=== PATIENT | female | born 1945 | race Caucasian/White ===

== ENCOUNTER 2025-08-29 12:02 | Inpatient (IN) | payer MEDICARE, OTHER, SELFPAY ==
--- OUTSIDE RECORDS SUMMARY | 2025-08-14 20:00 | XMS_ITS | Clinical Summary ---
Author Organization Unknown Care Team Providers Care Physician Specialist Name Role Phone JANINE DAVIES, DENZEL Unavailable Unavaila ble FEEZOGerman OT, BALBIR Unavailable Unavailable TEENA PT, MAHENDRA Unavailable Unavailable JESSE RN, EDEL Unavailable Unavailable MILLER BUSINESS APPLICATIONS SPECIALIST, STUART Unavailable Unavailable LEONEL AHUMADAN, CORBIN Unavailable Unavailable Payers Payer Name Policy Type Policy Number Effective Date Expira tion Date MEDICARE[facility] [id number] Problems Condition Name Condition Details Condition Category Status Onset Date Resolution Date Last Treatment Date Treating Clinician Comments PRIMARY GENERALIZED (OSTEO)ARTHR ITIS Active 05-23 00:00: 00 OTHER CHRONIC PAIN Active 05-23 00:00: 00 RADICULOPATH Y, LUMBOSACRAL REGION Active 05-23 00:00: 00 FIBROMYALGIA Active 05-23 00:00: 00 TYPE 2 DIABETES MELLITUS WITH DIABETIC POLYNEUROPAT HY Active 05-23 00:00: 00 ATHSCL HEART DISEASE OF [place] CORONARY ARTERY W/O ANG PCTRS Active 05-23 00:00: 00 LOCALIZED EDEMA Active 05-23 00:00: 00 ESSENTIAL (PRIMARY) HYPERTENSION Active 05-23 00:00: 00 PURE HYPERCHOLEST EROLEMIA, UNSPECIFIED Active 05-23 00:00: 00 PAROXYSMAL ATRIAL FIBRILLATION Active 05-23 00:00: 00 SICK SINUS SYNDROME Active 1- 00:00: 00 HYPOTHYROIDI SM, UNSPECIFIED Active 05-23 00:00: 00 GASTRO-ESOPH AGEAL REFLUX DISEASE WITHOUT ESOPHAGITIS Active 05-23 00:00: 00 SLEEP APNEA, UNSPECIFIED Active 05-23 00:00: 00 GOUT, UNSPECIFIED Active 05-23 00:00: 00 PULMONARY HYPERTENSION , UNSPECIFIED Active 05-23 00:00: 00 PRESENCE OF CARDIAC PACEMAKER Active 11-07 00:00: 00 Allergies, Adverse Reactions, Alerts Allergy Name Allergy Type Status Severity Reaction(s) Onset Date Inactive Date Treating Clinician Comments NAPROXEN Propensity to adverse reactions Active 2025-05 13:25:4 8 Medications Ordered Medication Name Filled Medication Name Start Date Stop Date Current Medication? Ordering Clinician Indication Dosage Frequency Signature (SIG) Comments Components donepezil 10 mg tablet 04-13 00:00: 00 09-04 23:59 :00 No [id number] MOOD 1 tablet DAILY 1 tablet DAILY (route: oral) Med Classific ation: Cognitive Disorder Therapy allopurinol 100 mg tablet 04-08 00:00: 00 09-04 23:59 :00 No [id number] GOUT 1 tablet 2 TIMES DAILY 1 tablet 2 TIMES DAILY (route: oral) Med Classific ation: Gout and Hyperuric emia Therapy methocarbam ol 500 mg tablet 04-08 00:00: 00 09-04 23:59 :00 No [id number] PAIN 1 tablet 2 TIMES DAILY 1 tablet 2 TIMES DAILY (route: oral) Med Classific ation: Locomotor System levothyroxi ne 112 mcg tablet 03-29 00:00: 00 09-04 23:59 :00 No [id number] THYROID 1 tablet DAILY 1 tablet DAILY (route: oral) Med Classific ation: Endocrine aspirin 81 mg tablet,gonzalez yed release 04-19 00:00: 00 09-04 23:59 :00 No [id number] HEART HEALTH 1 tablet DAILY 1 tablet DAILY (route: oral) Med Classific ation: Hematolog ical Agents carvedilol 3.125 mg tablet 04-19 00:00: 00 09-04 23:59 :00 No [id number] HTN 1 tablet 2 TIMES DAILY 1 tablet 2 TIMES DAILY (route: oral) Med Classific ation: Cardiovas cular Therapy Agents famotidine 40 mg tablet 04-19 00:00: 00 09-04 23:59 :00 No [id number] GERD 1 tablet DAILY 1 tablet DAILY (route: oral) Med Classific ation: Gastroint estinal Therapy Agents rosuvastati n 5 mg tablet 04-19 00:00: 00 09-04 23:59 :00 No [id number] CHOLESTEROL 1 tablet DAILY 1 tablet DAILY (route: oral) Med Classific ation: Cardiovas cular Therapy Agents allopurinol 100 mg tablet 2023-11 00:00: 00 05-22 23:59 :00 No [id number] GOUT 1 tablet 2 TIMES DAILY 1 tablet 2 TIMES DAILY (route: oral) Med Classific ation: Gout and Hyperuric emia Therapy Aspirin Childrens 81 mg chewable tablet 2023-11 00:00: 00 05-22 23:59 :00 No [id number] HEART 1 tablet DAILY 1 tablet DAILY (route: oral) Med Classific ation: Hematolog ical Agents baclofen 20 mg tablet 2023-11 00:00: 00 05-22 23:59 :00 No [id number] MUSCLE SPASMS 1 tablet 2 TIMES DAILY 1 tablet 2 TIMES DAILY (route: oral) Med Classific ation: Locomotor System carvedilol 3.125 mg tablet 2023-11 00:00: 00 05-22 23:59 :00 No [id number] BLOOD PRESSURE 1 tablet 2 TIMES DAILY 1 tablet 2 TIMES DAILY (route: oral) Med Classific ation: Cardiovas cular Therapy Agents memantine 28 mg capsule sprinkle,ex tended release 24hr 2023-11 00:00: 00 05-22 23:59 :00 No [id number] CONFUSION 1 capsule DAILY 1 capsule DAILY (route: oral) Med Classific ation: Cognitive Disorder Therapy baclofen 20 mg tablet 04-23 00:00: 00 Yes [id number] MUSCLE RELAXANT 1 tablet 2 TIMES DAILY 1 tablet 2 TIMES DAILY (route: oral) Med Classific ation: Locomotor System acetaminoph en 500 mg tablet 11-07 00:00: 00 Yes [id number] PAIN 2 tablet EVERY 8 HOURS 2 tablet EVERY 8 HOURS (route: oral) Med Classific ation: Analgesic , Anti-infl ammatory or Antipyret ic Adult Low Dose Aspirin 81 mg tablet,gonzalez yed release 11-07 00:00: 00 Yes [id number] BLOOD THINNER 1 tablet DAILY 1 tablet DAILY (route: oral) Med Classific ation: Hematolog ical Agents calcium 600 mg (as carbonate)- vitamin D3 20 mcg (800 unit) tablet 11-07 00:00: 00 Yes [id number] SUPPLIMENT 1 tablet DAILY 1 tablet DAILY (route: oral) Med Classific ation: Electroly te Balance-N utritiona l Products carvedilol 3.125 mg tablet 11-07 00:00: 00 Yes [id number] HYPERTENTIO N 1 tablet 2 TIMES DAILY 1 tablet 2 TIMES DAILY (route: oral) Med Classific ation: Cardiovas cular Therapy Agents Centrum Silver Women 8 mg iron-400 mcg-50 mcg tablet 11-07 00:00: 00 Yes [id number] SUPPLIMENT 1 tablet DAILY 1 tablet DAILY (route: oral) Med Classific ation: Electroly te Balance-N utritiona l Products Hair,Skin and Nails (folic acid-biotin ) 133.3 mcg-1,666.7 mcg capsule 11-07 00:00: 00 Yes [id number] SUPPLIMENT 1 capsule DAILY 1 capsule DAILY (route: oral) Med Classific ation: Electroly te Balance-N utritiona l Products ibuprofen 200 mg capsule 11-07 00:00: 00 Yes [id number] PAIN 1 capsule 3 TIMES DAILY 1 capsule 3 TIMES DAILY (route: oral) Med Classific ation: Analgesic , Anti-infl ammatory or Antipyret ic Immune Essentials Daily 750 mcg-150 mg-31.25 mcg capsule 11-07 00:00: 00 Yes [id number] SUPPLIMENT 1 capsule 2 TIMES DAILY 1 capsule 2 TIMES DAILY (route: oral) Med Classific ation: Alternati ve Therapy loratadine 10 mg tablet 11-07 00:00: 00 Yes [id number] SEASONAL ALLERGIES 1 tablet DAILY 1 tablet DAILY (route: oral) Med Classific ation: Respirato ry Therapy Agents memantine 28 mg capsule sprinkle,ex tended release 24hr 11-07 00:00: 00 Yes [id number] DEMENTIA 1 capsule DAILY 1 capsule DAILY (route: oral) Med Classific ation: Cognitive Disorder Therapy psyllium husk 0.4 gram capsule 11-07 00:00: 00 Yes [id number] SUPPLIMENT 1 capsule DAILY 1 capsule DAILY (route: oral) Med Classific ation: Gastroint estinal Therapy Agents turmeric root extract 500 mg capsule 11-07 00:00: 00 Yes [id number] SUPPLEMENT 3 capsule 2 TIMES DAILY 3 capsule 2 TIMES DAILY (route: oral) Med Classific ation: Alternati ve Therapy Vitamin B-12 1,000 mcg tablet 11-07 00:00: 00 Yes [id number] SUPPLIMENT 1 tablet DAILY 1 tablet DAILY (route: oral) Med Classific ation: Electroly te Balance-N utritiona l Products Vital Signs Vital Name Observation Time Observation Value Commen ts Temperature 2025-08-15 14:01:00.000 97.5 [degF] Temperature 2025-07-25 15:58:00.000 97.6 [degF] Pulse 2025-08-15 14:01:00.000 70 /min Pulse 2025-07-25 15:58:00.000 69 /min O2 Saturation (%) 2025-08-15 14:01:00.000 92 % Respirations 2025-08-15 14:01:00.000 18 /min Respirations 2025-07-25 15:58:00.000 18 /min Systolic Blood Pressure 2025-08-15 14:01:00.000 128 mm [Hg] Systolic Blood Pressure 2025-07-25 15:58:00.000 131 mm [Hg] Diastolic Blood Pressure 2025-08-15 14:01:00.000 78 mm [Hg] Diastolic Blood Pressure 2025-07-25 15:58:00.000 69 mm [Hg] Plan of Treatment Planned Activity Planned Date Details Comments Future Scheduled Test AGENCY MAY PERFORM A RESUMPTION OF CARE VISIT FOLLOWING ANY HOSPITAL ADMISSION. PT TO EVALUATE, OBSERVE / ASSESS, AND MONITOR, BUSINESS APPLICATIONS SPECIALIST TO OBSERVE AND MONITOR, PROVIDE SKILLED THERAPEUTIC INTERVENTION, ACTIVITY, EDUCATION, AND TRAINING TO ADDRESS; [code = AGENCY MAY PERFORM A RESUMPTION OF CARE VISIT FOLLOWING ANY HOSPITAL ADMISSION. PT TO EVALUATE, OBSERVE / ASSESS, AND MONITOR, BUSINESS APPLICATIONS SPECIALIST TO OBSERVE AND MONITOR, PROVIDE SKILLED THERAPEUTIC INTERVENTION, ACTIVITY, EDUCATION, AND TRAINING TO ADDRESS;] Future Scheduled Test SIT TO/FRO M STAND TRANSFERS (PT/BUSINESS APPLICATIONS SPECIALIST) [code = SIT TO/FROM STAND TRANSFERS (PT/BUSINESS APPLICATIONS SPECIALIST)] Future Scheduled Test PT/BUSINESS APPLICATIONS SPECIALIST TO PROVIDE GAIT TRAINING FOR IMPROVED MOBILITY AND /OR TO NORMALIZE GAIT PATTERN [code = PT/BUSINESS APPLICATIONS SPECIALIST TO PROVIDE GAIT TRAINING FOR IMPROVED MOBILITY AND /OR TO NORMALIZE GAIT PATTERN] Future Scheduled Test THERAPEUTI C EXERCISES AND ESTABLISHING A HOME EXERCISE PROGRAM (PT/BUSINESS APPLICATIONS SPECIALIST) [code = THERAPEUTIC EXERCISES AND ESTABLISHING A HOME EXERCISE PROGRAM (PT/BUSINESS APPLICATIONS SPECIALIST)] Future Scheduled Test PT/BUSINESS APPLICATIONS SPECIALIST TO PROVIDE STAIR TRAINING [code = PT/BUSINESS APPLICATIONS SPECIALIST TO PROVIDE STAIR TRAINING] Goal 2025-07-19 Patient Goal - REDUCEDVPAIN Goal 2025-08-15 Patient Goal - REDUCED PAIN Goal Provider Goal - Goal Provider Goal - PT STG: PATIENT WILL DEMONSTRATE IMPROVED ABILITY TO PERFORM SIT TO/FROM STAND TRANSFERS TO REDUCE THE RISK OF SKIN BREAKDOWN AND REDUCE FALL RISK FROM SBA TO IND WITHIN 4 WEEKS Goal Provider Goal - PT LTG: PATIENT WILL DEMONSTRATE IMPROVED AMBULATION FROM SBA TO IND WITH APPROPRIATE AD WITHIN 8 WEEKS. Goal Provider Goal - PT LTG: PATIENT WILL DEMONSTRATE IMPROVED FUNCTIONAL STRENGTH EVIDENCED BY FIVE TIMES SIT TO STAND TEST (CUT SCORE >12 SECONDS INDICATES AN INCREASED FALL RISK) IMPROVING FROM 16 SECONDS TO LESS THAN OR EQUAL TO 12 SECONDS WITHIN 8 WEEKS IN ORDER TO DECREASE FALL RISK PT LTG: PATIENT WILL DEMONSTRATE INDEPENDENCE AND COMPLIANCE WITH HEP WITHIN 4 WEEKS Goal Provider Goal - PT LTG: PATIENT WILL DEMONSTRATE IMPROVED ABILITY TO SAFELY NEGOTIATE STAIRS FROM MIN TO SBA USING HANDRAIL IN ORDER TO IMPROVE SAFETY ENTERING AND EXITTING HOME WITHIN 8 WEEKS Reason for Visit INDEPENDENT WITH USE OF ASSISTIVE DEVICE Encounters Start Date/Time End Date/Time Encounter Type Admission Type Attending [facility] Care Facility Care Department Encounter ID Discharge Date Discharge Status Discharge Condition Discharge Reason Percent Goals Met 2025-07-23 00:00:00 2025-08-15 00:00:00 Outpatient NATHANAELRTJOSY MILLIGAN JESSEEDEL RODRIGUEZ [facility] [id number] 2025-08-15 00:00:00 DISCHARGE TO HOME OR SELF CARE INDEPENDEN T WITH USE OF ASSISTIVE DEVICE HH - NO LONGER REQUIRES SKILLED CARE 100.00
[2025-08-29] VITALS (12 sets, daily range): BP systolic 106–185; BP diastolic 47–91; PULSE 60–69; RESP 10–17; TEMP 36.4–36.6; O2SAT 91–99; BMI 35.4; BMI 35.1
--- NOTE | 2025-08-29 12:07 | [facility].EDGENADL ---
Discharge Plan Disposition Patient Disposition: Admitted Condition: Good Clinical Impressions Clinical Impression: Urinary tract infection, Dehydration, Hypokalemia, Hypomagnesemia Discharge ED Provider: Arnoldo Pacekr General Adult HPI <Akua Sebastián - Last Filed: 08/29/25 14:30> General Chief complaint: Weakness Stated complaint: Sent per [facility] for possible [facility]TI Time Seen by Provider: 08/29/25 12:11 History of Present Illness HPI narrative: 80-year-old female presents emergency department with multiple complaints. She was originally seen at urgent care with concerns for possible urinary tract infection however when they were unable to get a urine sample they sent her to the ER for evaluation. Patient complains of shortness of breath. Son reports that she has been confused recently with cough as well as urinary incontinence. They deny fevers or vomiting. Denies chest pain. Related Data Home Medications ?Medication ?Instructions ?Recorded ?Confirmed baclofen 20 mg tablet mg PO 08/29/25 08/29/25 carvedilol 3.125 mg tablet mg PO 08/29/25 08/29/25 memantine 28 mg capsule mg PO 08/29/25 08/29/25 sprinkle,extended release 24hr Allergies Allergy/AdvReac Type Severity Reaction Status Date / Time naphazoline (From Naphcon) Allergy Mild Rash Verified 08/29/25 11:22 [facility] <Akua Sebastián - Last Filed: 08/29/25 14:30> [facility] Disclaimer: The information contained in this section may have been updated after the patient was seen, as this information can be updated by other users. Social History (Updated 08/29/25 @ 11:23 by DONALD Sosa) Smoking Status: Never smoker alcohol intake: never current occupational status: retired Travel in the last 8 weeks?: None Have you lived/traveled outside [place] in past 30 days?: No Contact w/someone who lives/traveled outside US past 30 days?: No Exposure to someone with infectious disease in past 14 days?: No Do you have a fever (greater than 100.4 F or 38 C)?: No Have you tested positive for COVID-19?: No Exposed to someone with COVID-19 in past 14 days?: No Do you have a sore throat?: No Do you have a cough?: No Do you have any weakness?: No Do you have any diarrhea?: No Are you experiencing any unusual bleeding?: No Do you have any muscle aches/pain?: No Do you have any abdominal pain?: No Are you experiencing loss of taste or smell?: No <Akua Lowery - Last Filed: 08/29/25 14:30> ROS Obtained: Yes other Respiratory Respiratory: Reports shortness of breath and Reports cough Gastrointestinal Gastrointestingal: Reports diarrhea Genitourinary Female Genitourinary: Reports urinary incontinence Neurologic Neurologic: Reports confusion Physical Exam <Akua Lowery - Last Filed: 08/29/25 14:30> Narrative Physical exam: General: Awake, aware, in no acute distress HEENT: Normocephalic, no evidence of trauma. Patient is speaking in a whisper during the exam. When I asked her if she was speaking like that due to sore throat or shortness of breath she says no but she is unsure why she is speaking in a whisper. CV: RRR, no murmurs, rubs, or gallops Pulm: CTA bilaterally with no rhonchi, rales, wheezes ABD: Nontender, no swelling, guarding, or rebound tenderness Psych: Patient with flat affect but is cooperative with exam. Musculoskeletal: Sensations intact with 2+ pulses in all extremities. Patient moving all extremities without difficulty. Neuro: Patient oriented to person place and time however she is poor historian and unable to answer questions about her past medical history and is vague when trying to describe her symptoms that she is experiencing today. General General appearance: alert Respiratory Respiratory exam: Present normal lung sounds bilaterally Cardiovascular Cardiovascular exam: Present regular rate Neurological Exam Neurological exam: Present alert Medical Decision Making <Akua Lowery - Last Filed: 08/29/25 14:30> Medical Records Screening: Per USPSTF and CDC recommendations, given the prevalence of disease in our region, it is our hospital?s policy to screen for HIV and viral Hepatitis for all patients aged 18 and over and those with ongoing risk factors. Zach Inquiry Pt receiving controlled substance: No Vital Signs: 08/29/25 12:27 08/29/25 12:51 08/29/25 13:00 Temperature 97.8 F Temperature Source Oral Pulse Rate 64 65 Pulse Rate [Right Radial] 64 Respiratory Rate 17 12 11 L Blood Pressure 138/72 150/74 H Blood Pressure [Right Arm] 162/84 H Blood Pressure Mean [Right Arm] 110 Blood Pressure Source [Right Arm] Automatic Cuff Blood Pressure Position [Right Arm] Sitting 02 Sat by Pulse Oximetry 97 94 L 93 L Oxygen Delivery Method Room Air 08/29/25 13:37 08/29/25 14:01 Temperature Temperature Source Pulse Rate 66 61 Pulse Rate [Right Radial] Respiratory Rate 10 L Blood Pressure 109/52 L 106/47 L Blood Pressure [Right Arm] Blood Pressure Mean [Right Arm] Blood Pressure Source [Right Arm] Blood Pressure Position [Right Arm] 02 Sat by Pulse Oximetry 93 L 96 Oxygen Delivery Method Room Air Lab Data Lab Results 08/29/25 12:35: WBC 5.7, RBC 3.98 L, Hgb 12.7, Hct 37.6, MCV 94.5, MCH 31.9 H, MCHC 33.8, RDW 13.3, Plt Count 211, MPV 10.1, Neut % (Auto) 75.4, Lymph % (Auto) 12.3, Putnam % (Auto) 10.7 H, Eos % (Auto) 0.7, Baso % (Auto) 0.5, Neut # (Auto) 4.3, Lymph # (Auto) 0.7, Putnam # (Auto) 0.6, Eos # (Auto) 0.0, Baso # (Auto) 0.0, Sodium 133 L, Potassium 3.2 L, Chloride 92 L, Carbon Dioxide 26, Anion Gap 18.2 H, BUN 13, Creatinine 1.50 H, Estimated Creat Clear 35, Estimated GFR 33 L, Est GFR ( Amer) 40 L, Glucose 119 H, Lactate 5.4 H, Calcium 8.3 L, Magnesium 1.4 L, Total Bilirubin 0.8, AST 46 H, ALT 25, Alkaline Phosphatase 82, Troponin I < 0.01, NT-Pro-B Natriuret Pep 880 H, Total Protein 7.2, Albumin 3.8, Globulin 3.4 H, Albumin/Globulin Ratio 1.1, Lipase 94 08/29/25 12:50: Urine Color Yellow, Urine Appearance Cloudy, Urine pH 5.5, Ur Specific [place] 1.025, Urine Protein 2+ A, Urine Glucose (UA) Negative, Urine Ketones Trace, Urine Blood Negative, Urine Nitrate Negative, Urine Bilirubin 1+ A, Urine Urobilinogen 0.2, Ur Leukocyte Esterase 2+ A, Urine RBC Occasional, Urine WBC 20-50, Ur Squamous Epith Cells None, Urine Bacteria Trace 08/29/25 12:35 08/29/25 12:35 Orders (Tests/Meds): ED MEDICATIONS Generic Name Dose Route Start Last Admin Trade Name Freq PRN Reason Stop Dose Admin Acetaminophen 650 mg 08/29/25 14:25 Acetaminophen 325mg Tab PO 09/28/25 14:24 Q4HP PRN Fever or Mild Pain (1-3) Sodium Chloride 1,000 mls @ 50 mls/hr 08/29/25 14:30 Sod Chlor 0.9% 1000ml Bag IV 09/28/25 14:29 .Q20H FREDERICK Ondansetron HCl 4 mg 08/29/25 14:25 Ondansetron 4mg/2ml Vial IV 09/28/25 14:24 Q8HP PRN Nausea Sodium Chloride 10 ml 08/29/25 14:33 Sodium Chloride 0.9% 10ml Flush Syringe IV 09/28/25 14:32 NEEDED PRN Maintain IV Site Discontinued Medications Generic Name Dose Route Start Last Admin Trade Name Freq PRN Reason Stop Dose Admin Enoxaparin Sodium 40 mg 08/29/25 14:29 Enoxaparin 40mg/0.4ml Syringe SUBCUT 08/29/25 14:30 ONCE ONE Sodium Chloride 1,000 mls @ 999 mls/hr 08/29/25 13:00 08/29/25 13:23 Sod Chlor 0.9% 1000ml Bag IV 08/29/25 14:00 999 mls/hr .Q1H1M ONE Administration Ceftriaxone Sodium 1 gm/ 50 mls @ 100 mls/hr 08/29/25 14:11 08/29/25 14:24 Sodium Chloride IV 08/29/25 14:40 100 mls/hr ONCE ONE Administration Magnesium Oxide 400 mg 08/29/25 13:01 08/29/25 13:25 Magnesium Oxide 400mg Tablet PO 08/29/25 13:02 400 mg ONCE ONE Administration Potassium Chloride 40 meq 08/29/25 13:00 08/29/25 13:25 Potassium Chloride 20meq Tab PO 08/29/25 13:01 40 meq ONCE ONE Administration ORDERS Category Date Time Status CT head/brain wo con Stat Cat Scan 08/29/25 12:37 Completed XR chest portable Stat Exams 08/29/25 12:38 Completed BNP [NT Pro Brain Natriuretic Pep.] Stat Lab 08/29/25 12:35 Completed CBC w/Auto Diff [Complete Blood Count Auto Diff] Stat Lab 08/29/25 12:35 Completed CMP [Comprehensive Metabolic Panel] Stat Lab 08/29/25 12:35 Completed Complete Blood Count Auto Diff AMLAB Lab 08/30/25 06:00 Ordered Complete Blood Count Auto Diff AMLAB Lab 08/31/25 06:00 Ordered Complete Blood Count Auto Diff AMLAB Lab 09/01/25 06:00 Ordered Comprehensive Metabolic Panel AMLAB Lab 08/30/25 06:00 Ordered Comprehensive Metabolic Panel AMLAB Lab 08/31/25 06:00 Ordered Comprehensive Metabolic Panel AMLAB Lab 09/01/25 06:00 Ordered Full Resp Panel w/COVID ([facility]) Routine Lab 08/29/25 12:54 Received HIV Combo Stat Lab 08/29/25 12:35 Received Hemoglobin A1C Routine Lab 08/29/25 12:35 Received Hepatitis C Ab Qual. W/ RFX Stat Lab 08/29/25 12:35 Received Lactic Acid Stat Lab 08/29/25 12:35 Completed Lipase Stat Lab 08/29/25 12:35 Completed Lipid Panel AMLAB Lab 08/30/25 06:00 Ordered Magnesium AMLAB Lab 08/30/25 06:00 Ordered Magnesium AMLAB Lab 08/31/25 06:00 Ordered Magnesium AMLAB Lab 09/01/25 06:00 Ordered Magnesium Stat Lab 08/29/25 12:35 Completed TSH [Thyroid Stimulating Hormone] Routine Lab 08/29/25 12:35 Received Troponin I Q3H Lab 08/29/25 12:35 Completed Troponin I Q3H Lab 08/29/25 15:45 Ordered Urinalysis and Microscopic Stat Lab 08/29/25 12:50 Completed Blood Culture Stat Micro 08/29/25 13:37 Received Urine Culture Stat Micro 08/29/25 12:50 Received Medical Decision Narrative: Initial impression of presenting illness: 80-year-old female presents emergency department with her son. They state that they were seen at urgent care prior to coming to ER they were there to be evaluated for possible urinary tract infection. State when they were unable to get a urine sample at the urgent care they sent her to ER for evaluation. Patient denies any urinary symptoms however her son reports that she has had frequent episodes of urinary incontinence. He also states that she has had a cough and has been confused. Differential diagnosis includes but is not limited to: Urinary tract infection, pneumonia, viral illness, intracranial abnormality, dehydration, sepsis Patient arrives hemodynamically stable, afebrile, without respiratory distress with vital signs interpreted by myself. Initial physical exam grossly unremarkable. Patient does have flat affect but is alert and oriented to person place and time. She is a poor historian and is unable to answer questions about past medical history and gives vague responses when asked about her symptoms today. Patient is whispering throughout the exam. When I asked her as to why she stays she is unsure why she is whispering but denies it having anything to do with sore throat or shortness of breath. Abdomen soft nontender with normal active bowel sounds. Moving all extremities without difficulty. Patient with 2+ pulses and intact sensation. Initial diagnostic plan: Laboratory studies, chest x-ray, CT of head without contrast, respiratory panel Results from initial plan were reviewed and interpreted by myself, pertinent positives include: Magnesium 1.4, potassium 3.2, creatinine 1.5, GFR was 33, BNP 880, lactic acid 5.4. Urinalysis was positive for trace bacteria as well as 20-50 white blood cells per high-power field. Rest of laboratory studies were nonactionable. X-ray as well as CT of head without contrast were also unremarkable. Respiratory panel is pending at this time. Interventions in the ED: Patient was given oral magnesium and potassium for supplementation. She was also given normal saline bolus for hydration. We also started patient on Rocephin for treatment of her urinary tract infection. Patient was made aware of the results and the findings, upon reevaluation patient has remained stable throughout stay, symptoms remained stable. Upon reevaluation patient states she is feeling better. She is resting comfortably in her bed and playing on the phone when I went in to update her on her workup findings. Consultation/discussion with other physicians: Spoke with the hospitalist Lizbet NICHOLS regarding patient's presenting complaint and workup findings. She was agreeable to accept patient to this facility for further treatment of dehydration and urinary tract infection. Disposition: Updated patient on her workup findings and the need for admission and she is agreeable at this time. <Arnoldo Packer MD - Last Filed: 08/29/25 14:46> Vital Signs: 08/29/25 12:27 08/29/25 12:51 08/29/25 13:00 Temperature 97.8 F Temperature Source Oral Pulse Rate 64 65 Pulse Rate [Right Radial] 64 Respiratory Rate 17 12 11 L Blood Pressure 138/72 150/74 H Blood Pressure [Right Arm] 162/84 H Blood Pressure Mean [Right Arm] 110 Blood Pressure Source [Right Arm] Automatic Cuff Blood Pressure Position [Right Arm] Sitting 02 Sat by Pulse Oximetry 97 94 L 93 L Oxygen Delivery Method Room Air 08/29/25 13:37 08/29/25 14:01 Temperature Temperature Source Pulse Rate 66 61 Pulse Rate [Right Radial] Respiratory Rate 10 L Blood Pressure 109/52 L 106/47 L Blood Pressure [Right Arm] Blood Pressure Mean [Right Arm] Blood Pressure Source [Right Arm] Blood Pressure Position [Right Arm] 02 Sat by Pulse Oximetry 93 L 96 Oxygen Delivery Method Room Air Lab Data Lab Results 08/29/25 12:35: WBC 5.7, RBC 3.98 L, Hgb 12.7, Hct 37.6, MCV 94.5, MCH 31.9 H, MCHC 33.8, RDW 13.3, Plt Count 211, MPV 10.1, Neut % (Auto) 75.4, Lymph % (Auto) 12.3, [place] % (Auto) 10.7 H, Eos % (Auto) 0.7, Baso % (Auto) 0.5, Neut # (Auto) 4.3, Lymph # (Auto) 0.7, [place] # (Auto) 0.6, Eos # (Auto) 0.0, Baso # (Auto) 0.0, Sodium 133 L, Potassium 3.2 L, Chloride 92 L, Carbon Dioxide 26, Anion Gap 18.2 H, BUN 13, Creatinine 1.50 H, Estimated Creat Clear 35, Estimated GFR 33 L, Est GFR ( Amer) 40 L, Glucose 119 H, Lactate 5.4 H, Calcium 8.3 L, Magnesium 1.4 L, Total Bilirubin 0.8, AST 46 H, ALT 25, Alkaline Phosphatase 82, Troponin I < 0.01, NT-Pro-B Natriuret Pep 880 H, Total Protein 7.2, Albumin 3.8, Globulin 3.4 H, Albumin/Globulin Ratio 1.1, Lipase 94 08/29/25 12:50: Urine Color Yellow, Urine Appearance Cloudy, Urine pH 5.5, Ur Specific [place] 1.025, Urine Protein 2+ A, Urine Glucose (UA) Negative, Urine Ketones Trace, Urine Blood Negative, Urine Nitrate Negative, Urine Bilirubin 1+ A, Urine Urobilinogen 0.2, Ur Leukocyte Esterase 2+ A, Urine RBC Occasional, Urine WBC 20-50, Ur Squamous Epith Cells None, Urine Bacteria Trace Orders (Tests/Meds): ED MEDICATIONS Generic Name Dose Route Start Last Admin Trade Name Ag PRN Reason Stop Dose Admin Acetaminophen 650 mg 08/29/25 14:25 Acetaminophen 325mg Tab PO 09/28/25 14:24 Q4HP PRN Fever or Mild Pain (1-3) Sodium Chloride 1,000 mls @ 50 mls/hr 08/29/25 14:30 Sod Chlor 0.9% 1000ml Bag IV 09/28/25 14:29 .Q20H FREDERICK Ondansetron HCl 4 mg 08/29/25 14:25 Ondansetron 4mg/2ml Vial IV 09/28/25 14:24 Q8HP PRN Nausea Sodium Chloride 10 ml 08/29/25 14:33 Sodium Chloride 0.9% 10ml Flush Syringe IV 09/28/25 14:32 NEEDED PRN Maintain IV Site Discontinued Medications Generic Name Dose Route Start Last Admin Trade Name Ag PRN Reason Stop Dose Admin Enoxaparin Sodium 40 mg 08/29/25 14:29 Enoxaparin 40mg/0.4ml Syringe SUBCUT 08/29/25 14:30 ONCE ONE Sodium Chloride 1,000 mls @ 999 mls/hr 08/29/25 13:00 08/29/25 13:23 Sod Chlor 0.9% 1000ml Bag IV 08/29/25 14:00 999 mls/hr .Q1H1M ONE Administration Ceftriaxone Sodium 1 gm/ 50 mls @ 100 mls/hr 08/29/25 14:11 08/29/25 14:24 Sodium Chloride IV 08/29/25 14:40 100 mls/hr ONCE ONE Administration Magnesium Oxide 400 mg 08/29/25 13:01 08/29/25 13:25 Magnesium Oxide 400mg Tablet PO 08/29/25 13:02 400 mg ONCE ONE Administration Potassium Chloride 40 meq 08/29/25 13:00 08/29/25 13:25 Potassium Chloride 20meq Tab PO 08/29/25 13:01 40 meq ONCE ONE Administration ORDERS Category Date Time Status CT head/brain wo con Stat Cat Scan 08/29/25 12:37 Completed XR chest portable Stat Exams 08/29/25 12:38 Completed BNP [NT Pro Brain Natriuretic Pep.] Stat Lab 08/29/25 12:35 Completed CBC w/Auto Diff [Complete Blood Count Auto Diff] Stat Lab 08/29/25 12:35 Completed CMP [Comprehensive Metabolic Panel] Stat Lab 08/29/25 12:35 Completed Complete Blood Count Auto Diff AMLAB Lab 08/30/25 06:00 Ordered Complete Blood Count Auto Diff AMLAB Lab 08/31/25 06:00 Ordered Complete Blood Count Auto Diff AMLAB Lab 09/01/25 06:00 Ordered Comprehensive Metabolic Panel AMLAB Lab 08/30/25 06:00 Ordered Comprehensive Metabolic Panel AMLAB Lab 08/31/25 06:00 Ordered Comprehensive Metabolic Panel AMLAB Lab 09/01/25 06:00 Ordered Full Resp Panel w/COVID ([facility]) Routine Lab 08/29/25 12:54 Received HIV Combo Stat Lab 08/29/25 12:35 Received Hemoglobin A1C Routine Lab 08/29/25 12:35 Received Hepatitis C Ab Qual. W/ RFX Stat Lab 08/29/25 12:35 Received Lactic Acid Stat Lab 08/29/25 12:35 Completed Lipase Stat Lab 08/29/25 12:35 Completed Lipid Panel AMLAB Lab 08/30/25 06:00 Ordered Magnesium AMLAB Lab 08/30/25 06:00 Ordered Magnesium AMLAB Lab 08/31/25 06:00 Ordered Magnesium AMLAB Lab 09/01/25 06:00 Ordered Magnesium Stat Lab 08/29/25 12:35 Completed TSH [Thyroid Stimulating Hormone] Routine Lab 08/29/25 12:35 Received Troponin I Q3H Lab 08/29/25 12:35 Completed Troponin I Q3H Lab 08/29/25 15:45 Ordered Urinalysis and Microscopic Stat Lab 08/29/25 12:50 Completed Blood Culture Stat Micro 08/29/25 13:37 Received Urine Culture Stat Micro 08/29/25 12:50 Received ECG Data Tracing #1: I reviewed this ECG and interpreted as documented below: Atrial paced rhythm but no ST elevation or depression. No STEMI Medical Decision Narrative: Initial impression of presenting illness: 80-year-old female presents emergency department with her son. They state that they were seen at urgent care prior to coming to ER they were there to be evaluated for possible urinary tract infection. State when they were unable to get a urine sample at the urgent care they sent her to ER for evaluation. Patient denies any urinary symptoms however her son reports that she has had frequent episodes of urinary incontinence. He also states that she has had a cough and has been confused. Differential diagnosis includes but is not limited to: Urinary tract infection, pneumonia, viral illness, intracranial abnormality, dehydration, sepsis Patient arrives hemodynamically stable, afebrile, without respiratory distress with vital signs interpreted by myself. Initial physical exam grossly unremarkable. Patient does have flat affect but is alert and oriented to person place and time. She is a poor historian and is unable to answer questions about past medical history and gives vague responses when asked about her symptoms today. Patient is whispering throughout the exam. When I asked her as to why she stays she is unsure why she is whispering but denies it having anything to do with sore throat or shortness of breath. Abdomen soft nontender with normal active bowel sounds. Moving all extremities without difficulty. Patient with 2+ pulses and intact sensation. Initial diagnostic plan: Laboratory studies, chest x-ray, CT of head without contrast, respiratory panel Results from initial plan were reviewed and interpreted by myself, pertinent positives include: Magnesium 1.4, potassium 3.2, creatinine 1.5, GFR was 33, BNP 880, lactic acid 5.4. Urinalysis was positive for trace bacteria as well as 20-50 white blood cells per high-power field. Rest of laboratory studies were nonactionable. X-ray as well as CT of head without contrast were also unremarkable. Respiratory panel is pending at this time. Interventions in the ED: Patient was given oral magnesium and potassium for supplementation. She was also given normal saline bolus for hydration. We also started patient on Rocephin for treatment of her urinary tract infection. Patient was made aware of the results and the findings, upon reevaluation patient has remained stable throughout stay, symptoms remained stable. Upon reevaluation patient states she is feeling better. She is resting comfortably in her bed and playing on the phone when I went in to update her on her workup findings. Consultation/discussion with other physicians: Spoke with the hospitalist Lizbet NICHOLS regarding patient's presenting complaint and workup findings. She was agreeable to accept patient to this facility for further treatment of dehydration and urinary tract infection. Disposition: Updated patient on her workup findings and the need for admission and she is agreeable at this time. I was consulted by the BHANU, and we discussed the complexity of the problems being addressed. I approve the treatment and management plan for this patient's care in the emergency department, thus performing a substantive portion of the medical decision making. Arnoldo Packer MD Critical Care <Akua Lowery - Last Filed: 08/29/25 14:30> Critical Care Time Critical Care Time: No
--- NOTE | 2025-08-29 12:37 | CT_ITS ---
FINAL REPORT TECHNIQUE: Noncontrast exam This study was performed with techniques to keep radiation doses as low as reasonably achievable, (ALARA). Individualized dose reduction techniques using automated exposure control or adjustment of mA and/or kV according to the patient''s size were employed. CLINICAL HISTORY: Confusion FINDINGS: Mild age-appropriate atrophy and mild chronic ischemic white matter changes are noted. No cortical edema is present. There is no mass or hemorrhage. Ventricles are normal. Bone windows show no skull fracture or obvious obstructive lesion. IMPRESSION: 1. No acute intracranial abnormality or obvious mass. 2. Atrophy and chronic ischemic white matter changes as above. Reviewed, Interpreted and Dictated by Teodora Hector MD Transcribed by Rocio Shannon Authenticated and . [facility]
--- NOTE | 2025-08-29 12:38 | XR_ITS ---
FINAL REPORT CLINICAL HISTORY: cough/congestion FINDINGS: No acute pulmonary opacity is present. There is no evidence of effusion or pneumothorax. Mediastinum is unremarkable. Heart size is normal. IMPRESSION: No acute abnormality. Reviewed, Interpreted and Dictated by Teodora Hector MD Transcribed by Rocio Shannon Authenticated and . [facility]
[2025-08-29 12:45] LABS: Hematocrit 37.6 % (37.0-47.0); Hemoglobin 12.7 g/dL (12.2-16.2); Immature Granulocytes % 0.4 %; Mean Corpuscular HGB Conc 33.8 g/dL (31.8-35.4); Mean Corpuscular Hemoglobin 31.9 pg (27.0-31.2); Mean Corpuscular Volume 94.5 fl (81-99); Nucleated Red Blood Cells % 0 %; Platelet Count 211 K/mm3 (142-424); Red Blood Count 3.98 M/mm3 (4.20-5.40); Red Cell Distribution Width-SD 45.9 fL; White Blood Count 5.7 K/mm3 (4.8-10.8)
[2025-08-29 12:46] LABS: Albumin Level 3.8 g/dl (3.5-5.0); Chloride 92 mmol/L (98-107); Potassium 3.2 mmoL/L (3.5-5.1); Sodium 133 mmol/L (136-145)
[2025-08-29 12:49] LABS: Alanine Aminotransferase 25 U/L (12-78); Albumin/Globulin Ratio 1.1 (1.1-1.8); Alkaline Phosphatase 82 U/L (38-126); Anion Gap 18.2 mEq/L (5-15); Aspartate Amino Transferase 46 U/L (14-36); Bilirubin,Total 0.8 mg/dl (0.2-1.3); Blood Urea Nitrogen 13 mg/dl (7-17); Calcium 8.3 mg/dl (8.4-10.2); Carbon Dioxide 26 mmol/L (22.0-30.0); Creatinine Clearance Estimated 35 mL/min (50-200); Creatinine,Serum 1.50 mg/dl (0.52-1.04); Estimated Glomerular Filt Rate 33 ml/min (>60); GFR (African American) 40 ML/MIN (>60); Globulin 3.4 g/dL (1.3-3.2); Glucose 119 mg/dl (74-100); Lipase 94 U/L (23-300); Magnesium 1.4 mg/dl (1.6-2.3); Total Protein,Serum 7.2 g/dl (6.3-8.2)
[2025-08-29 12:54] LABS: Microscopic, Urine URINE MICROSCOPIC (MICROSCOPIC)
--- NOTE | 2025-08-29 12:56 | ECG_ITS ---
APPROVED REPORT Exam: Resting ECG HR:66 bpm ECG Measurements Heart Rate 66 AXES TX 215 P -48 QRSd 158 QRS 45 QT 476 T 43 QTc 490 Conclusion ELECTRONIC ATRIAL PACEMAKER INDETERMINATE AXIS INTRAVENTRICULAR CONDUCTION DELAY [130+ ms QRS DURATION] POSSIBLE INFERIOR MYOCARDIAL INFARCTION , PROBABLY OLD [30 ms Q WAVE IN II/aVF] ABNORMAL ECG UNCONFIRMED REPORT Electronically signed by : JANINE RAMON, 08/30/2025 02:04:14
[2025-08-29 12:58] LABS: Adenovirus,PCR Not Detected (NotDetected); Chlamydophila Pneumoniae, PCR Not Detected (NotDetected); Coronovirus HKU1,PCR Not Detected (NotDetected); Influenza A, PCR Not Detected (NotDetected); Influenza AH1, 2009 Not Detected (NotDetected); Influenza AH1, PCR Not Detected (NotDetected); Influenza AH3,PCR Not Detected (NotDetected); Influenza B, PCR Not Detected (NotDetected); Mycoplasma Pneumoniae, PCR Not Detected (NotDetected); Parainfluenza 1, PCR Not Detected (NotDetected); Parainfluenza 2, PCR Not Detected (NotDetected); Parainfluenza 3, PCR Not Detected (NotDetected); Parainfluenza 4, PCR Not Detected (NotDetected)
[2025-08-29 12:59] LABS: NT Pro Brain Natriuretic Pep. 880 pg/mL (0-450)
--- NOTE | 2025-08-29 13:10 | PC.NURSE ---
per the lab Lactic is 5.4 Provider notified
[2025-08-29 13:11] LABS: Troponin I < 0.01 ng/ml (0.00-0.034)
[2025-08-29] MEDS: 0.9 % SODIUM CHLORIDE 1000ML 1,000 ML 999 ML IV (13:23)
[2025-08-29] MEDS: MAGNESIUM OXIDE 400MG TABLET 400 MG PO (13:25)
[2025-08-29] MEDS: POTASSIUM CHLORIDE 20MEQ TAB 40 MEQ PO (13:25)
--- NOTE | 2025-08-29 13:33 | PC.NURSE ---
staff at bedside attempting to obtain blood cultures
[2025-08-29 13:58] LABS: Color,Urine YELLOW (Yellow); Glucose,Urine (UA) Negative (Negative); Ketones,Urine TRACE (Negative); Leukocyte Esterase,Urine 2+ (Negative); PH,Urine 5.5 (5.0-8.5); Protein,Urine 2+ (Negative); Specific Gravity, Urine 1.025 (1.005-1.030); Urobilinogen,Urine 0.2 EU/dl (0.2)
[2025-08-29 14:01] LABS: Bilirubin,Urine 1+ (Negative)
[2025-08-29 14:02] LABS: Bacteria,Urine Trace /lpf; RBC,Urine Occasional #/hpf (0-3); WBC,Urine 20-50 #/hpf (0-3)
--- OUTSIDE RECORDS SUMMARY | 2025-08-29 14:07 | XMS_ITS | Encounter Summary ---
Author Organization [employer] ([place], [place], [place], [place]) Address [address] [place] [address] Care Team Providers Care Hand Finisher Name Role Phone Lonny Pederson MD Primary Care Provider Romina Abreu MD Unavailable [phone] Florencia Wilcox MD Unavailable Aryan Penaloza PA-C Unavailable [phone] Vladimir Shook MD Unavailable Susan Rivers APRN Unavailable [phone] Aryan Good PA-C Unavailable [phone] Jimmy Baeza MD Unavailable Encounter Details Date Type Department Care Team (Late st Contact Info) Description 05/15/2019 Transcribed Document [facility] [place] [facility] [place] [address] ProviderEduardo MD [facility] [place] [address] Social History Tobacco Use Types Packs/Day Years Used Date Smoking Tobacco: Never Assessed Comments Unknown Sex and Gender Information Value Date Recorded Sex Assigned at Female 09/20/2022 2:57 PM RESIDENTIAL GLAZIER Legal Sex Female 1:35 PM CDT Gender Identity Female 09/20/2022 2:57 PM RESIDENTIAL GLAZIER Sexual Orientation Straight 09/20/2022 2: 57 PM RESIDENTIAL GLAZIER documented as of this encounter Miscellaneous Notes * Cerner Conversion Note - Historical Provider, - 05/15/2019 12:02 PM CDT DATE OF STUDY: 05/14/2019 LEXISCAN MYOVIEW STRESS TEST INDICATION: Shortness of breath, arrhythmia, history of AFib, and coronary artery disease. INTERPRETATION: After informed consent, patient had Lexiscan per protocol. Heart rate went from 60 to 90 beats per minute. Blood pressure went from 141/73 to 165/70. Baseline EKG shows atrial paced rhythm with a right bundle-branch block morphology. Peak infusion EKG showed no significant change. EKG suboptimal for ischemia due to baseline abnormality. Nuclear tomographic images showed normal perfusion of left ventricle with no stress-induced perfusion defects nor stress-induced LV cavity dilatation with a TID calculated at 1.01. Nuclear ventriculogram revealed normal perfusion LV wall motion with ejection fraction calculated at 78%. IMPRESSION: Low risk Lexiscan Myoview stress test for stress ischemia and preserved left ventricular systolic function. Romina Abreu M.D. Dict: 05/15/2019 12:02:36 Trans: 05/15/2019 12:42:59 CC1: Romina Abreu M.D. Electronically signed by Gin [facility] Conversion Workforce Consultant Cerner at 02/22/2023 5:16 PM CDT documented in this encounter Plan of Treatment Upcoming Encounters Date Type Department Care Team (Late st Contact Info) Description 09/06/2025 2:45 PM EDT Office Visit [facility] Urology - [address] [place] [address] Gerald Tamayo MD [address] [facility] [address] [place] [address] 10/17/2025 9:30 AM EST Office Visit [facility] Primary Care [address] [facility] [address] [place] [address] Lonny Pederson MD [address] [place] [address] 10/17/2025 10:45 AM EST Office Visit [facility] Cardiology - [address] [place] [id number] Romina Abreu MD [address] [place] [address] 10/17/2025 1:45 PM EST Office Visit [facility] Neurology - [facility] [address] [facility] [address] [place] [address] Susan Rivers APRN [address] [facility] [address] [place], [place] [id number] documented as of this encounter Visit Diagnoses Not on filedocumented in this encounter Care Teams Hand Finisher Relationship Specialty Start Date End Date Lonny Pederson MD [address] [place] [address] PCP - General Internal Medicine/Pediatrics 09/15/22 Romina Abreu MD [address] [place], [place] [id number] Employee Communications Manager Cardiology 09/22/22 Florencia Wilcox MD [address] [place] [address] Principle Industrial Hygienist Rheumatology 09/22/22 Aryan Penaloza PA-C [address] [place], [place] [id number] Orthopedist Orthopedic Surgery 09/22/22 Vladimir Shook MD [address] [place], [place] [id number] Sports Medicine 10/06/23 Susan Rivers, PARTS ANALYST [address] [facility] [address] [place], [place] [id number] Neurology 10/06/23 Aryan Good PA-C [address] [place] [address] Physician Fireman 12/09/23 Jimmy Baeza MD [address] [facility] [address] [place] [address] Employee Communications Manager Electrophysiology 03/06/24 documented as of this encounter
--- OUTSIDE RECORDS SUMMARY | 2025-08-29 14:07 | XMS_ITS | Encounter Summary ---
Author Organization [employer] ([place], [place], [place], [place]) Address [address] [place] [address] Care Team Providers Care Health Information Administrator Name Role Phone Lonny Pederson MD Primary Care Provider Romina Abreu MD Unavailable [phone] Florencia Wilcox MD Unavailable Aryan Penaloza PA-C Unavailable [phone] Vladimir Shook MD Unavailable Susan Rivers APRN Unavailable [phone] Aryan Good PA-C Unavailable [phone] Jimmy Baeza MD Unavailable Encounter Details Date Type Department Care Team (Late st Contact Info) Description 08/28/2020 Transcribed Document [facility] [place] [address] [place] [address] ProviderEduardo MD [address] [place] [address] Social History Tobacco Use Types Packs/Day Years Used Date Smoking Tobacco: Never Assessed Comments Unknown Sex and Gender Information Value Date Recorded Sex Assigned at Female 09/20/2022 2:57 PM REFERENCE TEST CLERK Legal Sex Female 1:35 PM CDT Gender Identity Female 09/20/2022 2:57 PM REFERENCE TEST CLERK Sexual Orientation Straight 09/20/2022 2: 57 PM REFERENCE TEST CLERK documented as of this encounter Miscellaneous Notes * Cerner Conversion Note - Historical Provider, - 08/28/2020 5:00 PM CDT Chart Check - Review Order Profile Entered On: 08/28/2020 17:52 EDT Performed On: 08/28/2020 17:00 EDT by Rani Esqueda Rn Chart Check Powerplans Initiated/Discontinued as Appropriate : Yes All Active Orders Reviewed : Yes Rani Esqueda Rn - 08/28/2020 17:52 EDT Electronically signed by Gin [facility] Conversion Beater Dumper Cerner at 02/22/2023 5:04 PM CDT documented in this encounter Plan of Treatment Upcoming Encounters Date Type Department Care Team (Late st Contact Info) Description 09/06/2025 2:45 PM EDT Office Visit [facility] Urology - [facility] [address] [facility] [address] [place] [address] [place] [address] [place] [address] [address] [place], [place] [id number] 10/17/2025 9:30 AM EST Office Visit [facility] Primary Care [address] [facility] [address] [place] [address] Lonny Pederson MD [address] [facility] [place] [address] 10/17/2025 10:45 AM EST Office Visit [facility] Cardiology - [facility] [address] [place] [address] Romina Abreu MD [address] [facility] [address] [place] [address] 10/17/2025 1:45 PM EST Office Visit [facility] Neurology - [place] [address] [address] [place] [address] Susan Rivers, SPECIAL COLLECTIONS LIBRARIAN [address] [facility] [address] [place] [address] documented as of this encounter Visit Diagnoses Not on filedocumented in this encounter Care Teams Health Information Administrator Relationship Specialty Start Date End Date Lonny Pederson MD [address] [place] [phone] PCP - General Internal Medicine/Pediatrics 09/15/22 Romina Abreu MD [address] [place] [address] Assistant Activities Director Cardiology 09/22/22 Florencia Wilcox MD [address] [place] [address] Manager Enterprise Rheumatology 09/22/22 Aryan Penaloza PA-C [address] [place] [address] Orthopedist Orthopedic Surgery 09/22/22 Vladimir Shook MD [address] [place] [address] Sports Medicine 10/06/23 Susan Rivers, SPECIAL COLLECTIONS LIBRARIAN [address] [facility] [address] [place] [address] Neurology 10/06/23 Aryan Good PA-C [address] [place] [address] Physician Kindergarten Aide 12/09/23 Jimmy Baeza MD [address] [facility] [address] [place] [address] Assistant Activities Director Electrophysiology 03/06/24 documented as of this encounter
--- OUTSIDE RECORDS SUMMARY | 2025-08-29 14:08 | XMS_ITS | Encounter Summary ---
Author Organization [employer] ([place], [place], [place], [place]) Address [address] [place] [address] Care Team Providers Care Ict Systems Test Engineer Name Role Phone Lonny Pederson MD Primary Care Provider Romina Abreu MD Unavailable [phone] Florencia Wilcox MD Unavailable Aryan Penaloza PA-C Unavailable [phone] Vladimir Shook MD Unavailable Susan Rivers APRN Unavailable [phone] Aryan Good PA-C Unavailable [phone] Jimmy Baeza MD Unavailable Encounter Details Date Type Department Care Team (Late st Contact Info) Description 08/28/2020 Transcribed Document [facility] [place] [address] [place] [address] ProviderEduardo MD [address] [place] [address] Social History Tobacco Use Types Packs/Day Years Used Date Smoking Tobacco: Never Assessed Comments Unknown Sex and Gender Information Value Date Recorded Sex Assigned at Female 09/20/2022 2:57 PM SPECIAL PROCEDURES TECHNOLOGIST Legal Sex Female 1:35 PM CDT Gender Identity Female 09/20/2022 2:57 PM SPECIAL PROCEDURES TECHNOLOGIST Sexual Orientation Straight 09/20/2022 2: 57 PM SPECIAL PROCEDURES TECHNOLOGIST documented as of this encounter Miscellaneous Notes * Cerner Conversion Note - Historical Provider, - 08/28/2020 1:22 PM CDT ED Assessment Entered On: 08/28/2020 14:27 EDT Performed On: 08/28/2020 14:25 EDT by Brielle Emerson RN ED Quick Look Assessment Level of Consciousness : Alert, Awake Affect/Behavior : Appropriate, Calm, Cooperative Orientation : Oriented x 4 Skin Temperature : Warm Skin Description : Dry, [place] Brielle Emerson RN - 08/28/2020 14:25 EDT ED General-Functional Assess Preferred Communication Mode : Verbal Communication Barrier : None Primary Language : Macedonian Any Spiritual/Cultural Needs or Requests : No Currently in Unsafe Situation : No Brielle Emerson RN - 08/28/2020 14:25 EDT Social Habits Smoking Status : Never (less than 100 in lifetime; none in last 30 days) Smokeless Tobacco Status : Never Desires Tobacco Cessation Calc : 0 Brielle Emerson RN - 08/28/2020 14:25 EDT Social History (As Of: 08/28/2020 14:27:50 EDT) Tobacco: Use in Last 12 Months: Cigarettes. Smoking Status Former smoker. Years of Use: 20. Packs/Tins Daily: 1. (Last Updated: 07/26/2013 07:26:45 EDT by BRIELLE WINSTON) Former smoker, quit more than 30 days ago Smoking Status. Never Smokeless Tobacco Status. Last Used: quit 1985. (Last Updated: 07/04/2018 11:28:56 EDT by Cardiad Gomez, RN) Alcohol: Comments: 07/26/2013 7:26 - BRIELLE WINSTON: none. (Last Updated: 07/26/2013 07:26:51 EDT by BRIELLE WINSTON) Substance Abuse: Drug Use Hx: No. Use in Last 12 Months: No. (Last Updated: 09/30/2014 10:58:52 EST by MARKO VALENCIA RN) Exercise: Exercise duration: 40. Exercise frequency: Daily. Exercise type: Walking. (Last Updated: 07/26/2013 15:20:09 EDT by ADRIANO SONG, RN) Home/Environment: Lives with Alone. Living situation: Home/Independent. (Last Updated: 07/26/2013 15:20:28 EDT by ADRIANO SONG RN) Employment/School: Retired, Work/School description: multiple jobs. Highest education level: High school. Operates hazardous equipment: No. (Last Updated: 07/26/2013 15:19:05 EDT by ADRIANO SONG RN) Gastrointestinal ED Gastrointestinal Assessment WDL : WDL with exceptions Gastrointestinal Symptoms : Melena, Vomiting Frequency of Vomiting : pt states to have thrown up bile 2 days in a row and is concerned Brielle Emerson RN - 08/28/2020 16:28 EDT Genitourinary Assessment, ED Genitourinary Assessment WDL : WDL Brielle Emerson RN - 08/28/2020 16:28 EDT Electronically signed by Gin [facility] Conversion Agricultural Commodities Inspector Cerner at 02/22/2023 5:09 PM CDT documented in this encounter Plan of Treatment Upcoming Encounters Date Type Department Care Team (Late st Contact Info) Description 09/06/2025 2:45 PM EDT Office Visit [facility] Urology - [address] [facility] [address] [place] [address] Gerald Tamayo MD [address] [place] [address] [address] [place], [place] [id number] 10/17/2025 9:30 AM EST Office Visit [facility] Primary Care [address] [facility] [address] [place] [address] Lonny Pederson MD [address] [place] [address] 10/17/2025 10:45 AM EST Office Visit [facility] Cardiology - [address] [place] [address] Romina Abreu MD [address] [place], [place] [address] 10/17/2025 1:45 PM EST Office Visit [facility] Neurology - [facility] [address] [facility] [address] [place] [phone] Susan Rivers, SCISSORS SHARPENER [address] [facility] [address] [place] [address] documented as of this encounter Visit Diagnoses Not on filedocumented in this encounter Care Teams Ict Systems Test Engineer Relationship Specialty Start Date End Date Lonny Pederson MD [address] [place] [phone] PCP - General Internal Medicine/Pediatrics 09/15/22 Romina Abreu MD [address] [place] [address] Sports Statistician Cardiology 09/22/22 Florencia Wilcox MD [address] [place] [phone] Teaching Manager Rheumatology 09/22/22 Aryan Penaloza PA-C [address] [place] [address] Orthopedist Orthopedic Surgery 09/22/22 Vladimir Shook MD [address] [place] [address] Sports Medicine 10/06/23 Susan Rivers, SCISSORS SHARPENER [address] [facility] [address] [place] [address] Neurology 10/06/23 Aryan Good PA-C [address] [place] [address] Physician Terrazzo Journeyman 12/09/23 Jimmy Baeza MD [address] [facility] [place] [address] Sports Statistician Electrophysiology 03/06/24 documented as of this encounter
--- OUTSIDE RECORDS SUMMARY | 2025-08-29 14:08 | XMS_ITS | Encounter Summary ---
Author Organization [email or web address] ([place], [place], [place], [place]) Address [address] [place] [address] Care Team Providers Care Electrical And Instrument Engineer Name Role Phone Lonny Pederson MD Primary Care Provider + [phone] Romina Abreu MD Unavailable [phone] Florencia Wilcox MD Unavailable Aryan Penaloza PA-C Unavailable [phone] Vladimir Shook MD Unavailable Susan Rivers APRN Unavailable [phone] Aryan Good PA-C Unavailable [phone] Jimmy Baeza MD Unavailable Encounter Details Date Type Department Care Team (Late st Contact Info) Description 08/28/2020 Transcribed Document [facility] Family Medicine [address] [place] [address] ProviderEduardo MD [address] [place] [address] Social History Tobacco Use Types Packs/Day Years Used Date Smoking Tobacco: Never Assessed Comments Unknown Sex and Gender Information Value Date Recorded Sex Assigned at Female 09/20/2022 2:57 PM CLINICAL LAB SCIENTIST Legal Sex Female 1:35 PM CDT Gender Identity Female 09/20/2022 2:57 PM CLINICAL LAB SCIENTIST Sexual Orientation Straight 09/20/2022 2: 57 PM CLINICAL LAB SCIENTIST documented as of this encounter Miscellaneous Notes * Cerner Conversion Note - Historical Provider, - 08/28/2020 4:23 PM CDT Evaluation, Physical Therapy Entered On: 08/29/2020 11:23 EDT Performed On: 08/29/2020 11:15 EDT by Leila Jimenes PHYSICAL THERAPIST General Information, PT Therapy Diagnosis, PT : Decreased gait pattern, endurance, and increased fear of falling Onset of Problem, PT : 08/29/2020 EDT Co-treated by, PT : Occupational Therapist Precautions in Place : Fall prevention measures, high risk General Information Comment, PT : Admission: Hematemesis with nausea Hx: pacemaker, HTN, Diastolic HF (2019), hypothyroid, Gout Leila Jimenes PHYSICAL THERAPIST - 08/29/2020 11:29 EDT Visit Type, PT : Initial evaluation Patient Orders : Order Date Order Ordering 08/28/2020 16:23 PT Evaluation and Treatment Ordered By: HOA PENALOZA APRN Active Diagnoses : 08/28/2020 12:00 Hematemesis 08/28/2020 12:00 Vomiting Admission Date : 08/28/2020 14:58 Personal Devices : Personal Devices No Devices Recorded Assistive Devices : Assistive Devices No Devices Recorded Leila Jimenes PHYSICAL THERAPIST - 08/29/2020 11:15 EDT General Status Patient Received Status : Supine in bed Treatment Start Time : 08/29/2020 10:47 EDT Patient Left Status : Up in chair, Chair alarm activated, Communication board completed, All needs met and within reach Treatment End Time : 08/29/2020 11:11 EDT Treatment Time : 24 Minute(s) Leila Jimenes PHYSICAL THERAPIST - 08/29/2020 11:15 EDT History and Environment Living Situation, Therapy : Home Patient Lives With : Alone Persons Assisting Patient at Home : Alone Professional Skilled Services : None Persons Providing Information : Patient Home Equipment Therapy, PT : Walker Walker Comment : Rollator Home Setup : One story Laundry Room Location : Main level Bedroom Location : Main level Bathroom #1 Location : Main level Stairs : Yes Stair Location(s) : Outside Outside Stairs, Number of Steps : 1 Railing Outside : Yes Outside Railing Position : Left, going up Leila Jimenes PHYSICAL THERAPIST - 08/29/2020 11:29 EDT Prior Level of Function PT GRID Prior LOF Ambulation, Household : Independent Prior LOF Ambulation, Community : Independent Prior LOF Bed Mobility : Independent Prior LOF Toileting : Independent Prior LOF Transfer : Independent Prior LOF Wheel Chair Mobility : Independent Leila Jimenes PHYSICAL THERAPIST - 08/29/2020 11:29 EDT Prior LOF Assist with ADL Comment : Pt uses the rollator for community distances and down the simpson in her home due to a fear of falling Leila Jimenes PHYSICAL THERAPIST - 08/29/2020 11:29 EDT Upper Extremity Upper Extremity Dominance : Right Right UE Active ROM : WFL Right UE Strength : WFL Left UE Active ROM : WFL Left UE Strength : WFL Upper Extremity Comment : See OT note for more info Leila Jimenes PHYSICAL THERAPIST - 08/29/2020 11:29 EDT Lower Extremity RLE Active ROM : WFL Right LE Strength : WFL LLE Active ROM : WFL Left LE Strength : WFL Lower Extremity Comment : Was unable to do formal assessment due to the pt needing to use the restroom but observational movement BLE is grossly 4/5 Leila Jimenes PHYSICAL THERAPIST - 08/29/2020 11:29 EDT Functional Mobility Mobility Grid Supine to Sit : Rehab Complete independence Sit to Stand : Rehab Modified independence Stand to Sit : Rehab Minimal assistance Leila Jimenes PHYSICAL THERAPIST - 08/29/2020 11:29 EDT Sit to Stand Device : Belt, gait, Walker, front wheel Stand to Sit Device : Belt, gait, Walker, front wheel Leila Jimenes PHYSICAL THERAPIST - 08/29/2020 11:29 EDT Gait Training/Assessment, PT Weight Bearing Status Maintained : Yes Weight Bearing Status : Full Gait Assistance Level : Supervision Walking Distance : 200 ft Ambulatory Devices : Gait belt, Walker, front wheel Gait Deviations : Yes Left Lower Gait Deviation : Chikis, decreased Right Lower Gait Deviation : Chikis, decreased Gait Training Comment : Terminated due to pt's R knee starting to bother her from a fall in the past (no date given even after prompted) Leila Jimenes PHYSICAL THERAPIST - 08/29/2020 11:29 EDT Cognition Assessment, PT Orientation : Oriented x 4 Leila Jimenes PHYSICAL THERAPIST - 08/29/2020 11:29 EDT Edu Topics Physical Therapy Education Grid Balance Training : Verbalizes understanding, Returns demonstration, Needs further teaching, Needs reinforcement Gait Training : Verbalizes understanding, Returns demonstration, Needs further teaching, Needs reinforcement Role of Physical Therapy : Verbalizes understanding, Returns demonstration, Needs further teaching, Needs reinforcement Transfer Training : Verbalizes understanding, Needs further teaching, Needs reinforcement Use of Assistive Device : Verbalizes understanding, Returns demonstration, Needs further teaching, Needs reinforcement Leila Jimenes PHYSICAL THERAPIST - 08/29/2020 11:29 EDT Indication Assesessment, PT Physical Therapy Indicated : Yes PT Problem List : Impaired, endurance tolerance, Impaired, gait, Impaired, transfers Potential Barriers To Therapy : None evident Rehabilitation Potential : Good Leila Jimenes PHYSICAL THERAPIST - 08/29/2020 11:29 EDT Plan of Care, PT PT Tx Plan/Goals Established w Patient : Yes PT Frequency Rehab : Other: 5-6 days per week PT Duration Rehab : Fourteen days PT Treatments Planned : Balance training, Gait training, Safety education, Therapeutic exercises, Transfer training Leila Jimenes PHYSICAL THERAPIST - 08/29/2020 11:29 EDT Sales Development Associate Goals Other PT LTG Grid Goal #1 Other : x10 reps of standing therex Date to Meet : 09/12/2020 EST Goal Status : Initial goal Leila Jimenes PHYSICAL THERAPIST - 08/29/2020 11:29 EDT Treatment Note Subjective Comment : Pt agreed to PT malick. RN ok'd PT. Additional Objective Information : Pt was able to complete bed mobility and sitting balance independently. Pt needed to use to rest room before going for a walk and was supervision for toileting and standing at sink washing hands (posture: fwd bent at hips, fwd head, slight trunk lean to the L). Pt normally uses a rollator for community distances and in the simpson at home due to a fear of falling. Pt completed 200 ft of ambulation with supervision and was terminated due to fatigue and R knee pain. Pt attempted to complete stand to sit by leaving RWX out to the side and walk to the chair. Pt needed cueing and education provided with demo of why keeping RWX in front and using correctly for transfers is important for safety. Assessment : Pt presents with decreased gait pattern, endurance, and increased fear of falling. This limits the pt from independently ambulating community distances. Pt would benefit from continued PT but pt being discharged before POC can be initiated. Plan for Treatment : Discharged from acute care setting. Leila Jimenes PHYSICAL THERAPIST - 08/29/2020 11:29 EDT Pain Assessment Pain Score Pre-Intervention : 0 Pain Score During-Intervention : 0 Pain Score Post-Intervention. : 0 Leila Jimenes PHYSICAL THERAPIST - 08/29/2020 11:29 EDT Image 1 - Images currently included in the form version of this document have not been included in the text rendition version of the form. Anticipated Discharge Needs, OT/PT Anticipated Discharge to : Home, independently Recommend Continued Therapy at Discharge : Yes Leila Jimenes PHYSICAL THERAPIST - 08/29/2020 11:29 EDT [place] [facility] PT Ther Activities Ea 15 Min : 1 PT Eval Low Complexity : 1 Leila Jimenes PHYSICAL THERAPIST - 08/29/2020 11:15 EDT documented in this encounter Plan of Treatment Upcoming Encounters Date Type Department Care Team (Late st Contact Info) Description 09/06/2025 2:45 PM EDT Office Visit [facility] Urology - [address] [facility] [address] [place] [address] [place] [address] [place] [address] [address] [place] [address] 10/17/2025 9:30 AM EST Office Visit [facility] Primary Care [address] [facility] [address] [place] [address] Lonny Pederson MD [address] [place] [address] 10/17/2025 10:45 AM EST Office Visit [facility] Cardiology - [facility] [address] [place] [address] Romina Abreu MD [address] [place], [place] [id number] 10/17/2025 1:45 PM EST Office Visit [facility] Neurology - [facility] [address] [place] [phone] Susan Rivers, MAREN [address] [facility] [address] [place] [address] documented as of this encounter Visit Diagnoses Not on filedocumented in this encounter Care Teams Electrical And Instrument Engineer Relationship Specialty Start Date End Date Lonny Pederson MD [address] [place] [phone] PCP - General Internal Medicine/Pediatrics 09/15/22 Romina Abreu MD [address] [place] [address] Accounts Payable Technician Cardiology 09/22/22 Florencia Wilcox MD [address] [place] [phone] Rn Case Management Rheumatology 09/22/22 Aryan Penaloza PA-C [address] [place] [address] Orthopedist Orthopedic Surgery 09/22/22 Vladimir Shook MD [address] [place] [address] Sports Medicine 10/06/23 Susan Rivers, MAREN [address] [facility] [address] [place] [address] Neurology 10/06/23 Aryan Good PA-C [address] [place] [address] Physician Senior Accountant Cpa 12/09/23 Jimmy Baeza MD [address] [facility] [place] [address] Accounts Payable Technician Electrophysiology 03/06/24 documented as of this encounter
--- OUTSIDE RECORDS SUMMARY | 2025-08-29 14:09 | XMS_ITS | Referral Summary ---
Author Organization [employer] ([place], [place], [place], [place]) Address [address] [place] [address] Care Team Providers Care Store Sales Manager Name Role Phone Lonny Pederson MD Primary Care Provider [phone] Romina Abreu MD Unavailable [phone] Florencia Wilcox MD Unavailable Aryan Penaloza PA-C Unavailable [phone] Vladimir Shook MD Unavailable Susan Rivers APRN Unavailable [phone] Aryan Good PA-C Unavailable [phone] Jimmy Baeza MD Unavailable Encounters Date Type Department Care Team Description 08/27/2025 Orders Only [facility] Primary Care [address] [place] [address] Lonny Pederson MD Stress incontinence of urine (Primary Dx) 06/15/2025 Refill [facility] Cardiology - [address] [place] [address] Romina Abreu MD Health care maintenance 06/10/2025 Abstract [facility] Primary Care [address] [place] [id number] Lonny Pederson MD from Last 3 Months Allergies Active Allergy Reactions Criticality Noted Date Comments Kcochbe-Uo-Lf-Acetaminophen -Gg 06/10/2022 Diphenhydramine Hcl Itching 08/24/2012 diphenhydramine hydrochloride Naproxen Itching 02/23/2012 Other reaction(s): C/O: itching, C/O: itching naproxen Medications aspirin 81 MG EC tabletIndication s:Health care maintenance aspirin 81 mg tablet Daily Active famotidine (PEPCID) 40 MG tablet Take 1 tablet (40 mg total) by mouth daily. Active mv,Ca,ir,Mn-FA-c dt-nco-dpb-PAB (Body, Hair, Skin and Nails) 3-133 mg-mcg capIndications:H ealth care maintenance Active loratadine (CLARITIN) 10 mg tablet Take 1 tablet (10 mg total) by mouth daily. Active calcium carbonate-vitami n D3 (calcium-vitamin D) 1,250 mg (500 mg) - 200 unit per tablet Take 1 tablet by mouth 2 (two) times daily. Active psyllium 0.52 gram capsule Take 1 capsule (0.52 g total) by mouth daily. Active baclofen (LIORESAL) 20 MG tablet Take 1 tablet (20 mg total) by mouth 2 (two) times daily. 180 tablet 3 5 05/01/20 26 Active memantine 28 mg CSpXIndications: Dementia without behavioral disturbance, psychotic disturbance, mood disturbance, or anxiety, unspecified dementia severity, unspecified dementia type (HCC) Take 1 capsule (28 mg total) by mouth daily. 90 capsule 3 5 05/01/20 26 Active carvediloL (COREG) 3.125 MG tabletIndication s:Health care maintenance Take 1 tablet (3.125 mg total) by mouth 2 (two) times daily with breakfast and dinner DAY WITH. 180 tablet 3 5 Active Active Problems Patient Care Coordination No te Formatting of this note migh t be different from the original. Payor suggested condition code for provider consideration: ICD 10 F0280 ICD Description Dementia, Mild or Unspecified DOS 02/22/2024 Provider [facility] ICD 10 N1831 ICD Description Chronic Kidney Disease, Moderate (Stage 3, Except 3B) DOS 10/11/2024 Provider LONNY PEDERSON Provider Actions- Review chart for above diagnosis If accurate diagnosis - Add condition to Problem List which adds it to the Visit Problem List, then rubina as reviewed to add to current Visit Diagnosis. If inaccurate diagnosis - No further action needed, will age off payor reports. Problem Noted Date Diagnosed Date Primary osteoarthritis involving multiple joints 05/22/2025 Chronic pain of both shoulders 05/22/2025 Encounter for adjustment or management of cardia c device 12/03/2024 Diabetic peripheral neuropathy 09/27/2024 Pulmonary hypertension 09/27/2024 Memory changes 10/06/2023 Sleep apnea 03/19/2023 Localized osteoarthritis of left knee 10/25/2022 Fibromyalgia syndrome 09/17/2022 Depression 09/17/2022 Disorder of connective tissue 09/28/2021 Chronic gout without tophus, unspecified cause, unspecified site 09/28/2021 Aortic valve regurgitation 09/14/2021 Coronary artery disease invo lving [place] coronary artery of [place] heart, unspecified whether angina present 09/14/2021 Overview (03/06/2024): CAD with CORE COMPOSER MACHINE TENDER of RCA with good collateral system. Diastolic dysfunction 09/14/2021 SSS (sick sinus syndrome) 09/14/2021 Overview (03/06/2024): Pacemaker in-situ S/P placement of cardiac pacemaker 02/26/2021 Gastroesophageal reflux disease 02/26/2021 Hyperthyroidism 06/27/2020 Neuropathy 04/22/2020 Inequality of length of lower extremity 10/25/20 19 assisted (current) use of anticoagulants 2018 Pseudophakia 07/07/2017 Paroxysmal atrial fibrillation 07/08/2016 Vitreous degeneration 07/07/2016 Type 2 diabetes mellitus without complication 02/22/2024 Overview (02/22/2024): From Automated Load;Provider: Roxann Kelly;Status: Active Scoliosis of lumbar spine 01/12/2016 Hyperlipidemia, unspecified hyperlipidemia type 09/16/2015 Primary hypertension 09/16/2015 Hypothyroidism 09/16/2015 Lumbosacral radiculopathy 09/12/2015 Lumbar spondylosis 09/12/2015 Atherosclerosis of arteries of extremities 08/25 Onychomycosis 08/25/2015 Low back pain 07/18/2015 Resolved Problems Problem Noted Date Diagnosed Date Resolved Date Traumatic arthritis of right knee 02/09/2024 03/06/2024 History of cardiac catheterization 03/19/2023 03/06/2024 Cataract 03/19/2023 03/06/2024 Overview (03/19/2023): 1bilateral Ankle swelling 09/17/2022 03/06/2024 Diarrhea 09/17/2022 03/06/2024 History of obstructive sleep apnea 09/17/2022 03/06/2024 Night sweats 09/17/2022 03/06/2024 Osteoarthritis of right knee , unspecified osteoarthritis type 09/02/2022 03/06/2024 Fibromyalgia 09/28/2021 03/06/[address] ug level monitoring 09/28/2021 03/06/2024 Osteoarthritis 09/28/2021 03/06/2024 Diabetes mellitus 09/14/2021 03/06/2024 Shortness of breath 09/14/2021 03/06/20 24 Encounter for general adult medical examination without abnormal findings 02/26/2021 Non-smoker 02/26/2021 03/06/2024 Erosive gastritis 02/02/2021 03/06/2024 History of gastroesophageal reflux (GERD) 02/02/2021 03/06/2024 Urinary tract infection 12/11/202002/07 Increased frequency of urination 12/04/2020 03/06/2024 Other specified counseling 12/01/2020 0 03/06/2024 Abnormal electrocardiography 09/11/2020 03/06/2024 Atrial paroxysmal tachycardia 09/11/2020 03/06/2024 Acute renal failure 07/06/2020 03/06/20 24 Dizziness and giddiness 06/27/2020 043 Feeling lonely 06/27/2020 03/06/2024 Back pain 06/27/2020 03/06/2024 Flank pain 06/27/2020 03/06/2024 Impaired exercise tolerance 2020 03/06/2024 Hypercholesterolemia 09/11/2019 024 Dyspnea on exertion 01/17/2018 03/06/20 24 Chest pain 01/17/2018 03/06/2024 High serum creatinine 05/25/20172023 Chronic diarrhea 04/27/2017 03/06/2024 Chronic pain 09/22/2016 03/06/2024 Pain of right lower extremity 05/09/2016 03/06/2024 Hammer toe 02/24/2016 03/06/2024 Gastroesophageal reflux dise ase without esophagitis 12/25/2015 03/06/2024 Degeneration of lumbosacral intervertebral disc 09/12/2015 03/06/2024 Greater trochanteric pain syndrome 09/12/2015 03/06/2024 Pain in left foot 08/25/2015 03/06/2024 Pain in right foot 08/25/2015 4 Immunizations Immunization Administration Dates Next Due INFLUENZA QIV ADJUVANTED PF IM ([id number]) 10/06/20 23,09/24/2022 INFLUENZA(FLUAD)_0.5 mL (65+)TRI([id number]) 024 Influenza Four-QIV PF 3+YR IM 06/30/2017 Influenza High Dose Preservative Free IM ([id number] ) 08/17/2018 Influenza, High Dose 08/17/2018 Influenza, Unspecified 07/28/2020 Pneumococcal Conjugate (Prevnar) 13-Valent 06/13 Pneumococcal Polysaccharide (Pneumovax) 05/24/20 12 Pneumococcal, Nos 07/28/2020 SHINGLES VARICELLA (ZOSTAVAX) ZOSTER 09/02/2016 Tdap 09/24/2022 Social History Tobacco Use Types Packs/Day Years Used Date Smoking Tobacco: Former Smokeless Tobacco: Never Alcohol Use Standard Drinks/Week Comments Never 0 (1 standard drink = 0.6 oz pur e alcohol) Overall Financial Resource Strain (CARDIA) Answe r Date Recorded How hard is it for you to pa y for the very basics like food, housing, medical care, and heating? Not very hard 04/05/2024 Hunger Vital Sign Answer Date Recorded Within the past 12 months, y ou worried that your food would run out before you got the money to buy more. Never true 04/05/20 24 Within the past 12 months, t he food you bought just didn't last and you didn't have money to get more. Never true 04/05/2024 PRAPARE - Transportation Answer Date Re corded In the past 12 months, has l ack of transportation kept you from medical appointments or from getting medications? No 03/09 In the past 12 months, has l ack of transportation kept you from meetings, work, or from getting things needed for daily living? No 04/05/2024 Transportation Needs Answer Date Record ed Transportation unreliable past 12 months Not on file 02/17/2024 Family and Community Support Answer Ankur e Recorded Help with Day to Day Activities Not on file 11/15/2023 Feeling Lonely or Isolated Not on file 11/15 Educational Attainment Answer Date Allan rded Speak language other than Bengali at home Not on file 11/15/2023 Want help with school or training Not on file 11/15/2023 Substance Use Answer Date Recorded Used prescription meds for non-medical reasons N ot on file 11/15/2023 Used illegal drugs past 12 months Not on file 11/15/2023 Comments No Sex and Gender Information Value Date Recorded Sex Assigned at Female 09/20/2022 2:57 PM PARK WORKER SUPERVISOR Legal Sex Female 1:35 PM CDT Gender Identity Female 09/20/2022 2:57 PM PARK WORKER SUPERVISOR Sexual Orientation Straight 09/20/2022 2: 57 PM PARK WORKER SUPERVISOR Last Filed Vital Signs Vital Sign Reading Time Taken Comments Blood Pressure 132/83 05/22/2025 10:27 AM EDT Pulse 59 05/22/2025 10:27 AM EDT Temperature 36.3 C (97.3 F) 10/11/2024 9:29 AM EST Respiratory Rate 20 02/22/2024 7:25 PM EDT Oxygen Saturation 95% 05/22/2025 10:27 AM EDT Inhaled Oxygen Concentration - - Weight 77.1 kg (170 lb) 05/22/2025 10:27 AM EDT Height 144.8 cm (4' 9 ) 05/22/2025 10:27 AM EDT Body Mass Index 36.79 05/22/2025 10:27 AM EDT Plan of Treatment Upcoming Encounters Date Type Department Care Team (Late st Contact Info) Description 09/06/2025 2:45 PM EDT Office Visit [facility] Urology - [address] [place] [address] Gerald Tamayo MD [address] [facility] [address] [place], [place] [id number] 10/17/2025 9:30 AM EST Office Visit [facility] Primary Care [address] [place] [address] Lonny Pederson MD [address] [place] [address] 10/17/2025 10:45 AM EST Office Visit [facility] Cardiology - [address] [place] [address] Romina Abreu MD [address] [place], [place] [id number] 10/17/2025 1:45 PM EST Office Visit [facility] Neurology - [facility] [address] [facility] [address] [place] [phone] Susan Rivers APRN [address] [facility] [address] [place], [place] [id number] Medical Devices Implanted Type Area Shake Cutter Device Identifier Shelf Expiration Date Model / Serial / Lot Pacemaker Assurity Mri Dbl [id number] - [id number] Implanted:Qt y: 1 on 02/22/2024 at [facility] PACEMAKER/ICD CHAMBER DEVICE Chest Wall [facility] MED:CARDIAC RHYM MGMT [id number] 07/07/2025 [id number] / [id number] / Pacemaker / Ha Implanted: (Quantity not on file) Pacemakers [employer] [address] ROJAS [id number] / [id number] / Procedures Procedure Name Priority Date/Time Associated Diagnosis Comments HEMOGLOBIN A1C Routine 09/24/2022 2:21 PM EST Healthcare maintenance from Last 3 Months or Most Recently Relevant to Health Maintenance Results * Hemoglobin A1c (09/24/2022 2:21 PM EST) Hemoglobin A1c 5.2 4.8 - 5.6 % [facility] Comment: Prediabetes: 5.7 - 6.4 Diabetes: >6.4 Glycemic control for adults with diabetes: <7.0 Blood 09/24/2022 2:21 PM EST 09/24/2022 Narrative [facility] - 09/25/2022 3:06 AM EST Performed at: - [facility] [id number] Semiautomatic Stitcher Operator: Kishor Chowdary PhD, Phone: [phone] us Lonny Pederson MD LAB BLOOD ORDERABLES Dana chantel Result [facility] from Last 3 Months or Most Recently Relevant to Health Maintenance Insurance [employer] MEDICARE PART A B Advance Directives For more information, please contact: [phone] * Full Code (Latest Code Status on File) Date Activated Date Inactivated Comments 02/22/2024 4:17 PM 02/23/2024 4:27 AM * Full Code Date Activated Date Inactivated Comments 02/21/2024 9:32 PM 02/22/2024 4:17 PM Care Teams Store Sales Manager Relationship Specialty Start Date End Date Lonny Pederson MD [address] [place] [address] PCP - General Internal Medicine/Pediatrics 09/15/22 Romina Abreu MD [address] [place], [place] [id number] Pulmonologist/Intensivist Cardiology 09/22/22 Florencia Wilcox MD [address] [place] [address] Drawing Kiln Supervisor Rheumatology 09/22/22 Aryan Penaloza PA-C [address] [place] [address] Orthopedist Orthopedic Surgery 09/22/22 Vladimir Shook MD [address] [place] [address] Sports Medicine 10/06/23 Susan Rivers, BUSINESS ACCOUNT LEADER [address] [facility] [address] [place], [place] [id number] Neurology 10/06/23 Aryan Good PA-C [address] [place] [address] Physician Microfiche Camera Operator 12/09/23 Jimmy Baeza MD [address] [facility] [address] [place] [address] Pulmonologist/Intensivist Electrophysiology 03/06/24
--- OUTSIDE RECORDS SUMMARY | 2025-08-29 14:09 | XMS_ITS | Encounter Summary ---
Author Organization [employer] ([place], [place], [place], [place]) Address [address] [place] [address] Care Team Providers Care Ceramics Test Engineer Name Role Phone Lonny Pederson MD Primary Care Provider Romina Abreu MD Unavailable [phone] Florencia Wilcox MD Unavailable Aryna Penaloza PA-C Unavailable [phone] Vladimir Shook MD Unavailable Susan Rivers APRN Unavailable [phone] Aryan Good PA-C Unavailable [phone] Jimmy Baeza MD Unavailable Reason for Referral * Consultation (Routine) - New Request Specialty Diagnoses / Procedures Referred By Contkartik t Referred To Contact Urology Diagnoses Stress incontinence of urine Lonny Pederson MD [address] [place] [address] Phone: tel: fax: Jerry Ann MD [address] [place] [address] Phone: tel: fax: Referral ID Status Reason Start Date Expiration Date Visits Requested Visits Authorized [id number] New Request Specialty Services Required 08/27/2026 1 1 Encounter Details Date Type Department Care Team (Late st Contact Info) Description 08/27/2025 Orders Only [facility] Primary Care [address] [place] [address] Lonny Pederson MD [address] [place] [address] Stress incontinence of urine (Primary Dx) Social History Tobacco Use Types Packs/Day Years [...] Date Allan rded Speak language other than Ukrainian at home Not on file 11/15/2023 Want help with school or training Not on file 11/15/2023 Substance Use Answer Date Recorded Used prescription meds for non-medical reasons N ot on file 11/15/2023 Used illegal drugs past 12 months Not on file 11/15/2023 Comments No Sex and Gender Information Value Date Recorded Sex Assigned at Female 09/20/2022 2:57 PM BALE OPENER Legal Sex Female 1:35 PM CDT Gender Identity Female 09/20/2022 2:57 PM BALE OPENER Sexual Orientation Straight 09/20/2022 2: 57 PM BALE OPENER documented as of this encounter Plan of Treatment Upcoming Encounters Date Type Department Care Team (Late st Contact Info) Description 09/06/2025 2:45 PM EDT Office Visit [facility] Urology - [facility] [address] [facility] [address] [place] [address] Gerald Tamayo MD [address] [facility] [address] [place], [place] [id number] 10/17/2025 9:30 AM EST Office Visit [facility] Primary Care [address] [facility] [address] [place] [address] Lonny Pederson MD [address] [facility] [place] [address] 10/17/2025 10:45 AM EST Office Visit [facility] Cardiology - [facility] [address] [place] [address] Romina Abreu MD [address] [facility] [address] [place], [place] [address] 10/17/2025 1:45 PM EST Office Visit [facility] Neurology - [facility] [address] [facility] [address] [place] [address] Susan Rivers APRN [address] [facility] [address] [place], [place] [id number] Scheduled Referrals Name Type Priority Associated Diagnoses Orde r Schedule Ambulatory referral to Urology Outpatient Referral Routine Stress incontinence of urine Expected: 08/27/2025, Expires: 11/25/2025 documented as of this encounter Visit Diagnoses Diagnosis Stress incontinence of urine- Primary documented in this encounter Care Teams Ceramics Test Engineer Relationship Specialty Start Date End Date Lonny Pederson MD [address] [place] [address] PCP - General Internal Medicine/Pediatrics 09/15/22 Romina Abreu MD [address] [facility] [address] [place] [address] Curing Room Worker Cardiology 09/22/22 Florencia Wilcox MD [address] [place] [address] Aws Software Development Engineer Rheumatology 09/22/22 Aryan Penaloza PA-C [address] [place] [address] Orthopedist Orthopedic Surgery 09/22/22 Vladimir Shook MD [address] [place] [address] Sports Medicine 10/06/23 Susan Rivers, CLEARING DISTRIBUTION CLERK [address] [facility] [address] [place] [address] Neurology 10/06/23 Aryan Good PA-C [address] [place] [address] Physician Science Intern 12/09/23 Jimmy Baeza MD [address] [facility] [address] [place] [address] Curing Room Worker Electrophysiology 03/06/24 documented as of this encounter
--- OUTSIDE RECORDS SUMMARY | 2025-08-29 14:09 | XMS_ITS | Clinical Summary ---
Author Organization [employer] ([place], [place], [place], [place]) Address [address] [place] [address] Care Team Providers Care Fruit Shipper Name Role Phone Lonny Pederson MD Primary Care Provider [phone] Romina Abreu MD Unavailable [phone] Florencia Wilcox MD Unavailable Aryan Penaloza PA-C Unavailable [phone] Vladimir Shook MD Unavailable Susan Rivers APRN Unavailable [phone] Aryan Good PA-C Unavailable [phone] Jimmy Baeza MD Unavailable Allergies Active Allergy Reactions Criticality Noted Date Comments Iudtccp-Pe-Il-Acetaminophen -Gg 06/10/2022 Diphenhydramine Hcl Itching 08/24/2012 diphenhydramine hydrochloride Naproxen Itching 02/23/2012 Other reaction(s): C/O: itching, C/O: itching naproxen Medications aspirin 81 MG EC tabletIndication s:Health care maintenance aspirin 81 mg tablet Daily Active famotidine (PEPCID) 40 MG tablet Take 1 tablet (40 mg total) by mouth daily. Active mv,Ca,ir,Mn-FA-c dv-naj-jve-PAB (Body, Hair, Skin and Nails) 3-133 mg-mcg [...] Dementia, Mild or Unspecified DOS 02/22/2024 Provider [facility] ICD 10 N1831 ICD Description Chronic Kidney [...] regurgitation 09/14/2021 Coronary artery disease invo lving [place] coronary artery of [place] heart, unspecified whether angina present 09/14/2021 Overview (03/06/2024): CAD with HOUSEKEEPING ROOM ATTENDANT of RCA with good collateral system. Diastolic dysfunction 09/14/2021 SSS (sick sinus syndrome) 09/14/2021 Overview (03/06/2024): Pacemaker in-situ S/P placement of cardiac pacemaker 02/26/2021 Gastroesophageal reflux disease 02/26/2021 Hyperthyroidism 06/27/2020 Neuropathy 04/22/2020 Inequality of length of lower extremity 10/25/20 19 terminal make up operator (current) use of anticoagulants 2018 Pseudophakia 07/07/2017 [...] failure 07/06/2020 03/06/20 24 Dizziness and giddiness 06/27/202002/07 Feeling lonely 06/27/2020 03/06/2024 Back pain 06/27/2020 [...] 03/06/2024 Pain in right foot 08/25/2015 4 Encounters Date Type Department Care Team Description 08/27/2025 Orders Only [facility] Primary Care [address] [place] [address] Lonny Pederson MD Stress incontinence of urine (Primary Dx) 06/15/2025 Refill [facility] Cardiology - [address] [place] [address] Romina Abreu MD Health care maintenance 06/10/2025 Abstract [facility] Primary Care [address] [facility] [address] [place] [address] Lonny Pederson MD from Last 3 Months Immunizations Immunization Administration Dates Next Due INFLUENZA QIV ADJUVANTED PF IM ([id number]) 10/06/20 23,09/24/2022 INFLUENZA(FLUAD)_0.5 mL (65+)TRI([id number]) 024 Influenza Four-QIV PF 3+YR IM 06/30/2017 Influenza High Dose Preservative Free IM ([id number] ) 08/17/2018 Influenza, High Dose 08/17/2018 Influenza, Unspecified 07/28/2020 Pneumococcal Conjugate (Prevnar) 13-Valent 06/13 Pneumococcal Polysaccharide (Pneumovax) 05/24/20 12 Pneumococcal, Nos 07/28/2020 SHINGLES VARICELLA (ZOSTAVAX) ZOSTER 09/02/2016 Tdap 09/24/2022 Family History Medical History Relation Name Comments Osteoporosis Mother Relation Name Status Comments Father estranged Mother Social History Tobacco Use Types Packs/Day Years [...] Date Allan rded Speak language other than Arabic at home Not on file 11/15/2023 Want help with school or training Not on file 11/15/2023 Substance Use Answer Date Recorded Used prescription meds for non-medical reasons N ot on file 11/15/2023 Used illegal drugs past 12 months Not on file 11/15/2023 Comments No Sex and Gender Information Value Date Recorded Sex Assigned at Female 09/20/2022 2:57 PM MEDICAL ASSISTING INSTRUCTOR Legal Sex Female 1:35 PM CDT Gender Identity Female 09/20/2022 2:57 PM MEDICAL ASSISTING INSTRUCTOR Sexual Orientation Straight 09/20/2022 2: 57 PM MEDICAL ASSISTING INSTRUCTOR Last Filed Vital Signs Vital Sign Reading [...] Description 09/06/2025 2:45 PM EDT Office Visit [facility] Urology - [address] [place] [address] Gerald Tamayo MD [address] [facility] [address] [place], [place] [address] 10/17/2025 9:30 AM EST Office Visit [facility] Primary Care [address] [place] [address] Lonny Pederson MD [address] [place] [address] 10/17/2025 10:45 AM EST Office Visit [facility] Cardiology - [address] [place] [address] Romina Abreu MD [address] [place], [place] [address] 10/17/2025 1:45 PM EST Office Visit [facility] Neurology - [facility] [address] [place] [address] Susan Rivers APRN [address] [facility] [address] [place], [place] [address] Health Maintenance Due Date Last Done Comments DXA SCAN 1945 Diabetic Kidney Health Evalu ation (KED) 1945 Shingles Vaccine (Zoster) (2 of 2) 10/28/20162015 Respiratory Syncytial Virus (RSV) Adult or (1 - 1-dose 75+ series) 2020 Diabetic Eye Exam 11/24/2021 11/24/2020, , 09/01/2018, Additional history exists Hemoglobin A1C 02/22/2024 09/24/2022 COVID-19 VACCINE (1 - 2023-2 5 season) 2025 Influenza Vaccine (#1) 2025 , 10/06/2023, 09/24/2022, Additional history exists Medicare Subsequent AWV (yea r 3+) [id number] 11/10/2025 10/11/2024, 10/06/2023 Tobacco Cessation Counseling and Screening (12+) 05/22/2026 05/22/2025 DTAP/TDAP/TD VACCINES (2 - T d or Tdap) 09/24/2032 09/24/2022 Pneumococcal 50+ years Completed 06/13/2015, 2011 Falls Risk Screening Completed 05/01/2025 Medical Devices Implanted Type Area Field Education Director Device Identifier Shelf Expiration Date Model / Serial / Lot Pacemaker Assurity Mri Dbl [id number] - [id number] Implanted:Qt y: 1 on 02/22/2024 at [facility] PACEMAKER/ICD CHAMBER DEVICE Chest Wall [facility] JACQUI MED:CARDIAC RHYM MGMT [id number] 07/07/2025 [id number] / [id number] / Pacemaker / Corey Implanted: (Quantity not on file) Pacemakers [employer] ACCENT DR ROJAS [id number] / [id number] / Procedures Procedure Name Priority Date/Time Associated Diagnosis Comments HEMOGLOBIN A1C Routine 09/24/2022 2:21 PM EST Healthcare maintenance from Last 3 Months or Most Recently Relevant to Health Maintenance Results * Hemoglobin A1c (09/24/2022 2:21 PM EST) Pathologist [facility] Hemoglobin A1c 5.2 4.8 - 5.6 % [facility] Comment: Prediabetes: 5.7 - 6.4 Diabetes: >6.4 Glycemic control for adults with diabetes: <7.0 Blood 09/24/2022 2:21 PM EST 09/24/2022 Narrative [facility] - 09/25/2022 3:06 AM EST Performed at: [facility] [address] [id number] Veneer Marker: Kishor Chowdary PhD, Phone: [phone] us Lonny Pederson MD LAB BLOOD ORDERABLES Dana golden Result [facility] from Last 3 Months or Most Recently Relevant to Health Maintenance Insurance [facility]i MEDICARE PART A B Advance Directives For more information, please contact: [phone] * Full Code (Latest Code Status on File) Date Activated Date Inactivated Comments 02/22/2024 4:17 PM 02/23/2024 4:27 AM * Full Code Date Activated Date Inactivated Comments 02/21/2024 9:32 PM 02/22/2024 4:17 PM Care Teams Fruit Shipper Relationship Specialty Start Date End Date Lonny Pederson MD [address] [facility] [facility] [address] [place] [address] PCP - General Internal Medicine/Pediatrics 09/15/22 Romina Abreu MD [address] [facility] [address] [place] [address] Senior Tech Manufacturing Engineering Cardiology 09/22/22 Florencia Wilcox MD [address] [place] [address] Medical Insurance Collector Rheumatology 09/22/22 Aryan Penaloza PA-C [address] [place] [address] Orthopedist Orthopedic Surgery 09/22/22 Vladimir Shook MD [address] [place], [place] [address] Sports Medicine 10/06/23 Susan Rivers, MAREN [address] [facility] [address] [place], [place] [address] Neurology 10/06/23 Aryan Good PA-C [address] [place] [address] Physician Rock Mason Apprentice 12/09/23 Jimmy Baeza MD [address] [facility] [address] [place], [place] [address] Senior Tech Manufacturing Engineering Electrophysiology 03/06/24
--- OUTSIDE RECORDS SUMMARY | 2025-08-29 14:09 | XMS_ITS | Encounter Summary ---
Author Organization [employer] ([place], [place], [place], [place]) Address [address] [place] [address] Care Team Providers Care Manager Library Name Role Phone Lonny Pederson MD Primary Care Provider Romina Abreu MD Unavailable [phone] Florencia Wilcox MD Unavailable Aryan Penaloza PA-C Unavailable Vladimir Shook MD Unavailable Susan Rivers APRN Unavailable [phone] Aryan Good PA-C Unavailable [phone] Jimmy Baeza MD Unavailable Encounter Details Date Type Department Care Team (Late st Contact Info) Description 11/09/2022 Outside Orders [facility] Breast Care [address] [place] [address] [address] [place] [address] Lonny Pederson MD [address] [facility] [address] [place] [address] Visit for screening mammogram (Primary Dx) Social History Tobacco Use Types Packs/Day Years Used Date Smoking Tobacco: Former Smokeless Tobacco: Never Alcohol Use Standard Drinks/Week Comments Never 0 (1 standard drink = 0.6 oz pur e alcohol) Comments Unknown Sex and Gender Information Value Date Recorded Sex Assigned at Female 09/20/2022 2:57 PM SAP PI ARCHITECT Legal Sex Female 1:35 PM CDT Gender Identity Female 09/20/2022 2:57 PM SAP PI ARCHITECT Sexual Orientation Straight 09/20/2022 2: 57 PM SAP PI ARCHITECT documented as of this encounter Plan of Treatment Upcoming Encounters Date Type Department Care Team (Late st Contact Info) Description 09/06/2025 2:45 PM EDT Office Visit [facility] Urology - [address] [place] [address] Gerald Tamayo MD [address] [place] [address] [address] [place] [address] 10/17/2025 9:30 AM EST Office Visit [facility] Primary Care [address] [place] [address] Lonny Pederson MD [address] [place] [address] 10/17/2025 10:45 AM EST Office Visit [facility] Cardiology - [address] [place] [address] Romina Abreu MD [address] [place] [address] 10/17/2025 1:45 PM EST Office Visit [facility] Neurology - [facility] [address] [facility] [address] [place] [address] Susan Rivers APRN [address] [facility] [address] [place], [place] [address] documented as of this encounter Visit Diagnoses Diagnosis Visit for screening mammogram- Primary documented in this encounter Care Teams Manager Library Relationship Specialty Start Date End Date Lonny Pederson MD [address] [place] [address] PCP - General Internal Medicine/Pediatrics 09/15/22 Romina Abreu MD [address] [place] [address] Boiler Fitter Cardiology 09/22/22 Florencia Wilcox MD [address] [place] [address] Zigzag Elastic Attacher Rheumatology 09/22/22 Aryan Penaloza PA-C [address] [place] [address] Orthopedist Orthopedic Surgery 09/22/22 Vladimir Shook MD [address] [place] [address] Sports Medicine 10/06/23 Susan Rivers, ENGINE PILOT [address] [facility] [address] [place] [address] Neurology 10/06/23 Aryan Good PA-C [address] [place] [address] Physician Vamp Liner 12/09/23 Jimmy Baeza MD [address] [facility] [address] [place] [address] Boiler Fitter Electrophysiology 03/06/24 documented as of this encounter
--- OUTSIDE RECORDS SUMMARY | 2025-08-29 14:09 | XMS_ITS | Encounter Summary ---
Author Organization [employer] ([place], [place], [place], [place]) Address [address] [place] [address] Care Team Providers Care Cardiopulmonary Technician Name Role Phone Lonny Pederson MD Primary Care Provider + [phone] Romina Abreu MD Unavailable [phone] Florencia Wilcox MD Unavailable Aryan Penaloza PA-C Unavailable Vladimir Shook MD Unavailable Susan Rivers APRN Unavailable [phone] Aryan Good PA-C Unavailable [phone] Jimmy Baeza MD Unavailable Encounter Details Date Type Department Care Team (Late st Contact Info) Description 08/28/2020 Transcribed Document [facility] Medicine [address] [place] [address] ProviderEduardo MD [address] [place] [address] Social History Tobacco Use Types Packs/Day Years Used Date Smoking Tobacco: Never Assessed Comments Unknown Sex and Gender Information Value Date Recorded Sex Assigned at Female 09/20/2022 2:57 PM AG EQUIPMENT FIELD SERVICE TECHNICIAN Legal Sex Female 1:35 PM CDT Gender Identity Female 09/20/2022 2:57 PM AG EQUIPMENT FIELD SERVICE TECHNICIAN Sexual Orientation Straight 09/20/2022 2: 57 PM AG EQUIPMENT FIELD SERVICE TECHNICIAN documented as of this encounter Miscellaneous Notes * Cerner Conversion Note - Eduardo Foster MD - 08/28/2020 1:22 PM CDT [place] Suicide Severity Rating Scale (C-SSRS) Entered On: 08/28/2020 13:25 EDT Performed On: 08/28/2020 13:24 EDT by Dayana Madrigal RN [place] Suicide Severity Rating Scale (C-SSRS) CSSRS Past Month Wish to be : No CSSRS Past Month Suicidal Thoughts : No CSSRS Lifetime Suicide Behavior : No Suicide Severity Rating Score : 0 Suicide Severity Rating : No Additional Care Required at this time Thoughts of Harming/Killing Others : No Dayana Madrigal RN - 08/28/2020 13:24 EDT Electronically signed by [facility] Conversion Multigraph Operator Cerner at 02/22/2023 5:07 PM CDT documented in this encounter Plan of Treatment Upcoming Encounters Date Type Department Care Team (Late st Contact Info) Description 09/06/2025 2:45 PM EDT Office Visit [facility] Urology - [address] [place] [address] Gerald Tamayo MD [address] [facility] [address] [place], [place] [address] 10/17/2025 9:30 AM EST Office Visit [facility] Primary Care [address] [place] [address] Lonny Pederson MD [address] [place] [address] 10/17/2025 10:45 AM EST Office Visit [facility] Cardiology - [address] [place] [address] Romina Abreu MD [address] [place], [place] [address] 10/17/2025 1:45 PM EST Office Visit [facility] Neurology - [facility] [address] [facility] [address] [place] [address] Susan Rivers, MAREN [address] [facility] [address] [place] [address] documented as of this encounter Visit Diagnoses Not on filedocumented in this encounter Care Teams Cardiopulmonary Technician Relationship Specialty Start Date End Date Lonny Pederson MD [address] [place] [address] PCP - General Internal Medicine/Pediatrics 09/15/22 Romina Abreu MD [address] [place] [address] Industrial Relations Director Cardiology 09/22/22 Florencia Wilcox MD [address] [place] [address] Campaign Developer Rheumatology 09/22/22 Aryan Penaloza PA-C [address] [place] [address] Orthopedist Orthopedic Surgery 09/22/22 Vladimir Shook MD [address] [place] [address] Sports Medicine 10/06/23 Susan Rivers, WORSHIP LEADER [address] [facility] [address] [place], [place] [address] Neurology 10/06/23 Aryan Good PA-C [address] [place] [address] Physician Assembler Trim 12/09/23 [place] [address] [place] [address] [address] [place] [address] Industrial Relations Director Electrophysiology 03/06/24 documented as of this encounter
--- OUTSIDE RECORDS SUMMARY | 2025-08-29 14:09 | XMS_ITS | Clinical Summary ---
Author Organization [facility] Address [address] [place] [address] Care Team Providers Care Vinyl Hanger Name Role Phone Lonny Pederson MD Primary Care Provider [phone] Cece Willett RESEARCH CENTER DIRECTOR Unavailable [phone] Allergies Active Allergy Reactions Criticality Noted Date Comments Diphenhydramine Itching Medium 08/24/2012 Naproxen Itching Medium 10/21/2008 Other reaction(s): C/O: itching, C/O: itching Medications aspirin 81 MG EC tablet aspirin 81 mg tablet Daily Active nitroglycerin (Nitrostat) 0.4 MG SL tablet Take by mouth. Active ezetimibe (Zetia) 10 MG tablet 02/08/2023 Active rosuvastatin (Crestor) 5 MG tablet 06/02/2023 Active carvedilol (Coreg) 3.125 MG tablet Take 1 tablet (3.125 mg) by mouth. 06/03/2023 Active amLODIPine (Norvasc) 5 MG tablet 01/22/2023 Active Diclofenac Sodium 1.5 % solution Apply topically. Active allopurinol (Zyloprim) 100 MG tablet 04/08/2023 Active methocarbamol (Robaxin) 500 MG tablet 06/02/2023 Active donepezil (Aricept) 10 MG tablet 04/13/2023 Active memantine (Namenda) 10 MG tablet Take 1 tablet (10 mg) by mouth twice a day. 60 tablet 11 06/01/2023 Active levothyroxine (Synthroid, Levoxyl) 112 MCG tablet 03/29/2023 Active Social History Tobacco Use Types Packs/Day Years Used Date Smoking Tobacco: Never Smokeless Tobacco: Never Alcohol Use Standard Drinks/Week Comments Never 0 (1 standard drink = 0.6 oz pur e alcohol) Comments Unknown Sex and Gender Information Value Date Recorded Sex Assigned at Not on file Legal Sex Female 7:33 PM EDT Gender Identity Not on file Sexual Orientation Not on file Last Filed Vital Signs Vital Sign Reading Time Taken Comments Blood Pressure 114/70 06/17/2023 9:05 AM EDT Pulse - - Temperature - - Respiratory Rate - - Oxygen Saturation - - Inhaled Oxygen Concentration - - Weight 67.4 kg (148 lb 9.6 oz) 06/17/2023 9:05 A M EDT Height 144.8 cm (4' 9 ) 06/17/2023 9:05 AM EDT Body Mass Index 32.16 06/17/2023 9:05 AM EDT Plan of Treatment Health Maintenance Due Date Last Done Comments [facility]-Bone Density Scan 1945 [facility]-Depression Screening 1945 [facility]-/Child/Adol SDOH Screenings 1945 [facility]- SDOH Screenings 1963 [facility]-Adult SDOH Screenings 1963 [facility]-Zoster Vaccines (2 of 3) 10/28/2016 09/02/2016 [facility]-RSV Vaccine: 60+ Years or (1 - 1-dose 75+ series) 2020 [id number] Vaccine (1 - season) 2025 [facility]-Influenza Vaccine (#1) 07/08/202509/24, 07/28/2020, 08/17/2018, Additional history exists [facility]-DTaP,Tdap,and Td Vaccines (2 - Td or Tdap) 09/24/2032 09/24/2022 [facility]-Pneumococcal Vaccine: 50+ Years Completed 07/28/2020, 06/13/2015, 05/24/2012 HPV Vaccines Aged Out No longer eligi ble based on patient's age to complete this topic [facility]-HIB Vaccines Aged Out No longer e ligible based on patient's age to complete this topic [facility]-Hepatitis A Vaccines Aged Out No longer eligible based on patient's age to complete this topic [facility]-IPV Vaccines Aged Out No longer e ligible based on patient's age to complete this topic [facility]-Rotavirus Vaccines Aged Out No lo nger eligible based on patient's age to complete this topic Insurance MEDICARE [facility] Care Teams Vinyl Hanger Relationship Specialty Start Date End Date Lonny Pederson MD [address] [place] [address] PCP - General Internal Medicine 06/17/23 Cece Willett, RESEARCH CENTER DIRECTOR [address] [place] [address] Nurse Practitioner Neurosurgery 06/17/23
--- OUTSIDE RECORDS SUMMARY | 2025-08-29 14:09 | XMS_ITS | Encounter Summary ---
Author Organization [employer] ([place], [place], [place], [place]) Address [address] [place] [address] Care Team Providers Care Community Engagement Coordinator Name Role Phone Lonny Pederson MD Primary Care Provider Romina Abreu MD Unavailable [phone] Florencia Wilcox MD Unavailable Aryan Penaloza PA-C Unavailable [phone] Vladimir Shook MD Unavailable Susan Rivers APRN Unavailable [phone] Aryan Good PA-C Unavailable [phone] Jimmy Baeza MD Unavailable Encounter Details Date Type Department Care Team (Late st Contact Info) Description 08/28/2020 Transcribed Document [facility] [place] [address] [place] [address] ProviderEduardo MD [address] [place] [address] Social History Tobacco Use Types Packs/Day Years Used Date Smoking Tobacco: Never Assessed Comments Unknown Sex and Gender Information Value Date Recorded Sex Assigned at Female 09/20/2022 2:57 PM ROLL ON WORKER Legal Sex Female 1:35 PM CDT Gender Identity Female 09/20/2022 2:57 PM ROLL ON WORKER Sexual Orientation Straight 09/20/2022 2: 57 PM ROLL ON WORKER documented as of this encounter Miscellaneous Notes * [employer]ner Conversion Note - Eduardo ProviderMD - 08/28/2020 4:22 PM CDT ED Event Note Entered On: 08/28/2020 16:27 EDT Performed On: 08/28/2020 16:22 EDT by Brielle Emerson RN ED Event Note ED Event Date/Time : 08/28/2020 16:23 EDT ED Description of Event : pt is being admitted for scope tomorrow states that she had vomited up bile and blood Brielle Emerson RN - 08/28/2020 16:22 EDT documented in this encounter Plan of Treatment Upcoming Encounters Date Type Department Care Team (Late st Contact Info) Description 09/06/2025 2:45 PM EDT Office Visit [facility] Urology - [facility] [address] [facility] [address] [place] [id number] Gerald Tamayo MD [address] [facility] [address] [place], [place] [id number] 10/17/2025 9:30 AM EST Office Visit [facility] Primary Care [address] [facility] [address] [place] [address] Lonny Pederson MD [address] [place] [address] 10/17/2025 10:45 AM EST Office Visit [facility] Cardiology - [facility] [address] [place] [address] Romina Abreu MD [address] [place], [place] [id number] 10/17/2025 1:45 PM EST Office Visit [facility] Neurology [address] [place] [id number] Susan Rivers, MAREN [address] [facility] [address] [place] [address] documented as of this encounter Visit Diagnoses Not on filedocumented in this encounter Care Teams Community Engagement Coordinator Relationship Specialty Start Date End Date Lonny Pederson MD [address] [place] [id number] PCP - General Internal Medicine/Pediatrics 09/15/22 Romina Abreu MD [address] [place], [place] [id number] Subcontracts Manager Cardiology 09/22/22 Florencia Wilcox MD [address] [place] [address] Scalp Treatment Specialist Rheumatology 09/22/22 Aryan Penaloza PA-C [address] [place] [address] Orthopedist Orthopedic Surgery 09/22/22 Vladimir Shook MD [address] [place] [address] Sports Medicine 10/06/23 Susan Rivers, MAREN [address] [facility] [address] [place] [address] Neurology 10/06/23 Aryan Good PA-C [address] [place] [address] Physician Certified Dietary Manager 12/09/23 Jimmy Baeza MD [address] [facility] [address] [place] [address] Subcontracts Manager Electrophysiology 03/06/24 documented as of this encounter
--- OUTSIDE RECORDS SUMMARY | 2025-08-29 14:11 | XMS_ITS | Encounter Summary ---
Author Organization [employer] ([place], [place], [place], [place]) Address [address] [place] [address] Care Team Providers Care Residential Caregiver Name Role Phone Lonny Pederson MD Primary Care Provider Romina Abreu MD Unavailable [phone] Florencia Wilcox MD Unavailable Aryan Penaloza PA-C Unavailable [phone] Vladimir Shook MD Unavailable Susan Rivers APRN Unavailable [phone] Aryan Good PA-C Unavailable [phone] Jimmy Baeza MD Unavailable Encounter Details Date Type Department Care Team (Late st Contact Info) Description 08/29/2020 Transcribed Document [facility] [place] Medicine [address] [place] [address] ProviderEduardo MD [address] [place] [address] Social History Tobacco Use Types Packs/Day Years Used Date Smoking Tobacco: Never Assessed Comments Unknown Sex and Gender Information Value Date Recorded Sex Assigned at Female 09/20/2022 2:57 PM TEAROOM HOST Legal Sex Female 1:35 PM CDT Gender Identity Female 09/20/2022 2:57 PM TEAROOM HOST Sexual Orientation Straight 09/20/2022 2: 57 PM TEAROOM HOST documented as of this encounter Miscellaneous Notes * [employer]ner Conversion Note - Historical Provider, - 08/29/2020 12:10 PM CDT Patient Education Materials Follows: Gastritis, Adult Gastritis is swelling (inflammation) of the stomach. Gastritis can develop quickly (acute). It can also develop slowly over time (chronic). It is important to get help for this condition. If you do not get help, your stomach can bleed, and you can get sores (ulcers) in your stomach. What are the causes? This condition may be caused by: ??? Germs that get to your stomach. ??? Drinking too much alcohol. ??? Medicines you are taking. ??? Too much acid in the stomach. ??? A disease of the intestines or stomach. ??? Stress. ??? An allergic reaction. ??? Crohn's disease. ??? Some cancer treatments (radiation). Sometimes the cause of this condition is not known. What are the signs or symptoms? Symptoms of this condition include: ??? Pain in your stomach. ??? A burning feeling in your stomach. ??? Feeling sick to your stomach (nauseous). ??? Throwing up (vomiting). ??? Feeling too full after you eat. ??? Weight loss. ??? Bad breath. ??? Throwing up blood. ??? Blood in your poop (stool). How is this diagnosed? This condition may be diagnosed with: ??? Your medical history and symptoms. ??? A physical exam. ??? Tests. These can include: ? Blood tests. ? Stool tests. ? A procedure to look inside your stomach (upper endoscopy). ? A test in which a sample of tissue is taken for testing (biopsy). How is this treated? Treatment for this condition depends on what caused it. You may be given: ??? Antibiotic medicine, if your condition was caused by germs. ??? H2 blockers and similar medicines, if your condition was caused by too much acid. Follow these instructions at home: Medicines ??? Take [id number] and prescription medicines only as told by your doctor. ??? If you were prescribed an antibiotic medicine, take it as told by your doctor. Do not stop taking it even if you start to feel better. Eating and drinking ??? Eat small meals often, instead of large meals. ??? Avoid foods and drinks that make your symptoms worse. ??? Drink enough fluid to keep your pee (urine) pale yellow. Alcohol use ??? Do not drink alcohol if: ? Your doctor tells you not to drink. ? You are , may be , or are planning to become . ??? If you drink alcohol: ? Limit your use to: ? 0?1 drink a day for women. ? 0?2 drinks a day for men. ? Be aware of how much alcohol is in your drink. In the [place] one drink equals one 12 oz bottle of beer (355 mL), one 5 oz glass of wine (148 mL), or one 1? oz glass of hard liquor (44 mL). General instructions ??? Talk with your doctor about ways to manage stress. You can exercise or do deep breathing, meditation, or yoga. ??? Do not smoke or use products that have nicotine or tobacco. If you need help quitting, ask your doctor. ??? Keep all follow-up visits as told by your doctor. This is important. Contact a doctor if: ??? Your symptoms get worse. ??? Your symptoms go away and then come back. Get help right away if: ??? You throw up blood or something that looks like coffee grounds. ??? You have black or dark red poop. ??? You throw up any time you try to drink fluids. ??? Your stomach pain gets worse. ??? You have a fever. ??? You do not feel better after one week. Summary ??? Gastritis is swelling (inflammation) of the stomach. ??? You must get help for this condition. If you do not get help, your stomach can bleed, and you can get sores (ulcers). ??? This condition is diagnosed with medical history, physical exam, or tests. ??? You can be treated with medicines for germs or medicines to block too much acid in your stomach. This information is not intended to replace advice given to you by your health care provider. Make sure you discuss any questions you have with your health care provider. Document Released: 04/11/2009 Document Revised: 03/13/2019 Document Reviewed: 03/13/2019 Elsevier Patient Education ? 2020 [employer] Electronically signed by Del Greenfield Conversion Dairy Machine Operator Farmworker Cerner at 02/22/2023 5:18 PM CDT documented in this encounter Plan of Treatment Upcoming Encounters Date Type Department Care Team (Late st Contact Info) Description 09/06/2025 2:45 PM EDT Office Visit [facility] Urology - [address] [facility] [address] [place] [address] Gerald Tamayo MD [address] [facility] [address] [place], [place] [id number] 10/17/2025 9:30 AM EST Office Visit [facility] Primary Care [address] [facility] [address] [place] [address] Lonny Pederson MD [address] [place] [address] 10/17/2025 10:45 AM EST Office Visit [facility] Cardiology - [facility] [address] [place] [address] Romina Abreu MD [address] [facility] [address] [place] [address] 10/17/2025 1:45 PM EST Office Visit [facility] Neurology - [facility] [address] [place] [address] Susan Rivers APRN [address] [facility] [address] [place], [place] [id number] documented as of this encounter Visit Diagnoses Not on filedocumented in this encounter Care Teams Residential Caregiver Relationship Specialty Start Date End Date Lonny Pederson MD [address] [place] [address] PCP - General Internal Medicine/Pediatrics 09/15/22 Romina Abreu MD [address] [place] [address] Sewer Maintenance Supervisor Cardiology 09/22/22 Florencia Wilcox MD [address] [place] [phone] Cartoon Animator Rheumatology 09/22/22 Aryan Penaloza PA-C [address] [place] [address] Orthopedist Orthopedic Surgery 09/22/22 Vladimir Shook MD [address] [place] [address] Sports Medicine 10/06/23 Susan Rivers, [employer]IS[employer] NETWORK ENGINEER [address] [facility] [address] [place] [address] Neurology 10/06/23 Aryan Good PA-C [address] [place] [address] Physician Thread Clipper 12/09/23 Jimmy Baeza MD [address] [facility] [address] [place] [address] Sewer Maintenance Supervisor Electrophysiology 03/06/24 documented as of this encounter
--- OUTSIDE RECORDS SUMMARY | 2025-08-29 14:11 | XMS_ITS | Encounter Summary ---
Author Organization [employer] ([place], [place], [place] Address [address] [place] [address] Care Team Providers Care Financial Operations Consultant Name Role Phone Lonny Pederson MD Primary Care Provider Romina Abreu MD Unavailable [phone] Florencia Wilcox MD Unavailable Aryan Penaloza PA-C Unavailable [phone] Vladimir Shook MD Unavailable Susan Rivers APRN Unavailable [phone] Aryan Good PA-C Unavailable [phone] Jimmy Baeza MD Unavailable Encounter Details Date Type Department Care Team (Late st Contact Info) Description 08/29/2020 Transcribed Document [facility] Family Medicine [address] [place] [address] ProviderEduardo MD [address] [place] [address] Social History Tobacco Use Types Packs/Day Years Used Date Smoking Tobacco: Never Assessed Comments Unknown Sex and Gender Information Value Date Recorded Sex Assigned at Female 09/20/2022 2:57 PM MACHINE STONECUTTER Legal Sex Female 1:35 PM CDT Gender Identity Female 09/20/2022 2:57 PM MACHINE STONECUTTER Sexual Orientation Straight 09/20/2022 2: 57 PM MACHINE STONECUTTER documented as of this encounter Miscellaneous Notes * Cerner Conversion Note - Historical ProviderMD - 08/29/2020 1:08 [place] [address] FLOWER LOUISE :1945 Visit Time:08/28/2020 Your Visit Summary Your Care Team Admitting Physician - VERNON PRIETO, DO Attending Physician - VERNON PRIETO, DO Primary Care Physician - PHUONG AGEE MD-FAM Referring Physician - ANGELIQUE, SELF REFERRED Your Diagnosis Hematemesis, Hematemesis, Hematemesis with nausea Vomiting These Are Your Goals to go home Discharge Vitals Temperature 36.7 ??C Heart Rate (Monitored) 62 Respiratory Rate 14 Blood Pressure 161/65 What to do next Instructions From Your Care Team .dc Discharge Follow Up Instructions: Follow up w/ Dr Martin next weekFollow up PCP in 3-5 days Activity: Discharge Activity: Activity as tolerated Diet: Discharge Diet: Resume usual diet as tolerated Follow-Up Appointments Follow Up with PHUOGN AGEE MD-FAM When Within 2 to 3 days Where: [address] [facility] [address] [place] [address]- x2 Follow Up with MICHELE MARTIN MD-GAE When Within 1 week Where: [address] [facility] [address] [place] [address]- Medications What How Much When Instructions Next Dose pantoprazole (Protonix 40 mg oral delayed release tablet) 1 Tablet(s) Oral Two Times A Day Duration: 30 Day(s) Refills: 3 15-30min prior to meals on empty stomach carvedilol (carvedilol 3.125 mg oral tablet) 1 Tablet(s) Oral Two Times A Day levothyroxine (levothyroxine 50 mcg (0.05 mg) oral tablet) 1 Tablet(s) Oral Every Day allopurinol (allopurinol 100 mg oral tablet) 1 Tablet(s) Oral Two Times A Day apixaban (Eliquis 5 mg oral tablet) 1 Tablet(s) Oral Two Times A Day colchicine (colchicine 0.6 mg oral capsule) 1 Capsule(s) Oral Every Day ezetimibe (Zetia 10 mg oral tablet) 1 Tablet(s) Oral Every Day Take your medications faithfully. Do NOT skip medication. Do NOT stop taking medications without the direction of a physician. Carry a list of your medications with you at all times, and take this medication list with you to your first follow up visit. Report any side effects. Avoid herbal remedies unless discussed with your physician. As part of your treatment plan, your physician may have prescribed a limited course of a controlled substance. This medication may be given to help people with moderate or severe pain or for other medical conditions, but there are risks involved with treatment. Common side effects may include nausea, constipation, drowsiness, sweating, itching, dry mouth, and rash. More serious side effects may include cognitive and motor impairment, like problems with thinking, concentrating, alertness, and movement (e.g. slowed reflexes), and driving and operating heavy machinery can be dangerous. It is important for you to talk to your physician if you have these side effects or questions. These controlled substances can produce physical dependence and be habit-forming if taken for an extended period of time, which means that the body has gotten used to them and may experience withdrawal symptoms if they are abruptly stopped. Withdrawal symptoms can include runny nose, sweating, goose bumps, diarrhea, abdominal cramping, rapid heartbeat, difficulty sleeping, and nervousness. Please dispose of unused and medications per your retail pharmacy guidance. Allergies naproxen (C/O: itching, C/O: itching) Immunizations This Visit No Immunizations Found Education Materials Gastritis, Adult Gastritis is swelling (inflammation) of [...] these instructions at home: Medicines ??? Take [id number] and prescription medicines only as told by [...] alcohol: ? Limit your use to: ? 0???1 drink a day for women. ? 0???2 drinks a day for men. ? Be aware of how much alcohol is in your drink. In the [place] one drink equals one 12 oz bottle of beer (355 mL), one 5 oz glass of wine (148 mL), or one 1?? oz glass of hard liquor (44 mL). [...] 04/11/2009 Document Revised: 03/13/2019 Document Reviewed: 03/13/2019 [employer] Patient Education ?? 2020 [employer]. Emergency Awareness and Preventative Care STROKE is an EMERGENCY Every Minute Counts Act FAST and Check for these signs: FACE Does the face look uneven? ARM Does one arm drift down? SPEECH Does their speech sound strange? TIME Call at any sign of stroke Stroke Risk Factors Atrial Fibrillation (irregular heartbeat) Diabetes Family history of stroke Heart Disease Heavy alcohol use High Blood Pressure High Cholesterol Physical inactivity and obesity Smoking Cigarette Smoking The facts are clear, cigarette smoking will shorten your life. Smoking can cause many illnesses along the way. As a healthcare provider, we recommend that you stop smoking. Assistance with quitting is available by contacting 4-562-XOFM-NOW. This is a free resource providing counseling, support, and referral. Or you may contact your personal physician. [place] Suicide Prevention Lifeline: The National Suicide Prevention Lifeline is a national network of local crisis centers that provides free and confidential emotional support to people in suicidal crisis or emotional distress 24 hours a day, 7 days a week. Don't Wait! Stop a Heart Attack Before it Starts What is a heart attack? A heart attack is damage or to a part of the heart from severely decreased or lack of blood flow to the heart. Over time, arteries can become narrow from the buildup of fat and cholesterol, which is called plaque. The plaque can rupture causing a blood clot to form. When the blood clot forms, the artery can become severely narrowed or completely blocked, causing a heart attack. Heart attack is the leading cause of in the [place]. 85% of muscle damage occurs within the first 2 hours. Delay in the recognition of heart attack symptoms increases the chances of . Know the early symptoms of a heart attack: Nausea Feeling of fullness in chest Jaw Pain Pain that travels down one or both arms Fatigue/being tired Anxiety Back Pain Chest pressure, squeezing, or discomfort Shortness of breath Sweating, or a cold sweat Feeling of impending doom There are unusual signs of a heart attack, too! Women, the elderly, and diabetics may present with atypical symptoms: Fainting/dizziness Weakness Confusion Risk Factors for a Heart Attack Some heart disease risk factors, such as age and family history, cannot be changed. Others, like smoking and lack of exercise, can be changed. Smoking High Cholesterol High Blood Pressure Family History Obesity Age Gender (Males are at higher risk) Lack of Exercise Diabetes Diet Stress Excessive Alcohol Intake If you or someone you know is experiencing the signs and symptoms of a heart attack, DON???T DELAY. Call immediately and seek help. If someone collapses, perform CPR! Do not attempt to drive if you are having symptoms of heart attack. Hands-Only CPR Why Hands-Only CPR? Hands-Only CPR has been shown to be as effective as conventional CPR for cardiac arrests that occur outside of a hospital. Survival depends on immediately receiving CPR from someone nearby. How do you perform Hands-Only CPR? There are two easy steps: Call if you see a teen or adult collapse Push hard and fast in the center of the chest at a beat of 100 beats per minute. Save a life! 4 WAYS TO GET AHEAD OF SEPSIS SEPSIS is a MEDICAL EMERGENCY. Time matters! Infections put you and your family at risk for a life-threatening condition called sepsis. Sepsis is the body's extreme response to an infection. It is life-threatening, and without timely treatment, sepsis can rapidly lead to tissue damage, organ failure, and . Sepsis happens when an infection you already have-in your skin, lungs, urinary tract or somewhere else-triggers a chain reaction throughout your body. 1 PREVENT INFECTIONS Take good care of chronic conditions. Talk to your doctor about getting the recommended vaccines. 2 PRACTICE GOOD HYGIENE Wash your hands frequently. Keep cuts or open sores clean and covered until they are healed. 3 KNOW THE SYMPTOMS Confusion or disorientation Shortness of breath High heart rate Fever, shivering, or feeling very cold Extreme pain or discomfort Clammy or sweaty skin 4 ACT FAST Get medical care IMMEDIATELY if you suspect sepsis or if you have an infection that is not getting better or is getting worse. To learn more about sepsis and how to prevent infections, visit www.cdc.gov/sepsis. Test Results Laboratory or Other Results This Visit (last charted value for your 08/28/2020 visit) Hematology 08/29/2020 3:49 AM WBC: 5.2 K/uL -- Normal range between ( 3.9 and 10.0 ) RBC: 3.85 Million/uL -- Normal range between ( 3.93 and 5.22 ) Hct: 38.1 % -- Normal range between ( 34.1 and 44.9 ) Hgb: 12.2 Gram/dL -- Normal range between ( 11.2 and 15.7 ) Platelet Count: 180 K/uL -- Normal range between ( 163 and 369 ) MCH: 31.7 pg -- Normal range between ( 25.6 and 32.2 ) MCHC: 32.0 Gram/dL -- Normal range between ( 32.3 and 36.5 ) MCV: 99.0 fL -- Normal range between ( 79.0 and 94.8 ) Slide Review: No Eos %: 7.7 % -- Normal range between ( 1.0 and 7.0 ) Potter #: 0.56 K/uL -- Normal range between ( 0.24 and 0.82 ) Eos #: 0.40 K/uL -- Normal range between ( 0.04 and 0.54 ) Potter %: 10.7 % -- Normal range between ( 4.7 and 12.5 ) Baso %: 1.7 % -- Normal range between ( 0.0 and 1.0 ) Baso #: 0.09 K/uL -- Normal range between ( 0.01 and 0.08 ) RDW: 13.2 % -- Normal range between ( 11.6 and 14.4 ) Neut %: 52.1 % -- Normal range between ( 34.0 and 71.0 ) Neut #: 2.72 K/uL -- Normal range between ( 1.56 and 6.13 ) Lymph %: 27.6 % -- Normal range between ( 19.3 and 53.0 ) Lymph #: 1.44 K/uL -- Normal range between ( 1.18 and 3.74 ) MPV: 9.8 fL -- Normal range between ( 9.4 and 12.4 ) IG#: 0 x10(3)/uL IG%: 0 % -- Normal range between ( 0 and 1 ) Urinalysis 08/28/2020 1:42 PM Ur RBC: 0-2 /HPF Urine Nitrite: Negative Urine Leukocyte Esterase: Trace Urine Appearance: Clear Urine Glucose Dipstick: Negative Urine Blood Dipstick: Negative Urine Type: U CleanCatch Urine Urobilinogen Dipstick: 1.0 EU/dL -- Normal range between ( 0.2 and 1.0 ) Urine Protein Dipstick: Negative Ur Bacteria: Trace Ur Squamous Epithelial Cells: 2-5 /HPF Urine Color: Yellow Ur WBC: 0-2 /HPF Urine Ketones Dipstick: Negative Urine pH Dipstick: 6.5 -- Normal range between ( 6.0 and 8.0 ) Urine Bilirubin Dipstick: Negative Urine Specific [place]: 1.012 -- Normal range between ( 1.005 and 1.030 ) Microbiology 08/28/2020 3:07 PM Novel Coronavirus 2019: Negative General Chemistry 08/29/2020 3:49 AM Creatinine Level: 0.94 mg/dL -- Normal range between ( 0.55 and 1.02 ) Sodium Level: 137 mmol/L -- Normal range between ( 136 and 146 ) Potassium Level: 4.3 mmol/L -- Normal range between ( 3.5 and 5.1 ) Chloride Level: 105 mmol/L -- Normal range between ( 102 and 112 ) Carbon Dioxide Level: 29 mmol/L -- Normal range between ( 21 and 32 ) Anion Gap: 7 -- Normal range between ( 9 and 20 ) Bilirubin Total: 0.5 mg/dL -- Normal range between ( 0.2 and 1.3 ) A/G Ratio: 1.0 -- Normal range between ( 1.1 and 2.5 ) ALT: 11 Units/Liter -- Normal range between ( 12 and 78 ) AST: 15 Units/Liter -- Normal range between ( 5 and 37 ) Globulin: 2.8 Gram/dL -- Normal range between ( 1.5 and 4.5 ) Alk Phos: 77 Units/Liter -- Normal range between ( 27 and 136 ) Bun/Creatinine: 6.4 -- Normal range between ( 8.0 and 20.0 ) Calcium Level: 8.6 mg/dL -- Normal range between ( 8.5 and 10.1 ) eGFR : >60 mL/min/1.73m2 eGFR NonAfrican: 58 mL/min/1.73m2 Glucose Level: 80 mg/dL -- Normal range between ( 74 and 106 ) Blood Urea Nitrogen: 6 mg/dL -- Normal range between ( 7 and 22 ) Protein Total: 5.5 Gram/dL -- Normal range between ( 6.4 and 8.2 ) Albumin Level: 2.7 Gram/dL -- Normal range between ( 3.4 and 5.0 ) 08/28/2020 2:12 PM CRP: 0.5 mg/dL -- Normal range between ( 0.0 and 0.9 ) Lipase Level: 86 Units/Liter -- Normal range between ( 73 and 393 ) Endocrinology 08/28/2020 2:12 PM TSH: 27.500 mcInt Units/mL -- Normal range between ( 0.358 and 3.740 ) FT4: 0.81 ng/dL -- Normal range between ( 0.76 and 1.46 ) Patient Name:FLOWER LOUISE I have received and understand this information and was given the opportunity to ask questions. Patient/Head Transfer Clerk Name: Patient/Head Transfer Clerk Signature: Relationship to Patient: Clinician/Hospital Head Transfer Clerk Signature: Date: documented in this encounter Plan of Treatment Upcoming Encounters Date Type Department Care Team (Late st Contact Info) Description 09/06/2025 2:45 PM EDT Office Visit [facility] Urology - [address] [place] [address] Gerald Tamayo MD [address] [place] [address] [address] [place] [id number] 10/17/2025 9:30 AM EST Office Visit [facility] Primary Care [address] [place] [address] Lonny Pederson MD [address] [place] [address] 10/17/2025 10:45 AM EST Office Visit [facility] Cardiology - [address] [place] [address] Romina Abreu MD [address] [place] [address] 10/17/2025 1:45 PM EST Office Visit [facility] Neurology - [facility] [address] [place] [id number] Susan Rivers APRN [address] [facility] [address] [place] [address] documented as of this encounter Visit Diagnoses Not on filedocumented in this encounter Care Teams Financial Operations Consultant Relationship Specialty Start Date End Date Lonny Pederson MD [address] [place] [id number] PCP - General Internal Medicine/Pediatrics 09/15/22 Romina Abreu MD [address] [place] [address] Washhouse Worker Cardiology 09/22/22 Florencia Wilcox MD [address] [place] [address] Shingles Roofer Rheumatology 09/22/22 Aryan Penaloza PA-C [address] [place] [address] Orthopedist Orthopedic Surgery 09/22/22 Vladimir Shook MD [address] [place] [address] Sports Medicine 10/06/23 Susan Rivers, MAREN [address] [facility] [address] [place] [address] Neurology 10/06/23 Aryan Good PA-C [address] [place] [address] Physician Liquified Natural [employer] Specialist 12/09/23 Jimmy Baeza MD [address] [place] [address] Washhouse Worker Electrophysiology 03/06/24 documented as of this encounter
--- OUTSIDE RECORDS SUMMARY | 2025-08-29 14:11 | XMS_ITS | Encounter Summary ---
Author Organization [employer] ([place], [place], [place], [place]) Address [address] [place] [address] Care Team Providers Care Wood Inspector Name Role Phone Lonny Pederson MD Primary Care Provider Romina Abreu MD Unavailable [phone] Florencia Wilcox MD Unavailable Aryan Penaloza PA-C Unavailable [phone] Vladimir Shook MD Unavailable Susan Rivers APRN Unavailable [phone] Aryan Good PA-C Unavailable [phone] Jimmy Baeza MD Unavailable Encounter Details Date Type Department Care Team (Late st Contact Info) Description 08/29/2020 Transcribed Document [facility] [place] [address] [place] [address] ProviderEduardo MD [address] [place] [address] Social History Tobacco Use Types Packs/Day Years Used Date Smoking Tobacco: Never Assessed Comments Unknown Sex and Gender Information Value Date Recorded Sex Assigned at Female 09/20/2022 2:57 PM PRICING CLERK Legal Sex Female 1:35 PM CDT Gender Identity Female 09/20/2022 2:57 PM PRICING CLERK Sexual Orientation Straight 09/20/2022 2: 57 PM PRICING CLERK documented as of this encounter Miscellaneous Notes * Cerner Conversion Note - Historical Provider, - 08/29/2020 8:53 AM CDT [facility] IntraOp Summary Primary Physician: MICHELE MARTIN MD-GAE Finalized Date/Time: 08/29/20 09:00:43 Pt. Name: FLOWER LOUISE /Sex: 1945 Female Med Rec #: [id number] Physician: VERNON PRIETO DO Financial #: [id number] Pt. Type: O Room/Bed: [facility] Admit/Disch: 08/28/20 14:58:00 - Institution: [facility] - Case Attendance Entry 1 Entry 2 Entry 3 Case Attendee MICHELE MARTIN MD-GAE MCDONALD, LEAH BETH, Cami Nixon Rn PETROLEUM REFINERY OPERATOR Role Performed Surgeon/Proceduralist, PETROLEUM REFINERY OPERATOR/Nurse Laborer Tin Can Patient Registration Clerk, First First Time In 08/29/20 08:43:00 08/29/20 08:43:00 08/29/20 08:43:00 Time Out 08/29/20 08:56:00 08/29/20 08:56:00 08/29/20 08:56:00 Procedure Gastric Biopsy Esophagogastroduodenosco Esophagogastroduodenosco py, Gastric Biopsy py, Gastric Biopsy Other Attendee Superficial Wound Closed By: Last Modified By: Cami Nixon Rn Conner, Elizabeth A, Rn Conner, Elizabeth A, Rn 08/29/20 08:59:19 08/29/20 08:59:19 08/29/20 08:59:19 Entry 4 Entry 5 Entry 6 Case Attendee KATHRYN Diaz RN FLEMING, SCOTT, DO-ANS Childers, Brian, Used Building Materials Yard Worker Role Performed Patient Registration Clerk, Second Anesthesiologist of Scrub, First Record Time In 08/29/20 08:43:00 08/29/20 08:43:00 08/29/20 08:43:00 Time Out 08/29/20 08:56:00 08/29/20 08:56:00 08/29/20 08:56:00 Procedure Esophagogastroduodenosco Esophagogastroduodenosco Esophagogastroduodenosco py, Gastric Biopsy py, Gastric Biopsy py, Gastric Biopsy Other Attendee Superficial Wound Closed By: Last Modified By: Cami Nixon Rn Conner, Elizabeth A, Rn Conner, Elizabeth A, Rn 08/29/20 08:59:19 08/29/20 08:59:19 08/29/20 08:59:19 [facility] - Case Attendance Audit 08/29/20 08:59:19 Trailer Assembler: [id number] Modifier: [id number] <+> 1 Time Out <+> 1 Procedure 2 <+> Time In 2 <+> Time Out 2 <*> Procedure Esophagogastroduodenoscopy 3 <+> Time In 3 <+> Time Out 3 <*> Procedure Esophagogastroduodenoscopy 4 <+> Time In 4 <+> Time Out 4 <*> Procedure Esophagogastroduodenoscopy 5 <+> Time In 5 <+> Time Out 5 <*> Procedure Esophagogastroduodenoscopy 6 <+> Time In 6 <+> Time Out 6 <*> Procedure Esophagogastroduodenoscopy [facility] - Case Times Entry 1 Patient In Room Time 08/29/20 08:43:00 Out Room Time 08/29/20 08:56:00 Anesthesia Start Time 08/29/20 08:43:00 Stop Time 08/29/20 08:56:00 Anesthesia Ready 08/29/20 08:43:00 Surgery / Procedure Times Start Time 08/29/20 08:53:00 Stop Time 08/29/20 08:54:00 Last Modified By: Cami Nixon Rn 08/29/20 08:58:04 [facility] - Case Times Audit 08/29/20 08:58:04 Trailer Assembler: [id number] Modifier: [id number] <+> 1 Out Room Time <+> 1 Start Time <+> 1 Stop Time <+> 1 Start Time <+> 1 Stop Time <+> 1 Anesthesia Ready [facility] - Cultures and Spec Summary Entry 1 Cultrures and Specimens Specimen Ordered: Yes Test(s) Routine/Path-Lab Requested/Final Disposition Last Modified By: Cami Nixon Rn 08/29/20 09:00:09 [facility] - Delays Entry 1 Delay Reason Other, No Delay Duration 0 Minute(s) Comment NO DELAY Last Modified By: Cami Nixon Rn 08/29/20 08:48:28 [facility] - Departure from OR Entry 1 Integumentary Assessment Integumentary WDL Assessment WDL Transfer/Handoff Transfer to PACU Phase I Handoff Method Bedside/Face to face Post-op Transport Stretcher/Gurney Via Patient Transport Cami Nixon, Accompanied by Rn, STEVENSON PARKS CRNA Last Modified By: Cami Nixon Rn 08/29/20 08:48:32 [facility] - Endoscopy Details Entry 1 Abdomen Procedure Soft, Non-Tender Assessment Procedure Abdomen 08/29/20 08:45:00 Assessment D/T Radio Frequency Ablation Abdominal Pressure Last Modified By: Cami Nixon Rn 08/29/20 08:50:58 [facility] - Fire Risk Assessment Entry 1 Fire Info Surgical Site or 1- Yes Incision Above the Xyphoid Open O2 Source 1- Yes (Mask or Cannula) Available Ignition 1- Yes (ESU, Laser, Light Source) Fire Risk 3 Assessment Score Fire Score Fire Risk Yes Assessment Complete Fire Risk Cami Nixon Rn Assessment Verified By Fire Risk 08/29/20 08:45:00 Assessment Verified Date/Time Fire Risk High Risk Protocol Yes Implemented Standard Fire Yes Safety Precautions Followed Last Modified By: Cami Nixon Rn 08/29/20 08:49:47 [facility] - General Case Redrawer 1 Case Information OR Endo 01 E Case Level 1 Room Verified Yes Wound Class II - Clean-Contaminated Specialty SN Gastroenterology Anesthesia Type MAC ASA Class 3 Diagnosis Preop Diagnosis hematamesis Postop Same As Preop No Postop Diagnosis gastritis, esophagitis Last Modified By: Cami Nixon Rn 08/29/20 09:00:04 [facility] - General Case Data Audit 08/29/20 09:00:04 Trailer Assembler: [id number] Modifier: [id number] <+> 1 Postop Diagnosis [facility] - Intraoperative Assessment Entry 1 Valid History / Yes Physical in Chart Preoperative Yes Checklist Reviewed/Evaluated Patient is Latex No Sensitive Level of WDL Consciousness (WDL = Alert, Oriented to Person, Place, and Time) Present Upon ECG monitored Arrival to OR Last Modified By: Cami Nixon Rn 08/29/20 08:51:06 [facility] - Intraoperative Equipment Entry 1 Equipment Intraop Monitoring Electrocardiogram Three lead placement (ECG) Electrode Placement Blood Pressure Arm, left upper Location Pulse Oximeter Hand, right Probe Site Antiembolic Devices Scopes Flexible Endoscopes Gastroscope Used Scope Serial [id number] Number/Identificatio n Number Photo/Video Documentation Photo Yes Video No Last Modified By: Cami Nixon Rn 08/29/20 08:51:44 [facility] - Patient Positioning Entry 1 Procedure Esophagogastroduodenosco py, Gastric Biopsy Body Position Lateral, right side up Left Arm Position Resting at side Right Arm Position Resting at side Left Leg Position Other Right Leg Position Other Position Comments Right leg over left leg uncrossed Feet Uncrossed Yes Pressure Points Yes Checked Positioned By Cami Nixon Rn, STEVENSON PARKS CRNA Position Verified Positioning Yes Verified by Anesthesia Positioning Yes Verified by Surgeon Last Modified By: Cami Nixon Rn 08/29/20 08:59:24 [facility] - Patient Positioning Audit 08/29/20 08:59:24 Trailer Assembler: [id number] Modifier: [id number] <*> Procedure Esophagogastroduodenoscopy [facility] - Sign In Entry 1 Patient, Site, Yes Procedure Identified Surgical Consent Yes Confirmed Relevant Surgical Yes Documents Available Surgical Site N/A Marked by person performing procedure Anesthesia Machine Yes Check Completed Medication Checks Yes Completed Allergies Yes Airway Blood Loss Risk No Blood Loss No Intervention Equipment Prepared and Ready Blood Identifiers Not applicable Verified Per Policy Hypothermia Risk No Warming Measures Yes Taken Last Modified By: Cami Nixon Rn 08/29/20 08:52:23 [facility] - Sign In Audit 08/29/20 08:52:23 Trailer Assembler: [id number] Modifier: [id number] <+> 1 Anesthesia Machine Check Completed <+> 1 Medication Checks Completed <+> 1 Allergies <+> 1 Blood Loss Risk <+> 1 Blood Loss Intervention Equipment Prepared and Ready <+> 1 Hypothermia Risk <+> 1 Warming Measures Taken <+> 1 Blood Identifiers Verified Per Policy [facility] - Sign Out Entry 1 RN Confirmation Surgical Yes Procedure(s) Identified Instrument, Sponge N/A and Sharps Counts Correct/Documented Equipment Problems N/A Documented Specimen Labeled Yes Correctly Urinary Catheter N/A Documented in IView Safety Checklist Yes Elements Complete? RN Sign Out Cami Nixon Rn Signature RN Sign Out 08/29/20 08:56:00 Signature Date/Time Plan of Care Outcome - Fire Risk OUTCOME STATEMENT: Goal met Patient is free from injury related to surgical fire Plan of Care Outcome - Pt Positioning OUTCOME STATEMENT: Goal met Absence of signs and symptoms of positioning injury. Plan of Care Outcome - Skin Prep OUTCOME STATEMENT: Goal met Intraoperative care is consistent with measures to prevent infection Plan of Care Outcome - Xray/Images OUTCOME STATEMENT: N/A Absence of observable signs or symptoms of radiation injury Plan of Care Outcome - Counts OUTCOME STATEMENT: N/A Absence of signs and symptoms of injury related to extraneous objects Last Modified By: Cami Nixon Rn 08/29/20 08:58:19 [facility] - Surgical Procedures Entry 1 Entry 2 Procedure Esophagogastroduodenosco Gastric Biopsy py Modifiers Additional Procedure Description Primary Procedure Yes No Primary Surgeon MICHELE MARTIN MD-GAE WOLFORD, TRACEY, MD-GAE Start 08/29/20 08:53:00 08/29/20 08:53:00 Stop 08/29/20 08:54:00 08/29/20 08:54:00 Physician States Cecum Reached Anesthesia Type MAC MAC Specialty SN Gastroenterology SN Gastroenterology Wound Class II - Clean-Contaminated II - Clean-Contaminated Last Modified By: Cami Nixon Rn Conner, Elizabeth A, Rn 08/29/20 08:59:01 08/29/20 08:59:01 [facility] - Time Out Entry 1 Procedure to be Esophagogastroduodenosco Performed py, Gastric Biopsy Time Out Time Out Pause Time 08/29/20 08:52:00 All activity Yes suspended (unless life threatening emergency) Team Verbally Correct patient Confirms Information identity, Consent form is present and accurate, Agreement on the procedure to be done, Correct patient position, Relevant images/results properly labeled/appropriately displayed, Reconcile problems if responses among team members differ Antibiotic N/A Prophylaxis Administered Or In Progress Within the Last 60 Minutes Beta Isis N/A Administered Venous N/A Thromboembolism Prophylaxis Required Anticipated Critical Events Surgeon None expected Anesthesia Provider None expected Last Modified By: Cami Nixon Rn 08/29/20 08:59:25 [facility] - Time Out Audit 08/29/20 08:59:25 Trailer Assembler: [id number] Modifier: [id number] <*> Procedure to be Performed Esophagogastroduodenoscopy Case Comments <None> Finalized By: Cami Nixon Rn Document Signatures Signed By: Cami Nixon Rn 08/29/20 09:00 documented in this encounter Plan of Treatment Upcoming Encounters Date Type Department Care Team (Late st Contact Info) Description 09/06/2025 2:45 PM EDT Office Visit [facility] Urology - [facility] [address] [facility] [address] [place] [address] Gerald Tamayo MD [address] [facility] [address] [place] [address] 10/17/2025 9:30 AM EST Office Visit [facility] Primary Care [address] [facility] [address] [place] [address] Lonny Pederson MD [address] [facility] [place] [address] 10/17/2025 10:45 AM EST Office Visit [facility] Cardiology - [facility] [address] [place] [address] Romina Abreu MD [address] [facility] [address] [place], [place] [address] 10/17/2025 1:45 PM EST Office Visit [facility] Neurology - [address] [place] [id number] Susan Rivers, AGRICULTURAL CHEMIST [address] [facility] [address] [place] [address] documented as of this encounter Visit Diagnoses Not on filedocumented in this encounter Care Teams Wood Inspector Relationship Specialty Start Date End Date Lonny Pederson MD [address] [place] [phone] PCP - General Internal Medicine/Pediatrics 09/15/22 Romina Abreu MD [address] [place] [address] Manager Talent Cardiology 09/22/22 Florencia Wilcox MD [address] [place] [phone] Aquatics Manager Rheumatology 09/22/22 Aryan Penaloza PA-C [address] [place] [address] Orthopedist Orthopedic Surgery 09/22/22 Vladimir Shook MD [address] [place] [address] Sports Medicine 10/06/23 Susan Rivers, MAREN [address] [facility] [address] [place] [address] Neurology 10/06/23 Aryan Good PA-C [address] [place] [address] Physician Straight Ruling Machine Operator 12/09/23 Jimmy Baeza MD [address] [facility] [address] [place] [address] Manager Talent Electrophysiology 03/06/24 documented as of this encounter
--- OUTSIDE RECORDS SUMMARY | 2025-08-29 14:11 | XMS_ITS | Encounter Summary ---
Author Organization [employer] ([place], [place], [place], [place]) Address [address] [place] [address] Care Team Providers Care Director Process Improvement Name Role Phone Lonny Pederson MD Primary Care Provider Romina Abreu MD Unavailable [phone] Florencia Wilcox MD Unavailable Aryan Penaloza PA-C Unavailable [phone] Vladimir Shook MD Unavailable Susan Rivers APRN Unavailable [phone] Aryan Good PA-C Unavailable [phone] Jimmy Baeza MD Unavailable Encounter Details Date Type Department Care Team (Late st Contact Info) Description 08/29/2020 Transcribed Document [facility] [place] [address] [place] [address] ProviderEduardo MD [address] [place] [address] Social History Tobacco Use Types Packs/Day Years Used Date Smoking Tobacco: Never Assessed Comments Unknown Sex and Gender Information Value Date Recorded Sex Assigned at Female 09/20/2022 2:57 PM HOME SCHOOL LIAISON OFFICER Legal Sex Female 1:35 PM CDT Gender Identity Female 09/20/2022 2:57 PM HOME SCHOOL LIAISON OFFICER Sexual Orientation Straight 09/20/2022 2: 57 PM HOME SCHOOL LIAISON OFFICER documented as of this encounter Miscellaneous Notes * Cerner Conversion Note - Historical Provider, - 08/29/2020 8:30 AM CDT [facility] PreOp Summary Primary Physician: MICHELE MARTIN MD-[facility] Finalized Date/Time: 08/29/20 08:17:38 Pt. Name: FLOWER LOUISE /Sex: 1945 Female Med Rec #: [id number] Physician: VERNON PRIETO DO Financial #: [id number] Pt. Type: O Room/Bed: [facility]/ Admit/Disch: 08/28/20 14:58:00 - Institution: [facility] PreOp Case Times Entry 1 In Preop 08/29/20 08:00:00 Ready for Holding n/a Room Patient Ready for 08/29/20 08:17:00 Surgery Patient Out of Preop 08/29/20 08:17:00 Patient Out of n/a Holding Room [facility] PreOp Case Times Audit 08/29/20 08:17:36 Dog License Officer Supervisor: [id number] Modifier: [id number] <+> 1 Patient Out of Preop <+> 1 Patient Ready for Surgery Finalized By: Leila Good, Rn Document Signatures Signed By: Leila Good Rn 08/29/20 08:17 Electronically signed by [facility] Conversion [place] Mill Operator Cerner at 02/22/2023 5:31 PM CDT documented in this encounter Plan of Treatment Upcoming Encounters Date Type Department Care Team (Late st Contact Info) Description 09/06/2025 2:45 PM EDT Office Visit [facility] Urology - [facility] [address] [facility] [address] [place] [address] Gerald Tamayo MD [facility] [facility] [address] [place] [address] 10/17/2025 9:30 AM EST Office Visit [facility] Primary Care [address] [place] [address] Lonny Pederson MD [address] [place] [address] 10/17/2025 10:45 AM EST Office Visit [facility] Cardiology - [facility] [address] [place] [address] Romina Abreu MD [address] [place], [place] [address] 10/17/2025 1:45 PM EST Office Visit [facility] Neurology - [facility] [address] [place] [address] [address] [place] [address] Susan Rivers APRN [address] [facility] [address] [place], [place] [id number] documented as of this encounter Visit Diagnoses Not on filedocumented in this encounter Care Teams Director Process Improvement Relationship Specialty Start Date End Date Lonny Pederson MD [address] [place] [address] PCP - General Internal Medicine/Pediatrics 09/15/22 Romina Abreu MD [address] [place], [place] [id number] Utilities And Maintenance Supervisor Cardiology 09/22/22 Florencia Wilcox MD [address] [place] [address] Metrologist Rheumatology 09/22/22 Aryan Penaloza PA-C [address] [place], [place] [address] Orthopedist Orthopedic Surgery 09/22/22 Vladimir Shook MD [address] [place], [place] [id number] Sports Medicine 10/06/23 Susan Rivers APRN [address] [facility] [address] [place] [address] Neurology 10/06/23 Aryan Good PA-C [address] [place] [address] Physician Sighter 12/09/23 Jimmy Baeza MD [address] [facility] [address] [place], [place] [address] Utilities And Maintenance Supervisor Electrophysiology 03/06/24 documented as of this encounter
--- OUTSIDE RECORDS SUMMARY | 2025-08-29 14:11 | XMS_ITS | Encounter Summary ---
Author Organization [employer] ([place], [place], [place], [place]) Address [address] [place] [address] Care Team Providers Care Control Engineer Name Role Phone Lonny Pederson MD Primary Care Provider Romina Abreu MD Unavailable [phone] Florencia Wilcox MD Unavailable Aryan Penaloza PA-C Unavailable [phone] Vladimir Shook MD Unavailable Susan Rivers APRN Unavailable [phone] Aryan Good PA-C Unavailable [phone] Jimmy Baeza MD Unavailable Encounter Details Date Type Department Care Team (Late st Contact Info) Description 08/29/2020 Transcribed Document [facility] [place] Family Medicine [address] [place] [address] ProviderEduardo MD [address] [place] [address] Social History Tobacco Use Types Packs/Day Years Used Date Smoking Tobacco: Never Assessed Comments Unknown Sex and Gender Information Value Date Recorded Sex Assigned at Female 09/20/2022 2:57 PM JAVA PROJECT MANAGER Legal Sex Female 1:35 PM CDT Gender Identity Female 09/20/2022 2:57 PM JAVA PROJECT MANAGER Sexual Orientation Straight 09/20/2022 2: 57 PM JAVA PROJECT MANAGER documented as of this encounter Miscellaneous Notes * Cerner Conversion Note - Historical ProviderMD - 08/29/2020 12:13 [place] [address] FLOWER LOUISE :1945 Visit Time:08/28/2020 Your Visit [...] as tolerated Follow-Up Appointments Follow Up with PHUONG AGEE MD-FAM When Within 2 to 3 days Where: [address] [facility] [address] [place] [address] x2 Follow Up with MICHELE MARTIN MD-GAE When Within 1 week Where: [address] [facility] [address] [place] [address]- Medications What How Much When Instructions Next [...] these instructions at home: Medicines ??? Take [id number] and prescription medicines only as told by [...] 04/11/2009 Document Revised: 03/13/2019 Document Reviewed: 03/13/2019 [employer] Patient Education ?? 2020 [employer]. Emergency Awareness and Preventative Care STROKE is [...] Assistance with quitting is available by contacting 9-335-KUVQ-NOW. This is a free resource providing counseling, support, and referral. Or you may contact your personal physician. [place] Suicide Prevention Lifeline: The National Suicide Prevention [...] range between ( 1.0 and 7.0 ) Wolfe #: 0.56 K/uL -- Normal range between ( 0.24 and 0.82 ) Eos #: 0.40 K/uL -- Normal range between ( 0.04 and 0.54 ) Wolfe %: 10.7 % -- Normal range between [...] ) Urine Bilirubin Dipstick: Negative Urine Specific [place]: 1.012 -- Normal range between ( 1.005 [...] was given the opportunity to ask questions. Patient/Core Maker Name: Patient/Core Maker Signature: Relationship to Patient: Clinician/Hospital Core Maker Signature: Date: Electronically signed by Del Greenfield Conversion Optical Lens Manufacturing Tech Cerner at 02/22/2023 5:19 PM CDT documented in this encounter Plan of Treatment Upcoming Encounters Date Type Department Care Team (Late st Contact Info) Description 09/06/2025 2:45 PM EDT Office Visit [facility] Urology - [address] [place] [address] Gerald Tamayo MD [address] [place] [address] [address] [place] [id number] 10/17/2025 9:30 AM EST Office Visit [facility] Primary Care [address] [place] [address] Lonny Pederson MD [address] [place] [address] 10/17/2025 10:45 AM EST Office Visit [facility] Cardiology - [address] [place] [address] Romina Abreu MD [address] [place] [address] 10/17/2025 1:45 PM EST Office Visit [facility] Neurology - [facility] [address] [place] [address] Susan Rivers APRN [address] [facility] [address] [place] [address] documented as of this encounter Visit Diagnoses Not on filedocumented in this encounter Care Teams Control Engineer Relationship Specialty Start Date End Date Lonny Pederson MD [address] [place] [address] PCP - General Internal Medicine/Pediatrics 09/15/22 Romina Abreu MD [address] [place] [address] Commercial Carpenter Cardiology 09/22/22 Florencia Wilcox MD [address] [place] [address] Approver Rheumatology 09/22/22 Aryan Penaloza PA-C [address] [place] [address] Orthopedist Orthopedic Surgery 09/22/22 Vladimir Shook MD [address] [place] [address] Sports Medicine 10/06/23 Susan Rivers, MAREN [address] [facility] [address] [place] [address] Neurology 10/06/23 Aryan Good PA-C [address] [place] [address] Physician Welding Robot Operator 12/09/23 Jimmy Baeza MD [address] [place] [address] Commercial Carpenter Electrophysiology 03/06/24 documented as of this encounter
--- OUTSIDE RECORDS SUMMARY | 2025-08-29 14:11 | XMS_ITS | Encounter Summary ---
Author Organization [id number] ([place], [place], [place], [place]) Address [address] [place] [address] Care Team Providers Care Supervisor Advice Name Role Phone Lonny Pederson MD Primary Care Provider + [phone] Romina Abreu MD Unavailable [phone] Florencia Wilcox MD Unavailable Aryan Penaloza PA-C Unavailable [phone] Vladimir Shook MD Unavailable Susan Rivers APRN Unavailable [phone] Aryan Good PA-C Unavailable [phone] Jimmy Baeza MD Unavailable Encounter Details Date Type Department Care Team (Late st Contact Info) Description 08/29/2020 Transcribed Document [facility] [place] [address] [place] [address] ProviderdEuardo MD [address] [place] [address] Social History Tobacco Use Types Packs/Day Years Used Date Smoking Tobacco: Never Assessed Comments Unknown Sex and Gender Information Value Date Recorded Sex Assigned at Female 09/20/2022 2:57 PM RESIN FILTERER Legal Sex Female 1:35 PM CDT Gender Identity Female 09/20/2022 2:57 PM RESIN FILTERER Sexual Orientation Straight 09/20/2022 2: 57 PM RESIN FILTERER documented as of this encounter Miscellaneous Notes * Cerner Conversion Note - Historical ProviderMD - 08/29/2020 1:10 [place] [address] FLOWER LOUISE :1945 Visit Time:08/28/2020 Your Visit [...] Within 2 to 3 days Where: [address] [facility] [address] [place] [address]- x2 Follow Up with MICHELE MARTIN MD-GAE When Within 1 week Where: [address] [facility] [address] [place] [address]- Medications What How Much When Instructions Next [...] these instructions at home: Medicines ??? Take rlmn-yld-hkveiyu and prescription medicines only as told by [...] 04/11/2009 Document Revised: 03/13/2019 Document Reviewed: 03/13/2019 [employer] Patient Education ?? 2020 [employer]. Emergency Awareness and Preventative Care STROKE is [...] Assistance with quitting is available by contacting 4-987-YAXG-NOW. This is a free resource providing counseling, support, and referral. Or you may contact your personal physician. [place] Suicide Prevention Lifeline: The National Suicide Prevention [...] range between ( 1.0 and 7.0 ) [place] #: 0.56 K/uL -- Normal range between ( 0.24 and 0.82 ) [place] #: 0.40 K/uL -- Normal range between ( 0.04 and 0.54 ) [place] %: 10.7 % -- Normal range between [...] ) Urine Bilirubin Dipstick: Negative Urine Specific Helper: 1.012 -- Normal range between ( 1.005 [...] was given the opportunity to ask questions. Patient/Java Groovy Developer Name: Patient/Java Groovy Developer Signature: Relationship to Patient: Clinician/Hospital Java Groovy Developer Signature: Date: documented in this encounter Plan of Treatment Upcoming Encounters Date Type Department Care Team (Late st Contact Info) Description 09/06/2025 2:45 PM EDT Office Visit [facility] Urology - [address] [place] [address] Gerald Tamayo MD [address] [place] [address] [address] [place] [id number] 10/17/2025 9:30 AM EST Office Visit [facility] Primary Care [address] [place] [address] Lonny Pederson MD [address] [place] [address] 10/17/2025 10:45 AM EST Office Visit [facility] Cardiology - [address] [place] [address] Romina Abreu MD [address] [place] [address] 10/17/2025 1:45 PM EST Office Visit [facility] Neurology - [facility] [address] [place] [phone] Susan Rivers APRN [address] [facility] [address] [place] [address] documented as of this encounter Visit Diagnoses Not on filedocumented in this encounter Care Teams Supervisor Advice Relationship Specialty Start Date End Date Lonny Pederson MD [address] [place] [id number] PCP - General Internal Medicine/Pediatrics 09/15/22 Romina Abreu MD [address] [place] [address] Cut And Print Machine Operator Cardiology 09/22/22 Florencia Wilcox MD [address] [place] [address] C Iron Worker Rheumatology 09/22/22 Aryan Penaloza PA-C [address] [place] [address] Orthopedist Orthopedic Surgery 09/22/22 Vladimir Shook MD [address] [place] [address] Sports Medicine 10/06/23 Susan Rivers, MAREN [address] [facility] [address] [place] [address] Neurology 10/06/23 Aryan Good PA-C [address] [place] [address] Physician Towel Hemmer 12/09/23 Jimmy Baeza MD [address] [place] [address] Cut And Print Machine Operator Electrophysiology 03/06/24 documented as of this encounter
--- OUTSIDE RECORDS SUMMARY | 2025-08-29 14:12 | XMS_ITS | Encounter Summary ---
Author Organization [employer] ([place], [place], [place], [place]) Address [address] [place] [address] Care Team Providers Care Tool Hardener Name Role Phone Lonny Pederson MD Primary Care Provider Romina Abreu MD Unavailable [phone] Florencia Wilcox MD Unavailable Aryan Penaloza PA-C Unavailable [phone] Vladimir Shook MD Unavailable Susan Rivers APRN Unavailable [phone] Aryan Good PA-C Unavailable [phone] Jimmy Baeza MD Unavailable Encounter Details Date Type Department Care Team (Late st Contact Info) Description 05/18/2021 Transcribed Document [facility] [place] [facility] [place] [address] ProviderEduardo MD [facility] [place] [address] Social History Tobacco Use Types Packs/Day Years Used Date Smoking Tobacco: Never Assessed Comments Unknown Sex and Gender Information Value Date Recorded Sex Assigned at Female 09/20/2022 2:57 PM SODA FOUNTAIN MANAGER Legal Sex Female 1:35 PM CDT Gender Identity Female 09/20/2022 2:57 PM SODA FOUNTAIN MANAGER Sexual Orientation Straight 09/20/2022 2: 57 PM SODA FOUNTAIN MANAGER documented as of this encounter Miscellaneous Notes * Cerner Conversion Note - Historical Provider, - 05/18/2021 10:14 AM CDT Patient Education Materials Follows: Upper Endoscopy, Adult, Care After This sheet gives you information about how to care for yourself after your procedure. Your health care provider may also give you more specific instructions. If you have problems or questions, contact your health care provider. What can I expect after the procedure? After the procedure, it is common to have: ??? A sore throat. ??? Mild stomach pain or discomfort. ??? Bloating. ??? Nausea. Follow these instructions at home: ??? Follow instructions from your health care provider about what to eat or drink after your procedure. ??? Return to your normal activities as told by your health care provider. Ask your health care provider what activities are safe for you. ??? Take flyc-yrd-idtpwuf and prescription medicines only as told by your health care provider. ??? Do not drive for 24 hours if you were given a sedative during your procedure. ??? Keep all follow-up visits as told by your health care provider. This is important. Contact a health care provider if you have: ??? A sore throat that lasts longer than one day. ??? Trouble swallowing. Get help right away if: ??? You vomit blood or your vomit looks like coffee grounds. ??? You have: ? A fever. ? Bloody, black, or tarry stools. ? A severe sore throat or you cannot swallow. ? Difficulty breathing. ? Severe pain in your chest or abdomen. Summary ??? After the procedure, it is common to have a sore throat, mild stomach discomfort, bloating, and nausea. ??? Do not drive for 24 hours if you were given a sedative during the procedure. ??? Follow instructions from your health care provider about what to eat or drink after your procedure. ??? Return to your normal activities as told by your health care provider. This information is not intended to replace advice given to you by your health care provider. Make sure you discuss any questions you have with your health care provider. Document Revised: 04/17/2019 Document Reviewed: 03/26/2019 [employer] Patient Education ? 2020 [employer]. Obstetrics and Gynecology Monitored Anesthesia Care, Care After These instructions provide you with information about caring for yourself after your procedure. Your health care provider may also give you more specific instructions. Your treatment has been planned according to current medical practices, but problems sometimes occur. Call your health care provider if you have any problems or questions after your procedure. What can I expect after the procedure? After your procedure, you may: ??? Feel sleepy for several hours. ??? Feel clumsy and have poor balance for several hours. ??? Feel forgetful about what happened after the procedure. ??? Have poor judgment for several hours. ??? Feel nauseous or vomit. ??? Have a sore throat if you had a breathing tube during the procedure. Follow these instructions at home: For at least 24 hours after the procedure: ??? Have a responsible adult stay with you. It is important to have someone help care for you until you are awake and alert. ??? Rest as needed. ??? Do not: ? Participate in activities in which you could fall or become injured. ? Drive. ? Use heavy machinery. ? Drink alcohol. ? Take sleeping pills or medicines that cause drowsiness. ? Make important decisions or sign legal documents. ? Take care of children on your own. Eating and drinking ??? Follow the diet that is recommended by your health care provider. ??? If you vomit, drink water, juice, or soup when you can drink without vomiting. ??? Make sure you have little or no nausea before eating solid foods. General instructions ??? Take dvsz-nck-extjntj and prescription medicines only as told by your health care provider. ??? If you have sleep apnea, surgery and certain medicines can increase your risk for breathing problems. Follow instructions from your health care provider about wearing your sleep device: ? Anytime you are sleeping, including during daytime naps. ? While taking prescription pain medicines, sleeping medicines, or medicines that make you drowsy. ??? If you smoke, do not smoke without supervision. ??? Keep all follow-up visits as told by your health care provider. This is important. Contact a health care provider if: ??? You keep feeling nauseous or you keep vomiting. ??? You feel light-headed. ??? You develop a rash. ??? You have a fever. Get help right away if: ??? You have trouble breathing. Summary ??? For several hours after your procedure, you may feel sleepy and have poor judgment. ??? Have a responsible adult stay with you for at least 24 hours or until you are awake and alert. This information is not intended to replace advice given to you by your health care provider. Make sure you discuss any questions you have with your health care provider. Document Revised: 01/22/2019 Document Reviewed: 02/13/2017 [employer] Patient Education ? 2019 [employer]. documented in this encounter Plan of Treatment Upcoming Encounters Date Type Department Care Team (Late st Contact Info) Description 09/06/2025 2:45 PM EDT Office Visit [facility] Urology - [facility] [address] [facility] [address] [place] [phone] Gerald Tamayo MD [address] [facility] [address] [place], [place] [id number] 10/17/2025 9:30 AM EST Office Visit [facility] Primary Care [address] [facility] [address] [place] [address] Lonny Pederson MD [address] [facility] [place] [address] 10/17/2025 10:45 AM EST Office Visit [facility] Cardiology - [facility] [address] [place] [address] Romina Abreu MD [address] [facility] [address] [place], [place] [id number] 10/17/2025 1:45 PM EST Office Visit [facility] Neurology - [address] [place] [id number] Susan Rivers, AMREN [address] [facility] [address] [place] [address] documented as of this encounter Visit Diagnoses Not on filedocumented in this encounter Care Teams Tool Hardener Relationship Specialty Start Date End Date Lonny Pederson MD [address] [place] [phone] PCP - General Internal Medicine/Pediatrics 09/15/22 Romina Abreu MD [address] [place] [address] Cellulose Insulation Helper Cardiology 09/22/22 Florencia Wilcox MD [address] [place] [phone] Wagon Driver Salesperson Rheumatology 09/22/22 Aryan Penaloza PA-C [address] [place] [address] Orthopedist Orthopedic Surgery 09/22/22 Vladimir Shook MD [address] [place] [address] Sports Medicine 10/06/23 Suasn Rivers, MAREN [address] [facility] [address] [place] [address] Neurology 10/06/23 Aryan Good PA-C [address] [place] [address] Physician Electronic Assembler Group Leader 12/09/23 Jimmy Baeza MD [address] [facility] [address] [place] [address] Cellulose Insulation Helper Electrophysiology 03/06/24 documented as of this encounter
--- OUTSIDE RECORDS SUMMARY | 2025-08-29 14:12 | XMS_ITS | Encounter Summary ---
Author Organization [employer] ([place], [place], [place], [place]) Address [address] [place] [address] Care Team Providers Care Adjunct Trainer Name Role Phone Lonny Pederson MD Primary Care Provider Romina Abreu MD Unavailable [phone] Florencia Wilcox MD Unavailable Aryan Penaloza PA-C Unavailable [phone] Vladimir Shook MD Unavailable Susan Rivers APRN Unavailable [phone] Aryan Good PA-C Unavailable [phone] Jimmy Baeza MD Unavailable Encounter Details Date Type Department Care Team (Late st Contact Info) Description 08/28/[address] [facility] [place] [address] [place] [address] ProviderEduardo MD [address] [place] [address] Social History Tobacco Use Types Packs/Day Years Used Date Smoking Tobacco: Never Assessed Comments Unknown Sex and Gender Information Value Date Recorded Sex Assigned at Female 09/20/2022 2:57 PM PHARMACIST IN CHARGE OWNER Legal Sex Female 1:35 PM CDT Gender Identity Female 09/20/2022 2:57 PM PHARMACIST IN CHARGE OWNER Sexual Orientation Straight 09/20/2022 2: 57 PM PHARMACIST IN CHARGE OWNER documented as of this encounter Miscellaneous Notes * Cerner Conversion Note - Historical Provider, - 08/28/2020 3:01 PM CDT Admission History, Adult Entered On: 08/28/2020 17:51 EDT Performed On: 08/28/2020 17:18 EDT by Rani Esqueda Rn Advance Directive Patient has Advance Directive *Q : Yes, Advance Directive on file Advance Directive Type : Living will Copy Advance Directive Verified/on Chart : No Rani Esqueda Rn - 08/28/2020 17:42 EDT Anesthesia/Transfusion History Family History of Anesthesia Reaction : No prior transfusion(s) Blood Transfusion Acceptable to Patient : Yes Transfusion History : Prior anesthesia without reaction Family History of Anesthesia Reaction : None Rani Esqueda Rn - 08/28/2020 17:42 EDT Anticipated Discharge Needs Discharge To, Anticipated : Home Anticipated Discharge Needs at This Time : None Rani Esqueda Rn - 08/28/2020 17:42 EDT Education Topics, Admission Orientation DCP GENERIC CODE Advance Directives : Verbalizes understanding Allergy Band Applied : Verbalizes understanding Assessment/Vital Signs : Verbalizes understanding Bed Control : Verbalizes understanding Call Light : Verbalizes understanding Confidentiality : Verbalizes understanding Diet/Room Service : Verbalizes understanding Fall Prevention : Verbalizes understanding Hand Hygiene : Verbalizes understanding Healthcare Provider Visit : Verbalizes understanding ID Band Applied : Verbalizes understanding Isolation Precautions : Verbalizes understanding Orientation to Room/Bathroom : Verbalizes understanding Patient Bill of Rights : Verbalizes understanding Patient Rights/Responsibilities : Verbalizes understanding Patient Safety : Verbalizes understanding Personal Privacy Code : Verbalizes understanding Rapid Response Initiated by Patient/Family : Verbalizes understanding Rounding : Verbalizes understanding Siderails use/risks : Verbalizes understanding Skin Precautions : Verbalizes understanding Smoking Policy : Verbalizes understanding Telemetry Monitoring : Verbalizes understanding Television/Phone : Verbalizes understanding Visiting Policy : Verbalizes understanding Rani Esqueda Rn - 08/28/2020 17:42 EDT Functional Assessment Living Situation : Home Patient Lives With : Alone Persons Assisting Patient at Home : Alone Current Daily Living Assistance : None Mobility Assistance Prior to Admission : Independent NINA Hx Falls Immediate/Within 3 Months : No Current Home Treatments : None Home Equipment : Walker Professional Skilled Services : None Special Services and Community Resources : None Rani Esqueda Rn - 08/28/2020 17:42 EDT General Info Arrived From : Other: ED Mode of Arrival on Unit : Wheelchair Patient Arrival Date/Time : 08/28/2020 17:18 EDT Legal Guardian : Unaccompanied Support Person/Patient Sales Representative Facility Services : Yes Support Person/Pt Rep Name : thais Bautista Support Person/Pt Rep Contact Information : [id number] Want Family/Rep/Phys Notified of Admit : No Emergency Contact #1 : Thais Bautista Emergency Contact #1 Phone Number : [phone] Emergency Contact #1 Relationship : daughter Emergency Contact #2 : . Emergency Contact #2 Phone Number : . Emergency Contact #2 Relationship : . Chief Complaint : Pt arrived via [facility] c/o nausea and vomiting. Pt states this morning she vomiting and noticed blood with it. Information Obtained From : Patient Primary Language : Swedish Preferred Communication Mode : Verbal Communication Barrier : None Maintenance Machine Repairer Needed : No Rani Esqueda Rn - 08/28/2020 17:42 EDT Fall Risk Scales ABCs Fall Injury Risk Identification : None NINA Hx Falls Immediate/Within 3 Months : No Nina Secondary Diagnosis : No NINA Use of Ambulatory Aid : Crutches/Cane/Walker NINA IV Therapy or IV Access : Yes Nina Gait/Transferring : Normal, bedrest, immobile Nina Mental Status : Oriented to own ability Nina Fall Risk Score : 35 NINA Fall Scale Risk Level : 25-45 Medium Risk [place]arat Fall Interventions : Adequate lighting, Assistive devices within reach, Bed in low position, Call device within reach, Fall prevention handout/education per facility policy, Frequent orientation to call device, Frequent orientation to surroundings, Hourly comfort/safety rounds, Non-slip footwear, Personal items within reach, Reinforced to call for assistance before getting out of bed, Room free of clutter/spills, Upper side-rails up, Wheels locked, Wires/Cords secured Rani Esqueda Rn - 08/28/2020 17:42 EDT Health Histories Smoking Status : Never (less than 100 in lifetime; none in last 30 days) Smokeless Tobacco Status : Never Rani Esqueda Rn - 08/28/2020 17:42 EDT Social History (As Of: 08/28/2020 17:51:48 EDT) Tobacco: Use in Last 12 Months: Cigarettes. Smoking Status Former smoker. Years of Use: 20. Packs/Tins Daily: 1. (Last Updated: 07/26/2013 07:26:45 EDT by ANGELA WINSTON) Former smoker, quit more than 30 days ago Smoking Status. Never Smokeless Tobacco Status. Last Used: quit 1985. (Last Updated: 07/04/2018 11:28:56 EDT by Caridad Gomez RN) Alcohol: Comments: 07/26/2013 7:26 - ANGELA WINSTON: none. (Last Updated: 07/26/2013 07:26:51 EDT by ANGELA WINSTON) Substance Abuse: Drug Use Hx: No. Use in Last 12 Months: No. (Last Updated: 09/30/2014 10:58:52 EST by MARKO VALENCIA RN) Exercise: Exercise duration: 40. Exercise frequency: Daily. Exercise type: Walking. (Last Updated: 07/26/2013 15:20:09 EDT by ADRIANO SONG RN) Home/Environment: Lives with Alone. Living situation: Home/Independent. (Last Updated: 07/26/2013 15:20:28 EDT by ADRIANO SONG RN) Employment/School: Retired, Work/School description: multiple jobs. Highest education level: High school. Operates hazardous equipment: No. (Last Updated: 07/26/2013 15:19:05 EDT by ADRIANO SONG RN) Height and Weight, Clinical Dosing Height Source : Stated Height Entry Format : Penrose Height, Feet : 5 ft(Converted to: 152 cm, 60 Inch) Height, Inches : 4 Inch(Converted to: 0 ft 4 Inch, 10.16 cm) Clinical Height : 162.56 cm Weight Source : Bed scale Weight Entry Format : Penrose Clinical Dosing Weight : 77.73 kg Weight, Pounds : 171 lb Body Surface Area (BSA) : 1.83 m2 Body Mass Index : 29.4 kg/m2 (HI) Sharon Body Weight : 54 kg Rani Esqueda Rn - 08/28/2020 17:42 EDT Infectious Disease History Has the patient ever been tested for COVID-19? : Yes, Patient stated results Negative Date of COVID-19 test known? : Yes Date of COVID-19 Test : 08/28/2020 EDT Does patient have symptoms of COVID-19? : No COVID19 Screening : No Experiencing Infectious Disease Symptoms : No symptoms Physical contact outside [place] in the last 30 days : No Infectious Disease History : Chicken pox/Shingles Tuberculosis Symptoms : None Rani Esqueda Rn - 08/28/2020 17:42 EDT Tetanus Immunization Status Previous Tetanus Immunizations : No qualifying data available. Tetanus Immunization : Less than 5 years Rani Esqueda Rn - 08/28/2020 17:42 EDT Influenza Vaccine Asmt, Adult Previous Vaccines from Immunization Schedule : No qualifying data available. Influenza Immunization, Current Season : Yes Rani Esqueda Rn - 08/28/2020 17:42 EDT Pneumococcal Vaccine Previous Vaccines from Immunization Schedule : No qualifying data available. Pneumonia Immunization Received : Yes Rani Esqueda Rn - 08/28/2020 17:42 EDT Order Details Transport Mode Order Detail : Wheelchair Isolation Precautions Order Detail : Standard Precautions Order Detail : N/A IV Order Detail : 1 Oxygen Order Detail : 0 Nurse Collect Order Detail : 0 Lift/Transfer : Independent Central Line Order Detail : No Room Service : Appropriate Arterial Line : No Rani Esqueda Rn - 08/28/2020 17:42 EDT Nutrition History Feeding Ability : Independent Adaptive Feeding Equipment : None Adaptive Feeding Equipment : Regular Oral Medication Administration : By mouth Eating Poorly Due to Decreased Appetite : No Unplanned Weight Loss in Past 3-6 Months : No Malnutrition Screening Tool Total(mal) : 0 Malnutrition Screening Tool Risk Level : Patient not at risk Rani Esqueda Rn - 08/28/2020 17:42 EDT Lester Suicide Severity Rating Scale (C-SSRS) CSSRS Past Month Wish to be : No CSSRS Past Month Suicidal Thoughts : No CSSRS Lifetime Suicide Behavior : No Suicide Severity Rating Score : 0 Suicide Severity Rating : No Additional Care Required at this time Rani Esqueda Rn - 08/28/2020 17:42 EDT Psychosocial History Chronic/Terminal Illness w/Freq Visits : No Do You Have a History of the Following? : Patient denies history Currently in Unsafe Situation : No Restraining Order Against Another Person : No Rani Esqueda Rn - 08/28/2020 17:42 EDT Sleep Apnea Risk Assmt Hx of Obstructive Sleep Apnea Diagnosis : No Snore Loudly : No Tired, Fatigued, or Sleepy During Day : No Observed Stopping Breathing During Sleep : No Have/Are Being Treated for Hypertension : No BMI Greater Than 35 kg/m2 : No Age over 50 Years Old : Yes Neck Circumference Greater Than 40 cm : No Gender Male : No STOP-BANG Sleep Apnea Risk Level Score : 1 Rani Esqueda Rn - 08/28/2020 17:42 EDT Spiritual/Cultural Needs Any Spiritual/Cultural Needs or Requests : No Rani Esqueda Rn - 08/28/2020 17:42 EDT Valuables and Belongings Valuables and Belongings : Jewelry Jewelry : Ring Jewelry Disposition : With patient, Other: pt has three rings; two rings located on her right hand and one ring located on her left hand. Rani Esqueda Rn - 08/28/2020 17:42 EDT Electronically signed by Gin [facility] Conversion Manager Of Training And Development Cerner at 02/22/2023 5:25 PM CDT documented in this encounter Plan of Treatment Upcoming Encounters Date Type Department Care Team (Late st Contact Info) Description 09/06/2025 2:45 PM EDT Office Visit [facility] Urology - [facility] [address] [facility] [address] [place] [address] Gerald Tamayo MD [address] [place] [address] [address] [place], [place] [id number] 10/17/2025 9:30 AM EST Office Visit [facility] Primary Care [address] [facility] [address] [place] [address] Lonny Pederson MD [address] [facility] [place] [address] 10/17/2025 10:45 AM EST Office Visit [facility] Cardiology - [facility] [address] [place] [address] Romina Abreu MD [address] [facility] [address] [place], [place] [id number] 10/17/2025 1:45 PM EST Office Visit [facility] Neurology - [facility] [address] [place] [phone] Susan Rivers, MAREN [address] [facility] [address] [place] [address] documented as of this encounter Visit Diagnoses Not on filedocumented in this encounter Care Teams Adjunct Trainer Relationship Specialty Start Date End Date Lonny Pederson MD [address] [place] [phone] PCP - General Internal Medicine/Pediatrics 09/15/22 Romina Abreu MD [address] [place] [address] Size Roller Operator Cardiology 09/22/22 Florencia Wilcox MD [address] [place] [phone] College Advisor Rheumatology 09/22/22 Aryan Penaloza PA-C [address] [place] [address] Orthopedist Orthopedic Surgery 09/22/22 Vladimir Shook MD [address] [place] [address] Sports Medicine 10/06/23 Susan Rivers, MAREN [address] [facility] [address] [place] [address] Neurology 10/06/23 Aryan Good PA-C [address] [place] [address] Physician Employee Wellness/Fitness Coordinator 12/09/23 Jimmy Baeza MD [address] [place] [address] Size Roller Operator Electrophysiology 03/06/24 documented as of this encounter
--- OUTSIDE RECORDS SUMMARY | 2025-08-29 14:12 | XMS_ITS | Encounter Summary ---
Author Organization [employer] ([place], [place], [place], [place]) Address [address] [place] [address] Care Team Providers Care Housekeeper Cleaning Cooking Name Role Phone Lonny Pederson MD Primary Care Provider Romina Abreu MD Unavailable [phone] Florencia Wilcox MD Unavailable Aryan Penaloza PA-C Unavailable [phone] Vladimir Shook MD Unavailable Susan Rivers APRN Unavailable [phone] Aryan Good PA-C Unavailable [phone] Jimmy Baeza MD Unavailable Encounter Details Date Type Department Care Team (Late st Contact Info) Description 08/28/2020 Transcribed Document [facility] [place] Family Medicine [address] [place] [address] ProviderEduardo MD [address] [place] [address] Social History Tobacco Use Types Packs/Day Years Used Date Smoking Tobacco: Never Assessed Comments Unknown Sex and Gender Information Value Date Recorded Sex Assigned at Female 09/20/2022 2:57 PM GIFT PACKER Legal Sex Female 1:35 PM CDT Gender Identity Female 09/20/2022 2:57 PM GIFT PACKER Sexual Orientation Straight 09/20/2022 2: 57 PM GIFT PACKER documented as of this encounter Miscellaneous Notes * Cerner Conversion Note - Historical Provider, - 08/28/2020 3:58 PM CDT Patient: FLOWER LOUISE Age: 75 Years Sex: Female : 1945 Chief Complaint Pt arrived via [facility] c/o nausea and vomiting. Pt states this morning she vomiting and noticed blood with it. History of Present Illness (Consult = descriptors) location, quality, severity, duration, timing, context, modifiers, associated signs/symptoms: ED asked us to evaluate patient for possible hematemesis. Past medical history includes CAD with pacemaker, depression, and arthritis. Presents to ER for nausea and vomiting. She has been nauseated x 2 months, but had vomiting over the last few days. She reported a palm sized amount of BRB en route to the hospital. She denies epigastric pain. This has never happened to her before. She has diarrhea which is caused by reported IBS. This is varying in amount and frequency. Coffee will exacerbate it. She denies black or red stools. She is on Omeprazole daily. She has been uses ASA BID for joint pain. Denies smoking or alcohol. She does use Eliquis, last dose 3 days ago. Review of Systems (Consult = //08/16 items) Constitutional: [No fevers, chills, sweats] Eye: [No recent visual problems, eye discharge, eye pain, redness] HEENT: [No ear pain, nasal congestion, sore throat, voice changes] Respiratory: [No shortness of breath, cough, pain on breathing, sputum production] Cardiovascular: [No Chest pain, palpitations, syncope, shortness of breath while laying flat] Gastrointestinal: [+ nausea, vomiting, +hematemesis, no diarrhea, constipation] Genitourinary: [No hematuria, dysuria, incontinence, lesions on genitalia] Germain/Lymph: [Negative for bruising tendency, swollen lymph glands, nosebleeds, history of anticoagulation] Endocrine: [Negative for excessive thirst, excessive hunger, excessive urination, heat or cold intolerance] Musculoskeletal: [No back pain, neck pain, joint pain, muscle pain, decreased range of motion] Integumentary: [No rash, pruritus, abrasions, lesions] Neurologic: [No weakness, numbness, frequent headaches, tremors, blackouts] Psychiatric: [No anxiety, depression, mood changes, hallucinations] Physical Exam (Consult = 11/12//9x2/9x2) Vitals & Measurements T: 37.2 ??C HR: 78(Peripheral) RR: 18 BP: 130/74 SpO2: 98% HT: 162.56 cm WT: 77.73 kg BMI: 29.4 General: [Alert and oriented, well nourished, no acute distress]. Neurologic: [Awake, alert, and oriented X3, CN II-XII intact]. Eye: [PERRL, EOMI, normal conjuctiva]. HENT: [Normocephalic, normal hearing, moist oral mucosa, no scleral icterus, no sinus tenderness]. Neck: [Supple, non-tender, no carotid bruits, no JVD, no lymphadenopathy]. Lungs: [Clear to auscultation and percussion, non-labored respiration]. Heart: [Normal rate, regular rhythm, no murmur, gallop or edema]. Abdomen: [Soft, non-tender, non-distended, normal bowel sounds, no masses]. Musculoskeletal: [Normal range of motion and strength, no tenderness or swelling]. Skin: [Skin is warm, dry and pink, no rashes or lesions]. Psychiatric: [Cooperative, appropriate mood and affect]. Assessment/Plan FOR DIAGNOSIS: (11/07/// points) N+W/U = 4; New = 3; Worsen = 2; Stable = 1; Improved = 1; Self-limited = 1 Possible hematemesis with nausea. Covid-19 ordered and NPO after midnight. Recommend IV PPI. Risks have been discussed with patient including bleeding, perforation, infection, sedation complications/reactions, missed lesion, and complications requiring additional surgery or procedures. Patient will have additional opportunity to discuss this with the ordering/performing physician prior to the procedure. Rylee Padilla APRN, scribed this note for Dr. Luly Adan. Luly Padlila MD personally interviewed the patient [id number]. I reviewed and discussed with the patient the medical records, medical history and diagnostic studies. I performed a complete physical exam and created the plan of care as documented above. The mid-level provider participated in the patients care by documenting the entire visit, ordering tests and prescribing medications as directed by myself, Dr. Luly Adan according to my evaluation. Hematemesis with nausea K92.0 Vomiting [id number] Orders: Coronavirus 2019 Novel NPO after Midnight Allergies naproxen (C/O: itching, C/O: itching) Medications Inpatient No active inpatient medications Home allopurinol 100 mg oral tablet, 100 mg= 1 Tab, Oral, BID aspirin, 81 mg, Oral, At Bedtime colchicine 0.6 mg oral capsule, 0.6 mg= 1 Cap, Oral, Daily Coreg 3.125 mg oral tablet, 3.125 mg= 1 Tab, Oral, BID Eliquis 5 mg oral tablet, 5 mg= 1 Tab, Oral, BID gabapentin 800 mg oral tablet, Oral, BID Lasix 20 mg oral tablet, 20 mg= 1 Tab, Oral, Daily levothyroxine, 88 mcg, Oral, Daily lisinopril 20 mg oral tablet, 20 mg= 1 Tab, Oral, Daily Lyrica 100 mg oral capsule, 100 mg= 1 Cap, Oral, TID omeprazole 20 mg oral delayed release capsule, 20 mg= 1 Cap, Oral, Daily PRAVAstatin, 80 mg, Oral, At Bedtime Zetia 10 mg oral tablet, 10 mg= 1 Tab, Oral, Daily Problem List/Past Medical History Ongoing Ankle swelling Arthritis CAD - Coronary artery disease Cardiac catheterization Cataract Depression Diarrhea Echocardiogram Electrocardiogram GERD - Gastro-esophageal reflux disease Gout History of obstructive sleep apnea Hyperlipidemia Hypertension Hypothyroidism Night sweats Pacemaker Shortness of breath Sinoatrial node Sleep apnea Historical No qualifying data Procedure/Surgical History RESECTION OF GALLBLADDER, PERCUTANEOUS ENDOSCOPIC APPROACH (07/04/2018), bilateral carpal tunnel surgery, bilateral cataract removal, right foot surgery, right knee sx- [facility], tubal. Social History Alcohol Employment/School Retired, Work/School description: multiple jobs. Highest education level: High school. Operates hazardous equipment: No. Exercise Exercise duration: 40. Exercise frequency: Daily. Exercise type: Walking. Home/Environment Lives with Alone. Living situation: Home/Independent. Substance Abuse Drug Use Hx: No. Use in Last 12 Months: No. Tobacco Former smoker, quit more than 30 days ago Smoking Status. Never Smokeless Tobacco Status. Last Used: quit 1985. Use in Last 12 Months: Cigarettes. Smoking Status Former smoker. Years of Use: 20. Packs/Tins Daily: 1. Family History Denies FH GI malignancy or disorder. Lab Results AUG 28 14:12 \ 14.4 / 6.4 241 / 43.8 \ Electronically signed by Gin, [facility] Conversion Live Ammunition Inspector Cerner at 02/22/2023 5:27 PM CDT documented in this encounter Plan of Treatment Upcoming Encounters Date Type Department Care Team (Late st Contact Info) Description 09/06/2025 2:45 PM EDT Office Visit [facility] Urology - [facility] [address] [facility] [address] [place] [address] Gerald Tamayo MD [address] [place] [address] [address] [place] [id number] 10/17/2025 9:30 AM EST Office Visit [facility] Primary Care [address] [facility] [address] [place] [address] Lonny Pederson MD [address] [facility] [place] [address] 10/17/2025 10:45 AM EST Office Visit [facility] Cardiology - [facility] [address] [place] [address] Romina Abreu MD [address] [facility] [address] [place], [place] [id number] 10/17/2025 1:45 PM EST Office Visit [facility] Neurology - [facility] [address] [facility] [address] [place] [phone] Susan Rivers APRN [address] [facility] [address] [place] [id number] documented as of this encounter Visit Diagnoses Not on filedocumented in this encounter Care Teams Housekeeper Cleaning Cooking Relationship Specialty Start Date End Date Lonny Pederson MD [address] [place] [phone] PCP - General Internal Medicine/Pediatrics 09/15/22 Romina Abreu MD [address] [place] [address] Laborer Dairy Farm Cardiology 09/22/22 Florencia Wilcox MD [address] [place] [phone] Counterintelligence Agent Rheumatology 09/22/22 Aryan Penaloza PA-C [address] [place] [address] Orthopedist Orthopedic Surgery 09/22/22 Vladimir Shook MD [address] [place] [address] Sports Medicine 10/06/23 Susan Rivers, MAREN [address] [facility] [address] [place] [address] Neurology 10/06/23 Aryan Good PA-C [address] [place] [address] Physician Candles Pourer 12/09/23 Jimmy Baeza MD [address] [facility] [address] [place] [address] Laborer [employer] Farm Electrophysiology 03/06/24 documented as of this encounter
--- OUTSIDE RECORDS SUMMARY | 2025-08-29 14:12 | XMS_ITS | Encounter Summary ---
Author Organization [employer] ([place], [place], [place], [place]) Address [address] [place] [address] Care Team Providers Care Bottom Crane Operator Name Role Phone Lonny Pederson MD Primary Care Provider Romina Abreu MD Unavailable [phone] Florencia Wilcox MD Unavailable Aryan Penaloza PA-C Unavailable [phone] Vladimir Shook MD Unavailable Susan Rivers APRN Unavailable [phone] Aryan Good PA-C Unavailable [phone] Jimmy Baeza MD Unavailable Encounter Details Date Type Department Care Team (Late st Contact Info) Description 05/18/2021 Transcribed Document [facility] [place] [facility] [place] [address] ProviderEduardo MD [facility] [place] [address] Social History Tobacco Use Types Packs/Day Years Used Date Smoking Tobacco: Never Assessed Comments Unknown Sex and Gender Information Value Date Recorded Sex Assigned at Female 09/20/2022 2:57 PM NEGATIVE RETOUCHER Legal Sex Female 1:35 PM CDT Gender Identity Female 09/20/2022 2:57 PM NEGATIVE RETOUCHER Sexual Orientation Straight 09/20/2022 2: 57 PM NEGATIVE RETOUCHER documented as of this encounter Miscellaneous Notes * Cerner Conversion Note - Historical Provider, MD - 05/18/2021 12:06 PM CDT [facility] IntraOp Summary Primary Physician: MICHELE MARTIN MD-GAE Finalized Date/Time: 05/18/21 15:48:36 Pt. Name: FLOWER LOUISE /Sex: 1945 Female Med Rec #: [id number] Physician: MICHELE MARTIN MD-GAE Financial #: [id number] Pt. Type: Room/Bed: [facility] Admit/Disch: 05/18/21 11:09:00 - Institution: [facility] [place] [facility] - Case Attendance Entry 1 Entry 2 Entry 3 Case Attendee MICHELE MARTIN MD-GAE House, Michelle, RONAN, JENIFFER, MD DEMAND PLANNER Role Performed Surgeon/Proceduralist, Scrub, First Anesthesiologist of First Record Time In 05/18/21 12:02:00 05/18/21 11:59:00 05/18/21 11:59:00 Time Out 05/18/21 12:09:00 05/18/21 12:09:00 05/18/21 12:09:00 Procedure Esophagogastroduodenosco Esophagogastroduodenosco Esophagogastroduodenosco py py py Other Attendee Superficial Wound Closed By: Last Modified By: TERA JORDAN RN RIDINGS, JAROLINE, RN RIDINGS, JAROLINE, RN 05/18/21 12:07:52 05/18/21 12:07:52 05/18/21 12:07:52 Entry 4 Entry 5 Case Attendee STEVENSON PARKS RIDINGS, JAROLINE, JORDYN LEG ASSEMBLER Role Performed LEG ASSEMBLER/Nurse International Manager Senior Net Software Developer, First Time In 05/18/21 11:59:00 05/18/21 11:59:00 Time Out 05/18/21 12:09:00 05/18/21 12:09:00 Procedure Esophagogastroduodenosco Esophagogastroduodenosco py py Other Attendee Superficial Wound Closed By: Last Modified By: TERA JORDAN RN RIDINGS, JAROLINE, RN 05/18/21 12:07:52 05/18/21 12:07:52 [facility] - Case Attendance Audit 05/18/21 15:48:15 Supervisor Acoustical Tile Carpenters: [id number] Modifier: [id number] <*> Role Performed Anesthesiologist 3 <*> Procedure Esophagogastroduodenoscopy 05/18/21 12:13:08 Supervisor Acoustical Tile Carpenters: [id number] Modifier: [id number] <+> 1 Procedure <+> 2 Procedure <+> 3 Procedure <+> 4 Procedure <+> 5 Procedure 05/18/21 12:07:52 Supervisor Acoustical Tile Carpenters: [id number] Modifier: [id number] <+> 1 Time Out <+> 2 Time Out <+> 3 Time Out <+> 4 Time Out <+> 5 Time Out 05/18/21 12:05:04 Supervisor Acoustical Tile Carpenters: [id number] Modifier: [id number] <+> 2 Time In <+> 3 Time In <+> 4 Time In <+> 5 Time In 05/18/21 12:04:50 Supervisor Acoustical Tile Carpenters: [id number] Modifier: [id number] <+> 2 Case Attendee <+> 2 Role Performed <+> 3 Case Attendee <+> 3 Role Performed <+> 4 Case Attendee <+> 4 Role Performed <+> 5 Case Attendee <+> 5 Role Performed [facility] - Case Times Entry 1 Patient In Room Time 05/18/21 11:59:00 Out Room Time 05/18/21 12:09:00 Anesthesia Start Time 05/18/21 11:59:00 Stop Time 05/18/21 12:07:00 Surgery / Procedure Times Start Time 05/18/21 12:06:00 Stop Time 05/18/21 12:07:00 Last Modified By: TERA JORDAN RN 05/18/21 12:07:51 [facility] - Case Times Audit 05/18/21 12:07:51 Supervisor Acoustical Tile Carpenters: [id number] Modifier: [id number] <+> 1 Out Room Time <+> 1 Stop Time <+> 1 Stop Time 05/18/21 12:06:07 Supervisor Acoustical Tile Carpenters: [id number] Modifier: [id number] <+> 1 Start Time <+> 1 Start Time [facility] - Delays Entry 1 Delay Reason Other Duration 0 Minute(s) Comment NO DELAY Last Modified By: TERA JORDAN RN 05/18/21 12:04:55 [facility] - Departure from OR Entry 1 Integumentary Assessment Integumentary WDL Assessment WDL Transfer/Handoff Transfer to Ambulatory unit, Phase II Post-op Transport Stretcher/Gurney Via Patient Transport STEVENSON PARKS, Accompanied by SHEMAR, TERA JORDAN RN Last Modified By: TERA JORDAN RN 05/18/21 12:05:25 [facility] - Departure from OR Audit 05/18/21 12:14:32 Supervisor Acoustical Tile Carpenters: [id number] Modifier: [id number] <+> 1 Transfer to <+> 1 Integumentary Assessment WDL <+> 1 Post-op Transport Via [facility] - Endoscopy Details Entry 1 Abdomen Procedure Soft, Non-Tender Assessment Procedure Abdomen 05/18/21 12:00:00 Assessment D/T Radio Frequency Ablation Abdominal Pressure Last Modified By: TERA JORDAN RN 05/18/21 12:05:47 [facility] - Fire Risk Assessment Entry 1 Fire Info Surgical Site or 1- Yes Incision Above the Xyphoid Open O2 Source 1- Yes (Mask or Cannula) Available Ignition 1- Yes (ESU, Laser, Light Source) Fire Risk 3 Assessment Score Fire Score Fire Risk Yes Assessment Complete Fire Risk TERA JORDAN RN Assessment Verified By Fire Risk 05/18/21 12:00:00 Assessment Verified Date/Time Fire Risk High Risk Protocol Yes Implemented Standard Fire Yes Safety Precautions Followed Last Modified By: TERA JORDAN RN 05/18/21 12:06:43 [facility] - General Case Pocket Operator 1 Case Information OR Endo 01 E Case Level 1 Room Verified Yes Wound Class II - Clean-Contaminated Specialty Gastroenterology Anesthesia Type MAC ASA Class 3 Diagnosis Preop Diagnosis erosive gastritis Postop Same As Preop No Postop Diagnosis normal Last Modified By: TERA JORDAN RN 05/18/21 12:09:18 [facility] - General Case Data Audit 05/18/21 12:09:18 Supervisor Acoustical Tile Carpenters: [id number] Modifier: [id number] <+> ASA Class 1 <+> Anesthesia Type 1 <+> Postop Same As Preop 1 <*> Preop Diagnosis K29.60/K21.9 1 <+> Postop Diagnosis 1 <+> Room Verified [facility] - Intraoperative Assessment Entry 1 Valid History / Yes Physical in Chart Preoperative Yes Checklist Reviewed/Evaluated Patient is Latex No Sensitive Level of WDL Consciousness (WDL = Alert, Oriented to Person, Place, and Time) Present Upon IVs, ECG monitored Arrival to OR Last Modified By: TERA JORDAN RN 05/18/21 12:06:33 [facility] - Intraoperative Equipment Entry 1 Type Scope Equipment Intraop Monitoring Electrocardiogram Three lead placement (ECG) Electrode Placement Blood Pressure Non-Invasive BP Device Source Blood Pressure Arm, left upper Location Pulse Oximeter Hand, right Probe Site Antiembolic Devices Scopes Flexible Endoscopes Gastroscope Used Scope Serial [id number] Number/Identificatio n Number Photo/Video Documentation Photo Yes Video No Last Modified By: TERA JORDAN RN 05/18/21 12:07:28 [facility] - Patient Positioning Entry 1 Procedure Esophagogastroduodenosco py Body Position Lateral, right side up Left Arm Position Resting at side Right Arm Position Resting at side Left Leg Position Other Right Leg Position Other Position Comments Right leg over left leg uncrossed Feet Uncrossed Yes Pressure Points Yes Checked Positioned By TERA JORDAN RN, STEVENSON PARKS CRNA Position Verified Positioning Yes Verified by Anesthesia Positioning Yes Verified by Surgeon Last Modified By: TERA JORDAN RN 05/18/21 12:07:38 [facility] - Sign In Entry 1 Patient, Site, Yes Procedure Identified Surgical Consent Yes Confirmed Relevant Surgical Yes Documents Available Surgical Site N/A Marked by person performing procedure Allergies Yes Airway Blood Loss Risk No Blood Loss No Intervention Equipment Prepared and Ready Blood Identifiers Not applicable Verified Per Policy Hypothermia Risk No Warming Measures Yes Taken Last Modified By: TERA JORDAN RN 05/18/21 12:05:00 [facility] - Sign Out Entry 1 RN Confirmation Urinary Catheter N/A Documented in IView Safety Checklist Yes Elements Complete? RN Sign Out TERA JORDAN RN Signature RN Sign Out 05/18/21 12:09:00 Signature Date/Time Plan of Care Outcome - [...] of Care Outcome - Counts OUTCOME STATEMENT: Goal met Absence of signs and symptoms of injury related to extraneous objects Last Modified By: TERA JORDAN RN 05/18/21 12:05:34 [facility] - Sign Out Audit 05/18/21 12:13:45 Supervisor Acoustical Tile Carpenters: [id number] Modifier: [id number] <+> 1 OUTCOME STATEMENT: Absence of signs and symptoms of injury related to extraneous objects <+> 1 OUTCOME STATEMENT: Absence of signs and symptoms of positioning injury. <+> 1 OUTCOME STATEMENT: Absence of observable signs or symptoms of radiation injury <+> 1 OUTCOME STATEMENT: Patient is free from injury related to surgical fire <+> 1 Safety Checklist Elements Complete? <+> 1 RN Sign Out Signature <+> 1 RN Sign Out Signature Date/Time <+> 1 OUTCOME STATEMENT: Intraoperative care is consistent with measures to prevent infection [facility] - Surgical Procedures Entry 1 Procedure Esophagogastroduodenosco py Primary Procedure Yes Primary Surgeon MICHELE MARTIN MD-GAE Start 05/18/21 12:06:00 Stop 05/18/21 12:07:00 Anesthesia Type MAC Specialty Gastroenterology Wound Class II - Clean-Contaminated Last Modified By: TERA JORDAN RN 05/18/21 12:06:25 [facility] - Surgical Procedures Audit 05/18/21 12:13:07 Supervisor Acoustical Tile Carpenters: [id number] Modifier: [id number] <+> 1 Stop 05/18/21 12:06:25 Supervisor Acoustical Tile Carpenters: [id number] Modifier: [id number] 1 <*> Procedure Esophagogastroduodenoscopy 1 <*> Primary Procedure Yes 1 <*> Primary Surgeon MICHELE MARTIN MD-GAE 1 <*> Specialty 1 <+> Start 1 <*> Wound Class II - Clean-Contaminated 1 <*> Anesthesia Type MAC Entry 2 was deleted. Higher numbered entries shifted one position to fill the gap. <-> 2 Procedure EGD w Biopsy <-> 2 Primary Procedure No <-> 2 Primary Surgeon MICHELE MARTIN MD-GAE <-> 2 Specialty <-> 2 Wound Class II - Clean-Contaminated <-> 2 Anesthesia Type MAC [facility] - Time Out Entry 1 Procedure to be Esophagogastroduodenosco Performed py Time Out Time Out Pause Time 05/18/21 12:03:00 All activity Yes suspended (unless life threatening emergency) Team Verbally Correct patient Confirms Information identity, Consent form is present and accurate, Agreement on the procedure to be done, Correct patient position Antibiotic N/A Prophylaxis Administered Or In Progress Within the Last 60 Minutes Beta Isis N/A Administered Venous N/A Thromboembolism Prophylaxis Required Anticipated Critical Events Surgeon None expected Last Modified By: TERA JORDAN RN 05/18/21 12:07:13 Case Comments <None> Finalized By: TERA JORDAN RN Document Signatures Signed By: TERA JORDAN RN 05/18/21 12:19 TERA JORDAN RN 05/18/21 12:14 TERA JORDAN RN 05/18/21 15:48 Unfinalized History Date/Time Username Reason for Unfinalizing Freetext Reason for Unfinalizing 05/18/21 12:19 [id number] Modify Pick List 05/18/21 15:48 [id number] Modify Pick List Electronically signed by [facility] Conversion Hand Knitter Cerner at 02/22/2023 5:19 PM CDT documented in this encounter Plan of Treatment Upcoming Encounters Date Type Department Care Team (Late st Contact Info) Description 09/06/2025 2:45 PM EDT Office Visit [facility] Urology - [address] [facility] [address] [place] [address] [place] [address] [place] [address] [address] [place] [address] 10/17/2025 9:30 AM EST Office Visit [facility] Primary Care [address] [facility] [address] [place] [address] Lonny Pederson MD [address] [facility] [place] [address] 10/17/2025 10:45 AM EST Office Visit [facility] Cardiology - [address] [place] [address] Romina Abreu MD [address] [place] [address] 10/17/2025 1:45 PM EST Office Visit [facility] Neurology - [address] [place] [id number] Susan Rivers, EXPORT FREIGHT SPECIALIST [address] [place] [address] documented as of this encounter Visit Diagnoses Not on filedocumented in this encounter Care Teams Bottom Crane Operator Relationship Specialty Start Date End Date Lonny Pederson MD [address] [place] [address] PCP - General Internal Medicine/Pediatrics 09/15/22 Romina Abreu MD [address] [place], [place] [id number] Pulling Unit Operator Cardiology 09/22/22 Florencia Wilcox MD [address] [place] [address] Java Web Services Developer Rheumatology 09/22/22 Aryan Penaloza PA-C [address] [place] [address] Orthopedist Orthopedic Surgery 09/22/22 Vladimir Shook MD [address] [place] [address] Sports Medicine 10/06/23 Susan Rivers, EXPORT FREIGHT SPECIALIST [address] [place] [address] Neurology 10/06/23 Aryan Good PA-C [address] [place] [address] Physician Matrix Worker 12/09/23 Jimmy Baeza MD [address] [facility] [address] [place] [address] Pulling Unit Operator Electrophysiology 03/06/24 documented as of this encounter
--- OUTSIDE RECORDS SUMMARY | 2025-08-29 14:12 | XMS_ITS | Encounter Summary ---
Author Organization [employer] ([place], [place], [place], [place]) Address [address] [place] [address] Care Team Providers Care Fund Manager Name Role Phone Lonny Pederson MD Primary Care Provider Romina Abreu MD Unavailable [phone] Florencia Wilcox MD Unavailable Aryan Penaloza PA-C Unavailable [phone] Vladimir Shook MD Unavailable Susan Rivers APRN Unavailable [phone] Aryan Good PA-C Unavailable [phone] Jimmy Baeza MD Unavailable Encounter Details Date Type Department Care Team (Late st Contact Info) Description 05/18/2021 Transcribed Document [facility] [place] Medicine [facility] [place] [address] ProviderEduardo MD [facility] [place] [address] Social History Tobacco Use Types Packs/Day Years Used Date Smoking Tobacco: Never Assessed Comments Unknown Sex and Gender Information Value Date Recorded Sex Assigned at Female 09/20/2022 2:57 PM FIBERGLASS BOAT PARTS FINISHER Legal Sex Female 1:35 PM CDT Gender Identity Female 09/20/2022 2:57 PM FIBERGLASS BOAT PARTS FINISHER Sexual Orientation Straight 09/20/2022 2: 57 PM FIBERGLASS BOAT PARTS FINISHER documented as of this encounter Miscellaneous Notes * Cerner Conversion Note - Historical Provider, - 05/18/2021 12:00 PM CDT [facility] PreOp Summary Primary Physician: MICHELE MARTIN MD-GAE Finalized Date/Time: 05/18/21 11:36:58 Pt. Name: LOUISE FLOWERCESAR HUDD[place] /Sex: 1945 Female Med Rec #: [id number] Physician: MICHELE MARTIN MD-GAE Financial #: [id number] Pt. Type: E Room/Bed: [facility] Admit/Disch: 05/18/21 11:09:00 - Institution: [facility] PreOp Case Times Entry 1 In Preop 05/18/21 11:15:00 Ready for Holding n/a Room Patient Ready for 05/18/21 11:36:00 Surgery Patient Out of Preop 05/18/21 11:36:00 Patient Out of n/a Holding Room Finalized By: Leila Good, Rn Document Signatures Signed By: Leila Good Rn 05/18/21 11:36 documented in this encounter Plan of Treatment Upcoming Encounters Date Type Department Care Team (Late st Contact Info) Description 09/06/2025 2:45 PM EDT Office Visit [facility] Urology - [address] [facility] [address] [place] [address] Gerald Tamayo MD [address] [facility] [address] [place] [address] 10/17/2025 9:30 AM EST Office Visit [facility] Primary Care [address] [facility] [address] [place] [address] Lonny Pederson MD [address] [facility] [place] [address] 10/17/2025 10:45 AM EST Office Visit [facility] Cardiology - [address] [place] [address] Romina Abreu MD [address] [place], [place] [id number] 10/17/2025 1:45 PM EST Office Visit [facility] [address] [place] [address] Susan Rivers, MOLD BUNCH TRIMMER [address] [facility] [address] [place], [place] [id number] documented as of this encounter Visit Diagnoses Not on filedocumented in this encounter Care Teams Fund Manager Relationship Specialty Start Date End Date Lonny Pederson MD [address] [place] [address] PCP - General Internal Medicine/Pediatrics 09/15/22 Romina Abreu MD [address] [place], [place] [id number] Program Administrator Cardiology 09/22/22 Florencia Wilcox MD [address] [place] [address] Customer Experience Professional Rheumatology 09/22/22 Aryan Penaloza PA-C [address] [place] [address] Orthopedist Orthopedic Surgery 09/22/22 Vladimir Shook MD [address] [place] [address] Sports Medicine 10/06/23 Susan Rivers, MOLD BUNCH TRIMMER [address] [place], [place] [id number] Neurology 10/06/23 Aryan Good PA-C [address] [place], [place] [id number] Physician Programming Coordinator 12/09/23 Jimmy Baeza MD [address] [facility] [address] [place] [address] Program Administrator Electrophysiology 03/06/24 documented as of this encounter
--- OUTSIDE RECORDS SUMMARY | 2025-08-29 14:12 | XMS_ITS | Encounter Summary ---
Author Organization [employer] ([place], [place], [place], [place]) Address [address] [place] [address] Care Team Providers Care Numberer And Wirer Name Role Phone Lonny Pederson MD Primary Care Provider Romina Abreu MD Unavailable [phone] Florencia Wilcox MD Unavailable Aryan Penaloza PA-C Unavailable [phone] Vladimir Shook MD Unavailable Susan Rivers APRN Unavailable [phone] Aryan Good PA-C Unavailable [phone] Jimmy Baeza MD Unavailable Encounter Details Date Type Department Care Team (Late st Contact Info) Description 08/28/2020 Transcribed Document [facility] Family Medicine [address] [place] [address] ProviderEduardo MD [address] [place] [address] Social History Tobacco Use Types Packs/Day Years Used Date Smoking Tobacco: Never Assessed Comments Unknown Sex and Gender Information Value Date Recorded Sex Assigned at Female 09/20/2022 2:57 PM CLINICAL PROGRAM DIRECTOR Legal Sex Female 1:35 PM CDT Gender Identity Female 09/20/2022 2:57 PM CLINICAL PROGRAM DIRECTOR Sexual Orientation Straight 09/20/2022 2: 57 PM CLINICAL PROGRAM DIRECTOR documented as of this encounter Miscellaneous Notes * Cerner Conversion Note - Historical Provider, - 08/28/2020 4:23 PM CDT Evaluation, Occupational Therapy Entered On: 08/29/2020 13:10 EDT Performed On: 08/29/2020 11:08 EDT by BRYANT FRANCIS OTR/Buddy General Information, OT Visit Type, OT : Initial evaluation Patient Orders : Order Date Order Ordering MD 08/28/2020 16:23 OT Evaluation and Treatment Ordered By: HOA PENALOZA APRN Active Diagnoses : 08/28/2020 12:00 Hematemesis 08/28/2020 12:00 Vomiting Therapy Diagnosis, OT : generalized weakness Admission Date : 08/28/2020 14:58 Assisted by, OT : Physical Therapist Personal Devices : Personal Devices No Devices Recorded Assistive Devices : Assistive Devices No Devices Recorded Precautions in Place : Fall prevention measures, high risk General Information Comment, OT : pt is a pleasant 75 y.o. female admitted with hematemesis, n/v, h/o SSS, CAD, HTN, GERD, LIZZETTE, depression. BRYANT FRANCIS OTR/Buddy - 08/29/2020 13:00 EDT General Status Patient Received Status : Supine in bed, Bed alarm activated, Other: scds Treatment Start Time : 08/29/2020 10:47 EDT Patient Left Status : Up in chair, Chair alarm activated, RN/PCT informed, All needs met and within reach, Other: scds RN/PCT Informed Comment : RN Ok'd to tx, ID and verified Treatment End Time : 08/29/2020 11:08 EDT Treatment Time : 21 Minute(s) BRYANT FRANCIS OTR/Buddy - 08/29/2020 13:00 EDT History and Environment, OT Living Situation, Therapy : Home Patient Lives With : Alone Persons Assisting Patient at Home : Alone Professional Skilled Services : None Persons Providing Information : Patient Home Equipment, Therapy : Walker Walker : Walker, four wheel Walker Comment : rollator Home Setup : One story Laundry Room Location : Main level Bedroom Location : Main level Bathroom #1 Location : Main level Stairs : Yes Stair Location(s) : Outside Outside Stairs, Number of Steps : 1 Railing Outside : Yes Outside Railing Position : Left, going up PENNY MICHELLE HURTADO/Buddy - 08/29/2020 13:00 EDT Prior LOF Bathing, OT : Independent Prior LOF Bed Mobility : Independent Prior LOF Upper Body Dressing, OT : Independent Prior LOF Lower Body Dressing, OT : Independent Prior LOF Toileting : Independent Prior LOF Transfer : Independent Prior LOF Grooming, OT : Independent Prior LOF for IADLs, OT : Independent BRYANT FRANCIS OTR/Buddy - 08/29/2020 13:00 EDT History and Environment Comment, OT : pt lives alone in apt BRYANT FRANCIS OTR/Buddy - 08/29/2020 13:00 EDT Upper Extremity Right UE Active ROM : WFL Right UE Strength : WFL Left UE Active ROM : WFL Left UE Strength : WFL BRYANT FRANCIS OTR/Buddy - 08/29/2020 13:00 EDT Self Care/Home Management, OT Lower Body Dressing Assist Level, OT : Independent, modified Lower Body Dressing Device Comment, OT : socks seated EOB Toileting Assist Level : Supervision or set-up Toileting Device : Grab bars Toilet Transfer Assist Level : Supervision or set-up Toilet Transfer Device : Belt, gait, Grab bars, Walker, rolling Bed/Chair/WC Transfer Assist Level : Supervision or set-up Bed/Chair/WC Transfer Device : Belt, gait, Walker, front wheel BRYANT FRANCIS OTR/Buddy - 08/29/2020 13:00 EDT Functional Mobility Mobility Grid Supine to Sit : Rehab Modified independence Sit to Stand : Supervision/set-up Bed to Chair : Supervision/set-up Stand to Sit : Supervision/set-up BRYANT FRANCIS OTR/Buddy - 08/29/2020 13:00 EDT Functional MobilityComment : gait belt, pt completes functional mobility using rw Supervision to bathroom/hallway and returns to room transfer to chair Supervision BRYANT FRANCIS OTR/Buddy - 08/29/2020 13:00 EDT Activity Tolerance, OT Activity Comment : fair BRYANT FRANCIS OTR/Buddy - 08/29/2020 13:00 EDT Neurological/Sensory Overall Sensory Response : Intact BRYANT FRANCIS OTR/L - 08/29/2020 13:00 EDT Cognition Assessment, OT Orientation : Oriented x 4 BRYANT FRANCIS OTR/L - 08/29/2020 13:00 EDT Education OT Occupational Therapy Education Grid Activity of Daily Living Training : Verbalizes understanding, Returns demonstration Functional Mobility Training : Verbalizes understanding, Returns demonstration BRYANT FRANCIS OTR/L - 08/29/2020 13:00 EDT Indication Assessment, OT Occupational Therapy Indicated : No Occupational Therapy Not Indicated : No skilled services indicated BRYANT FRANCIS MICHELLE/L - 08/29/2020 13:00 EDT Plan of Care, OT OT Tx Plan/Goals Established w Patient : No Reason OT Treatment/Plan Not Established : no further acute care OT needs indicated Other OT Treatment Provided This Date : eval 8 ADL 13 minutes BRYANT FRANCIS OTGerman/L - 08/29/2020 13:00 EDT Treatment Note Subjective Comment : pt agrees to tx Additional Objective Information : eval ADL Assessment : no further acute care OT needs at this time, pt appears at her functional baseline, S secondary to line mgt Plan for Treatment : no further acute care OT needs BRYANT FRANCIS OTR/L - 08/29/2020 13:00 EDT Pain Assessment Pain Scaled Used : FACES Pain Score Pre-Intervention : 0 BRYANT FRANCIS MICHELLE/L - 08/29/2020 13:00 EDT Image 1 - Images currently included in the form version of this document have not been included in the text rendition version of the form. [facility] OT Charges OT Selfcare/Hm Mgmt Ea 15 Min : 1 OT Eval Low Complexity : 1 BRYANT FRANCISTEODOROR/L - 08/29/2020 13:00 EDT documented in this encounter Plan of Treatment Upcoming Encounters Date Type Department Care Team (Late st Contact Info) Description 09/06/2025 2:45 PM EDT Office Visit [facility] Urology - [address] [place] [address] Gerald Tamayo MD [address] [facility] [address] [place] [id number] 10/17/2025 9:30 AM EST Office Visit [facility] Primary Care [address] [facility] [address] [place] [address] Lonny Pederson MD [address] [place] [id number] 10/17/2025 10:45 AM EST Office Visit [facility] Cardiology - [address] [place] [address] Romina Abreu MD [address] [facility] [address] [place] [address] 10/17/2025 1:45 PM EST Office Visit [facility] Neurology - [facility] [address] [facility] [address] [place] [address] Susan Rivers APRN [address] [facility] [address] [place], [place] [id number] documented as of this encounter Visit Diagnoses Not on filedocumented in this encounter Care Teams Numberer And Wirer Relationship Specialty Start Date End Date Lonny Pederson MD [address] [place] [address] PCP - General Internal Medicine/Pediatrics 09/15/22 Romina Abreu MD [address] [place], [place] [id number] Wood Stock Blank Handler Cardiology 09/22/22 Florencia Wilcox MD [address] [place] [address] Pattern Finisher Rheumatology 09/22/22 Aryan Penaloza PA-C [address] [place], [place] [id number] Orthopedist Orthopedic Surgery 09/22/22 Vladimir Shook MD [address] [place], [place] [address] Sports Medicine 10/06/23 Susan Rivers APRN [address] [facility] [address] [place], [place] [address] Neurology 10/06/23 Aryan Good PA-C [address] [place], [place] [id number] Physician Vault Clerk 12/09/23 Jimmy Baeza MD [address] [facility] [address] [place] [address] Wood Stock Blank Handler Electrophysiology 03/06/24 documented as of this encounter
--- OUTSIDE RECORDS SUMMARY | 2025-08-29 14:12 | XMS_ITS | Encounter Summary ---
Author Organization [employer] ([place], [place], [place], [place]) Address [address] [place] [address] Care Team Providers Care Cardiovascular Sonographer Name Role Phone Lonny Pederson MD Primary Care Provider Romina Abreu MD Unavailable [phone] Florencia Wilcox MD Unavailable Aryan Penaloza PA-C Unavailable [phone] Vladimir Shook MD Unavailable Susan Rivers APRN Unavailable [phone] Aryan Good PA-C Unavailable [phone] Jimmy Baeza MD Unavailable Encounter Details Date Type Department Care Team (Late st Contact Info) Description 08/29/2020 Transcribed Document [facility] [place] [address] [place] [address] ProviderEduardo MD [address] [place] [address] Social History Tobacco Use Types Packs/Day Years Used Date Smoking Tobacco: Never Assessed Comments Unknown Sex and Gender Information Value Date Recorded Sex Assigned at Female 09/20/2022 2:57 PM DISTRICT GAUGER Legal Sex Female 1:35 PM CDT Gender Identity Female 09/20/2022 2:57 PM DISTRICT GAUGER Sexual Orientation Straight 09/20/2022 2: 57 PM DISTRICT GAUGER documented as of this encounter Miscellaneous Notes * Cerner Conversion Note - Historical Provider, - 08/29/2020 8:53 AM CDT [facility] End[facility] PACU Summary Primary Physician: MICHELE MARTIN MD-[facility] Finalized Date/Time: 08/29/20 09:28:04 Pt. Name: FLOWER LOUISE /Sex: 1945 Female Med Rec #: [id number] Physician: VERNON PRIETO DO Financial #: [id number] Pt. Type: O Room/Bed: [facility] Admit/Disch: 08/28/20 14:58:00 - Institution: [facility] PACU Case Times Entry 1 In PACU I 08/29/20 08:59:00 Ready for PACU 08/29/20 09:27:00 Discharge Discharge from PACU 08/29/20 09:28:00 I [facility] PACU Case Times Audit 08/29/20 09:28:02 Vertical Lathe Operator: [id number] Modifier: [id number] <+> 1 Ready for PACU Discharge <+> 1 Discharge from PACU I Finalized By: TERA JORDAN RN Document Signatures Signed By: TERA JORDAN RN 08/29/20 09:28 Electronically signed by [facility] Conversion Cafe Attendant Cerner at 02/22/2023 5:16 PM CDT documented in this encounter Plan of Treatment Upcoming Encounters Date Type Department Care Team (Late st Contact Info) Description 09/06/2025 2:45 PM EDT Office Visit [facility] Urology - [address] [facility] [address] [place] [address] Gerald Tamayo MD [address] [facility] [address] [place] [address] 10/17/2025 9:30 AM EST Office Visit [facility] Primary Care [address] [facility] [address] [place] [address] Lonny Pederson MD [address] [place] [address] 10/17/2025 10:45 AM EST Office Visit [facility] Cardiology - [address] [place] [address] Romina Abreu MD [address] [place], [place] [address] 10/17/2025 1:45 PM EST Office Visit [facility] Neurology - [facility] [address] [facility] [address] [place] [address] Susan Rivers APRN [address] [facility] [address] [place], [place] [id number] documented as of this encounter Visit Diagnoses Not on filedocumented in this encounter Care Teams Cardiovascular Sonographer Relationship Specialty Start Date End Date Lonny Pederson MD [address] [place] [address] PCP - General Internal Medicine/Pediatrics 09/15/22 Romina Abreu MD [address] [place], [place] [id number] Auricular Therapist Cardiology 09/22/22 Florencia Wilcox MD [address] [place] [address] Automatic Glove Turner And Former Rheumatology 09/22/22 Aryan Penaloza PA-C [address] [place], [place] [id number] Orthopedist Orthopedic Surgery 09/22/22 Vladimir Shook MD [address] [place], [place] [address] Sports Medicine 10/06/23 Susan Rivers, MAREN [address] [facility] [address] [place] [address] Neurology 10/06/23 Aryan Good PA-C [address] [place], [place] [phone] Physician Room Service Waiter/Waitress 12/09/23 Jimmy Baeza MD [address] [facility] [address] [place] [address] Auricular Therapist Electrophysiology 03/06/24 documented as of this encounter
--- OUTSIDE RECORDS SUMMARY | 2025-08-29 14:12 | XMS_ITS | Encounter Summary ---
Author Organization [employer] ([place], [place], [place], [place]) Address [address] [place] [address] Care Team Providers Care Voltage Regulator Assembler Name Role Phone Lonny Pederson MD Primary Care Provider Romina Abreu MD Unavailable [phone] Florencia Wilcox MD Unavailable Aryan Penaloza PA-C Unavailable [phone] Vladimir Shook MD Unavailable Susan Rivers APRN Unavailable [phone] Aryan Good PA-C Unavailable [phone] Jimmy Baeza MD Unavailable Encounter Details Date Type Department Care Team (Late st Contact Info) Description 05/18/2021 Transcribed Document [facility] Family Medicine [place] [address] ProviderEduardo MD [place] [address] Social History Tobacco Use Types Packs/Day Years Used Date Smoking Tobacco: Never Assessed Comments Unknown Sex and Gender Information Value Date Recorded Sex Assigned at Female 09/20/2022 2:57 PM OUTPATIENT FACILITY PHYSICAL THERAPIST Legal Sex Female 1:35 PM CDT Gender Identity Female 09/20/2022 2:57 PM OUTPATIENT FACILITY PHYSICAL THERAPIST Sexual Orientation Straight 09/20/2022 2: 57 PM OUTPATIENT FACILITY PHYSICAL THERAPIST documented as of this encounter Miscellaneous Notes * Cerner Conversion Note - Historical Provider, - 05/18/2021 10:15 AM CDT [place] [address] [place] [address] FLOWER LOUISE :1945 Visit Time:02/02/2021 What to do next Instructions From Your Care Team Diet after Discharge: Resume usual diet as tolerated, Do not drink any alcoholic beverages, Drink at least 8-10 glasses of water per day Activity after Discharge: As tolerated, Rest and relax today, No strenuous activity Driving after Discharge: Do not drive until 24 hours after no longer taking pain medications May Return to Work/School: as directed by physician Showering/Bathing: May shower Notify Provider of: severe pain in abdomen, severe bleeding, fever Follow instructions given verbally by nurse practitioner. Follow-Up Appointments Follow Up with MICHELE MARTIN MD-JANUSZ When Comments as directed Where: [address] [place] [address] [address] [place], [place] [id number]- Medications What How Much When Instructions Next Dose allopurinol (allopurinol 100 mg oral tablet) 1 Tablet(s) Oral Two Times A Day apixaban (Eliquis 5 mg oral tablet) 1 Tablet(s) Oral Two Times A Day carvedilol (carvedilol 3.125 mg oral tablet) 1 Tablet(s) Oral Two Times A Day colchicine (colchicine 0.6 mg oral capsule) 1 Capsule(s) Oral Every Day ezetimibe (Zetia 10 mg oral tablet) 1 Tablet(s) Oral Every Day levothyroxine (levothyroxine 50 mcg (0.05 mg) oral tablet) 1 Tablet(s) Oral Every Day pantoprazole (Protonix 40 mg oral delayed release tablet) 1 Tablet(s) Oral Two Times A Day Duration: 30 Day(s) 15-30min prior to meals on empty stomach Take your medications faithfully. Do NOT skip [...] Please dispose of unused and medications per pharmacy guidance. Education Materials Upper Endoscopy, Adult, Care After This sheet [...] activities are safe for you. ??? Take umoq-hki-sgpokrw and prescription medicines only as told by [...] provider. Document Revised: 04/17/2019 Document Reviewed: 03/26/2019 [employer] Patient Education ?? 2020 [employer] Monitored Anesthesia Care, Care After These instructions [...] eating solid foods. General instructions ??? Take txii-[id number] and prescription medicines only as told by [...] provider. Document Revised: 01/22/2019 Document Reviewed: 02/13/2017 [employer] Patient Education ?? 2020 [employer] Emergency Awareness and Preventative Care STROKE is [...] Assistance with quitting is available by contacting 0-837-YWLF-NOW. This is a free resource providing counseling, support, and referral. Or you may contact your personal physician. National Suicide Prevention Lifeline: The National [facility]icide [facility] is a national network of local crisis [...] This Visit (last charted value for your 02/02/2021 visit) No Laboratory or Other Results This Visit Patient Name:ASPEN FLOWERCESAR HUDDLESTON I have received this information and was given the opportunity to ask questions. Patient/Wharf Builder Name: Patient/Wharf Builder Signature: Relationship to Patient: Clinician/Hospital Wharf Builder Signature: Date: documented in this encounter Plan of Treatment Upcoming Encounters Date Type Department Care Team (Late st Contact Info) Description 09/06/2025 2:45 PM EDT Office Visit [facility] Urology - [facility] [address] [facility] [address] [place] [address] Gerald Tamayo MD [address] [place] [address] [address] [place] [address] 10/17/2025 9:30 AM EST Office Visit [facility] Primary Care [address] [facility] [address] [place] [address] Lonny Pederson MD [address] [facility] [place] [address] 10/17/2025 10:45 AM EST Office Visit [facility] Cardiology - [facility] [address] [place] [address] Romina Abreu MD [address] [facility] [address] [place] [id number] 10/17/2025 1:45 PM EST Office Visit [facility] Neurology - [facility] [address] [facility] [address] [place] [address] Susan Rivers APRN [address] [facility] [address] [place], [place] [id number] documented as of this encounter Visit Diagnoses Not on filedocumented in this encounter Care Teams Voltage Regulator Assembler Relationship Specialty Start Date End Date Lonny Pederson MD [address] [place] [address] PCP - General Internal Medicine/Pediatrics 09/15/22 Romina Abreu MD [address] [place] [address] Supervisory Aide Cardiology 09/22/22 Florencia Wilcox MD [address] [place] [address] Jig Builder Rheumatology 09/22/22 Aryan Penaloza PA-C [address] [place] [address] Orthopedist Orthopedic Surgery 09/22/22 Vladimir Shook MD [address] [place] [address] Sports Medicine 10/06/23 Susan Rivers, JAVA TECHNICAL ARCHITECT [address] [facility] [address] [place] [address] Neurology 10/06/23 Aryan Good PA-C [address] [place] [address] Physician Sewing Machine Adjuster 12/09/23 Jimmy Baeza MD [address] [facility] [address] [place] [address] Supervisory Aide Electrophysiology 03/06/24 documented as of this encounter
--- OUTSIDE RECORDS SUMMARY | 2025-08-29 14:12 | XMS_ITS | Encounter Summary ---
Author Organization [employer] ([place], [place], [place], [place]) Address [address] [place] [address] Care Team Providers Care Fuel Testing Technician Name Role Phone Lonny Pederson MD Primary Care Provider + [phone] Romina Abreu MD Unavailable [phone] Florencia Wilcox MD Unavailable Aryan Penaloza PA-C Unavailable [phone] Vladimir Shook MD Unavailable Susan Rivers APRN Unavailable [phone] Aryan Good PA-C Unavailable [phone] Jimmy Baeza MD Unavailable Encounter Details Date Type Department Care Team (Late st Contact Info) Description 05/18/2021 Transcribed Document [facility] [place] [facility] [place] [address] ProviderEduardo MD [facility] [place] [address] Social History Tobacco Use Types Packs/Day Years Used Date Smoking Tobacco: Never Assessed Comments Unknown Sex and Gender Information Value Date Recorded Sex Assigned at Female 09/20/2022 2:57 PM MATHEMATICAL TECHNICIAN Legal Sex Female 1:35 PM CDT Gender Identity Female 09/20/2022 2:57 PM MATHEMATICAL TECHNICIAN Sexual Orientation Straight 09/20/2022 2: 57 PM MATHEMATICAL TECHNICIAN documented as of this encounter Miscellaneous Notes * Cerner Conversion Note - Historical Provider, - 05/18/2021 11:25 AM CDT Pre Procedure Adult Entered On: 05/18/2021 11:30 EDT Performed On: 05/18/2021 11:25 EDT by Leila Good Rn Height and Weight, Clinical Dosing Height Source : Stated Height Entry Format : [place] Height, Feet : 4 ft(Converted to: 122 cm, 48 Inch) Height, Inches : 11 Inch(Converted to: 0 ft 11 Inch, 27.94 cm) Clinical Height : 149.86 cm Weight Source : Standing scale Weight Entry Format : Tenino Clinical Dosing Weight : 74.09 kg Weight, Pounds : 163 lb Body Surface Area (BSA) : 1.69 m2 Body Mass Index : 33 kg/m2 (HI) [place] Body Weight : 43 kg Leila Good Rn - 05/18/2021 11:25 EDT Health Histories Smoking Status : Never (less than 100 in lifetime; none in last 30 days) Smokeless Tobacco Status : Never Leila Good Rn - 05/18/2021 11:25 EDT Social History (As Of: 05/18/2021 11:30:02 EDT) Tobacco: Use in Last 12 Months: Cigarettes. Smoking Status Former smoker. Years of Use: 20. Packs/Tins Daily: 1. (Last Updated: 07/26/2013 07:26:45 EDT by ANGELA WINSTON) Former smoker, quit more than 30 days ago Smoking Status. Never Smokeless Tobacco Status. Last Used: quit 1985. (Last Updated: 07/04/2018 11:28:56 EDT by Caridad Gomez, JORDYN) Alcohol: Comments: 07/26/2013 7:26 - ANGELA WISNTON: none. (Last Updated: 07/26/2013 07:26:51 EDT by [...] 07/26/2013 15:19:05 EDT by ADRIANO SONG RN) Infectious Disease History Has the patient ever been tested for COVID-19? : Yes, Patient stated results Negative Date of COVID-19 test known? : Yes Date of COVID-19 Test : 05/15/2021 EDT Does patient have symptoms of COVID-19? : No COVID19 Screening : No Experiencing Infectious Disease Symptoms : No symptoms Physical contact outside [place] in the last 30 days : No Infectious Disease History : Chicken pox/Shingles Tuberculosis Symptoms : None Leila Good Rn - 05/18/2021 11:25 EDT COVID19 PreProcedure Screening Is this an Emergent or Add on Procedure? : No Date PreProcedure COVID-19 test known? : Yes Date of PreProcedure COVID-19 : 05/15/2021 EDT Has patient been isolated since the test : Yes Exposed to COVID19 symptoms since test? : No Leila Good Rn - 05/18/2021 11:25 EDT Anesthesia/Transfusion History Family History of Anesthesia Reaction : No prior transfusion(s) Transfusion History : Prior anesthesia without reaction Family History of Anesthesia Reaction : None Leila Good Rn - 05/18/2021 11:25 EDT Functional Assessment Living Situation : Home Current Home Treatments : None Leila Good Rn - 05/18/2021 11:25 EDT [place] Suicide Severity Rating Scale (C-SSRS) CSSRS Past Month Wish to be : No CSSRS Past Month Suicidal Thoughts : No CSSRS Lifetime Suicide Behavior : No Suicide Severity Rating Score : 0 Suicide Severity Rating : No Additional Care Required at this time Leila Good Rn - 05/18/2021 11:25 EDT Psychosocial History Chronic/Terminal Illness w/Freq Visits : No Do You Have a History of the Following? 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 Emergency Contact #2 Phone Number : . Emergency Contact #2 Relationship : . Primary Language : Bahamian Preferred Communication Mode : Verbal Communication Barrier : None Rotary Soil Stabilizer Needed : No Leila Good Rn - 05/18/2021 11:25 EDT Sleep Apnea Risk Assmt BiPAP/CPAP Ordered for Home Use : Yes Hx of Obstructive Sleep Apnea Diagnosis : Yes BiPAP/CPAP Used at Home : No Reason BiPAP/CPAP Not Used at Home : dosen't sleep well with it Age over 50 Years Old : Yes Gender Male : No Leila Good Rn - 05/18/2021 11:25 EDT Adan Scale Adan Sensory Perception : No impairment Adan Moisture : Rarely moist Adan Activity : Walks frequently Adan Mobility : No limitation Adan Nutrition : Adequate Adan Friction and Shear : No apparent problem Adan Score : 22 Leila Good Rn - 05/18/2021 11:25 EDT Fall Risk Scales ABCs Fall Injury Risk Identification : None NINA Hx Falls Immediate/Within 3 Months : No Nina Secondary Diagnosis : No NINA Use of Ambulatory Aid : None NINA IV Therapy or IV Access : Yes Nina Gait/Transferring : Normal, bedrest, immobile Nina Mental Status : Oriented to own ability Nina Fall Risk Score : 20 NINA Fall Scale Risk Level : 0-24 Low Risk [place] Fall Interventions : Adequate lighting, Call device within reach, Fall prevention handout/education per facility policy, Non-slip footwear, Wheels locked Leila Good Rn - 05/18/2021 11:25 EDT Valuables and Belongings Valuables and Belongings : Clothing Clothing : Common streetwear Clothing Disposition : Bedside Leila Good Rn - 05/18/2021 11:25 EDT Electronically signed by [facility] Conversion Textile Machine Maintenance Mechanic Cerner at 02/22/2023 5:09 PM CDT documented in this encounter Plan of Treatment Upcoming Encounters Date Type Department Care Team (Late st Contact Info) Description 09/06/2025 2:45 PM EDT Office Visit [facility] Urology - [address] [place] [address] [place] [address] [place] [address] [address] [place] [address] 10/17/2025 9:30 AM EST Office Visit [facility] Primary Care [address] [place] [address] Lonny Pederson MD [address] [place] [address] 10/17/2025 10:45 AM EST Office Visit [facility] Cardiology - [address] [place] [address] Romina Abreu MD [address] [place], [place] [address] 10/17/2025 1:45 PM EST Office Visit [facility] Neurology - [facility] [address] [facility] [address] [place] [address] Susan Rivers APRN [address] [facility] [address] [place], [place] [id number] documented as of this encounter Visit Diagnoses Not on filedocumented in this encounter Care Teams Fuel Testing Technician Relationship Specialty Start Date End Date Lonny Pederson MD [address] [place] [address] PCP - General Internal Medicine/Pediatrics 09/15/22 Romina Abreu MD [address] [place], [place] [id number] Dental Assistant Cardiology 09/22/22 Florencia Wilcox MD [address] [place] [address] Roll Repairer Rheumatology 09/22/22 Aryan Penaloza PA-C [address] [place] [address] Orthopedist Orthopedic Surgery 09/22/22 Vladimir Shook MD [address] [place] [address] Sports Medicine 10/06/23 Susan Rivers APRN [address] [facility] [address] [place] [address] Neurology 10/06/23 Aryan Good PA-C [address] [place] [address] Physician Implementation Lead 12/09/23 Jimmy Baeza MD [address] [facility] [address] [place] [address] Dental Assistant Electrophysiology 03/06/24 documented as of this encounter
--- OUTSIDE RECORDS SUMMARY | 2025-08-29 14:12 | XMS_ITS | Encounter Summary ---
Author Organization [email or web address] ([place], [place], [place], [place]) Address [address] [place] [address] Care Team Providers Care Flame Annealing Machine Operator Name Role Phone Lonny Pedreson MD Primary Care Provider Romina Abreu MD Unavailable [phone] Florencia Wilcox MD Unavailable Aryan Penaloza PA-C Unavailable [phone] Vladimir Shook MD Unavailable Susan Rivers APRN Unavailable [phone] Aryan Good PA-C Unavailable [phone] Jimmy Baeza MD Unavailable Encounter Details Date Type Department Care Team (Late st Contact Info) Description 05/18/2021 Transcribed Document [facility] [place] [facility] [place] [address] ProviderEduardo MD [facility] [place] [address] Social History Tobacco Use Types Packs/Day Years Used Date Smoking Tobacco: Never Assessed Comments Unknown Sex and Gender Information Value Date Recorded Sex Assigned at Female 09/20/2022 2:57 PM VETERINARY INSPECTOR Legal Sex Female 1:35 PM CDT Gender Identity Female 09/20/2022 2:57 PM VETERINARY INSPECTOR Sexual Orientation Straight 09/20/2022 2: 57 PM VETERINARY INSPECTOR documented as of this encounter Miscellaneous Notes * Cerner Conversion Note - Historical Provider, - 05/18/2021 12:14 PM CDT [address] [place] [address] FLOWER LOUISE :1945 Visit Time:05/18/2021 What to do next Your Diagnosis Other gastritis without bleeding, Other gastritis without bleeding Instructions From Your Care Team Diet after [...] MARTIN MD-JANUSZ When Comments as directed Where: [address] [place] [address] [address] [place] [id number]- Medications What How Much When Instructions Next Dose allopurinol (allopurinol 100 mg oral tablet) 1 Tablet(s) Oral Two Times A Day aspirin (Aspir-Low 81 mg oral delayed release tablet) Oral Every Day carvedilol (carvedilol 3.125 mg oral tablet) 1 Tablet(s) Oral Two Times A Day ezetimibe (Zetia 10 mg oral tablet) 1 Tablet(s) Oral Every Day levothyroxine (levothyroxine 50 mcg (0.05 mg) oral tablet) 1 Tablet(s) Oral Every Day multivitamin Every Day pantoprazole (Protonix 40 mg oral [...] activities are safe for you. ??? Take cftx-pdb-stbiugw and prescription medicines only as told by [...] provider. Document Revised: 04/17/2019 Document Reviewed: 03/26/2019 [employer] Patient Education ?? 2020 [employer]. Monitored Anesthesia Care, Care After These instructions [...] eating solid foods. General instructions ??? Take suhn-asl-tbiczwr and prescription medicines only as told by [...] provider. Document Revised: 01/22/2019 Document Reviewed: 02/13/2017 [employer] Patient Education ?? 2020 [employer] Emergency Awareness and Preventative Care STROKE [...] Assistance with quitting is available by contacting 9-044-EVGZ-NOW. This is a free resource providing counseling, [...] This Visit (last charted value for your 05/18/2021 visit) No Laboratory or Other Results This Visit Patient Name:LOUISECARLOZ CUEVASMelquiades HUDDLESTON I have received this information and was given the opportunity to ask questions. Patient/Gyn Physician Name: Patient/Gyn Physician Signature: Relationship to Patient: Clinician/Hospital Gyn Physician Signature: Date: documented in this encounter Plan of Treatment Upcoming Encounters Date Type Department Care Team (Late st Contact Info) Description 09/06/2025 2:45 PM EDT Office Visit [facility] Urology - [facility] [address] [facility] [address] [place] [address] Gerald Tamayo MD [address] [facility] [address] [place] [address] 10/17/2025 9:30 AM EST Office Visit [facility] Primary Care [address] [facility] [address] [place] [address] Lonny Pederson MD [address] [place] [address] 10/17/2025 10:45 AM EST Office Visit [facility] Cardiology - [facility] [address] [place] [address] Romina Abreu MD [address] [facility] [address] [place] [address] 10/17/2025 1:45 PM EST Office Visit [facility] Neurology - [facility] [address] [facility] [address] [place] [address] Susan Rivers APRN [address] [facility] [address] [place], [place] [id number] documented as of this encounter Visit Diagnoses Not on filedocumented in this encounter Care Teams Flame Annealing Machine Operator Relationship Specialty Start Date End Date Lonny Pederson MD [address] [place] [phone] PCP - General Internal Medicine/Pediatrics 09/15/22 Romina Abreu MD [address] [place] [address] Flag Car Driver Cardiology 09/22/22 Florencia Wilcox MD [address] [place] [address] Road Design Draftsperson Rheumatology 09/22/22 Aryan Penaloza PA-C [address] [place] [address] Orthopedist Orthopedic Surgery 09/22/22 Vladimir Shook MD [address] [place] [address] Sports Medicine 10/06/23 Susan Rivers, SUPERVISORY HISTORIAN [address] [facility] [address] [place] [address] Neurology 10/06/23 Aryan Good PA-C [address] [place] [address] Physician Container Shop Welder 12/09/23 Jimmy Baeza MD [address] [facility] [address] [place] [address] Flag Car Driver Electrophysiology 03/06/24 documented as of this encounter
--- OUTSIDE RECORDS SUMMARY | 2025-08-29 14:13 | XMS_ITS | Encounter Summary ---
Author Organization [employer] ([place], [place], [place], [place]) Address [address] [place] [address] Care Team Providers Care Windmill Mechanic Name Role Phone Lonny Pederson MD Primary Care Provider Romina Abreu MD Unavailable [phone] Florencia Wilcox MD Unavailable Aryan Penaloza PA-C Unavailable [phone] Vladimir Shook MD Unavailable Susan Rivers APRN Unavailable [phone] Aryan Good PA-C Unavailable [phone] Jimmy Baeza MD Unavailable Encounter Details Date Type Department Care Team (Late st Contact Info) Description 08/29/[address] [facility] [place] Family Medicine [address] [place] [address] ProviderEduardo MD [address] [place] [address] Social History Tobacco Use Types Packs/Day Years Used Date Smoking Tobacco: Never Assessed Comments Unknown Sex and Gender Information Value Date Recorded Sex Assigned at Female 09/20/2022 2:57 PM INCREMENT MANAGER Legal Sex Female 1:35 PM CDT Gender Identity Female 09/20/2022 2:57 PM INCREMENT MANAGER Sexual Orientation Straight 09/20/2022 2: 57 PM INCREMENT MANAGER documented as of this encounter Miscellaneous Notes * Cerner Conversion Note - Historical Provider, - 08/29/2020 3:14 PM CDT Final Discharge Planning Entered On: 08/29/2020 15:16 EDT Performed On: 08/29/2020 15:14 EDT by KAYDEN RODRIGUEZ RN-Sub Master Final Discharge Planning Discharge Arrangements : Patient Post-Acute Information Patient Name: FLOWER LOUISE Gender: Female : 45 Age: 75 Years No Post-Acute Placement(s) Listed No Post-Acute Service(s) Listed No [place] Referral(s) Listed Transportation Needs : Family/Friend Follow Up Appointment Scheduled : Yes Is Patient High/Moderate Readmission Risk? : No Patient/Family Notified of Plan : Yes Discharge To Care Management : Home/Residential/Snf or Self Care -01 KAYDEN RODRIGUEZ RN-Sub Master - 08/29/2020 15:14 EDT Final Narrative Note Final Narrative Note : Patient with dc orders placed prior to initial eval. Per chart review.......Patient came for hematemesis, n/v. Patient underwent EGD which showed gastritis, esophagitis, duodenitis, protonix given. Patient lives at home alone, iADL per PT eval, has rollator and lives in one story home. Walked 200ft with PT. Plan to dc home, no needs at this time.........................sds KAYDEN RODRIGUEZ RN-Sub Master - 08/29/2020 15:14 EDT documented in this encounter Plan of Treatment Upcoming Encounters Date Type Department Care Team (Late st Contact Info) Description 09/06/2025 2:45 PM EDT Office Visit [facility] Urology - [address] [place] [address] Gerald Tamayo MD [address] [facility] [address] [place], [place] [address] 10/17/2025 9:30 AM EST Office Visit [facility] Primary Care [address] [facility] [address] [place] [address] Lonny Pederson MD [address] [place] [address] 10/17/2025 10:45 AM EST Office Visit [facility] Cardiology - [facility] [address] [place] [address] Romina Abreu MD [address] [facility] [address] [place], [place] [address] 10/17/2025 1:45 PM EST Office Visit [facility] Neurology - [facility] [address] [place] [address] [address] [place] [phone] Susan Rivers APRN [address] [facility] [address] [place], [place] [address] documented as of this encounter Visit Diagnoses Not on filedocumented in this encounter Care Teams Windmill Mechanic Relationship Specialty Start Date End Date Lonny Pederson MD [address] [place] [address] PCP - General Internal Medicine/Pediatrics 09/15/22 Romina Abreu MD [address] [place] [address] Teletype Adjuster Cardiology 09/22/22 Florencia Wilcox MD [address] [place] [address] Performance Test Engineer Rheumatology 09/22/22 Aryan Penaloza PA-C [address] [place] [address] Orthopedist Orthopedic Surgery 09/22/22 Vladimir Shook MD [address] [place], [place] [address] Sports Medicine 10/06/23 Susan Rivers, BUSINESS PROCESS REPRESENTATIVE [address] [facility] [address] [place], [place] [address] Neurology 10/06/23 Aryan Good PA-C [address] [place] [address] Physician Lumber Carrier Operator 12/09/23 Jimmy Baeza MD [address] [facility] [address] [place], [place] [address] Teletype Adjuster Electrophysiology 03/06/24 documented as of this encounter
--- OUTSIDE RECORDS SUMMARY | 2025-08-29 14:13 | XMS_ITS | Encounter Summary ---
Author Organization [employer] ([place], [place], [place], [place]) Address [address] [place] [address] Care Team Providers Care Sewer And Drain Technician Name Role Phone Lonny Pederson MD Primary Care Provider Romina Abreu MD Unavailable [phone] Florencia Wilcox MD Unavailable Aryan Penaloza PA-C Unavailable [phone] Vladimir Shook MD Unavailable Susan Rivers APRN Unavailable [phone] Aryan Good PA-C Unavailable [phone] Jimmy Baeza MD Unavailable Encounter Details Date Type Department Care Team (Late st Contact Info) Description 08/29/2020 Transcribed Document [facility] [place] [address] [place] [address] ProviderEduardo MD [address] [place] [address] Social History Tobacco Use Types Packs/Day Years Used Date Smoking Tobacco: Never Assessed Comments Unknown Sex and Gender Information Value Date Recorded Sex Assigned at Female 09/20/2022 2:57 PM STEAM TRAP MAN Legal Sex Female 1:35 PM CDT Gender Identity Female 09/20/2022 2:57 PM STEAM TRAP MAN Sexual Orientation Straight 09/20/2022 2: 57 PM STEAM TRAP MAN documented as of this encounter Miscellaneous Notes * Cerner Conversion Note - Eduardo Foster MD - 08/29/2020 11:42 AM CDT Stroke/Warfarin Instructions Entered On: 08/29/2020 11:42 EDT Performed On: 08/29/2020 11:42 EDT by Indy Layne RN-Flex Team Stroke/Warfarin Instructions Stroke/TIA Discharge Ins : N/A Warfarin Discharge Ins : N/A Indy Layne RN-Flex Team - 08/29/2020 11:42 EDT documented in this encounter Plan of Treatment Upcoming Encounters Date Type Department Care Team (Late st Contact Info) Description 09/06/2025 2:45 PM EDT Office Visit [facility] Urology - [facility] [address] [facility] [address] [place] [address] Gerald Tamayo MD [address] [place] [address] [address] [place], [place] [id number] 10/17/2025 9:30 AM EST Office Visit [facility] Primary Care [address] [facility] [address] [place] [address] Lonny Pederson MD [address] [facility] [place] [address] 10/17/2025 10:45 AM EST Office Visit [facility] Cardiology - [facility] [address] [place] [address] Romina Abreu MD [address] [place] [address] 10/17/2025 1:45 PM EST Office Visit [facility] Neurology - [address] [place] [address] Susan Rivers, CEILING INSTALLER [address] [facility] [address] [place] [address] documented as of this encounter Visit Diagnoses Not on filedocumented in this encounter Care Teams Sewer And Drain Technician Relationship Specialty Start Date End Date Lonny Pederson MD [address] [place] [address] PCP - General Internal Medicine/Pediatrics 09/15/22 Romina Abreu MD [address] [place] [address] Erp Pm Cardiology 09/22/22 Florencia Wilcox MD [address] [place] [address] Community Service Director Rheumatology 09/22/22 Aryan Penaloza PA-C [address] [place] [address] Orthopedist Orthopedic Surgery 09/22/22 Vladimir Shook MD [address] [place] [address] Sports Medicine 10/06/23 Susan Rivers, CEILING INSTALLER [address] [facility] [address] [place] [address] Neurology 10/06/23 Aryan Good PA-C [address] [place] [address] Physician Juvenile Corrections Officer 12/09/23 Jimmy Baeza MD [address] [facility] [address] [place] [address] Erp Pm Electrophysiology 03/06/24 documented as of this encounter
--- OUTSIDE RECORDS SUMMARY | 2025-08-29 14:13 | XMS_ITS | Encounter Summary ---
Author Organization [employer] ([place], [place], [place], [place]) Address [address] [place] [address] Care Team Providers Care Mica Spreader Name Role Phone Lonny Pederson MD Primary Care Provider Romina Abreu MD Unavailable [phone] Florencia Wilcox MD Unavailable Aryan Penaloza PA-C Unavailable [phone] Vladimir Shook MD Unavailable Susan Rivers APRN Unavailable [phone] Aryan Good PA-C Unavailable [phone] Jimmy Baeza MD Unavailable Encounter Details Date Type Department Care Team (Late st Contact Info) Description 08/29/[address] [facility] Family Medicine [address] [place] [address] ProviderEduardo MD [address] [place] [address] Social History Tobacco Use Types Packs/Day Years Used Date Smoking Tobacco: Never Assessed Comments Unknown Sex and Gender Information Value Date Recorded Sex Assigned at Female 09/20/2022 2:57 PM CANVAS SHOP LABORER Legal Sex Female 1:35 PM CDT Gender Identity Female 09/20/2022 2:57 PM CANVAS SHOP LABORER Sexual Orientation Straight 09/20/2022 2: 57 PM CANVAS SHOP LABORER documented as of this encounter Miscellaneous Notes * Cerner Conversion Note - Historical Provider, - 08/29/2020 11:19 AM CDT Patient: FLOWER LOUISE Age: 75 Years Sex: Female : 1945 Admit Date 08/28/2020 14:58 Discharge Date 08/29/2020 Primary Care Provider PHUONG AGEE MD-[facility] Discharge Diagnosis Esophagitis, severe gastritis Procedures SN - Proc - Procedure: Gastric Biopsy (08/29/20 08:59:01) SN - Proc - Procedure: Esophagogastroduodenoscopy (08/29/20 08:59:01) Findings: LA Grade A (one or more mucosal breaks less than 5 mm, not extending between tops of 2 mucosal folds) esophagitis was found in the distal esophagus. Patchy severe inflammation characterized by erythema, granularity and shallow ulcerations was found in the gastric antrum. Biopsies were taken with a cold forceps for histology. Mild inflammation characterized by erythema was found in the duodenal bulb. Impression: - LA Grade A reflux esophagitis. - Gastritis. Biopsied. - Duodenitis. Recommendation: - Await pathology results. - Use Protonix (pantoprazole) 40 mg PO BID. - Minimize NSAID use [1] Reason for Hospitalization hematemesis Hospital Course History of Present Illness The patient is a 75 year old female with PMH of CAD, SSS s/p PPM, PAF, HLD, diastolic heart failure, HTN, hypothyroidism, GERD, LIZZETTE (refuses CPAP) and depression who presented to the ED c/o nausea and vomiting/hematemesis. She states she has been nauseated x months and began vomiting last night which consisted of bile. This morning she vomited and reports there was bile and quite a bit of blood . She denies blood in stool. The patient takes Eliquis but has not taken it x 4 days. Her cargo router is Dr. Romina Abreu and her PCP is Dr. Phuong Agee. She admits to taking ASA for knee pain/arthritis but has not taken any meds for approximately 2 days due to nausea. Her hemoglobin and vital signs are stable. GI was notified and Dr. Martin plans for scope tomorrow. [2] Course: Patient underwent EGD the morning of 08/29, with findings of esophagitis, severe gastritis, and duodenitis. The stomach was biopsied. GI started the patient on protonix 40mg PO BID and recommended that the patient minimized NSAID use. She will follow up with GI for biopsy results. After the EGD, she tolerated a regular diet with out nausea or discomfort. She will be DCed home in improved and stable condition. We will hold aspirin on DC until seen by her PCP and resume eliquis. Vital Signs T: 36.7 ??C TMIN: 36.7 ??C TMAX: 37.2 ??C HR: 62(Monitored) RR: 14 BP: 161/65 SpO2: 97% HT: 162.56 cm WT: 77.73 kg BMI: 29.4 Oxygen Settings (Last) Oxygen Therapy Mode: Room air (08/29/20 09:49:00) Physical Exam General: Alert and oriented, no acute distress Neurologic: Awake, alert, and oriented X3, no apparent focal deficits Eye: EOMI, normal conjunctiva HENT: Normocephalic, atraumatic Neck: no carotid bruits, no JVD Lungs: Clear to auscultation, non-labored respiration Heart: Normal rate, regular rhythm, no murmur Abdomen: Soft, non-tender, non-distended, normal bowel sounds Musculoskeletal: Normal range of motion and strength, no tenderness or swelling Skin: Skin is warm, dry, no rashes or lesions Psychiatric: Cooperative, appropriate mood and affect Patient seen and examined on day of discharge. Discharge Disposition Home Discharge Follow Up GI Dr Martin in [address] Phuong Agee in 3-5 days. Discharge Medications (8) Active allopurinol 100 mg oral tablet 100 mg = 1 Tab, Oral, BID aspirin 81 mg, Oral, At Bedtime - hold colchicine 0.6 mg oral capsule 0.6 mg = 1 Cap, Oral, Daily Coreg 3.125 mg oral tablet 3.125 mg = 1 Tab, Oral, BID Eliquis 5 mg oral tablet 5 mg = 1 Tab, Oral, BID levothyroxine 75 mcg, Oral, Daily Protonix 40 mg oral delayed release tablet 40 mg = 1 Tab, Oral, BID Zetia 10 mg oral tablet 10 mg = 1 Tab, Oral, Daily Code Status Start: 08/28/20 17:49:00 EDT, DNR Full Treatment-No Intubation/No ACLS, Continuous Order Condition on Discharge stable, improved Consulting Physicians MICHELE MARTIN MD-GAE (Per report, Dr. Martin plans to scope in the am) - hematemesis YURI SHERMAN, DO-ANS Current Diet Order Diet, Adult - Ordered -- Start: 08/29/20 9:14:00 EDT, Regular Diet, Isolation: Standard Precautions Patient Discharge Summary Orders Discharge Follow Up Instructions: Follow up w/ Dr Martin next weekFollow up PCP in 3-5 days Activity: Discharge Activity: Activity as tolerated Diet: Discharge Diet: Resume usual diet as tolerated Pending Labs Collected Path Tissue Request, Sendout Specimen Type: AP Specimen, Routine collect, 08/29/20 8:53:00 EDT, 1-Time, Collected, Stop: 08/29/20 8:53:00 EDT, Nurse Collect, Specimen Desc: gastric biopsy Pathology Tissue Request 08/29/20 8:53:00 EDT, Collected, RT - Routine, 08/29/20 8:53:00 EDT, Cami Nixon Rn, Specimen Type: AP Specimen, Specimen Desc: gastric biopsy, hematemasis, Pre-Op Dx: hematemasis, Print Label, Routine, Nurse Collect Time Spent on Discharge >35 minutes [1] Upper GI endoscopy; Contributor_system, [place]_PDF 08/29/2020 08:44 EDT [2] Admission H & P; HOA PENALOZA APRN 08/28/2020 15:29 EDT documented in this encounter Plan of Treatment Upcoming Encounters Date Type Department Care Team (Late st Contact Info) Description 09/06/2025 2:45 PM EDT Office Visit [facility] Urology - [address] [place] [address] Gerald Tamayo MD [address] [facility] [address] [place] [address] 10/17/2025 9:30 AM EST Office Visit [facility] Primary Care [address] [place] [address] Lonny Pederson MD [address] [place] [address] 10/17/2025 10:45 AM EST Office Visit [facility] Cardiology - [address] [place] [address] Romina Abreu MD [address] [place] [address] 10/17/2025 1:45 PM EST Office Visit [facility] Neurology - [facility] [address] [facility] [address] [place] [address] Susan Rivers APRN [address] [facility] [address] [place], [place] [id number] documented as of this encounter Visit Diagnoses Not on filedocumented in this encounter Care Teams Mica Spreader Relationship Specialty Start Date End Date Lonny Pederson MD [address] [place] [address] PCP - General Internal Medicine/Pediatrics 09/15/22 Romina Abreu MD [address] [place], [place] [address] Automotive Metalsmith Cardiology 09/22/22 Florencia Wilcox MD [address] [place] [address] Ict Managers Rheumatology 09/22/22 Aryan Penaloza PA-C [address] [place], [place] [address] Orthopedist Orthopedic Surgery 09/22/22 Vladimir Shook MD [address] [place], [place] [address] Sports Medicine 10/06/23 Susan Rivers APRN [address] [facility] [address] [place], [place] [address] Neurology 10/06/23 Aryan Good PA-C [address] [place], [place] [address] Physician Leather Skinner 12/09/23 Jimmy Baeza MD [address] [facility] [address] [place], [place] [id number] Automotive Metalsmith Electrophysiology 03/06/24 documented as of this encounter
--- OUTSIDE RECORDS SUMMARY | 2025-08-29 14:13 | XMS_ITS | Encounter Summary ---
Author Organization [employer] ([place], [place], [place], [place]) Address [address] [place] [address] Care Team Providers Care Director Of Primary Care Name Role Phone Lonny Pederson MD Primary Care Provider Romina Abreu MD Unavailable [phone] Florencia Wilcox MD Unavailable Aryan Penaloza PA-C Unavailable Vladimir Shook MD Unavailable Susan Rivers APRN Unavailable [phone] Aryan Good PA-C Unavailable [phone] Jimmy Baeza MD Unavailable Encounter Details Date Type Department Care Team (Late st Contact Info) Description 08/29/2020 Transcribed Document [facility] [place] [address] [place] [address] ProviderEduardo MD [address] [place] [address] Social History Tobacco Use Types Packs/Day Years Used Date Smoking Tobacco: Never Assessed Comments Unknown Sex and Gender Information Value Date Recorded Sex Assigned at Female 09/20/2022 2:57 PM OUTSIDE SALES REPRESENTATIVE Legal Sex Female 1:35 PM CDT Gender Identity Female 09/20/2022 2:57 PM OUTSIDE SALES REPRESENTATIVE Sexual Orientation Straight 09/20/2022 2: 57 PM OUTSIDE SALES REPRESENTATIVE documented as of this encounter Miscellaneous Notes * Cerner Conversion Note - Historical ProviderMD - 08/29/2020 1:11 [place] [address] FLOWER LOUISE :1945 Visit Time:08/28/2020 Your Visit [...] Within 2 to 3 days Where: [address] [facility] [address] [place] [address]- x2 Follow Up with MICHELE MARTIN MD-GAE When Within 1 week Where: [address] [facility] [address] [place] [address]- Medications What How Much When Instructions Next [...] these instructions at home: Medicines ??? Take [id number] and prescription medicines only as told by [...] 04/11/2009 Document Revised: 03/13/2019 Document Reviewed: 03/13/2019 [employer] Patient Education ?? 2020 [employer]. Emergency Awareness and Preventative Care STROKE is [...] Assistance with quitting is available by contacting 0-872-HULB-NOW. This is a free resource providing counseling, support, and referral. Or you may contact your personal physician. [place] Suicide Prevention Lifeline: The National Suicide Prevention [...] range between ( 1.0 and 7.0 ) [place] #: 0.56 K/uL -- Normal range between ( 0.24 and 0.82 ) [place] #: 0.40 K/uL -- Normal range between ( 0.04 and 0.54 ) [place] %: 10.7 % -- Normal range between [...] ) Urine Bilirubin Dipstick: Negative Urine Specific [place]: 1.012 -- Normal range between ( 1.005 [...] was given the opportunity to ask questions. Patient/Technician Test Systems Name: Patient/Technician Test Systems Signature: Relationship to Patient: Clinician/Hospital Technician Test Systems Signature: Date: documented in this encounter Plan of Treatment Upcoming Encounters Date Type Department Care Team (Late st Contact Info) Description 09/06/2025 2:45 PM EDT Office Visit [facility] Urology - [address] [place] [address] Gerald Tamayo MD [address] [place] [address] [address] [place] [id number] 10/17/2025 9:30 AM EST Office Visit [facility] Primary Care [address] [place] [address] Lonny Pederson MD [address] [place] [address] 10/17/2025 10:45 AM EST Office Visit [facility] Cardiology - [address] [place] [address] Romina Abreu MD [address] [place] [address] 10/17/2025 1:45 PM EST Office Visit [facility] Neurology - [facility] [address] [place] [address] Susan Rivers APRN [address] [facility] [address] [place] [address] documented as of this encounter Visit Diagnoses Not on filedocumented in this encounter Care Teams Director Of Primary Care Relationship Specialty Start Date End Date Lonny Pederson MD [address] [place] [address] PCP - General Internal Medicine/Pediatrics 09/15/22 Romina Abreu MD [address] [place] [address] Extension Division Director Cardiology 09/22/22 Florencia Wilcox MD [address] [place] [address] Technical Illustrations Map Inker Rheumatology 09/22/22 Aryan Penaloza PA-C [address] [place] [address] Orthopedist Orthopedic Surgery 09/22/22 Vladimir Shook MD [address] [place] [address] Sports Medicine 10/06/23 Susan Rivers, MAREN [address] [facility] [address] [place] [address] Neurology 10/06/23 Aryan Good PA-C [address] [place] [address] Physician District Ranger 12/09/23 Jimmy Baeza MD [address] [place] [address] Extension Division Director Electrophysiology 03/06/24 documented as of this encounter
--- OUTSIDE RECORDS SUMMARY | 2025-08-29 14:13 | XMS_ITS | Encounter Summary ---
Author Organization [employer] ([place], [place], [place], [place]) Address [address] [place] [address] Care Team Providers Care Python Engineer Name Role Phone Lonny Pederson MD Primary Care Provider Romina Abreu MD Unavailable [phone] Florencia Wilcox MD Unavailable Aryan Penaloza PA-C Unavailable [phone] Vladimir Shook MD Unavailable Susan Rivers APRN Unavailable [phone] Aryan Good PA-C Unavailable [phone] Jimmy Baeza MD Unavailable Encounter Details Date Type Department Care Team (Late st Contact Info) Description 08/29/2020 Transcribed Document [facility] [place] [address] [place] [address] ProviderEduardo MD [address] [place] [address] Social History Tobacco Use Types Packs/Day Years Used Date Smoking Tobacco: Never Assessed Comments Unknown Sex and Gender Information Value Date Recorded Sex Assigned at Female 09/20/2022 2:57 PM WAITER/WAITRESS INFORMAL Legal Sex Female 1:35 PM CDT Gender Identity Female 09/20/2022 2:57 PM WAITER/WAITRESS INFORMAL Sexual Orientation Straight 09/20/2022 2: 57 PM WAITER/WAITRESS INFORMAL documented as of this encounter Miscellaneous Notes * Cerner Conversion Note - Historical ProviderMD - 08/29/2020 2:27 PM CDT Nursing Discharge Summary Entered On: 08/29/2020 14:27 EDT Performed On: 08/29/2020 14:27 EDT by Indy Layne RN-Flex Team Discharge Documentation Discharge Date/Time : 08/29/2020 13:59 EDT Patient Disposition, General : Discharge Discharge To : Home with ambulatory/outpatient follow-up Mode Of Departure, General Discharge : Private vehicle Accompanied By, Discharge : Daughter Personal Belongings With Patient : Yes Pt's Own Supply of Medications Returned : No patient supply of medications to return Prescriptions Given to Patient : Yes Number of Prescriptions Given : 1 Indy Layne RN-Flex Team - 08/29/2020 14:27 EDT Electronically signed by Gin [facility] Conversion Telegraph Mechanic Cerner at 02/22/2023 5:10 PM CDT documented in this encounter Plan of Treatment Upcoming Encounters Date Type Department Care Team (Late st Contact Info) Description 09/06/2025 2:45 PM EDT Office Visit [facility] Urology - [facility] [address] [facility] [address] [place] [address] Gerald Tamayo MD [address] [facility] [address] [place] [address] 10/17/2025 9:30 AM EST Office Visit [facility] Primary Care [address] [facility] [address] [place] [address] Lonny Pederson MD [address] [place] [address] 10/17/2025 10:45 AM EST Office Visit [facility] Cardiology - [address] [facility] [address] [place] [address] Romina Abreu MD [address] [place], [place] [address] 10/17/2025 1:45 PM EST Office Visit [facility] Neurology - [facility] [address] [place] [address] Susan Rivers, MAREN [address] [facility] [address] [place] [address] documented as of this encounter Visit Diagnoses Not on filedocumented in this encounter Care Teams Python Engineer Relationship Specialty Start Date End Date Lonny Pederson MD [address] [place] [address] PCP - General Internal Medicine/Pediatrics 09/15/22 Romina Abreu MD [address] [place] [address] Acid Purifier Cardiology 09/22/22 Florencia Wilcox MD [address] [place] [address] Cartoon Designer Rheumatology 09/22/22 Aryan Penaloza PA-C [address] [place] [address] Orthopedist Orthopedic Surgery 09/22/22 Vladimir Shook MD [address] [place] [address] Sports Medicine 10/06/23 Susan Rivers, MAREN [address] [facility] [address] [place] [address] Neurology 10/06/23 Aryan Good PA-C [address] [place] [address] Physician Bi Solutions Architect 12/09/23 Jimmy Baeza MD [address] [place] [address] Acid Purifier Electrophysiology 03/06/24 documented as of this encounter
--- OUTSIDE RECORDS SUMMARY | 2025-08-29 14:14 | XMS_ITS | Encounter Summary ---
Author Organization [employer] ([place], [place], [place], [place]) Address [address] [place] [address] Care Team Providers Care Technical Research Scientist Name Role Phone Lonny Pederson MD Primary Care Provider [phone] Romina Abreu MD Unavailable [phone] Florencia Wilcox MD Unavailable Aryan Penaloza PA-C Unavailable [phone] Vladimir Shook MD Unavailable Susan Rivers APRN Unavailable [phone] Aryan Good PA-C Unavailable [phone] Jimmy Baeza MD Unavailable Reason for Visit * Reason Comments Medication Refill Encounter Details Date Type Department Care Team (Late st Contact Info) Description 09/24/2024 Refill [facility] Rheumatology [address] [place] [address] Florencia Wilcox MD [address] [facility] [address] [place] [address] Health care maintenance Social History Tobacco Use Types Packs/Day Years [...] Date Allan rded Speak language other than [place]i at home Not on file 11/15/2023 Want help with school or training Not on file 11/15/2023 Substance Use Answer Date Recorded Used prescription meds for non-medical reasons N ot on file 11/15/2023 Used illegal drugs past 12 months Not on file 11/15/2023 Comments No Sex and Gender Information Value Date Recorded Sex Assigned at Female 09/20/2022 2:57 PM ACTUARIAL DIRECTOR Legal Sex Female 1:35 PM CDT Gender Identity Female 09/20/2022 2:57 PM ACTUARIAL DIRECTOR Sexual Orientation Straight 09/20/2022 2: 57 PM ACTUARIAL DIRECTOR documented as of this encounter Plan of Treatment Upcoming Encounters Date Type Department Care Team (Late st Contact Info) Description 09/06/2025 2:45 PM EDT Office Visit [facility] Urology - [address] [place] [address] Gerald Tamayo MD [address] [facility] [address] [place], [place] [address] 10/17/2025 9:30 AM EST Office Visit [facility] Primary Care [address] [place] [address] Lonny Pederson MD [address] [place] [address] 10/17/2025 10:45 AM EST Office Visit [facility] Cardiology - [address] [facility] [address] [place] [address] Romina Abreu MD [address] [place], [place] [address] 10/17/2025 1:45 PM EST Office Visit [facility] Neurology - [facility] [address] [facility] [address] [place] [address] Susan Rivers APRN [address] [facility] [address] [place], [place] [id number] documented as of this encounter Visit Diagnoses Diagnosis Health care maintenance documented in this encounter Care Teams Technical Research Scientist Relationship Specialty Start Date End Date Lonny Pederson MD [address] [place] [address] PCP - General Internal Medicine/Pediatrics 09/15/22 Romina Abreu MD [address] [place], [place] [address] Automotive Parts Clerk Cardiology 09/22/22 Florencia Wilcox MD [address] [place] [address] Cad Administrator Rheumatology 09/22/22 Aryan Penaloza PA-C [address] [place], [place] [address] Orthopedist Orthopedic Surgery 09/22/22 Vladimir Shook MD [address] [place], [place] [address] Sports Medicine 10/06/23 Susan Rivers, NITRIC ACID CONCENTRATOR OPERATOR [address] [facility] [address] [place], [place] [address] Neurology 10/06/23 Aryan Good PA-C [address] [place], [place] [address] Physician Steam Shovelman 12/09/23 Jimmy Baeza MD [address] [facility] [address] [place] [address] Automotive Parts Clerk Electrophysiology 03/06/24 documented as of this encounter
[2025-08-29] MEDS: CEFTRIAXONE 1 GM 1 GM in 0.9 % SODIUM CHLORIDE 50 ML IV (14:24)
--- NOTE | 2025-08-29 14:27 | PC.NURSE ---
supervisor stripping contacted for bed.
--- NOTE | 2025-08-29 14:32 | P.HP_ITS ---
<Statement entered by Honorio Whitt MD - 08/30/25 12:54> Generalized weakness from COVID-19 acute viral syndrome. Agree with plan of care as outlined by the [employer]. History of Present Illness *Admission Date: 08/29/25 *Reason for visit:: UTI, Covid+, SOA, weakness *History of present illness: Ms. Amaro is a 80-year-old female who presented to the emergency department with complaints of weakness and confusion. Her son is at bedside who states that he feels that she has a urinary tract infection due to her symptoms. Patient denies urinary symptoms but does complain of intermittent shortness of breath and fatigue. She denies fevers, chills, abdominal pain, chest pain, nausea, vomiting. She does endorse a few episodes of liquid bowel movements. When asked how she is feeling she states she is okay but answers vaguely and in whispers. Physical exam is benign, lungs CTA, no focal tenderness. Denies shortness of breath or sore throat. No edema noted on exam. Workup in the emergency department was significant for magnesium of 1.4, potassium 3.2, creatinine 1.5, GFR 33, BNP 880, lactic acid 5.4. This is this patient's first time at our facility so unsure of baseline kidney function. Urinalysis was significant for trace bacteria, WBC 20?50, 2+ protein, 1+ bilirubin, 2+ leuk esterase. Patient received 1 L bolus for hydration and 1 g ceftriaxone IV in the ED. After admission respiratory swab came back positive for COVID-19. Patient lungs on exam clear to auscultation, she remains above 90% on room air. She is hemodynamically stable. She does appear slightly hypovolemic and generally weak. [facility] Disclaimer: The information contained in this section may have been updated after the patient was seen, as this information can be updated by other users. Social History (Updated 08/29/25 @ 16:48 by Roopa Hull RN) Smoking Status: Never smoker alcohol intake: never current occupational status: retired Travel in the last 8 weeks?: None Have you lived/traveled outside US in past 30 days?: No Contact w/someone who lives/traveled outside US past 30 days?: No Exposure to someone with infectious disease in past 14 days?: No Do you have a fever (greater than 100.4 F or 38 C)?: No Have you tested positive for COVID-19?: No Exposed to someone with COVID-19 in past 14 days?: No Do you have a sore throat?: No Do you have a cough?: No Do you have any weakness?: No Are you experiencing any nausea/vomitting?: No Do you have any diarrhea?: No Are you experiencing any unusual bleeding?: No Do you have any muscle aches/pain?: No Do you have any abdominal pain?: No Are you experiencing loss of taste or smell?: No Review of Systems Constitutional Constitutional: Denies chills, Reports fatigue, Denies fever(s), Denies headache(s), Reports lethargy and Reports weakness ENT Ears, Nose, Mouth, and Throat: Denies headache(s), Denies sinus pain and Denies sore throat *Cardiovascular Cardiovascular: Denies chest pain and Reports dyspnea *Respiratory Respiratory: Denies cough and Reports dyspnea *Gastrointestinal Gastrointestinal: Denies abdominal pain, Reports diarrhea and Denies vomiting *Genitourinary Genitourinary: Denies difficulty voiding and Denies dysuria *Neurologic Neurologic: Reports confusion, Denies headache(s) and Reports weakness Psychiatric Psychiatric: Reports confusion Endocrine Endocrine: Reports fatigue Meds Home Medications and Allergies Home Medications ?Medication ?Instructions ?Recorded ?Confirmed ?Type baclofen 20 mg tablet 20 mg PO BID 08/29/25 History carvedilol 3.125 mg tablet 3.125 mg PO BID 08/29/25 History memantine 28 mg capsule 28 mg PO DAILY 08/29/2508/08 History sprinkle,extended release 24hr New Prescriptions to Start Prescriptions: Allergies Allergy/AdvReac Type Severity Reaction Status Date / Time naphazoline (From Naphcon) Allergy Mild Rash Verified 08/29/25 11:22 Exam Data for Last 24 hours Vital signs and Labs for Last 24 Hours: Temp Pulse Resp BP Pulse Ox O2 Del Method 97.8 F 61 10 L 106/47 L 96 Room Air 08/29/25 12:27 08/29/25 14:01 08/29/25 13:37 08/29/25 14:01 08/29/25 14:01 08/29/25 14:01 Laboratory Results - last 24 hr 08/29/25 12:35: WBC 5.7, RBC 3.98 L, Hgb 12.7, Hct 37.6, MCV 94.5, MCH 31.9 H, MCHC 33.8, RDW 13.3, Plt Count 211, MPV 10.1, Neut % (Auto) 75.4, Lymph % (Auto) 12.3, Ward % (Auto) 10.7 H, Eos % (Auto) 0.7, Baso % (Auto) 0.5, Neut # (Auto) 4.3, Lymph # (Auto) 0.7, Ward # (Auto) 0.6, Eos # (Auto) 0.0, Baso # (Auto) 0.0, Sodium 133 L, Potassium 3.2 L, Chloride 92 L, Carbon Dioxide 26, Anion Gap 18.2 H, BUN 13, Creatinine 1.50 H, Estimated Creat Clear 35, Estimated GFR 33 L, Est GFR ( Amer) 40 L, Glucose 119 H, Lactate 5.4 H, Calcium 8.3 L, Magnesium 1.4 L, Total Bilirubin 0.8, AST 46 H, ALT 25, Alkaline Phosphatase 82, Troponin I < 0.01, NT-Pro-B Natriuret Pep 880 H, Total Protein 7.2, Albumin 3.8, Globulin 3.4 H, Albumin/Globulin Ratio 1.1, Lipase 94 08/29/25 12:50: Urine Color Yellow, Urine Appearance Cloudy, Urine pH 5.5, Ur Specific [place] 1.025, Urine Protein 2+ A, Urine Glucose (UA) Negative, Urine Ketones Trace, Urine Blood Negative, Urine Nitrate Negative, Urine Bilirubin 1+ A, Urine Urobilinogen 0.2, Ur Leukocyte Esterase 2+ A, Urine RBC Occasional, Urine WBC 20-50, Ur Squamous Epith Cells None, Urine Bacteria Trace I & O for Last 24 hours: Intake & Output 08/26/25 08/27/25 08/28/25 08/29/25 23:59 23:59 23:59 23:59 Weight 74.389 kg Constitutional Constitutional: no acute distress, obese, chronically ill appearing and cooperative *Routine HEENT Exam Head: Present normocephalic Eye: Present EOMI and PERRL ENT: Present mucous membranes moist *Routine Neck Exam Neck: Present supple; Absent lymphadenopathy *Routine Respiratory Exam Respiratory: Present CTA bilaterally, normal respiratory effort and able to speak in complete sentences; Absent wheezes or crackles *Routine Cardiovascular Exam Cardiovascular: Present RRR, Normal S1 and Normal S2; Absent murmur *Routine Abdominal Exam Abdominal: Present soft and normoactive bowel sounds; Absent tenderness or distended *Routine Rectal Exam Rectal:: deferred *Routine Genitalia Exam Genitalia:: deferred *Routine Extremities Exam Extremities: Present full ROM; Absent cyanosis, clubbing or edema *Routine Skin Exam Skin: Present intact, dry and warm; Absent rash *Routine Neurological Exam Neurological: Present alert and oriented X3 Assessment and Plan *Assessment and plan (1) Hypomagnesemia: Status: Acute Category: Medical Code(s): E83.42 - Hypomagnesemia (2) Hypokalemia: Status: Acute Category: Medical Code(s): E87.6 - Hypokalemia (3) Dehydration: Status: Acute Category: Medical Code(s): E86.0 - Dehydration (4) Urinary tract infection: Status: Acute Category: Medical Code(s): N39.0 - Urinary tract infection, site not specified (5) SARS-CoV-2 positive: Status: Acute Category: Medical Code(s): U07.1 - COVID-19 (6) ALDAIR (acute kidney injury): Status: Acute Category: Medical Code(s): N17.9 - Acute kidney failure, unspecified (7) Elevated serum lactate dehydrogenase: Status: Acute Category: Medical Code(s): R74.02 - Elevation of levels of lactic acid dehydrogenase [LDH] Plan Ms. Amaro is a 80-year-old female who presented to the emergency department with complaints of weakness and confusion. Her son is at bedside who states that he feels that she has a urinary tract infection due to her symptoms. Patient denies urinary symptoms but does complain of intermittent shortness of breath and fatigue. She denies fevers, chills, abdominal pain, chest pain, nausea, vomiting. She does endorse a few episodes of liquid bowel movements. When asked how she is feeling she states she is okay but answers vaguely and in whispers. Physical exam is benign, lungs CTA, no focal tenderness. Denies shortness of breath or sore throat. No edema noted on exam. Workup in the emergency department was significant for magnesium of 1.4, potassium 3.2, creatinine 1.5, GFR 33, BNP 880, lactic acid 5.4. This is this patient's first time at our facility so unsure of baseline kidney function. Urinalysis was significant for trace bacteria, WBC 20?50, 2+ protein, 1+ bilirubin, 2+ leuk esterase. Patient received 1 L bolus for hydration and 1 g ceftriaxone IV in the ED. After admission respiratory swab came back positive for COVID-19. Patient lungs on exam clear to auscultation, she remains above 90% on room air. She is hemodynamically stable. She does appear slightly hypovolemic and generally weak. Hospital medicine was consulted for admission, I agreed to accept the patient. Plan of care as follows: #COVID-19 positive #Elevated lactate #ALDAIR ? Patient initial lactate on admission 5.4, reflex repeat lactate pending. Patient does not appear to be in respiratory distress. Lungs clear to auscultation. Maintaining oxygen saturation greater than 90% on room air. Patient does complain of some intermittent shortness of breath and generalized weakness. PT/OT consulted for further evaluation. ? Patient receiving LR at 100 mL/H for gentle rehydration. Continue to monitor. Kidney function elevated with creatinine of 1.5, unsure of baseline. Patient placed on continuous pulse ox. ? CBC, CMP, magnesium, lipid panel ordered for the a.m. TSH and A1c pending. #Urinary tract infection ? Patient's UA positive for infection. Patient received ceftriaxone 1 g IV in the ED, will continue daily. #Hypokalemia #Hypomagnesemia ? Patient potassium and magnesium both low. Replaced orally in the ED. Repeat labs ordered for the a.m. Chronic conditions: Continue baclofen 20 mg twice daily, carvedilol 3.125 mg twice daily, and Momentum 28 mg daily. Full code Regular diet VTE?Lovenox Up with assistance
--- NOTE | 2025-08-29 14:45 | PC.NURSE ---
report given to bakari yanez
--- NOTE | 2025-08-29 14:53 | HMH.PHAINT1 ---
Pharmacy Intervention Comments: MEDICATION RECONCILIATION COMPLETED ON PATIENT USING EXTERNAL FILL HISTORY FROM PHARMACY. -MATHEUS HAWK, TUCKERD
[2025-08-29] MEDS: 0.9 % SODIUM CHLORIDE 1000ML 1,000 ML 50 ML IV (15:05)
[2025-08-29 15:08] LABS: Coronavirus 19, PCR Detected (NotDetected)
[2025-08-29 16:02] LABS: Thyroid Stimulating Hormone 7.69 uIU/mL (0.465-4.68)
[2025-08-29 16:13] LABS: Hepatitis C Ab Qual. W/ RFX NEGATIVE (Negative)
[2025-08-29 16:41] LABS: Reflex Lactic Add Lactic Reflex
[2025-08-29 16:56] LABS: Troponin I < 0.01 ng/ml (0.00-0.034)
--- NOTE | 2025-08-29 17:26 | PC.NURSE ---
pt states they take calcium, vitamin B 12, dayna, multi vitamin, tumeric, fiber, and immuneti but does not know the dosages for each
[2025-08-29 17:32] LABS: Lactic Acid Follow Up (RFLX 1) 0.8 mmol/L (0.7-2.1)
[2025-08-29 18:41] LABS: Hemoglobin A1C 5.1 % (4.0-6.0)
[2025-08-29] MEDS: BACLOFEN 10MG TABLET 20 MG PO (21:48)
[2025-08-30 04:00] VITALS: BP 163/80; PULSE 66; RESP 18; TEMP 36.6; O2SAT 94; BMI 35.1
[2025-08-30 06:09] LABS: Hematocrit 34.0 % (37.0-47.0); Hemoglobin 11.7 g/dL (12.2-16.2); Immature Granulocytes % 0.3 %; Mean Corpuscular HGB Conc 34.4 g/dL (31.8-35.4); Mean Corpuscular Hemoglobin 32.1 pg (27.0-31.2); Mean Corpuscular Volume 93.4 fl (81-99); Nucleated Red Blood Cells % 0 %; Platelet Count 158 K/mm3 (142-424); Red Blood Count 3.64 M/mm3 (4.20-5.40); Red Cell Distribution Width-SD 45.8 fL; White Blood Count 4.0 K/mm3 (4.8-10.8)
[2025-08-30 06:19] LABS: Albumin Level 3.1 g/dl (3.5-5.0); Chloride 97 mmol/L (98-107); Potassium 3.2 mmoL/L (3.5-5.1); Sodium 131 mmol/L (136-145)
[2025-08-30 06:21] LABS: Alanine Aminotransferase 13 U/L (12-78); Anion Gap 9.2 mEq/L (5-15); Aspartate Amino Transferase 40 U/L (14-36); Blood Urea Nitrogen 17 mg/dl (7-17); Carbon Dioxide 28 mmol/L (22.0-30.0); Creatinine Clearance Estimated 40 mL/min (50-200); Creatinine,Serum 1.30 mg/dl (0.52-1.04); Estimated Glomerular Filt Rate 39 ml/min (>60); GFR (African American) 48 ML/MIN (>60)
[2025-08-30 06:22] LABS: Albumin/Globulin Ratio 1.0 (1.1-1.8); Alkaline Phosphatase 74 U/L (38-126); Bilirubin,Total 0.4 mg/dl (0.2-1.3); Calcium 7.6 mg/dl (8.4-10.2); Cholesterol 188 mg/dl (140-200); Globulin 3.0 g/dL (1.3-3.2); Glucose 71 mg/dl (74-100); HDL Cholesterol 34 mg/dl (40-60); Magnesium 1.4 mg/dl (1.6-2.3); Total Protein,Serum 6.1 g/dl (6.3-8.2); Triglycerides 161 mg/dl (30-150)
[2025-08-30 08:00] VITALS: BP 177/65; PULSE 66; RESP 14; TEMP 36.8; O2SAT 97
[2025-08-30] MEDS: BACLOFEN 20 MG 1 EACH PO ×2 (09:37→20:12)
[2025-08-30] MEDS: CARVEDILOL 3.125 MG PO ×2 (09:37→16:57)
[2025-08-30] MEDS: MEMANTINE 28 MG 1 EACH PO (09:37)
[2025-08-30] MEDS: 0.9 % SODIUM CHLORIDE 1000ML 1,000 ML 50 ML IV (09:39)
--- NOTE | 2025-08-30 10:11 | SW/DCPLANNER ---
Addendum entered by Teri Platt 08/30/25 12:53: Patient/family are agreeable to placement at [facility] under private pay. Pio w/ [facility] stated that patient can admit tomorrow 08/31 in private room. Addendum entered by Teri Platt 08/30/25 11:58: I spoke w/ son whom requested additional time to speak w/ his sister regarding situation. Son will be speaking w/ his sister within the next hour. Per patient's son he is interested in short term private pay placement in [place] pending conversation w/ sister and is agreeable for information to be faxed to [facility] and [facility] to review. Son does understand that per MD patient is medically stable for discharge today. I also discussed if family is not interested in placement CM could set up home health services but PT/OT does recommend someone be w/ patient 24-7. CM will continue to follow up. Original Note: I spoke w/ patient regarding plans once medically stable for discharge. Patient currently resides at home w/ her son and daughter in law. PT/OT evaluated patient and recommended SNF level of care at time of discharge. Patient voiced she was agreeable but preferred I called and discussed this w/ her son. Due to insurance patient would require a private pay rate at a skilled facility. I attempted to contact son w/ no answer at this time but VM left. CM will continue to follow up.
--- NOTE | 2025-08-30 10:15 | HMH.OTEV ---
OT Evaluation Rehab OT IP Evaluation Start: 08/29/25 14:35 Freq: ONCE Status: Active Protocol: Document 08/30/25 10:10 [facility] (Rec: 08/30/25 10:14 [facility] [id number]) Rehab OT IP Assessment Subjective History Pt oriented x 2 on arrival. Pt's son present and supportive. Pt was admitted on 08/29/25 due to UTI and Covid. History and physical: Ms. Amaro is a 80-year-old female who presented to the emergency department with complaints of weakness and confusion. Her son is at bedside who states that he feels that she has a urinary tract infection due to her symptoms. Patient denies urinary symptoms but does complain of intermittent shortness of breath and fatigue. She denies fevers, chills, abdominal pain, chest pain, nausea, vomiting. She does endorse a few episodes of liquid bowel movements. When asked how she is feeling she states she is okay but answers vaguely and in whispers. Physical exam is benign, lungs CTA, no focal tenderness. Denies shortness of breath or sore throat. No edema noted on exam. Workup in the emergency department was significant for magnesium of 1 .4, potassium 3.2, creatinine 1.5, GFR 33, BNP 880, lactic acid 5.4. This is this patient's first time at our facility so unsure of baseline kidney function. Urinalysis was significant for trace bacteria, WBC 20? 50, 2+ protein, 1+ bilirubin, 2+ leuk esterase. Patient received 1 L bolus for hydration and 1 g ceftriaxone IV in the ED. After admission respiratory swab came back positive for COVID-19. Patient lungs on exam clear to auscultation , she remains above 90% on room air. She is hemodynamically stable. She does appear slightly hypovolemic and generally weak. Subjective Prior to being in the hospital, pt lived at home with her son and DIL. Recently pt has been requiring more assistance with ADLS, specifically dressing and bathing . She is still independent with feeding. Family completes all IADLS. Pt does have a walker at home, but son reports she refuses to use it at times. Son also expresses concerns about her recent assistance required. Pt no longer drives; no LISHA. Objective Patient Orientation Person,Birthday Right Upper Min Limitation <25% Extremity Gross ROM Left Upper Extremity Min Limitation <25% Gross ROM Shoulder ROM Muscle Weakness Limitations Elbow ROM Muscle Weakness Limitations Wrist Limitations of Muscle Weakness Range of Motion Bed Mobility bed mobility-scooting,bed mobility - supine/sit Assist Level Moderate x 1 (50% assist) Transfer Training Sit/Stand Transfer Assist Level Moderate x 1 (50% assist) Lower Body Dressing Moderate Assistance Ability Performing Toilet Moderate Assistance Hygiene Ability Overall Commode/ Moderate Assistance Toilet Transfer Ability Commode/Toilet Sit to/from Ambulatory Transfer Technique Rehab OT IP prob,goals,plan Problems Date of Evaluation: 08/30/25 OT IP Problems Bed Mobility,Transfers,Balance,Self care Rehab Potential Rehab Potential Good Equipment Needs Assistive Devices Rolling / Wheeled Walker Plan OT intervention Plan Bed Mobility,Transfers,Balance,Self care,Safety, Therapeutic Exercise OT Plan Frequency Daily Duration LOS Discharge Goals Bed Mobility Ability Assistance x1 Sit to Stand Chair Minimal x 1 (25% assist) Transfer Ability Chair Transfer Minimal x 1 (25% assist) Ability Chair Transfer Sit to/from Ambulatory Technique Chair Transfer Rolling Walker Assistive Devices Lower Body Dressing Minimal Assistance Ability Upper Body Dressing Minimal Assistance Ability Performing Toilet Minimal Assistance Hygiene Ability Overall Commode/ Minimal Assistance Toilet Transfer Ability Commode/Toilet Sit to/from Ambulatory Transfer Technique Discharge Plan OT Discharge Plan Pt will continue to be seen for OT services while at [facility]. At this time, pt would benefit most from short term rehab at [facility]. Continued skilled therapy services is important in order for patient to improve strength, safety, endurance, ADL independence, and functional transfers to reach PLOF. Eval Complexity Eval Charge Codes 67042 - Moderate Complexity PHYSICIAN CERTIFICATION: I certify the specified therapy services for Nay Lian Amaro are required, authorized, and reviewed every 30 days.
--- NOTE | 2025-08-30 10:52 | HMH.PTEV ---
Physical Therapy Evaluation Rehab PT IP Evaluation Start: 08/29/25 14:35 Freq: ONCE Status: Active Protocol: Document 08/30/25 10:46 [facility] (Rec: 08/30/25 10:52 [facility] [id number]) Subjective/History History History Per H&P: Ms. Amaro is a 80-year-old female who presented to the emergency department with complaints of weakness and confusion. Her son is at bedside who states that he feels that she has a urinary tract infection due to her symptoms. Patient denies urinary symptoms but does complain of intermittent shortness of breath and fatigue. She denies fevers, chills, abdominal pain, chest pain, nausea, vomiting. She does endorse a few episodes of liquid bowel movements. When asked how she is feeling she states she is okay but answers vaguely and in whispers. Physical exam is benign, lungs CTA, no focal tenderness. Denies shortness of breath or sore throat. No edema noted on exam. Workup in the emergency department was significant for magnesium of 1.4, potassium 3.2, creatinine 1.5, GFR 33, BNP 880, lactic acid 5.4. This is this patient's first time at our facility so unsure of baseline kidney function. Urinalysis was significant for trace bacteria, WBC 20?50, 2+ protein, 1+ bilirubin, 2+ leuk esterase. Patient received 1 L bolus for hydration and 1 g ceftriaxone IV in the ED. After admission respiratory swab came back positive for COVID-19. Patient lungs on exam clear to auscultation , she remains above 90% on room air. She is hemodynamically stable. She does appear slightly hypovolemic and generally weak. Subjective Subjective Pt reports she lives with her son and DIL in a 2-story home with ramped entrance. Pt normally uses a RW for IND ambulation. New diagnosis of No cancer in past 12 months? [facility] How much help from another person do you currently need... Turning from your A little back to your side while in a flat bed without using bedrails? Moving from lying on A little back to sitting on the side of a flat bed without using bedrails? Moving to and from a A little bed to a chair ( including a wheelchair)? Standing up from a A little chair using your arms? (e.g., wheelchair, bedside chair) Walking in hospital A little room? Climbing 3-5 steps A lot with a railing? Mobility Score 17 Mobility Level [facility] 5 Stand (1 or more minutes) Mobility Calculator Rehab PT IP Eval Objective Appearance Patient Behavior Appropriate,Cooperative Patient Orientation Person Difficulty following mild instructions Speech Pattern Mumbled Ambulation Patient Able to Yes Ambulate Ambulation Observation IP General Gait Shuffling Step Pattern Observation Ambulation Distance 30 (feet) Ambulation Assistive Rolling Walker Device Ambulation Ability Contact Guard/Hand Hold,Minimal x 1 (25% assist) Balance Ability to Arise Able, uses arms to help Sitting Balance Steady, safe Standing Balance Steady, wide stance Dynamic Sitting Good Balance Ability Dynamic Standing Fair Balance Ability Transfers Bed Transfer Ability Moderate x 1 (50% assist) Sit to Stand Bed Minimal x 1 (25% assist) Transfer Ability Rehab PT IP prob,goals,plan Problems Date of Evaluation: 08/30/25 PT IP Problems Bed Mobility,Transfers,Gait,Balance,Self care,Safety Rehab Potential Rehab Potential Good Plan PT Intervention Plan Bed Mobility,Transfers,Gait,Balance,Self care,Safety, Therapeutic Exercise Other Intervention 1-2 times Plan PT Plan Frequency Daily Duration LOS Discharge Goals Bed Transfer Ability Supervision/Stand by Sit to Stand Chair Supervision/Stand by Transfer Ability Ambulation Distance 50 (feet) Discharge Plan PT Discharge Plan Initial physical therapy evaluation performed. Patient presents below baseline at this time in functional mobility, transfers, and strength. PT recommending inpatient rehabilitation placement upon d/c from [facility]. Pt would benefit from skilled PT while at [facility] to prevent further functional decline and maximize safety with mobility. Eval Complexity Eval Charge Codes 55122 - Moderate Complexity PHYSICIAN CERTIFICATION: I certify the specified therapy services for Nay Amaro are required, authorized, and reviewed every 30 days.
--- NOTE | 2025-08-30 11:12 | P.PN_ITS ---
<Statement entered by Eddie Bledsoe MD - 08/30/25 15:44> Rounded on patient after nurse practitioner. Personally examined and interviewed patient. Agree with exam findings and care plan as documented. Subjective *Date: 08/30/25 *Time: 11:12 Interval history: Ms. Amaro is doing well this morning. Sitting up in bed eating breakfast. States she feels well, denies nausea, vomiting, chest pain, abdominal pain, shortness of breath. States she slept well last night. Patient is currently being treated for urinary tract infection, ceftriaxone 1 g daily. Patient was evaluated by PT/OT this morning who recommended SNF facility at discharge. Medical Exam Vital signs and Labs for Last 24 Hours: Vital Signs Temp Pulse Pulse Pulse Pulse Pulse Resp 08/30/25 10:34 08/30/25 09:00 08/30/25 08:00 08/30/25 08:00 98.2 F 66 14 08/30/25 07:00 08/30/25 05:00 08/30/25 04:00 97.8 F 66 18 08/30/25 03:00 08/30/25 01:00 08/30/25 00:00 08/29/25 23:00 08/29/25 21:00 08/29/25 20:00 08/29/25 19:50 97.6 F 62 14 08/29/25 18:58 08/29/25 18:28 65 66 69 08/29/25 17:00 08/29/25 16:00 97.5 F L 68 17 08/29/25 15:30 08/29/25 15:19 98 F 60 17 08/29/25 15:10 08/29/25 15:00 97.8 F 61 16 08/29/25 14:01 61 08/29/25 13:37 66 10 L 08/29/25 13:00 65 11 L 08/29/25 12:51 64 12 08/29/25 12:27 97.8 F 64 17 BP BP BP BP BP Pulse Ox O2 Del Method 08/30/25 10:34 Room Air 08/30/25 09:00 Room Air 08/30/25 08:00 Room Air 08/30/25 08:00 177/65 H 97 Room Air 08/30/25 07:00 Room Air 08/30/25 05:00 Room Air 08/30/25 04:00 163/80 H 94 L Room Air 08/30/25 03:00 Room Air 08/30/25 01:00 Room Air 08/30/25 00:00 Room Air 08/29/25 23:00 Room Air 08/29/25 21:00 Room Air 08/29/25 20:00 92 L Room Air 08/29/25 19:50 138/71 94 L Room Air 08/29/25 18:58 Room Air 08/29/25 18:28 142/70 H 131/78 135/91 H 08/29/25 17:00 Room Air 08/29/25 16:00 133/75 92 L Room Air 08/29/25 15:30 91 L Room Air 08/29/25 15:19 185/88 H 91 L Room Air 08/29/25 15:10 Room Air 08/29/25 15:00 106/47 L Room Air 08/29/25 14:01 106/47 L 96 Room Air 08/29/25 13:37 109/52 L 93 L 08/29/25 13:00 150/74 H 93 L 08/29/25 12:51 138/72 94 L 08/29/25 12:27 162/84 H 97 Room Air Intake and Output 08/29/25 08/30/25 08/30/25 23:59 07:59 15:59 Intake Total 360 / 1660 250 / 1178.333 928.333 / 1178.333 Output Total 0 / 0 Balance 360 / 1660 250 / 1178.333 928.333 / 1178.333 Intake: Intake, Oral Amount 360 / 610 250 / 250 Intake, Total IV Amount 928.333 / 928.333 0.9 % Sodium Chloride 1000ML 1, 928.333 / 928.333 000 ml @ 50 mls/hr IV .Q20H [facility], [facility] Rx#:[id number] Output: Output, Urine Amount 0 / 0 Other: Number of Unmeasured Voids 1 1 1 Number of Bowel Movements 1 Weight 73.89 kg Patient Weight 08/30/25 23:59 Weight 73.89 kg Laboratory Results - last 24 hr 08/29/25 12:35: WBC 5.7, RBC 3.98 L, Hgb 12.7, Hct 37.6, MCV 94.5, MCH 31.9 H, MCHC 33.8, RDW 13.3, Plt Count 211, MPV 10.1, Neut % (Auto) 75.4, Lymph % (Auto) 12.3, [place] % (Auto) 10.7 H, Eos % (Auto) 0.7, Baso % (Auto) 0.5, Neut # (Auto) 4.3, Lymph # (Auto) 0.7, [place] # (Auto) 0.6, Eos # (Auto) 0.0, Baso # (Auto) 0.0, Sodium 133 L, Potassium 3.2 L, Chloride 92 L, Carbon Dioxide 26, Anion Gap 18.2 H, BUN 13, Creatinine 1.50 H, Estimated Creat Clear 35, Estimated GFR 33 L, Est GFR ( Amer) 40 L, Glucose 119 H, Hemoglobin A1c 5.1, Lactate 5.4 H, Calcium 8.3 L, Magnesium 1.4 L, Total Bilirubin 0.8, AST 46 H, ALT 25, Alkaline Phosphatase 82, Troponin I < 0.01, NT-Pro-B Natriuret Pep 880 H, Total Protein 7.2, Albumin 3.8, Globulin 3.4 H, Albumin/Globulin Ratio 1.1, Lipase 94, TSH 7.69 H, HCV Ab SVETLANA w/Rflx PCR Qn Negative, HIV Ag/Ab Combo Qual Negative 08/29/25 12:50: Urine Color Yellow, Urine Appearance Cloudy, Urine pH 5.5, Ur Specific [place] 1.025, Urine Protein 2+ A, Urine Glucose (UA) Negative, Urine Ketones Trace, Urine Blood Negative, Urine Nitrate Negative, Urine Bilirubin 1+ A, Urine Urobilinogen 0.2, Ur Leukocyte Esterase 2+ A, Urine RBC Occasional, Urine WBC 20-50, Ur Squamous Epith Cells None, Urine Bacteria Trace 08/29/25 12:54: Chlamy pneumoniae PCR Not detected, Adenovirus (PCR) Not detected, B. pertussis DNA (PCR) Not detected, Coronavirus OC43 (PCR) Not detected, Coronavirus HKU1 (PCR) Not detected, Coronavirus 229E (PCR) Not detected, SARS-CoV-2 (PCR) Detected A, Coronavirus NL63 (PCR) Not detected, Human Metapneumovir PCR Not detected, Influenza A (H1) PCR Not detected, Influ A (H1N1/09) PCR Not detected, Influenza A (H3) PCR Not detected, Influenza Type A (PCR) Not detected, Influenza Type B (PCR) Not detected, M. pneumoniae (PCR) Not detected, Parainfluenza 1 (PCR) Not detected, Parainfluenza 2 (PCR) Not detected, Parainfluenza 3 (PCR) Not detected, Parainfluenza 4 (PCR) Not detected, RSV (PCR) Not detected, Entero/Rhino (PCR) Not detected 08/29/25 15:54: Troponin I < 0.01 08/29/25 16:48: Lactate 0.8 08/30/25 05:29: WBC 4.0 L D, RBC 3.64 L, Hgb 11.7 L, Hct 34.0 L, MCV 93.4, MCH 32.1 H, MCHC 34.4, RDW 13.3, Plt Count 158 D, MPV 10.7 H, Neut % (Auto) 57.4, Lymph % (Auto) 26.7, [place] % (Auto) 13.6 H, Eos % (Auto) 1.5, Baso % (Auto) 0.5, Neut # (Auto) 2.3, Lymph # (Auto) 1.1, [place] # (Auto) 0.5, Eos # (Auto) 0.1, Baso # (Auto) 0.0, Sodium 131 L, Potassium 3.2 L, Chloride 97 L, Carbon Dioxide 28, Anion Gap 9.2, BUN 17 D, Creatinine 1.30 H, Estimated Creat Clear 40, Estimated GFR 39 L, Est GFR ( Amer) 48 L, Glucose 71 L D, Calcium 7.6 L, Magnesium 1.4 L, Total Bilirubin 0.4, AST 40 H, ALT 13 D, Alkaline Phosphatase 74, Total Protein 6.1 L, Albumin 3.1 L D, Globulin 3.0, Albumin/Globulin Ratio 1.0 L, Triglycerides 161 H, Cholesterol 188, LDL Cholesterol Direct 99.22 L, VLDL Cholesterol 32, HDL Cholesterol 34 L, Cholesterol/HDL Ratio 5.5 H I & O for Labs for Last 24 Hours: Intake & Output 08/27/25 08/28/25 08/29/25 08/30/25 23:59 23:59 23:59 23:59 Intake Total 1410 / 1660 1178.333 / 1178.333 Output Total 0 / 0 Balance 1410 / 1660 1178.333 / 1178.333 Weight 73.89 kg 73.89 kg Constitutional: Present no acute distress, obese and cooperative Head: Present atraumatic Eyes: Present as per HPI ENT: Present normal exam Neck: Present normal inspection Respiratory: Present CTA bilaterally and normal respiratory effort; Absent wheezes or crackles Cardiac: Present Reg Rate and Rhythm and No Murmur GI: Present soft and normal bowel sounds; Absent distention or tenderness Rectal (female): Present deferred (female): Present deferred Extremities: Present normal inspection and full ROM Skin: Present intact and dry; Absent erythema or rash Neuro: Present Weakness, Grossly Intact, alert, awake, oriented x 3 and moves all extremities Assessment and Plan *Assessment and plan (1) Hypomagnesemia: Status: Acute Category: Medical Code(s): E83.42 - Hypomagnesemia (2) Hypokalemia: Status: Acute Category: Medical Code(s): E87.6 - Hypokalemia (3) Dehydration: Status: Acute Category: Medical Code(s): E86.0 - Dehydration (4) Urinary tract infection: Status: Acute Category: Medical Code(s): N39.0 - Urinary tract infection, site not specified (5) SARS-CoV-2 positive: Status: Acute Category: Medical Code(s): U07.1 - COVID-19 (6) ALDAIR (acute kidney injury): Status: Acute Category: Medical Code(s): N17.9 - Acute kidney failure, unspecified (7) Elevated serum lactate dehydrogenase: Status: Acute Category: Medical Code(s): R74.02 - Elevation of levels of lactic acid dehydrogenase [LDH] Plan Ms. Amaro is a 80-year-old female who presented to the emergency department with complaints of weakness and confusion. Her son is at bedside who states that he feels that she has a urinary tract infection due to her symptoms. Patient denies urinary symptoms but does complain of intermittent shortness of breath and fatigue. She denies fevers, chills, abdominal pain, chest pain, nausea, vomiting. She does endorse a few episodes of liquid bowel movements. When asked how she is feeling she states she is okay but answers vaguely and in whispers. Physical exam is benign, lungs CTA, no focal tenderness. Denies shortness of breath or sore throat. No edema noted on exam. Workup in the emergency department was significant for magnesium of 1.4, potassium 3.2, cr eatinine 1.5, GFR 33, BNP 880, lactic acid 5.4. This is this patient's first time at our facility so unsure of baseline kidney function. Urinalysis was significant for trace bacteria, WBC 20?50, 2+ protein, 1+ bilirubin, 2+ leuk esterase. Patient received 1 L bolus for hydration and 1 g ceftriaxone IV in the ED. After admission respiratory swab came back positive for COVID-19. Patient lungs on exam clear to auscultation, she remains above 90% on room air. She is hemodynamically stable. She does appear slightly hypovolemic and generally weak. Hospital medicine was consulted for admission, I agreed to accept the patient. Plan of care as follows: #COVID-19 positive #Elevated lactate #ALDAIR ? Patient initial lactate on admission 5.4, reflex lactic's 0.8. Patient does not appear to be in respiratory distress. Lungs clear to auscultation. Maintaining oxygen saturation greater than 90% on room air. Patient denies shortness of breath today, states she does feel a little weaker than normal. States she lives at home with son and [id number] who take care of her. PT/OT recommending SNF facility at discharge or home with 24/ care. ? Patient continues to receive LR at 100 mL/H for gentle rehydration. Continue to monitor. Kidney function elevated with creatinine of 1.5 on admission, trending downward today to 1.3. Patient placed on continuous pulse ox. ? CBC, CMP, magnesium, lipid panel ordered for the a.m. TSH slightly elevated at 7.69. Free T4 pending. #Urinary tract infection ? Patient's UA positive for infection. Patient received ceftriaxone 1 g IV in the ED, will continue daily. #Hypokalemia #Hypomagnesemia ? Patient's potassium and magnesium continue to be low, potassium 3.2, magnesium 1.4. Replacing both per protocol. Chronic conditions: Continue baclofen 20 mg twice daily, carvedilol 3.125 mg twice daily, and memantine 28 mg daily. Full code Regular diet VTE?Lovenox Up with assistance
[2025-08-30] MEDS: POTASSIUM CHLORIDE 20MEQ TAB 40 MEQ PO ×2 (11:59→16:56)
[2025-08-30] MEDS: MAGNESIUM SULFATE IN WATER 2 GM/50 ML PIGGYBACK IV ×3 (12:00→15:07)
[2025-08-30 12:02] LABS: Free T4 (Free Thyroxine) 0.54 ng/dl (0.78-2.19)
--- OUTSIDE RECORDS SUMMARY | 2025-08-30 14:58 | XMS_ITS | Encounter Summary ---
Author Organization [employer] ([place], [place], [place], [place]) Address [address] [place] [address] Care Team Providers Care Lifestyle Coordinator Name Role Phone Lonny Pederson MD Primary Care Provider Romina Abreu MD Unavailable [phone] Florencia Wilcox MD Unavailable Aryan Penaloza PA-C Unavailable [phone] Vladimir Shook MD Unavailable Susan Rivers APRN Unavailable [phone] Ayran Good PA-C Unavailable [phone] Jimmy Baeza MD Unavailable Encounter Details Date Type Department Care Team (Late st Contact Info) Description 08/28/2020 Transcribed Document [facility] [place] Family Medicine [address] [place] [address] ProviderEduardo MD [address] [place] [address] Social History Tobacco Use Types Packs/Day Years Used Date Smoking Tobacco: Never Assessed Comments Unknown Sex and Gender Information Value Date Recorded Sex Assigned at Female 09/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 Legal Sex Female 1:35 PM CDT Gender Identity Female 09/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 Sexual Orientation Straight 09/20/2022 2: 57 PM PROFESSOR OF VEGETABLE SCIENCE documented as of this encounter Miscellaneous Notes * Cerner Conversion Note - Eduardo Foster MD - 08/28/2020 1:22 PM CDT [place] Suicide Severity Rating Scale (C-SSRS) Entered On: 08/28/2020 13:25 EDT Performed On: 08/28/2020 13:24 EDT by Dayana Madrigal RN [place] Suicide Severity Rating Scale (C-SSRS) CSSRS Past Month Wish to be : No CSSRS Past Month Suicidal Thoughts : No CSSRS Lifetime Suicide Behavior : No Suicide Severity Rating Score : 0 Suicide Severity Rating : No Additional Care Required at this time Thoughts of Harming/Killing Others : No Dayana Madrigal RN - 08/28/2020 13:24 EDT Electronically signed by [facility] Conversion Curator Herbarium Cerner at 02/22/2023 5:07 PM CDT documented in this encounter Plan of Treatment Upcoming Encounters Date Type Department Care Team (Late st Contact Info) Description 09/06/2025 2:45 PM EDT Office Visit [facility] Urology - [address] [place] [address] Gerald Tamayo MD [address] [facility] [address] [place], [place] [id number] 10/17/2025 9:30 AM EST Office Visit [facility] Primary Care [address] [place] [address] Lonny Pederson MD [address] [place] [address] 10/17/2025 10:45 AM EST Office Visit [facility] Cardiology - [address] [place] [address] Romina Abreu MD [address] [place], [place] [id number] 10/17/2025 1:45 PM EST Office Visit [facility] Neurology - [facility] [address] [place] [phone] Susan Rivers, MAREN [address] [facility] [address] [place] [address] documented as of this encounter Visit Diagnoses Not on filedocumented in this encounter Care Teams Lifestyle Coordinator Relationship Specialty Start Date End Date Lonny Pederson MD [address] [place] [id number] PCP - General Internal Medicine/Pediatrics 09/15/22 Romina Abreu MD [address] [place] [address] Timber Bucker Cardiology 09/22/22 Florencia Wilcox MD [address] [place] [phone] City Solicitor Rheumatology 09/22/22 Aryan Peanloza PA-C [address] [place] [address] Orthopedist Orthopedic Surgery 09/22/22 Vladimir Shook MD [address] [place] [address] Sports Medicine 10/06/23 Susan Rivers, PROCUREMENT PROFESSIONAL [address] [facility] [address] [place], [place] [id number] Neurology 10/06/23 Aryan Good PA-C [address] [place] [address] Physician Fresh Foods Clerk 12/09/23 [place] [address] [place] [address] [address] [place] [address] [employer] Electrophysiology 03/06/24 documented as of this encounter
--- OUTSIDE RECORDS SUMMARY | 2025-08-30 14:58 | XMS_ITS | Encounter Summary ---
Author Organization [employer] ([place], [place], [place], [place]) Address [address] [place] [address] Care Team Providers Care Recreation Program Coordinator Name Role Phone Lonny Pederson MD Primary Care Provider Romina Abreu MD Unavailable [phone] Florencia Wilcox MD Unavailable Aryan Penaloza PA-C Unavailable [phone] Vladimir Shook MD Unavailable Susan Rivers APRN Unavailable [phone] Aryan Good PA-C Unavailable [phone] Jimmy Baeza MD Unavailable Encounter Details Date Type Department Care Team (Late st Contact Info) Description 08/28/2020 Transcribed Document [facility] [place] Family Medicine [address] [place] [address] ProviderEduardo MD [address] [place] [address] Social History Tobacco Use Types Packs/Day Years Used Date Smoking Tobacco: Never Assessed Comments Unknown Sex and Gender Information Value Date Recorded Sex Assigned at Female 09/20/2022 2:57 PM 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 CLINICAL Legal Sex Female 1:35 PM CDT Gender Identity Female 09/20/2022 2:57 PM 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 CLINICAL Sexual Orientation Straight 09/20/2022 2: 57 PM 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 CLINICAL documented as of this encounter Miscellaneous Notes [...] Brielle Emerson RN - 08/28/2020 16:22 EDT Electronically signed by [facility] Conversion Custody Officer Cerner at 02/22/2023 5:07 PM CDT documented in this encounter Plan of Treatment Upcoming Encounters Date Type Department Care Team (Late st Contact Info) Description 09/06/2025 2:45 PM EDT Office Visit [facility] Urology - [facility] [address] [facility] [address] [place] [id number] Gerald Tamayo MD [address] [facility] [address] [place], [place] [address] 10/17/2025 9:30 AM EST Office Visit [facility] Primary Care [address] [facility] [address] [place] [address] Lonny Pederson MD [address] [place] [address] 10/17/2025 10:45 AM EST Office Visit [facility] Cardiology - [address] [facility] [address] [place] [address] Romina Abreu MD [address] [place], [place] [id number] 10/17/2025 1:45 PM EST Office Visit [facility] Neurology [address] [place] [id number] Susan Rivers, MAREN [address] [facility] [address] [place] [address] documented as of this encounter Visit Diagnoses Not on filedocumented in this encounter Care Teams Recreation Program Coordinator Relationship Specialty Start Date End Date Lonny Pederson MD [address] [place] [phone] PCP - General Internal Medicine/Pediatrics 09/15/22 Romina Abreu MD [address] [place], [place] [id number] Console Attendant Cardiology 09/22/22 Florencia Wilcox MD [address] [place] [address] Septic Tank Installer Rheumatology 09/22/22 Aryan Penaloza PA-C [address] [place] [address] Orthopedist Orthopedic Surgery 09/22/22 Vladimir Shook MD [address] [place] [address] Sports Medicine 10/06/23 Susan Rivers, MAREN [address] [facility] [address] [place] [address] Neurology 10/06/23 Aryan Good PA-C [address] [place] [address] Physician Ed Transporter 12/09/23 Jimmy Baeza MD [address] [facility] [address] [place] [address] Console Attendant Electrophysiology 03/06/24 documented as of this encounter
--- OUTSIDE RECORDS SUMMARY | 2025-08-30 14:58 | XMS_ITS | Encounter Summary ---
Author Organization [employer] ([place], [place], [place], [place]) Address [address] [place] [address] Care Team Providers Care Manager Farm Name Role Phone Lonny Pederson MD Primary Care Provider Romina Abreu MD Unavailable [phone] Florencia Wilcox MD Unavailable Aryan Penaloza PA-C Unavailable [phone] Vladimir Shook MD Unavailable Susan Rivers APRN Unavailable [phone] Aryan Good PA-C Unavailable [phone] Jimmy Baeza MD Unavailable Encounter Details Date Type Department Care Team (Late st Contact Info) Description 08/28/2020 Transcribed Document [facility] [place] [address] [place] [address] ProviderEduardo MD [address] [place] [address] Social History Tobacco Use Types Packs/Day Years Used Date Smoking Tobacco: Never Assessed Comments Unknown Sex and Gender Information Value Date Recorded Sex Assigned at Female 09/20/2022 2:57 PM COMPLAINT INVESTIGATOR Legal Sex Female 1:35 PM CDT Gender Identity Female 09/20/2022 2:57 PM COMPLAINT INVESTIGATOR Sexual Orientation Straight 09/20/2022 2: 57 PM COMPLAINT INVESTIGATOR documented as of this encounter Miscellaneous Notes * Cerner Conversion Note - Historical Provider, - 08/28/2020 1:22 PM CDT ED Triage Entered On: 08/28/2020 13:25 EDT Performed On: 08/28/2020 13:24 EDT by Dayana Madrigal RN ED Triage Across the Room Chief Complaint : Pt arrived via [facility] c/o nausea and vomiting. Pt states this morning she vomiting and noticed blood with it. Triage Date/Time : 08/28/2020 13:24 EDT Dayana Madrigal RN - 08/28/2020 13:24 EDT DCP GENERIC CODE Tracking Acuity : 3 - Urgent Tracking Group : [facility] Dayana Madrigal RN - 08/28/2020 13:24 EDT Mode of Arrival : Ambulatory Transported to ED by : Walk in To Room Via : Ambulate Accompanied By : carroter ED Vital Signs : Document Height & Weight : Document ED Allergies : Document ED Infection Control : No ED Reason for Visit : Document Tetanus Immunization : Less than 5 years Dayana Madrigal RN - 08/28/2020 13:24 EDT Infectious Disease History Has the patient ever been tested for COVID-19? : No, Patient stated Does patient have symptoms of COVID-19? : No COVID19 Screening : No Experiencing Infectious Disease Symptoms : No symptoms Physical contact outside [place] in the last 30 days : No Infectious Disease History : Chicken pox/Shingles Tuberculosis Symptoms : None Dayana Madrigal RN - 08/28/2020 13:24 EDT Vital Signs ED Temperature Source : Oral Temperature Mode : Fahrenheit Temperature, Fahrenheit : 98.9 Deg F ED Pain : No Clinical Temperature, C : 37.2 Deg C Oxygen Therapy Mode : Room air Peripheral Pulse Rate : 78 bpm Respiratory Rate : 18 Breaths/Min Systolic Blood Pressure : 130 mmHg Diastolic Blood Pressure : 74 mmHg Oxygen Saturation : 98 % Dayana Madrigal RN - 08/28/2020 13:24 EDT Allergy (As Of: 08/28/2020 13:25:48 EDT) Allergies (Active) naproxen Estimated Onset Date: Unspecified ; Reactions: C/O: itching, C/O: itching ; Created By: HUMZA WINTER RN; Reaction Status: Active ; Category: Drug ; Substance: naproxen ; Type: Allergy ; Severity: Medium ; Updated By: HUMZA WINTER RN; Reviewed Date: 08/28/2020 13:25 EDT Diagnosis Control ED (As Of: 08/28/2020 13:25:48 EDT) Problems(Active) Ankle swelling (SNOMED CT :662485560 ) Name of Problem: Ankle swelling ; Recorder: ANGELA WINSTON; Confirmation: Confirmed ; Classification: Patient Stated ; Code: [id number] ; Contributor System: PowerChart ; Last Updated: 04/18/2014 19:30 EDT ; Life Cycle Date: 07/26/2013 ; Life Cycle Status: Active ; Vocabulary: SNOMED CT Arthritis (SNOMED CT :8734197 ) Name of Problem: Arthritis ; Recorder: ANGELA WINSTON; Confirmation: Confirmed ; Classification: Patient Stated ; Code: 7843669 ; Contributor System: PowerChart ; Last Updated: 04/18/2014 19:30 EDT ; Life Cycle Date: 07/26/2013 ; Life Cycle Status: Active ; Vocabulary: SNOMED CT CAD - Coronary artery disease (SNOMED CT :6619730498 ) Name of Problem: CAD - Coronary artery disease ; Recorder: ANGELA WINSTON; Confirmation: Confirmed ; Classification: Patient Stated ; Code: [id number] ; Contributor System: PowerChart ; Last Updated: 04/23/2014 10:53 EDT ; Life Cycle Date: 07/26/2013 ; Life Cycle Status: Active ; Vocabulary: SNOMED CT Cardiac catheterization (SNOMED CT :53159819 ) Name of Problem: Cardiac catheterization ; Recorder: ANGELA WINSTON; Confirmation: Confirmed ; Classification: Patient Stated ; Code: 46075360 ; Contributor System: PowerChart ; Last Updated: 04/23/2014 11:05 EDT ; Life Cycle Date: 07/26/2013 ; Life Cycle Status: Active ; Vocabulary: SNOMED CT Cataract (SNOMED CT :235714720 ) Name of Problem: Cataract ; Recorder: ANGELA WINSTON; Confirmation: Confirmed ; Classification: Patient Stated ; Code: 382000981 ; Contributor System: PowerChart ; Last Updated: 04/18/2014 19:30 EDT ; Life Cycle Date: 07/26/2013 ; Life Cycle Status: Active ; Vocabulary: SNOMED CT ; Comments: 07/26/2013 7:19 - ANGELA WINSTON bilateral Depression (SNOMED CT :267498301 ) Name of Problem: Depression ; Recorder: ANGELA WINSTON; Confirmation: Confirmed ; Classification: Patient Stated ; Code: 712773133 ; Contributor System: IdeaPaintChart ; Last Updated: 04/18/2014 19:30 EDT ; Life Cycle Date: 07/26/2013 ; Life Cycle Status: Active ; Vocabulary: SNOMED CT Diarrhea (SNOMED CT :531204650 ) Name of Problem: Diarrhea ; Recorder: ANGELA WINSTON; Confirmation: Confirmed ; Classification: Patient Stated ; Code: 561688827 ; Contributor System: PowerChart ; Last Updated: 04/18/2014 19:30 EDT ; Life Cycle Date: 07/26/2013 ; Life Cycle Status: Active ; Vocabulary: SNOMED CT Echocardiogram (SNOMED CT :9597197570 ) Name of Problem: Echocardiogram ; Recorder: ANGELA WINSTON; Confirmation: Confirmed ; Classification: Patient Stated ; Code: 7636542827 ; Contributor System: PowerChart ; Last Updated: 04/23/2014 15:44 EDT ; Life Cycle Date: 07/26/2013 ; Life Cycle Status: Active ; Vocabulary: SNOMED CT Electrocardiogram (SNOMED CT :17394682 ) Name of Problem: Electrocardiogram ; Recorder: ANGELA WINSTON; Confirmation: Confirmed ; Classification: Patient Stated ; Code: 23368881 ; Contributor System: PowerChart ; Last Updated: 07/26/2013 7:17 EDT ; Life Cycle Date: 07/26/2013 ; Life Cycle Status: Active ; Vocabulary: SNOMED CT GERD - Gastro-esophageal reflux disease (SNOMED CT :4390414856 ) Name of Problem: GERD - Gastro-esophageal reflux disease ; Recorder: ANGELA WINSTON; Confirmation: Confirmed ; Classification: Patient Stated ; Code: 8488100416 ; Contributor System: PowerChart ; Last Updated: 04/23/2014 10:51 EDT ; Life Cycle Date: 07/26/2013 ; Life Cycle Status: Active ; Vocabulary: SNOMED CT Gout (SNOMED CT :732330115 ) Name of Problem: Gout ; Recorder: Caridad Gomez RN; Confirmation: Confirmed ; Classification: Medical ; Code: 188085748 ; Contributor System: PowerChart ; Last Updated: 07/04/2018 12:02 EDT ; Life Cycle Date: 07/04/2018 ; Life Cycle Status: Active ; Vocabulary: SNOMED CT History of obstructive sleep apnea (IMO :27915389 ) Name of Problem: History of obstructive sleep apnea ; Recorder: SYSTEM, SYSTEM; Confirmation: Confirmed ; Classification: Medical ; Code: 61305585 ; Last Updated: 07/04/2018 11:38 EDT ; Life Cycle Date: 07/04/2018 ; Life Cycle Status: Active ; Vocabulary: IMO Hyperlipidemia (SNOMED CT :09128879 ) Name of Problem: Hyperlipidemia ; Recorder: ANGELA WINSTON; Confirmation: Confirmed ; Classification: Patient Stated ; Code: 77873766 ; Contributor System: PowerChart ; Last Updated: 04/18/2014 19:30 EDT ; Life Cycle Date: 07/26/2013 ; Life Cycle Status: Active ; Vocabulary: SNOMED CT Hypertension (SNOMED CT :56217348 ) Name of Problem: Hypertension ; Recorder: ANGELA WINSTON; Confirmation: Confirmed ; Classification: Patient Stated ; Code: 34309364 ; Contributor System: PowerChart ; Last Updated: 04/18/2014 19:30 EDT ; Life Cycle Date: 07/26/2013 ; Life Cycle Status: Active ; Vocabulary: SNOMED CT Hypothyroidism (SNOMED CT :10678823 ) Name of Problem: Hypothyroidism ; Recorder: Caridad Gomez RN; Confirmation: Confirmed ; Classification: Medical ; Code: 95704858 ; Contributor System: PowerChart ; Last Updated: 07/04/2018 12:02 EDT ; Life Cycle Date: 07/04/2018 ; Life Cycle Status: Active ; Vocabulary: SNOMED CT Night sweats (SNOMED CT :60862148 ) Name of Problem: Night sweats ; Recorder: ANGELA WINSTON; Confirmation: Confirmed ; Classification: Patient Stated ; Code: 19089449 ; Contributor System: PowerChart ; Last Updated: 04/18/2014 19:30 EDT ; Life Cycle Date: 07/26/2013 ; Life Cycle Status: Active ; Vocabulary: SNOMED CT Pacemaker (SNOMED CT :4370944819 ) Name of Problem: Pacemaker ; Recorder: Caridad Gomez RN; Confirmation: Confirmed ; Classification: Medical ; Code: 9763653269 ; Contributor System: PowerChart ; Last Updated: 07/04/2018 12:03 EDT ; Life Cycle Date: 07/04/2018 ; Life Cycle Status: Active ; Vocabulary: SNOMED CT Shortness of breath (SNOMED CT :472640409 ) Name of Problem: Shortness of breath ; Recorder: ANGELA WINSTON; Confirmation: Confirmed ; Classification: Patient Stated ; Code: 973635054 ; Contributor System: PowerChart ; Last Updated: 04/18/2014 19:30 EDT ; Life Cycle Date: 07/26/2013 ; Life Cycle Status: Active ; Vocabulary: SNOMED CT Sinoatrial node (SNOMED CT :319786900 ) Name of Problem: Sinoatrial node ; Recorder: ANGELA WINSTON; Confirmation: Confirmed ; Classification: Patient Stated ; Code: 353277142 ; Contributor System: PowerChart ; Last Updated: 07/26/2013 7:24 EDT ; Life Cycle Date: 07/26/2013 ; Life Cycle Status: Active ; Vocabulary: SNOMED CT ; Comments: 07/26/2013 7:24 - ANGELA WINSTON dysfunction Sleep apnea (SNOMED CT :213357326 ) Name of Problem: Sleep apnea ; Recorder: ANGELA WINSTON; Confirmation: Confirmed ; Classification: Patient Stated ; Code: 269123263 ; Contributor System: PowerChart ; Last Updated: 04/18/2014 19:30 EDT ; Life Cycle Date: 07/26/2013 ; Life Cycle Status: Active ; Vocabulary: SNOMED CT Diagnoses(Active) Vomiting Date: 08/28/2020 ; Diagnosis Type: Reason For Visit ; Confirmation: Complaint of ; Clinical Dx: Vomiting ; Classification: Medical ; Clinical Service: Emergency medicine ; Code: PNED ; Probability: 0 ; Diagnosis Code: [id number] ED Height and Weight Height Source : Stated Height Entry Format : [place] Height, Feet : 5 ft(Converted to: 152 cm, 60 Inch) Height, Inches : 4 Inch(Converted to: 0 ft 4 Inch, 10.16 cm) Clinical Height : 162.56 cm Weight Source, ED : Critical estimated dosing weight Weight Entry Format : [place] Weight, Pounds : 171 lb Clinical Dosing Weight : 77.73 kg Body Surface Area (BSA) : 1.83 m2 Body Mass Index : 29.4 kg/m2 (HI) [place] Body Weight (IBW) : 54.3 kg Dayana Madrigal RN - 08/28/2020 13:24 EDT documented in this encounter Plan of Treatment Upcoming Encounters Date Type Department Care Team (Late st Contact Info) Description 09/06/2025 2:45 PM EDT Office Visit [facility] - [facility] [address] [facility] [address] [place] [address] [place] [address] [place] [address] [address] [place] [address] 10/17/2025 9:30 AM EST Office Visit [facility] [address] [facility] [address] [place] [address] Lonny Pederson MD [address] [facility] [place] [address] 10/17/2025 10:45 AM EST Office Visit [facility] Cardiology - [facility] [address] [place] [address] Romina Abreu MD [address] [facility] [address] [place] [id number] 10/17/2025 1:45 PM EST Office Visit [facility] - [facility] [address] [facility] [address] [place] [address] Susan Rivers APRN [address] [facility] [address] [place], [place] [id number] documented as of this encounter Visit Diagnoses Not on filedocumented in this encounter Care Teams Manager Farm Relationship Specialty Start Date End Date Lonny Pederson MD [address] [place] [phone] PCP - General Internal Medicine/Pediatrics 09/15/22 Romina Abreu MD [address] [place] [address] Steel Welder Cardiology 09/22/22 Florencia Wilcox MD [address] [place] [phone] Analytical Chemistry Teacher Rheumatology 09/22/22 Aryan Penaloza PA-C [address] [place] [address] Orthopedist Orthopedic Surgery 09/22/22 Vladimir Shook MD [address] [place] [address] Sports Medicine 10/06/23 Susan Rivers, CASHIER CLERK [address] [facility] [address] [place] [address] Neurology 10/06/23 Aryan Good PA-C [address] [place] [address] Physician Logistics Officer 12/09/23 Jimmy Baeza MD [address] [facility] [address] [place] [address] Steel Welder Electrophysiology 03/06/24 documented as of this encounter
--- OUTSIDE RECORDS SUMMARY | 2025-08-30 14:58 | XMS_ITS | Encounter Summary ---
Author Organization [employer] ([place], [place], [place], [place]) Address [address] [place] [address] Care Team Providers Care Oracle Adf Consultant Name Role Phone Lonny Pederson MD Primary Care Provider Romina Abreu MD Unavailable [phone] Florencia Wilcox MD Unavailable Aryan Penaloza PA-C Unavailable [phone] Vladimir Shook MD Unavailable Susan Rivers APRN Unavailable [phone] Aryan Good PA-C Unavailable [phone] Jimmy Baeza MD Unavailable Encounter Details Date Type Department Care Team (Late st Contact Info) Description 08/28/2020 Transcribed Document [facility] [place] [address] [place] [address] ProviderEduardo MD [address] [place] [address] Social History Tobacco Use Types Packs/Day Years Used Date Smoking Tobacco: Never Assessed Comments Unknown Sex and Gender Information Value Date Recorded Sex Assigned at Female 09/20/2022 2:57 PM FIELD SALES CONSULTANT Legal Sex Female 1:35 PM CDT Gender Identity Female 09/20/2022 2:57 PM FIELD SALES CONSULTANT Sexual Orientation Straight 09/20/2022 2: 57 PM FIELD SALES CONSULTANT documented as of this encounter Miscellaneous Notes [...] 08/28/2020 17:52 EDT Electronically signed by Gin [employer] Conversion Housekeeping Room Inspector Cerner at 02/22/2023 5:04 PM CDT documented in this encounter Plan of Treatment Upcoming Encounters Date Type Department Care Team (Late st Contact Info) Description 09/06/2025 2:45 PM EDT Office Visit [facility] - [facility] [address] [facility] [address] [place] [address] [place] [address] [place] [address] [address] [place], [place] [id number] 10/17/2025 9:30 AM EST Office Visit [facility] Primary Care [address] [facility] [address] [place] [address] Lonny Pederson MD [address] [facility] [place] [address] 10/17/2025 10:45 AM EST Office Visit [facility] Card[facility] - [facility] [address] [place] [address] Romina Abreu MD [address] [facility] [address] [place] [address] 10/17/2025 1:45 PM EST Office Visit [facility] Neurology - [place] [address] [facility] [address] [place] [address] Susan Rivers, RESIDENTIAL SALES REPRESENTATIVE [address] [facility] [address] [place] [address] documented as of this encounter Visit Diagnoses Not on filedocumented in this encounter Care Teams Oracle Adf Consultant Relationship Specialty Start Date End Date Lonny Pederson MD [address] [place] [phone] PCP - General Internal Medicine/Pediatrics 09/15/22 Romina Abreu MD [address] [place] [address] Medical Screener Cardiology 09/22/22 Florencia Wilcox MD [address] [place] [phone] Manager Research Rheumatology 09/22/22 Aryan Penaloza PA-C [address] [place] [address] Orthopedist Orthopedic Surgery 09/22/22 Vladimir Shook MD [address] [place] [address] Sports Medicine 10/06/23 Susan Rivers, RESIDENTIAL SALES REPRESENTATIVE [address] [facility] [address] [place] [address] Neurology 10/06/23 Aryan Good PA-C [address] [place] [address] Physician Rn Emergency 12/09/23 Jimmy Baeza MD [address] [facility] [address] [place] [address] Medical Screener Electrophysiology 03/06/24 documented as of this encounter
--- OUTSIDE RECORDS SUMMARY | 2025-08-30 14:58 | XMS_ITS | Encounter Summary ---
Author Organization [employer] ([place], [place], [place], [place]) Address [address] [address] Care Team Providers Care Insurance Follow Up Representative Name Role Phone Lonny Pederson MD Primary Care Provider Romina Abreu MD Unavailable [phone] Florencia Wilcox MD Unavailable Aryan Penaloza PA-C Unavailable [phone] Vladimir Shook MD Unavailable Susan Rivers APRN Unavailable [phone] Aryan Good PA-C Unavailable [phone] Jimmy Baeza MD Unavailable Encounter Details Date Type Department Care Team (Late st Contact Info) Description 08/28/2020 Transcribed Document [facility] [place] [address] [place] [address] ProviderEduardo MD [address] [place] [address] Social History Tobacco Use Types Packs/Day Years Used Date Smoking Tobacco: Never Assessed Comments Unknown Sex and Gender Information Value Date Recorded Sex Assigned at Female 09/20/2022 2:57 PM INJECTION MOLDING ENGINEER Legal Sex Female 1:35 PM CDT Gender Identity Female 09/20/2022 2:57 PM INJECTION MOLDING ENGINEER Sexual Orientation Straight 09/20/2022 2: 57 PM INJECTION MOLDING ENGINEER documented as of this encounter Miscellaneous Notes [...] Jimenes PHYSICAL THERAPIST - 08/29/2020 11:29 EDT Cooperative Education Coordinator Goals Other PT LTG Grid Goal #1 [...] rollator for community distances and in the [place] at home due to a fear of [...] Jimenes PHYSICAL THERAPIST - 08/29/2020 11:29 EDT [facility] PT Charges PT Ther Activities Ea 15 Min : 1 PT Eval Low Complexity : 1 Leila Jimenes PHYSICAL THERAPIST - 08/29/2020 11:15 EDT Electronically signed by [facility] Conversion Assistant Womens Volleyball Coach Cerner at 02/22/2023 5:08 PM CDT documented in this encounter Plan of Treatment Upcoming Encounters Date Type Department Care Team (Late st Contact Info) Description 09/06/2025 2:45 PM EDT Office Visit [facility] Urology - [address] [facility] [address] [place] [address] [place] [address] [place] [address] [address] [place] [address] 10/17/2025 9:30 AM EST Office Visit [facility] Primary Care [address] [facility] [address] [place] [address] Lonny Pederson MD [address] [place] [address] 10/17/2025 10:45 AM EST Office Visit [facility] Cardiology - [facility] [address] [place] [address] Romina Abreu MD [address] [place], [place] [address] 10/17/2025 1:45 PM EST Office Visit [facility] Neurology - [facility] [address] [place] [address] Susan Rivers, MAREN [address] [facility] [address] [place] [address] documented as of this encounter Visit Diagnoses Not on filedocumented in this encounter Care Teams Insurance Follow Up Representative Relationship Specialty Start Date End Date Lonny Pederson MD [address] [place] [address] PCP - General Internal Medicine/Pediatrics 09/15/22 Romina Abreu MD [address] [place] [address] Wire Coating Operator Metal Cardiology 09/22/22 Florencia Wilcox MD [address] [place] [address] Casting Director Rheumatology 09/22/22 Aryan Penaloza PA-C [address] [place] [address] Orthopedist Orthopedic Surgery 09/22/22 Vladimir Shook MD [address] [place] [address] Sports Medicine 10/06/23 Susan Rivers, MAREN [address] [facility] [address] [place] [address] Neurology 10/06/23 Aryan Good PA-C [address] [place] [address] Physician Forging Die Sinker 12/09/23 Jimmy Baeza MD [address] [place] [address] Wire Coating Operator Metal Electrophysiology 03/06/24 documented as of this encounter
--- OUTSIDE RECORDS SUMMARY | 2025-08-30 14:58 | XMS_ITS | Encounter Summary ---
Author Organization [employer] ([place], [place], [place], [place]) Address [address] [place] [address] Care Team Providers Care Assembly Line Supervisor Name Role Phone Lonny Pederson MD Primary Care Provider Romina Abreu MD Unavailable [phone] Florencia Wilcox MD Unavailable Aryan Penaloza PA-C Unavailable [phone] Vladimir Shook MD Unavailable Susan Rivers APRN Unavailable [phone] Aryan Good PA-C Unavailable [phone] Jimmy Baeza MD Unavailable Encounter Details Date Type Department Care Team (Late st Contact Info) Description 08/28/2020 Transcribed Document [facility] [place] Family Medicine [address] [place] [address] ProviderEduardo MD [address] [place] [address] Social History Tobacco Use Types Packs/Day Years Used Date Smoking Tobacco: Never Assessed Comments Unknown Sex and Gender Information Value Date Recorded Sex Assigned at Female 09/20/2022 2:57 PM ASSISTANT GM OF CONTENT & DELIVERY Legal Sex Female 1:35 PM CDT Gender Identity Female 09/20/2022 2:57 PM ASSISTANT GM OF CONTENT & DELIVERY Sexual Orientation Straight 09/20/2022 2: 57 PM ASSISTANT GM OF CONTENT & DELIVERY documented as of this encounter Miscellaneous Notes * Cerner Conversion Note - Historical Provider, - 08/28/2020 1:22 PM CDT ED Assessment Entered On: 08/28/2020 14:27 EDT Performed On: 08/28/2020 14:25 EDT by Brielle Emerson RN ED Quick Look Assessment Level of Consciousness : Alert, Awake Affect/Behavior : Appropriate, Calm, Cooperative Orientation : Oriented x 4 Skin Temperature : Warm Skin Description : Dry, [place] Brielle Emerson RN - 08/28/2020 14:25 EDT ED General-Functional Assess Preferred Communication Mode : Verbal Communication Barrier : None Primary Language : Azeri Any Spiritual/Cultural Needs or Requests : No [...] Updated: 07/04/2018 11:28:56 EDT by Caridad Gomez, RN) Alcohol: Comments: 07/26/2013 7:26 - [...] 08/28/2020 16:28 EDT Electronically signed by Gin [facility] Conversion Regulatory Compliance Coordinator Cerner at 02/22/2023 5:09 PM CDT documented in this encounter Plan of Treatment Upcoming Encounters Date Type Department Care Team (Late st Contact Info) Description 09/06/2025 2:45 PM EDT Office Visit [facility] Urology - [address] [facility] [address] [place] [address] Gerald Tamayo MD [address] [place] [address] [address] [place], [place] [id number] 10/17/2025 9:30 AM EST Office Visit [facility] Primary Care [address] [facility] [facility] [address] [place] [address] Lonny Pederson MD [address] [place] [address] 10/17/2025 10:45 AM EST Office Visit [facility] Cardiology - [address] [place] [address] Romina Abreu MD [address] [place], [place] [address] 10/17/2025 1:45 PM EST Office Visit [facility] Neurology - [facility] [address] [place] [address] Susan Rivers, AUTO PHONE INSTALLER [address] [facility] [address] [place] [address] documented as of this encounter Visit Diagnoses Not on filedocumented in this encounter Care Teams Assembly Line Supervisor Relationship Specialty Start Date End Date Lonny Pederson MD [address] [place] [address] PCP - General Internal Medicine/Pediatrics 09/15/22 Romina Abreu MD [address] [place] [address] Die Repair Machinist Cardiology 09/22/22 Florencia Wilcox MD [address] [place] [address] Braid Folder Rheumatology 09/22/22 Aryan Penaloza PA-C [address] [place] [address] Orthopedist Orthopedic Surgery 09/22/22 Vladimir Shook MD [address] [place] [address] Sports Medicine 10/06/23 Susan Rivers, AUTO PHONE INSTALLER [address] [facility] [address] [place] [address] Neurology 10/06/23 Aryan Good PA-C [address] [place] [address] Physician Welfare Administrator 12/09/23 Jimmy Baeza MD [address] [place] [address] Die Repair Machinist Electrophysiology 03/06/24 documented as of this encounter
--- OUTSIDE RECORDS SUMMARY | 2025-08-30 14:58 | XMS_ITS | Encounter Summary ---
Author Organization [employer] ([place], [place], [place], [place]) Address [address] [place] [address] Care Team Providers Care Hanger Name Role Phone Lonny Pederson MD Primary Care Provider Romina Abreu MD Unavailable [phone] Florencia Wilcox MD Unavailable Aryan Penaloza PA-C Unavailable [phone] Vladimir Shook MD Unavailable Susan Rivers APRN Unavailable [phone] Aryan Good PA-C Unavailable [phone] Jimmy Baeza MD Unavailable Encounter Details Date Type Department Care Team (Late st Contact Info) Description 05/15/2019 Transcribed Document [facility] [place] Family Medicine [facility] [place] [address] ProviderEduardo MD [facility] [place] [address] Social History Tobacco Use Types Packs/Day Years Used Date Smoking Tobacco: Never Assessed Comments Unknown Sex and Gender Information Value Date Recorded Sex Assigned at Female 09/20/2022 2:57 PM VASCULAR TECHNOLOGIST SONOGRAPHER Legal Sex Female 1:35 PM CDT Gender Identity Female 09/20/2022 2:57 PM VASCULAR TECHNOLOGIST SONOGRAPHER Sexual Orientation Straight 09/20/2022 2: 57 PM VASCULAR TECHNOLOGIST SONOGRAPHER documented as of this encounter Miscellaneous Notes [...] Romina Abreu M.D. Electronically signed by Gin [facility] Conversion Flying Ii Instructor Cerner at 02/22/2023 5:16 PM CDT documented in this encounter Plan of Treatment Upcoming Encounters Date Type Department Care Team (Late st Contact Info) Description 09/06/2025 2:45 PM EDT Office Visit [facility] Urology - [address] [place] [address] Gerald Tamayo MD [address] [facility] [address] [place] [address] 10/17/2025 9:30 AM EST Office Visit [facility] Primary Care [address] [facility] [address] [place] [address] Lonny Pederson MD [address] [place] [address] 10/17/2025 10:45 AM EST Office Visit [facility] Cardiology - [address] [place] [address] Romina Abrue MD [address] [place] [address] 10/17/2025 1:45 PM EST Office Visit [facility] Neurology - [facility] [address] [facility] [address] [place] [address] Susan Rivers APRN [address] [facility] [address] [place], [place] [address] documented as of this encounter Visit Diagnoses Not on filedocumented in this encounter Care Teams Hanger Relationship Specialty Start Date End Date Lonny Pederson MD [address] [place] [address] PCP - General Internal Medicine/Pediatrics 09/15/22 Romina Abreu MD [address] [place], [place] [id number] Livestock Brands Inspector Cardiology 09/22/22 Florencia Wilcox MD [address] [place] [address] It Systems Analyst Consultant Rheumatology 09/22/22 Aryan Penaloza PA-C [address] [place], [place] [address] Orthopedist Orthopedic Surgery 09/22/22 Vladimir Shook MD [address] [place], [place] [address] Sports Medicine 10/06/23 Susan Rivers, SCIENCE AND OPERATIONS OFFICER [address] [facility] [address] [place], [place] [address] Neurology 10/06/23 Aryan Good PA-C [address] [place] [address] Physician Shirt Turner 12/09/23 Jimmy Baeza MD [address] [facility] [address] [place] [address] Livestock Brands Inspector Electrophysiology 03/06/24 documented as of this encounter
--- OUTSIDE RECORDS SUMMARY | 2025-08-30 14:59 | XMS_ITS | Encounter Summary ---
Author Organization [employer] ([place], [place], [place], [place]) Address [address] [place] [address] Care Team Providers Care Human Services Case Manager Name Role Phone Lonny Pederson MD Primary Care Provider Romina Abreu MD Unavailable [phone] Florencia Wilcox MD Unavailable Aryan Penaloza PA-C Unavailable Vladimir Shook MD Unavailable Susan Rivers APRN Unavailable [phone] Aryan Good PA-C Unavailable [phone] Jimmy Baeza MD Unavailable Encounter Details Date Type Department Care Team (Late st Contact Info) Description 11/09/2022 Outside Orders [facility] Breast Care [address] [place] [address] [address] [place] [address] Lonny Pederson MD [address] [facility] [address] [place] [address] Visit for screening mammogram (Primary Dx) Social History Tobacco Use Types Packs/Day Years Used Date Smoking Tobacco: Former Smokeless Tobacco: Never Alcohol Use Standard Drinks/Week Comments Never 0 (1 standard drink = 0.6 oz pur e alcohol) Comments Unknown Sex and Gender Information Value Date Recorded Sex Assigned at Female 09/20/2022 2:57 PM SENIOR SOFTWARE DEVELOPER Legal Sex Female 1:35 PM CDT Gender Identity Female 09/20/2022 2:57 PM SENIOR SOFTWARE DEVELOPER Sexual Orientation Straight 09/20/2022 2: 57 PM SENIOR SOFTWARE DEVELOPER documented as of this encounter Plan of Treatment Upcoming Encounters Date Type Department Care Team (Late st Contact Info) Description 09/06/2025 2:45 PM EDT Office Visit [facility] Urology - [address] [place] [address] Gerald Tamayo MD [address] [place] [address] [address] [place] [address] 10/17/2025 9:30 AM EST Office Visit [facility] Primary Care [address] [place] [address] Lonny Pederson MD [address] [place] [address] 10/17/2025 10:45 AM EST Office Visit [facility] Cardiology - [address] [place] [address] Romina Abreu MD [address] [place] [address] 10/17/2025 1:45 PM EST Office Visit [facility] Neurology - [facility] [address] [place] [address] Susan Rivers APRN [address] [facility] [address] [place], [place] [address] documented as of this encounter Visit Diagnoses Diagnosis Visit for screening mammogram- Primary documented in this encounter Care Teams Human Services Case Manager Relationship Specialty Start Date End Date Lonny Pederson MD [address] [place] [address] PCP - General Internal Medicine/Pediatrics 09/15/22 Romina Abreu MD [address] [place] [address] Baker Second Cardiology 09/22/22 Florencia Wilcox MD [address] [place] [address] Aircraft Steel Fabricator Rheumatology 09/22/22 Aryan Penaloza PA-C [address] [place] [address] Orthopedist Orthopedic Surgery 09/22/22 Vladimir Shook MD [address] [place] [address] Sports Medicine 10/06/23 Susan Rivers, ELECTRICIANS TOP HELPER [address] [facility] [address] [place] [address] Neurology 10/06/23 Aryan Good PA-C [address] [place] [address] Physician Carver And Checkerer Specials 12/09/23 Jimmy Baeza MD [address] [facility] [address] [place] [address] Baker Second Electrophysiology 03/06/24 documented as of this encounter
--- OUTSIDE RECORDS SUMMARY | 2025-08-30 14:59 | XMS_ITS | Encounter Summary ---
Author Organization [employer] ([place], [place], [place], [place]) Address [address] [place] [address] Care Team Providers Care Furnace Keeper Name Role Phone Lonny Pederson MD Primary Care Provider [phone] Romina Abreu MD Unavailable [phone] Florencia Wilcox MD Unavailable Aryan Penaloza PA-C Unavailable [phone] Vladimir Shook MD Unavailable Susan Rivers APRN Unavailable [phone] Aryan Good PA-C Unavailable [phone] Jimmy Baeza MD Unavailable Encounter Details Date Type Department Care Team (Late st Contact Info) Description 08/29/2020 Transcribed Document [facility] [place] Family Medicine [address] [place] [address] ProviderEduardo MD [address] [place] [address] Social History Tobacco Use Types Packs/Day Years Used Date Smoking Tobacco: Never Assessed Comments Unknown Sex and Gender Information Value Date Recorded Sex Assigned at Female 09/20/2022 2:57 PM CRUST SORTER Legal Sex Female 1:35 PM CDT Gender Identity Female 09/20/2022 2:57 PM CRUST SORTER Sexual Orientation Straight 09/20/2022 2: 57 PM CRUST SORTER documented as of this encounter Miscellaneous Notes * Cerner Conversion Note - Historical Provider, - 08/29/2020 11:19 AM CDT Patient: FLOWER LOUISE Age: 75 Years Sex: Female : 1945 Admit Date 08/28/2020 14:58 Discharge Date 08/29/2020 Primary Care Provider PHUONG AGEE [facility] Discharge Diagnosis Esophagitis, severe gastritis Procedures [...] not taken it x 4 days. Her health care / medical job titles is Dr. Romina Abreu and her PCP [...] Description 09/06/2025 2:45 PM EDT Office Visit [facility] Urology - [address] [place] [address] Gerald Tamayo MD [address] [facility] [address] [place] [address] 10/17/2025 9:30 AM EST Office Visit [facility] Primary Care [address] [place] [address] Lonny Pederson MD [address] [place] [address] 10/17/2025 10:45 AM EST Office Visit [facility] Cardiology - [address] [place] [address] Romina Abreu MD [address] [place] [address] 10/17/2025 1:45 PM EST Office Visit [facility] Neurology - [facility] [address] [facility] [address] [place] [address] Susan Rivers APRN [address] [facility] [address] [place], [place] [address] documented as of this encounter Visit Diagnoses Not on filedocumented in this encounter Care Teams Furnace Keeper Relationship Specialty Start Date End Date Lonny Pederson MD [address] [place] [address] PCP - General Internal Medicine/Pediatrics 09/15/22 Romina Abreu MD [address] [place], [place] [address] Fish Frog Or Oyster Farmer Cardiology 09/22/22 Florencia Wilcox MD [address] [place] [address] Lathe Machinist Rheumatology 09/22/22 Aryan Penaloza PA-C [address] [place], [place] [address] Orthopedist Orthopedic Surgery 09/22/22 Vladimir Shook MD [address] [place], [place] [address] Sports Medicine 10/06/23 Susan Rivers APRN [address] [facility] [address] [place], [place] [address] Neurology 10/06/23 Aryan Good PA-C [address] [place], [place] [address] Physician Broom Handle Dipper 12/09/23 Jimmy Baeza MD [address] [facility] [address] [place], [place] [address] Fish Frog Or Oyster Farmer Electrophysiology 03/06/24 documented as of this encounter
--- OUTSIDE RECORDS SUMMARY | 2025-08-30 14:59 | XMS_ITS | Encounter Summary ---
Author Organization [employer] ([place], [place], [place], [place]) Address [address] [place] [address] Care Team Providers Care Balance Wheel Arm Burnisher Name Role Phone Lonny Pederson MD Primary Care Provider Romina Abreu MD Unavailable [phone] Florencia Wilcox MD Unavailable Aryan Penaloza PA-C Unavailable [phone] Vladimir Shook MD Unavailable Susan Rivers APRN Unavailable [phone] Aryan Good PA-C Unavailable [phone] Jimmy Baeza MD Unavailable Encounter Details Date Type Department Care Team (Late st Contact Info) Description 05/18/2021 Transcribed Document [facility] [place] [facility] [place] [address] ProviderEduardo MD [facility] [place] [address] Social History Tobacco Use Types Packs/Day Years Used Date Smoking Tobacco: Never Assessed Comments Unknown Sex and Gender Information Value Date Recorded Sex Assigned at Female 09/20/2022 2:57 PM INTERNET TECHNOLOGY MANAGER Legal Sex Female 1:35 PM CDT Gender Identity Female 09/20/2022 2:57 PM INTERNET TECHNOLOGY MANAGER Sexual Orientation Straight 09/20/2022 2: 57 PM INTERNET TECHNOLOGY MANAGER documented as of this encounter Miscellaneous Notes * Cerner Conversion Note - Historical Provider, MD - 05/18/2021 12:06 PM CDT [facility] IntraOp Summary Primary Physician: MICHELE MARTIN MD-GAE Finalized Date/Time: 05/18/21 15:48:36 Pt. Name: FLOWER LOUISE /Sex: 1945 Female Med Rec #: [id number] Physician: MICHELE MARTIN MD-GAE Financial #: [id number] Pt. Type: Room/Bed: [facility] Admit/Disch: 05/18/21 11:09:00 - Institution: [facility] [place] - Case Attendance Entry 1 Entry 2 Entry 3 Case Attendee MICHELE MARTIN MD-GAE House, Michelle, RONAN, JENIFFER, MD LEAD ESTHETICIAN Role Performed Surgeon/Proceduralist, Scrub, First Anesthesiologist of [...] Case Attendee STEVENSON PARKS RIDINGS, JAROLINE, JORDYN ENVIRONMENTAL PROTECTION SPECIALIST Role Performed ENVIRONMENTAL PROTECTION SPECIALIST/Nurse [employer] Principal, First Time In 05/18/21 11:59:00 05/18/21 11:59:00 Time Out 05/18/21 12:09:00 05/18/21 12:09:00 Procedure Esophagogastroduodenosco Esophagogastroduodenosco py py Other Attendee Superficial Wound Closed By: Last Modified By: TERA JORDAN RN RIDINGS, JAROLINE, RN 05/18/21 12:07:52 05/18/21 12:07:52 [facility] - Case Attendance Audit 05/18/21 15:48:15 Vendor Management Associate: [id number] Modifier: [id number] <*> Role Performed Anesthesiologist 3 <*> Procedure Esophagogastroduodenoscopy 05/18/21 12:13:08 Vendor Management Associate: [id number] Modifier: [id number] <+> 1 Procedure <+> 2 Procedure <+> 3 Procedure <+> 4 Procedure <+> 5 Procedure 05/18/21 12:07:52 Vendor Management Associate: [id number] Modifier: [id number] <+> 1 Time Out <+> 2 Time Out <+> 3 Time Out <+> 4 Time Out <+> 5 Time Out 05/18/21 12:05:04 Vendor Management Associate: [id number] Modifier: [id number] <+> 2 Time In <+> 3 Time In <+> 4 Time In <+> 5 Time In 05/18/21 12:04:50 Vendor Management Associate: [id number] Modifier: [id number] <+> 2 Case Attendee <+> 2 Role [...] Endo - Case Times Audit 05/18/21 12:07:51 Vendor Management Associate: [id number] Modifier: [id number] <+> 1 Out Room Time <+> 1 Stop Time <+> 1 Stop Time 05/18/21 12:06:07 Vendor Management Associate: [id number] Modifier: [id number] <+> 1 Start Time <+> 1 Start Time [facility] [place] Endo - Delays Entry 1 Delay Reason [...] - Departure from OR Audit 05/18/21 12:14:32 Vendor Management Associate: [id number] Modifier: [id number] <+> 1 Transfer to <+> 1 Integumentary Assessment WDL <+> 1 Post-op Transport Via [facility] [place] [facility]o - Endoscopy Details Entry 1 Abdomen [...] 05/18/21 12:06:43 [facility] Endo - General Case Director General 1 Case Information OR Endo 01 E Case Level 1 Room Verified Yes Wound Class II - Clean-Contaminated Specialty Gastroenterology Anesthesia Type MAC ASA Class 3 Diagnosis Preop Diagnosis erosive gastritis Postop Same As Preop No Postop Diagnosis normal Last Modified By: TERA JORDAN RN 05/18/21 12:09:18 [facility] - General Case Data Audit 05/18/21 12:09:18 Vendor Management Associate: [id number] Modifier: [id number] <+> ASA Class 1 <+> Anesthesia [...] Endo - Sign Out Audit 05/18/21 12:13:45 Vendor Management Associate: [id number] Modifier: [id number] <+> 1 OUTCOME STATEMENT: Absence of signs [...] is consistent with measures to prevent infection [facility] [place] Endo - Surgical Procedures Entry 1 Procedure Esophagogastroduodenosco py Primary Procedure Yes Primary Surgeon MICHELE MARTIN MD-GAE Start 05/18/21 12:06:00 Stop 05/18/21 12:07:00 Anesthesia Type MAC Specialty Gastroenterology Wound Class II - Clean-Contaminated Last Modified By: TERA JORDAN RN 05/18/21 12:06:25 E Endo - Surgical Procedures Audit 05/18/21 12:13:07 Vendor Management Associate: [id number] Modifier: [id number] <+> 1 Stop 05/18/21 12:06:25 Vendor Management Associate: [id number] Modifier: [id number] <*> Procedure Esophagogastroduodenoscopy 1 <*> Primary [...] Unfinalizing Freetext Reason for Unfinalizing 05/18/21 12:19 [id number] Modify Pick List 05/18/21 15:48 [id number] Modify Pick List Electronically signed by Gin [facility] Conversion Market Consultant Cerner at 02/22/2023 5:19 PM CDT documented in this encounter Plan of Treatment Upcoming Encounters Date Type Department Care Team (Late st Contact Info) Description 09/06/2025 2:45 PM EDT Office Visit [facility] Urology - [address] [facility] [address] [place] [address] [place] [address] [place] [address] [address] [place] [address] 10/17/2025 9:30 AM EST Office Visit [facility] Primary Care [address] [facility] [address] [place] [address] Lonny Pederson MD [address] [facility] [place] [address] 10/17/2025 10:45 AM EST Office Visit [facility] Cardiology - [address] [place] [address] Romina Abreu MD [address] [place] [address] 10/17/2025 1:45 PM EST Office Visit [facility] Neurology - [address] [place] [address] Susan Rivers, GENERAL ASSIGNMENT REPORTER [address] [place] [address] documented as of this encounter Visit Diagnoses Not on filedocumented in this encounter Care Teams Balance Wheel Arm Burnisher Relationship Specialty Start Date End Date Lonny Pederson MD [address] [place] [address] PCP - General Internal Medicine/Pediatrics 09/15/22 Romina Abreu MD [address] [place], [place] [address] Direct Support Professional Caregiver Cardiology 09/22/22 Florencia Wilcox MD [address] [place] [address] Travel Nurse Rheumatology 09/22/22 Aryan Penaloza PA-C [address] [place] [address] Orthopedist Orthopedic Surgery 09/22/22 Vladimir Shook MD [address] [place] [address] Sports Medicine 10/06/23 Susan Rivers, GENERAL ASSIGNMENT REPORTER [address] [place] [address] Neurology 10/06/23 Aryan Good PA-C [address] [place] [address] Physician Ed Special Education Teacher 12/09/23 Jimmy Baeza MD [address] [facility] [address] [place] [address] Direct Support Professional Caregiver Electrophysiology 03/06/24 documented as of this encounter
--- OUTSIDE RECORDS SUMMARY | 2025-08-30 14:59 | XMS_ITS | Encounter Summary ---
Author Organization [employer] ([place], [place], [place], [place]) Address [address] [place] [address] Care Team Providers Care Capital Project Engineer Name Role Phone Lonny Pederson MD Primary Care Provider Romina Abreu MD Unavailable [phone] Florencia Wilcox MD Unavailable Aryan Penaloza PA-C Unavailable [phone] Vladimir Shook MD Unavailable Susan Rivers APRN Unavailable [phone] Aryan Good PA-C Unavailable [phone] Jimmy Baeza MD Unavailable Encounter Details Date Type Department Care Team (Late st Contact Info) Description 08/29/2020 Transcribed Document [facility] [place] Family Medicine [address] [place] [address] ProviderEduardo MD [address] [place] [address] Social History Tobacco Use Types Packs/Day Years Used Date Smoking Tobacco: Never Assessed Comments Unknown Sex and Gender Information Value Date Recorded Sex Assigned at Female 09/20/2022 2:57 PM DESIGN ENG Legal Sex Female 1:35 PM CDT Gender Identity Female 09/20/2022 2:57 PM DESIGN ENG Sexual Orientation Straight 09/20/2022 2: 57 PM DESIGN ENG documented as of this encounter Miscellaneous Notes * Cerner Conversion Note - Historical ProviderMD - 08/29/2020 12:13 [place] [address] FLOWER LOUISE :1945 Visit Time:08/28/2020 Your Visit [...] Within 2 to 3 days Where: [address] [facility] [address] [place] [address]- x2 Follow Up with MICHELE MARTIN MD-GAE When Within 1 week Where: [address] [facility] [address] [place] [address]- Medications What How Much When Instructions Next [...] these instructions at home: Medicines ??? Take cmta-mjr-palgrdv and prescription medicines only as told by [...] 04/11/2009 Document Revised: 03/13/2019 Document Reviewed: 03/13/2019 [email or web address] Patient Education ?? 2020 [employer]. Emergency Awareness and Preventative Care STROKE is [...] Assistance with quitting is available by contacting 5-076-VLDM-NOW. This is a free resource providing counseling, support, and referral. Or you may contact your personal physician. [employer] Suicide Prevention Lifeline: The National Suicide Prevention [...] range between ( 1.0 and 7.0 ) [place] #: 0.56 K/uL -- Normal range between ( 0.24 and 0.82 ) [place] #: 0.40 K/uL -- Normal range between ( 0.04 and 0.54 ) [place] %: 10.7 % -- Normal range between [...] ) Urine Bilirubin Dipstick: Negative Urine Specific [place]: 1.012 -- Normal range between ( 1.005 [...] was given the opportunity to ask questions. Patient/Skip Miner Blasting Name: Patient/Skip Miner Blasting Signature: Relationship to Patient: Clinician/Hospital Skip Miner Blasting Signature: Date: documented in this encounter Plan of Treatment Upcoming Encounters Date Type Department Care Team (Late st Contact Info) Description 09/06/2025 2:45 PM EDT Office Visit [facility] Urology - [address] [place] [address] Gerald Tamayo MD [address] [place] [address] [address] [place] [id number] 10/17/2025 9:30 AM EST Office Visit [facility] Primary Care [address] [place] [address] Lonny Pederson MD [address] [place] [address] 10/17/2025 10:45 AM EST Office Visit [facility] Cardiology - [address] [place] [address] Romina Abreu MD [address] [place] [address] 10/17/2025 1:45 PM EST Office Visit [facility] Neurology - [facility] [address] [place] [address] Susan Rivers APRN [address] [facility] [address] [place] [address] documented as of this encounter Visit Diagnoses Not on filedocumented in this encounter Care Teams Capital Project Engineer Relationship Specialty Start Date End Date Lonny Pederson MD [address] [place] [address] PCP - General Internal Medicine/Pediatrics 09/15/22 Romina Abreu MD [address] [place] [address] Rope Tow Operator Cardiology 09/22/22 Florencia Wilcox MD [address] [place] [address] Director Of Student Financial Aid Rheumatology 09/22/22 Aryan Penaloza PA-C [address] [place] [address] Orthopedist Orthopedic Surgery 09/22/22 Vladimir Shook MD [address] [place] [address] Sports Medicine 10/06/23 Susan Rivers, MAREN [address] [facility] [address] [place] [address] Neurology 10/06/23 Aryan Good PA-C [address] [place] [address] Physician Operator Automated Process 12/09/23 Jimmy Baeza MD [address] [place] [address] Rope Tow Operator Electrophysiology 03/06/24 documented as of this encounter
--- OUTSIDE RECORDS SUMMARY | 2025-08-30 14:59 | XMS_ITS | Encounter Summary ---
Author Organization [employer] ([place], [place], [place], [place]) Address [address] [place] [address] Care Team Providers Care Gas Main Fitter Name Role Phone Lonny Pederson MD Primary Care Provider Romina Abreu MD Unavailable [phone] Florencia Wilcox MD Unavailable Aryan Penaloza PA-C Unavailable [phone] Vladimir hSook MD Unavailable Susan Rivers APRN Unavailable [phone] Aryan Good PA-C Unavailable [phone] Jimmy Baeza MD Unavailable Encounter Details Date Type Department Care Team (Late st Contact Info) Description 08/29/2020 Transcribed Document [facility] Family Medicine [address] [place] [address] ProviderEduardo MD [address] [place] [address] Social History Tobacco Use Types Packs/Day Years Used Date Smoking Tobacco: Never Assessed Comments Unknown Sex and Gender Information Value Date Recorded Sex Assigned at Female 09/20/2022 2:57 PM PROGRAM CONSULTANT Legal Sex Female 1:35 PM CDT Gender Identity Female 09/20/2022 2:57 PM PROGRAM CONSULTANT Sexual Orientation Straight 09/20/2022 2: 57 PM PROGRAM CONSULTANT documented as of this encounter Miscellaneous Notes * Cerner Conversion Note - Historical ProviderMD - 08/29/2020 1:11 [place] [address] FLOWER LOUISE :1945 Visit Time:08/28/2020 Your Visit [...] Within 2 to 3 days Where: [address] [facility] [address] [place] [address]- x2 Follow Up with MICHELE MARTIN MD-GAE When Within 1 week Where: [address] [facility] [address] [place] [address]- Medications What How Much When Instructions Next [...] these instructions at home: Medicines ??? Take xlqq-bph-qwdrxzt and prescription medicines only as told by [...] 04/11/2009 Document Revised: 03/13/2019 Document Reviewed: 03/13/2019 [employer] Patient Education ?? 2020 [employer]. Emergency Awareness and Preventative Care STROKE is [...] Assistance with quitting is available by contacting 5-708-OVVZ-NOW. This is a free resource providing counseling, support, and referral. Or you may contact your personal physician. [place] Suicide Prevention Lifeline: The National Suicide Prevention [...] range between ( 1.0 and 7.0 ) [place] #: 0.56 K/uL -- Normal range between ( 0.24 and 0.82 ) Eos #: 0.40 K/uL -- Normal range between ( 0.04 and 0.54 ) [place] %: 10.7 % -- Normal range between [...] ) Urine Bilirubin Dipstick: Negative Urine Specific [place]: 1.012 -- Normal range between ( 1.005 [...] was given the opportunity to ask questions. Patient/Car Greaser Name: Patient/Car Greaser Signature: Relationship to Patient: Clinician/Hospital Car Greaser Signature: Date: documented in this encounter Plan of Treatment Upcoming Encounters Date Type Department Care Team (Late st Contact Info) Description 09/06/2025 2:45 PM EDT Office Visit [facility] Urology - [address] [place] [address] Gerald Tamayo MD [address] [place] [address] [address] [place] [id number] 10/17/2025 9:30 AM EST Office Visit [facility] Primary Care [address] [place] [address] Lonny Pederson MD [address] [place] [address] 10/17/2025 10:45 AM EST Office Visit [facility] Cardiology - [address] [place] [address] Romina Abreu MD [address] [place] [address] 10/17/2025 1:45 PM EST Office Visit [facility] Neurology - [facility] [address] [place] [address] Susan Rivers APRN [address] [facility] [address] [place] [address] documented as of this encounter Visit Diagnoses Not on filedocumented in this encounter Care Teams Gas Main Fitter Relationship Specialty Start Date End Date Lonny Pederson MD [address] [place] [address] PCP - General Internal Medicine/Pediatrics 09/15/22 Romina Abreu MD [address] [place] [address] Skid Machine Operator Cardiology 09/22/22 Florencia Wilcox MD [address] [place] [address] Almond Paste Mixer Rheumatology 09/22/22 Aryan Penaloza PA-C [address] [place] [address] Orthopedist Orthopedic Surgery 09/22/22 Vladimir Shook MD [address] [place] [address] Sports Medicine 10/06/23 Susan Rivers, MAREN [address] [facility] [address] [place] [address] Neurology 10/06/23 Aryan Good PA-C [address] [place] [address] Physician Flight Engineer Inspector 12/09/23 Jimmy Baeza MD [address] [place] [address] Skid Machine Operator Electrophysiology 03/06/24 documented as of this encounter
--- OUTSIDE RECORDS SUMMARY | 2025-08-30 14:59 | XMS_ITS | Encounter Summary ---
Author Organization [employer] ([place], [place], [place], [place]) Address [address] [place] [address] Care Team Providers Care Research Animal Facility Supervisor Name Role Phone Lonny Pederson MD Primary Care Provider Romina Abreu MD Unavailable [phone] Florencia Wilcox MD Unavailable Aryan Penaloza PA-C Unavailable [phone] Vladimir Shook MD Unavailable Susan Rivers APRN Unavailable [phone] Aryan Good PA-C Unavailable [phone] Jimmy Baeza MD Unavailable Encounter Details Date Type Department Care Team (Late st Contact Info) Description 08/29/2020 Transcribed Document [facility] [place] [address] [place] [address] ProviderEduardo MD [address] [place] [address] Social History Tobacco Use Types Packs/Day Years Used Date Smoking Tobacco: Never Assessed Comments Unknown Sex and Gender Information Value Date Recorded Sex Assigned at Female 09/20/2022 2:57 PM BISCUITWARE BRUSHER Legal Sex Female 1:35 PM CDT Gender Identity Female 09/20/2022 2:57 PM BISCUITWARE BRUSHER Sexual Orientation Straight 09/20/2022 2: 57 PM BISCUITWARE BRUSHER documented as of this encounter Miscellaneous Notes * Cerner Conversion Note - Eduardo Foster MD - 08/29/2020 11:42 AM CDT Stroke/Warfarin Instructions Entered On: 08/29/2020 11:42 EDT Performed On: 08/29/2020 11:42 EDT by Indy Layne RN-Flex Team Stroke/Warfarin Instructions Stroke/TIA Discharge Ins : N/A Warfarin Discharge Ins : N/A Indy Layne RN-Flex Team - 08/29/2020 11:42 EDT Electronically signed by [facility] Conversion Carrot Buncher Cerner at 02/22/2023 5:07 PM CDT documented in this encounter Plan of Treatment Upcoming Encounters Date Type Department Care Team (Late st Contact Info) Description 09/06/2025 2:45 PM EDT Office Visit [facility] Urology - [facility] [address] [facility] [address] [place] [address] Gerald Tamayo MD [address] [place] [address] [address] [place], [place] [address] 10/17/2025 9:30 AM EST Office Visit [facility] Primary Care [address] [facility] [address] [place] [address] Lonny Pederson MD [address] [facility] [place] [address] 10/17/2025 10:45 AM EST Office Visit [facility] Cardiology - [facility] [address] [place] [address] Romina Abreu MD [address] [place] [address] 10/17/2025 1:45 PM EST Office Visit [facility] Neurology - [address] [place] [address] Susan Rivers, ENLISTED ADVISOR [address] [facility] [address] [place] [address] documented as of this encounter Visit Diagnoses Not on filedocumented in this encounter Care Teams Research Animal Facility Supervisor Relationship Specialty Start Date End Date Lonny Pederson MD [address] [place] [address] PCP - General Internal Medicine/Pediatrics 09/15/22 Romina Abreu MD [address] [place] [address] Reel And Rewinder Operator Cardiology 09/22/22 Florencia Wilcox MD [address] [place] [address] Certified Medical Technician Rheumatology 09/22/22 Aryan Penaloza PA-C [address] [place] [address] Orthopedist Orthopedic Surgery 09/22/22 Vladimir Shook MD [address] [place] [address] Sports Medicine 10/06/23 Susan Rivers, ENLISTED ADVISOR [address] [facility] [address] [place] [address] Neurology 10/06/23 Aryan Good PA-C [address] [place] [address] Physician Sports Official 12/09/23 Jimmy Baeza MD [address] [facility] [address] [place] [address] Reel And Rewinder Operator Electrophysiology 03/06/24 documented as of this encounter
--- OUTSIDE RECORDS SUMMARY | 2025-08-30 14:59 | XMS_ITS | Referral Summary ---
Author Organization [employer] ([place], [place], [place], [place]) Address [address] [place] [address] Care Team Providers Care Footwear Sales Coordinator Name Role Phone Lonny Pederson MD Primary Care Provider [phone] Romina Abreu MD Unavailable [phone] Florencia Wilcox MD Unavailable Aryan Penaloza PA-C Unavailable [phone] Vladimir Shook MD Unavailable Susan Rivers APRN Unavailable [phone] Aryan Good PA-C Unavailable [phone] Jimmy Baeza MD Unavailable Encounters Date Type Department Care Team Description 08/27/2025 Orders Only [facility] Primary Care [address] [place] [address] Lonny Pederson MD Stress incontinence of urine (Primary Dx) 06/15/2025 Refill [facility] Cardiology - [address] [place] [address] Romina Abreu MD Health care maintenance 06/10/2025 Abstract [facility] Primary Care [address] [place] [address] Lonny Pederson MD from Last 3 Months Allergies Active Allergy Reactions Criticality Noted Date Comments Xcjxmfx-Pa-Ui-Acetaminophen -Gg 06/10/2022 Diphenhydramine Hcl Itching 08/24/2012 diphenhydramine hydrochloride Naproxen Itching 02/23/2012 Other reaction(s): C/O: itching, C/O: itching naproxen Medications aspirin 81 MG EC tabletIndication s:Health care maintenance aspirin 81 mg tablet Daily Active famotidine (PEPCID) 40 MG tablet Take 1 tablet (40 mg total) by mouth daily. Active mv,Ca,ir,Mn-FA-c bs-zow-zmb-PAB (Body, Hair, Skin and Nails) 3-133 mg-mcg [...] Dementia, Mild or Unspecified DOS 02/22/2024 Provider [facility] ICD 10 [id number] ICD Description Chronic Kidney [...] regurgitation 09/14/2021 Coronary artery disease invo lving apache coronary artery of apache heart, unspecified whether angina present 09/14/2021 Overview (03/06/2024): CAD with TRACK MACHINE OPERATOR REPAIRER of RCA with good collateral system. Diastolic dysfunction 09/14/2021 SSS (sick sinus syndrome) 09/14/2021 Overview (03/06/2024): Pacemaker in-situ S/P placement of cardiac pacemaker 02/26/2021 Gastroesophageal reflux disease 02/26/2021 Hyperthyroidism 06/27/2020 Neuropathy 04/22/2020 Inequality of length of lower extremity 10/25/20 19 nursing home (current) use of anticoagulants 2018 Pseudophakia 07/07/2017 [...] Next Due INFLUENZA QIV ADJUVANTED PF IM ([id number]) 10/06/20 23,09/24/2022 INFLUENZA(FLUAD)_0.5 mL (65+)TRI(UEF999) 024 Influenza Four-QIV PF 3+YR IM 06/30/2017 Influenza High Dose Preservative Free IM ([id number] ) 08/17/2018 Influenza, High Dose 08/17/2018 Influenza, [...] Date Allan rded Speak language other than Czech at home Not on file 11/15/2023 Want help with school or training Not on file 11/15/2023 Substance Use Answer Date Recorded Used prescription meds for non-medical reasons N ot on file 11/15/2023 Used illegal drugs past 12 months Not on file 11/15/2023 Comments No Sex and Gender Information Value Date Recorded Sex Assigned at Female 09/20/2022 2:57 PM METAL MOULDER Legal Sex Female 1:35 PM CDT Gender Identity Female 09/20/2022 2:57 PM METAL MOULDER Sexual Orientation Straight 09/20/2022 2: 57 PM METAL MOULDER Last Filed Vital Signs Vital Sign Reading [...] Office Visit [facility] Urology - [address] [place] [address] Gerald Tamayo MD [address] [facility] [address] [place], [place] [id number] 10/17/2025 9:30 AM EST Office Visit [facility] Primary Care [address] [place] [address] Lonny ePderson MD [address] [place] [address] 10/17/2025 10:45 AM EST Office Visit [facility] Cardiology - [address] [place] [address] Romina Abreu MD [address] [place], [place] [address] 10/17/2025 1:45 PM EST Office Visit [facility] Neurology - [facility] [address] [facility] [address] [place] [address] Susan Rivers APRN [address] [facility] [address] [place], [place] [id number] Medical Devices Implanted Type Area Cook Vegetable Device Identifier Shelf Expiration Date Model / Serial / Lot Pacemaker Assurity Mri Dbl [id number] - [id number] Implanted:Qt y: 1 on 02/22/2024 at [facility] PACEMAKER/ICD CHAMBER DEVICE Chest Wall [facility] MED:CARDIAC RHYM MGMT [id number] 07/07/2025 [id number] / [id number] / Pacemaker / Ha Implanted: (Quantity not on file) Pacemakers [employer] [address] ROJAS [id number] / [id number] / Procedures Procedure Name Priority Date/Time Associated [...] 09/25/2022 3:06 AM EST Performed at: - [facility] [id number] Protein Scientist: Kishor Chowdary PhD, Phone: [phone] us Lonny Pederson MD LAB BLOOD ORDERABLES Dana chantel Result [facility] from Last 3 Months or Most Recently Relevant to Health Maintenance Insurance [email or web address] MEDICARE PART A B Advance Directives For more information, please contact: [phone] * Full Code (Latest Code Status on File) Date Activated Date Inactivated Comments 02/22/2024 4:17 PM 02/23/2024 4:27 AM * Full Code Date Activated Date Inactivated Comments 02/21/2024 9:32 PM 02/22/2024 4:17 PM Care Teams Footwear Sales Coordinator Relationship Specialty Start Date End Date Lonny Pederson MD [address] [place] [address] PCP - General Internal Medicine/Pediatrics 09/15/22 Romina Abreu MD [address] [place], [place] [id number] [facility] Cardiology 09/22/22 Florencia Wilcox MD [address] [place] [address] Surgical Scrub Technician Rheumatology 09/22/22 Aryan Penaloza PA-C [address] [place] [address] Orthopedist Orthopedic Surgery 09/22/22 Vladimir Shook MD [address] [place] [address] Sports Medicine 10/06/23 Susan Rivers, CLAIM BENEFIT SPECIALIST [address] [facility] [address] [place], [place] [address] Neurology 10/06/23 Aryan Good PA-C [address] [place] [address] Physician Gas Substation Operator 12/09/23 Jimmy Baeza MD [address] [facility] [address] [place] [address] [place] Electrophysiology 03/06/24
--- OUTSIDE RECORDS SUMMARY | 2025-08-30 14:59 | XMS_ITS | Encounter Summary ---
Author Organization [employer] ([place], [place], [place], [place]) Address [address] [place] [address] Care Team Providers Care Peanut Vendor Name Role Phone Lonny Pederson MD Primary Care Provider Romina Abreu MD Unavailable [phone] Florencia Wilcox MD Unavailable Aryan Penaloza PA-C Unavailable [phone] Vladimir Shook MD Unavailable Susan Rivers APRN Unavailable [phone] Aryan Good PA-C Unavailable [phone] Jimmy Baeza MD Unavailable Encounter Details Date Type Department Care Team (Late st Contact Info) Description 08/29/2020 Transcribed Document [facility] [place] [address] [place] [address] ProviderEduardo MD [address] [place] [address] Social History Tobacco Use Types Packs/Day Years Used Date Smoking Tobacco: Never Assessed Comments Unknown Sex and Gender Information Value Date Recorded Sex Assigned at Female 09/20/2022 2:57 PM PANEL MACHINE OPERATOR Legal Sex Female 1:35 PM CDT Gender Identity Female 09/20/2022 2:57 PM PANEL MACHINE OPERATOR Sexual Orientation Straight 09/20/2022 2: 57 PM PANEL MACHINE OPERATOR documented as of this encounter Miscellaneous Notes * Cerner Conversion Note - Historical ProviderMD - 08/29/2020 1:08 [place] [address] FLOWER LOUISE :1945 Visit Time:08/28/2020 Your Visit [...] Within 2 to 3 days Where: [address] [facility] [address] [place] [address]- x2 Follow Up with MICHELE MARTIN MD-GAE When Within 1 week Where: [address] [facility] [address] [place] [address]- Medications What How Much When Instructions Next [...] these instructions at home: Medicines ??? Take zusr-szu-jseznnm and prescription medicines only as told by [...] 04/11/2009 Document Revised: 03/13/2019 Document Reviewed: 03/13/2019 Magento Patient Education ?? 2020 [employer]. Emergency Awareness and Preventative Care STROKE is [...] Assistance with quitting is available by contacting 7-906-PLRK-NOW. This is a free resource providing counseling, support, and referral. Or you may contact your personal physician. [place] Suicide Prevention Lifeline: The National Suicide Prevention [...] range between ( 1.0 and 7.0 ) Evangeline #: 0.56 K/uL -- Normal range between ( 0.24 and 0.82 ) Eos #: 0.40 K/uL -- Normal range between ( 0.04 and 0.54 ) Evangeline %: 10.7 % -- Normal range between [...] ) Urine Bilirubin Dipstick: Negative Urine Specific [place]: 1.012 -- Normal range between ( 1.005 [...] was given the opportunity to ask questions. Patient/Php Consultant Name: Patient/Php Consultant Signature: Relationship to Patient: Clinician/Hospital Php Consultant Signature: Date: documented in this encounter Plan of Treatment Upcoming Encounters Date Type Department Care Team (Late st Contact Info) Description 09/06/2025 2:45 PM EDT Office Visit [facility] Urology - [address] [place] [address] Gerald Tamayo MD [address] [place] [address] [address] [place] [id number] 10/17/2025 9:30 AM EST Office Visit [facility] Primary Care [address] [place] [address] Lonny Pederson MD [address] [place] [address] 10/17/2025 10:45 AM EST Office Visit [facility] Cardiology - [address] [place] [address] Romina Abreu MD [address] [place] [address] 10/17/2025 1:45 PM EST Office Visit [facility] Neurology - [facility] [address] [place] [address] Susan Rivers APRN [address] [facility] [address] [place] [address] documented as of this encounter Visit Diagnoses Not on filedocumented in this encounter Care Teams Peanut Vendor Relationship Specialty Start Date End Date Lonny Pederson MD [address] [place] [address] PCP - General Internal Medicine/Pediatrics 09/15/22 Romina Abreu MD [address] [place] [address] Shoe Stitcher Odd Cardiology 09/22/22 Florencia Wilcox MD [address] [place] [address] Metal Fabricator Apprentice Rheumatology 09/22/22 Aryan Penaloza PA-C [address] [place] [address] Orthopedist Orthopedic Surgery 09/22/22 Vladimir Shook MD [address] [place] [address] Sports Medicine 10/06/23 Susan Rivers, MAREN [address] [facility] [address] [place] [address] Neurology 10/06/23 Aryan Good PA-C [address] [place] [address]ist 12/09/23 Jimmy Baeza MD [address] [place] [address] Shoe Stitcher Odd Electrophysiology 03/06/24 documented as of this encounter
--- OUTSIDE RECORDS SUMMARY | 2025-08-30 14:59 | XMS_ITS | Encounter Summary ---
Author Organization [employer] ([place], [place], [place], [place]) Address [address] [place] [address] Care Team Providers Care Switchman Supervisor Name Role Phone Lonny Pederson MD Primary Care Provider Romina Abreu MD Unavailable [phone] Florencia Wilcox MD Unavailable Aryan Penaloza PA-C Unavailable [phone] Vladimir Shook MD Unavailable Susan Rivers APRN Unavailable [phone] Aryan Good PA-C Unavailable [phone] Jimmy Baeza MD Unavailable Encounter Details Date Type Department Care Team (Late st Contact Info) Description 08/29/2020 Transcribed Document [facility] [place] [address] [place] [address] ProviderEduardo MD [address] [place] [address] Social History Tobacco Use Types Packs/Day Years Used Date Smoking Tobacco: Never Assessed Comments Unknown Sex and Gender Information Value Date Recorded Sex Assigned at Female 09/20/2022 2:57 PM TERRAZZO LABORER Legal Sex Female 1:35 PM CDT Gender Identity Female 09/20/2022 2:57 PM TERRAZZO LABORER Sexual Orientation Straight 09/20/2022 2: 57 PM TERRAZZO LABORER documented as of this encounter Miscellaneous [...] these instructions at home: Medicines ??? Take wfuk-vtp-hhsslbb and prescription medicines only as told by [...] Reviewed: 03/13/2019 Elsevier Patient Education ? 2020 [employer] documented in this encounter Plan of Treatment Upcoming Encounters Date Type Department Care Team (Late st Contact Info) Description 09/06/2025 2:45 PM EDT Office Visit [facility] Urology - [address] [facility] [address] [place] [address] Gerald Tamayo MD [address] [facility] [address] [place], [place] [address] 10/17/2025 9:30 AM EST Office Visit [facility] Primary Care [address] [facility] [address] [place] [address] Lonny Pederson MD [address] [place] [address] 10/17/2025 10:45 AM EST Office Visit [facility] Cardiology - [facility] [address] [place] [address] Romina Abreu MD [address] [facility] [address] [place] [address] 10/17/2025 1:45 PM EST Office Visit [facility] Neurology - [facility] [address] [facility] [address] [place] [address] Susan Rivers APRN [address] [facility] [address] [place], [place] [id number] documented as of this encounter Visit Diagnoses Not on filedocumented in this encounter Care Teams Switchman Supervisor Relationship Specialty Start Date End Date Lonny Pederson MD [address] [place] [address] PCP - General Internal Medicine/Pediatrics 09/15/22 Romina Abreu MD [address] [place] [address] Compliance Quality Performance Analyst Cardiology 09/22/22 Florencia Wilcox MD [address] [place] [address] Ironworker Foreman Rheumatology 09/22/22 Aryan Penaloza PA-C [address] [place] [address] Orthopedist Orthopedic Surgery 09/22/22 Vladimir Shook MD [address] [place] [address] Sports Medicine 10/06/23 Susan Rivers, PLATE WORKER [address] [facility] [address] [place] [address] Neurology 10/06/23 Aryan Good PA-C [address] [place] [address] Physician Commercial Maintenance Technician 12/09/23 Jimmy Baeza MD [address] [facility] [address] [place] [address] Compliance Quality Performance Analyst Electrophysiology 03/06/24 documented as of this encounter
--- OUTSIDE RECORDS SUMMARY | 2025-08-30 14:59 | XMS_ITS | Encounter Summary ---
Author Organization [employer] ([place], [place], [place], [place]) Address [address] [place] [address] Care Team Providers Care Marine Cargo Inspector Name Role Phone Lonny Pederson MD Primary Care Provider Romina Abreu MD Unavailable [phone] Florencia Wilcox MD Unavailable Aryan Penaloza PA-C Unavailable [phone] Vladimir Shook MD Unavailable Susan Rivers APRN Unavailable [phone] Aryan Good PA-C Unavailable [phone] Jimmy Baeza MD Unavailable Encounter Details Date Type Department Care Team (Late st Contact Info) Description 08/29/2020 Transcribed Document [facility] [place] [address] [place] [address] ProviderEduardo MD [address] [place] [address] Social History Tobacco Use Types Packs/Day Years Used Date Smoking Tobacco: Never Assessed Comments Unknown Sex and Gender Information Value Date Recorded Sex Assigned at Female 09/20/2022 2:57 PM MACHINE FORMER Legal Sex Female 1:35 PM CDT Gender Identity Female 09/20/2022 2:57 PM MACHINE FORMER Sexual Orientation Straight 09/20/2022 2: 57 PM MACHINE FORMER documented as of this encounter Miscellaneous Notes * Cerner Conversion Note - Historical Provider, - 08/29/2020 8:53 AM CDT [facility] End[facility] PACU Summary Primary Physician: MICHELE MARTIN MD-[facility] Finalized Date/Time: 08/29/20 09:28:04 Pt. Name: FLOWER LOUISE /Sex: 1945 Female Med Rec #: [id number] Physician: VERNON PRIETO DO Financial #: [id number] Pt. Type: O Room/Bed: [facility] Admit/Disch: 08/28/20 14:58:00 - Institution: [facility] PACU Case Times Entry 1 In PACU I 08/29/20 08:59:00 Ready for PACU 08/29/20 09:27:00 Discharge Discharge from PACU 08/29/20 09:28:00 [place] [facility] PACU Case Times Audit 08/29/20 09:28:02 Cattle Dehorner: [id number] Modifier: [id number] <+> 1 Ready for PACU Discharge <+> 1 Discharge from PACU I Finalized By: TERA JORDAN RN Document Signatures Signed By: TERA JORDAN RN 08/29/20 09:28 Electronically signed by [facility] Conversion Production Planning Manager Cerner at 02/22/2023 5:16 PM CDT documented in this encounter Plan of Treatment Upcoming Encounters Date Type Department Care Team (Late st Contact Info) Description 09/06/2025 2:45 PM EDT Office Visit [facility] Urology - [address] [facility] [address] [place] [address] Gerald Tamayo MD [address] [facility] [address] [place] [address] 10/17/2025 9:30 AM EST Office Visit [facility] Primary Care [address] [facility] [address] [place] [address] Lonny Pederson MD [address] [place] [address] 10/17/2025 10:45 AM EST Office Visit [facility] Cardiology - [address] [place] [address] Romina Abreu MD [address] [place], [place] [address] 10/17/2025 1:45 PM EST Office Visit [facility] Neurology - [facility] [address] [facility] [address] [place] [address] Susan Rivers APRN [address] [facility] [address] [place], [place] [address] documented as of this encounter Visit Diagnoses Not on filedocumented in this encounter Care Teams Marine Cargo Inspector Relationship Specialty Start Date End Date Lonny Pederson MD [address] [place] [address] PCP - General Internal Medicine/Pediatrics 09/15/22 Romina Abreu MD [address] [place], [place] [address] Burial Needs Salesperson Cardiology 09/22/22 Florencia Wilcox MD [address] [place] [address] Slip Bridge Operator Rheumatology 09/22/22 Aryan Penaloza PA-C [address] [place], [place] [address] Orthopedist Orthopedic Surgery 09/22/22 Vladimir Shook MD [address] [place], [place] [address] Sports Medicine 10/06/23 Susan Rivers, MAREN [address] [facility] [address] [place] [address] Neurology 10/06/23 Aryan Good PA-C [address] [place], [place] [address] Physician Vault Custodian 12/09/23 Jimmy Baeza MD [address] [facility] [address] [place] [address] Burial Needs Salesperson Electrophysiology 03/06/24 documented as of this encounter
--- OUTSIDE RECORDS SUMMARY | 2025-08-30 14:59 | XMS_ITS | Encounter Summary ---
Author Organization [employer] ([place], [place], [place], [place]) Address [address] [place] [address] Care Team Providers Care Fruit Buyer Name Role Phone Lonny Pederson MD Primary Care Provider Romina Abreu MD Unavailable [phone] Florencia Wilcox MD Unavailable Aryan Penaloza PA-C Unavailable [phone] Vladimir Shook MD Unavailable Susan Rivers APRN Unavailable [phone] Aryan Good PA-C Unavailable [phone] Jimmy Baeza MD Unavailable Encounter Details Date Type Department Care Team (Late st Contact Info) Description 08/29/2020 Transcribed Document [facility] [place] [address] [place] [address] ProviderEduardo MD [address] [place] [address] Social History Tobacco Use Types Packs/Day Years Used Date Smoking Tobacco: Never Assessed Comments Unknown Sex and Gender Information Value Date Recorded Sex Assigned at Female 09/20/2022 2:57 PM CHAIN OFFBEARER Legal Sex Female 1:35 PM CDT Gender Identity Female 09/20/2022 2:57 PM CHAIN OFFBEARER Sexual Orientation Straight 09/20/2022 2: 57 PM CHAIN OFFBEARER documented as of this encounter Miscellaneous Notes [...] 08/29/2020 14:27 EDT Electronically signed by [facility] Conversion Transport Driver Cerner at 02/22/2023 5:10 PM CDT documented in this encounter Plan of Treatment Upcoming Encounters Date Type Department Care Team (Late st Contact Info) Description 09/06/2025 2:45 PM EDT Office Visit [facility] Urology - [facility] [address] [facility] [address] [place] [address] Gerald Tamayo MD [address] [facility] [address] [place] [address] 10/17/2025 9:30 AM EST Office Visit [facility] Primary Care [address] [facility] [address] [place] [address] Lonny Pederson MD [address] [place] [address] 10/17/2025 10:45 AM EST Office Visit [facility] Cardiology - [place] [address] [place] [address] Romina Abreu MD [address] [place], [place] [address] 10/17/2025 1:45 PM EST Office Visit [facility] Neurology - [facility] [address] [place] [address] Susan Rivers, MAREN [address] [facility] [address] [place] [address] documented as of this encounter Visit Diagnoses Not on filedocumented in this encounter Care Teams Fruit Buyer Relationship Specialty Start Date End Date Lonny Pederson MD [address] [place] [address] PCP - General Internal Medicine/Pediatrics 09/15/22 Romina Abreu MD [address] [place] [address] Resist Coater Developer Cardiology 09/22/22 Florencia Wilcox MD [address] [place] [address] Label Tacker Rheumatology 09/22/22 Aryan Penaloza PA-C [address] [place] [address] Orthopedist Orthopedic Surgery 09/22/22 Vladimir Shook MD [address] [place] [address] Sports Medicine 10/06/23 Susan Rivers, MAREN [address] [facility] [address] [place] [address] Neurology 10/06/23 Aryan Good PA-C [address] [place] [address] Physician Dock Attendant 12/09/23 Jimmy Baeza MD [address] [place] [address] Resist Coater Developer Electrophysiology 03/06/24 documented as of this encounter
--- OUTSIDE RECORDS SUMMARY | 2025-08-30 14:59 | XMS_ITS | Encounter Summary ---
Author Organization [employer] ([place], [place], [place], [place]) Address [address] [place] [address] Care Team Providers Care Dry Wall Plasterer Name Role Phone Lonny Pederson MD Primary Care Provider Romina Abreu MD Unavailable [phone] Florencia Wilcox MD Unavailable Aryan Penaloza PA-C Unavailable [phone] Vladimir Shook MD Unavailable Susan Rivers APRN Unavailable [phone] Aryan Good PA-C Unavailable [phone] Jimmy Baeza MD Unavailable Encounter Details Date Type Department Care Team (Late st Contact Info) Description 08/29/2020 Transcribed Document [facility] [place] [address] [place] [address] ProviderEduardo MD [address] [place] [address] Social History Tobacco Use Types Packs/Day Years Used Date Smoking Tobacco: Never Assessed Comments Unknown Sex and Gender Information Value Date Recorded Sex Assigned at Female 09/20/2022 2:57 PM CLINICAL IMMUNOLOGIST Legal Sex Female 1:35 PM CDT Gender Identity Female 09/20/2022 2:57 PM CLINICAL IMMUNOLOGIST Sexual Orientation Straight 09/20/2022 2: 57 PM CLINICAL IMMUNOLOGIST documented as of this encounter Miscellaneous Notes * Cerner Conversion Note - Historical Provider, - 08/29/2020 8:30 AM CDT [facility] PreOp Summary Primary Physician: MICHELE MARTIN MD-[facility] Finalized Date/Time: 08/29/20 08:17:38 Pt. Name: FLOWER LOUISE /Sex: 1945 Female Med Rec #: [id number] Physician: VERNON PRIETO DO Financial #: [id number] Pt. Type: O Room/Bed: [facility]/ Admit/Disch: 08/28/20 14:58:00 - Institution: [facility] PreOp Case Times Entry 1 In Preop 08/29/20 08:00:00 Ready for Holding n/a Room Patient Ready for 08/29/20 08:17:00 Surgery Patient Out of Preop 08/29/20 08:17:00 Patient Out of n/a Holding Room [facility] PreOp Case Times Audit 08/29/20 08:17:36 Smokehouse Worker: [id number] Modifier: [id number] <+> 1 Patient Out of Preop <+> 1 Patient Ready for Surgery Finalized By: Leila Good, Rn Document Signatures Signed By: Leila Good Rn 08/29/20 08:17 documented in this encounter Plan of Treatment Upcoming Encounters Date Type Department Care Team (Late st Contact Info) Description 09/06/2025 2:45 PM EDT Office Visit [facility] Urology - [facility] [address] [facility] [address] [place] [address] Gerald Tamayo MD [facility] [address] [place] [address] 10/17/2025 9:30 AM EST Office Visit [facility] Primary Care [address] [place] [address] Lonny Pederson MD [address] [place] [address] 10/17/2025 10:45 AM EST Office Visit [facility] Cardiology - [facility] [address] [place] [address] Romina Abreu MD [address] [place], [place] [address] 10/17/2025 1:45 PM EST Office Visit [facility] Neurology - [facility] [address] [place] [address] [address] [place] [address] Susan Rivers APRN [address] [facility] [address] [place], [place] [address] documented as of this encounter Visit Diagnoses Not on filedocumented in this encounter Care Teams Dry Wall Plasterer Relationship Specialty Start Date End Date Lonny Pederson MD [address] [place] [address] PCP - General Internal Medicine/Pediatrics 09/15/22 Romina Abreu MD [address] [place], [place] [address] Brush Sander Cardiology 09/22/22 Florencia Wilcox MD [address] [place] [address] Dredge Operator Supervisor Rheumatology 09/22/22 Aryan Penaloza PA-C [address] [place], [place] [address] Orthopedist Orthopedic Surgery 09/22/22 Vladimir Shook MD [address] [place], [place] [address] Sports Medicine 10/06/23 Susan Rivers APRN [address] [facility] [address] [place] [address] Neurology 10/06/23 Aryan Good PA-C [address] [place] [address] Physician Patient Service Technician Pst 12/09/23 Jimmy Baeza MD [address] [facility] [address] [place], [place] [address] Brush Sander Electrophysiology 03/06/24 documented as of this encounter
--- OUTSIDE RECORDS SUMMARY | 2025-08-30 14:59 | XMS_ITS | Encounter Summary ---
Author Organization [email or web address] ([place], [place], [place], [place]) Address [address] [place] [address] Care Team Providers Care Urgent Care Physician Assistant Name Role Phone Lonny Pederson MD Primary Care Provider Romina Abreu MD Unavailable [phone] Florencia Wilcox MD Unavailable Aryan Penaloza PA-C Unavailable [phone] Vladimir Shook MD Unavailable Susan Rivers APRN Unavailable [phone] Aryan Good PA-C Unavailable [phone] Jimmy Baeza MD Unavailable Encounter Details Date Type Department Care Team (Late st Contact Info) Description 08/28/2020 Transcribed Document [facility] Family Medicine [address] [place] [address] ProviderEduardo MD [address] [place] [address] Social History Tobacco Use Types Packs/Day Years Used Date Smoking Tobacco: Never Assessed Comments Unknown Sex and Gender Information Value Date Recorded Sex Assigned at Female 09/20/2022 2:57 PM TERMITE CONTROL SERVICE REPRESENTATIVE Legal Sex Female 1:35 PM CDT Gender Identity Female 09/20/2022 2:57 PM TERMITE CONTROL SERVICE REPRESENTATIVE Sexual Orientation Straight 09/20/2022 2: 57 PM TERMITE CONTROL SERVICE REPRESENTATIVE documented as of this encounter Miscellaneous [...] EDT Legal Guardian : Unaccompanied Support Person/Patient Laser/Electro Optics Technician : Yes Support Person/Pt Rep Name : thais Bautista Support Person/Pt Rep Contact Information : [id number] Want Family/Rep/Phys Notified of Admit : No Emergency Contact #1 : Thais Bautista Emergency Contact #1 Phone Number : [phone] Emergency Contact #1 Relationship : daughter Emergency Contact #2 : . Emergency Contact #2 Phone Number : . Emergency Contact #2 Relationship : . Chief Complaint : Pt arrived via [place] c/o nausea and vomiting. Pt states this morning she vomiting and noticed blood with it. Information Obtained From : Patient Primary Language : Czech Preferred Communication Mode : Verbal Communication Barrier : None Dye Beck Reel Operator Needed : No Rani Esqueda Rn - [...] Scale Risk Level : 25-45 Medium Risk [place] Fall Interventions : Adequate lighting, Assistive devices [...] Source : Stated Height Entry Format : [place] Height, Feet : 5 ft(Converted to: 152 cm, 60 Inch) Height, Inches : 4 Inch(Converted to: 0 ft 4 Inch, 10.16 cm) Clinical Height : 162.56 cm Weight Source : Bed scale Weight Entry Format : [place] Clinical Dosing Weight : 77.73 kg Weight, Pounds : 171 lb Body Surface Area (BSA) : 1.83 m2 Body Mass Index : 29.4 kg/m2 (HI) [place] Body Weight : 54 kg Rani Esqueda [...] Tetanus Immunization : Less than 5 years Rnai Esqueda Rn - 08/28/2020 17:42 EDT Influenza [...] Rani Esqueda Rn - 08/28/2020 17:42 EDT [place] Suicide Severity Rating Scale (C-SSRS) CSSRS Past [...] 08/28/2020 17:42 EDT Electronically signed by [facility] Conversion Pipe Fitter Welding Cerner at 02/22/2023 5:25 PM CDT documented in this encounter Plan of Treatment Upcoming Encounters Date Type Department Care Team (Late st Contact Info) Description 09/06/2025 2:45 PM EDT Office Visit [facility] Urology - [facility] [address] [place] [address] Gerald Tamayo MD [address] [place] [address] [address] [place], [place] [address] 10/17/2025 9:30 AM EST Office Visit [facility] Primary Care [address] [place] [address] Lonny Pederson MD [address] [facility] [place] [address] 10/17/2025 10:45 AM EST Office Visit [facility] Cardiology - [facility] [address] [place] [address] Romina Abreu MD [address] [place], [place] [id number] 10/17/2025 1:45 PM EST Office Visit [facility] Neurology - [facility] [address] [place] [address] Susan Rivers, MAREN [address] [facility] [address] [place] [address] documented as of this encounter Visit Diagnoses Not on filedocumented in this encounter Care Teams Urgent Care Physician Assistant Relationship Specialty Start Date End Date Lonny Pdeerson MD [address] [place] [address] PCP - General Internal Medicine/Pediatrics 09/15/22 Romina Abreu MD [address] [place] [address] Publication Director Cardiology 09/22/22 Florencia Wilcox MD [address] [place] [address] Operator Automated Process Rheumatology 09/22/22 Aryan Penaloza PA-C [address] [place] [address] Orthopedist Orthopedic Surgery 09/22/22 Vladimir Shook MD [address] [place] [address] Sports Medicine 10/06/23 Susan Rivers, MAREN [address] [facility] [address] [place] [address] Neurology 10/06/23 Aryan Good PA-C [address] [place] [address] Physician Transition Mgr Rn 12/09/23 Jimmy Baeza MD [address] [place] [address] Publication Director Electrophysiology 03/06/24 documented as of this encounter
--- OUTSIDE RECORDS SUMMARY | 2025-08-30 14:59 | XMS_ITS | Clinical Summary ---
Author Organization [employer] ([place], [place], [place], [place]) Address [address] [place] [address] Care Team Providers Care Cafeteria Server Name Role Phone Lonny Pederson MD Primary Care Provider [phone] Romina Abreu MD Unavailable [phone] Florencia Wilcox MD Unavailable Aryan Penaloza PA-C Unavailable [phone] Vladimir Shook MD Unavailable Susan Rivers APRN Unavailable [phone] Aryan Good PA-C Unavailable [phone] Jimmy Baeza MD Unavailable Allergies Active Allergy Reactions Criticality Noted Date Comments Rvkvmgl-Ns-Od-Acetaminophen -Gg 06/10/2022 Diphenhydramine Hcl Itching 08/24/2012 diphenhydramine hydrochloride Naproxen Itching 02/23/2012 Other reaction(s): C/O: itching, C/O: itching naproxen Medications aspirin 81 MG EC tabletIndication s:Health care maintenance aspirin 81 mg tablet Daily Active famotidine (PEPCID) 40 MG tablet Take 1 tablet (40 mg total) by mouth daily. Active mv,Ca,ir,Mn-FA-c et-efr-fki-PAB (Body, Hair, Skin and Nails) 3-133 mg-mcg [...] Dementia, Mild or Unspecified DOS 02/22/[address] [facility] ICD 10 N1831 ICD Description Chronic [...] regurgitation 09/14/2021 Coronary artery disease invo lving platinum coronary artery of platinum heart, unspecified whether angina present 09/14/2021 Overview (03/06/2024): CAD with EXAMINATION SUPERVISOR of RCA with good collateral system. 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 2018 Pseudophakia 07/07/2017 [...] Department Care Team Description 08/27/2025 Orders Only [facility] Primary Care [address] [place] [address] Lonny Pederson MD Stress incontinence of urine (Primary Dx) 06/15/2025 Refill [facility] Cardiology - [address] [place] [address] Romina Abreu MD Health care maintenance 06/10/2025 Abstract [facility] Primary Care [address] [facility] [address] [place] [address] Lonny Pederson MD from Last 3 Months Immunizations Immunization Administration Dates Next Due INFLUENZA QIV ADJUVANTED PF IM ([id number]) 10/06/20 23,09/24/2022 INFLUENZA(FLUAD)_0.5 mL (65+)TRI([id number]) 024 Influenza Four-QIV PF 3+YR IM 06/30/2017 Influenza High Dose Preservative Free IM ([id number] ) 08/17/2018 Influenza, High Dose 08/17/2018 Influenza, [...] Date Allan rded Speak language other than Amharic at home Not on file 11/15/2023 Want help with school or training Not on file 11/15/2023 Substance Use Answer Date Recorded Used prescription meds for non-medical reasons N ot on file 11/15/2023 Used illegal drugs past 12 months Not on file 11/15/2023 Comments No Sex and Gender Information Value Date Recorded Sex Assigned at Female 09/20/2022 2:57 PM METER INSTALLER AND REMOVER Legal Sex Female 1:35 PM CDT Gender Identity Female 09/20/2022 2:57 PM METER INSTALLER AND REMOVER Sexual Orientation Straight 09/20/2022 2: 57 PM METER INSTALLER AND REMOVER Last Filed Vital Signs Vital Sign Reading [...] Description 09/06/2025 2:45 PM EDT Office Visit [facility] Urology - [address] [place] [address] Gerald Tamayo MD [address] [facility] [address] [place], [place] [id number] 10/17/2025 9:30 AM EST Office Visit [facility] Primary Care [address] [place] [address] Lonny Pederson MD [address] [place] [address] 10/17/2025 10:45 AM EST Office Visit [facility] Cardiology - [address] [place] [address] Romina Abreu MD [address] [place], [place] [id number] 10/17/2025 1:45 PM EST Office Visit [facility] Neurology - [facility] [address] [facility] [address] [place] [id number] Susan Rivers APRN [address] [facility] [address] [place], [place] [address] Health Maintenance Due Date Last Done Comments [...] Completed 05/01/2025 Medical Devices Implanted Type Area S Iron Worker Device Identifier Shelf Expiration Date Model / Serial / Lot Pacemaker Assurity Mri Dbl [id number] - [id number] Implanted:Qt y: 1 on 02/22/2024 at [facility] PACEMAKER/ICD CHAMBER DEVICE Chest Wall [facility] MED:CARDIAC RHYM MGMT [id number] 07/07/2025 [id number] / [id number] / Pacemaker / Corey Implanted: (Quantity not on file) Pacemakers [employer] ACCENT DR ROJAS [id number] / [id number] / Procedures Procedure Name Priority Date/Time Associated Diagnosis Comments HEMOGLOBIN A1C Routine 09/24/2022 2:21 PM EST Healthcare maintenance from Last 3 Months or Most Recently Relevant to Health Maintenance Results * Hemoglobin A1c (09/24/2022 2:21 PM EST) Pathologist [facility] Hemoglobin A1c 5.2 4.8 - 5.6 % [facility] Comment: Prediabetes: 5.7 - 6.4 Diabetes: >6.4 Glycemic control for adults with diabetes: <7.0 Blood 09/24/2022 2:21 PM EST 09/24/2022 Narrative [facility] - 09/25/2022 3:06 AM EST Performed at: [facility] [id number] Cigar Packer And Picker: Kishor Chowdary PhD, Phone: [phone] us Lonny Pederson MD LAB BLOOD ORDERABLES Dana golden Result [facility] from Last 3 Months or Most Recently Relevant to Health Maintenance Insurance [facility] Higher One MEDICARE PART A B Advance Directives For more information, please contact: [phone] * Full Code (Latest Code Status on File) Date Activated Date Inactivated Comments 02/22/2024 4:17 PM 02/23/2024 4:27 AM * Full Code Date Activated Date Inactivated Comments 02/21/2024 9:32 PM 02/22/2024 4:17 PM Care Teams Cafeteria Server Relationship Specialty Start Date End Date Lonny Pederson MD [address] [facility] [address] [place] [address] PCP - General Internal Medicine/Pediatrics 09/15/22 Romina Abreu MD [address] [facility] [address] [place] [address] Credit Collections Clerk Cardiology 09/22/22 Florencia Wilcox MD [address] [place] [address] Cooker Sulfite Rheumatology 09/22/22 Aryan Penaloza PA-C [address] [place] [address] Orthopedist Orthopedic Surgery 09/22/22 Vladimir Shook MD [address] [place], [place] [address] Sports Medicine 10/06/23 Susan Rivers, MAREN [address] [facility] [address] [place], [place] [address] Neurology 10/06/23 Aryan Good PA-C [address] [place] [address] Physician Safety Admin Assistant 12/09/23 Jimmy Baeza MD [address] [facility] [address] [place], [place] [address] Credit Collections Clerk Electrophysiology 03/06/24
--- OUTSIDE RECORDS SUMMARY | 2025-08-30 14:59 | XMS_ITS | Encounter Summary ---
Author Organization [employer] ([place], [place], [place], [place]) Address [address] [place] [address] Care Team Providers Care Orthotic/Prosthetic Practitioner Name Role Phone Lonny Pederson MD Primary Care Provider Romina Abreu MD Unavailable [phone] Florencia Wilcox MD Unavailable Aryan Penaloza PA-C Unavailable [phone] Vladimir Shook MD Unavailable Susan Rivers APRN Unavailable [phone] Aryan Good PA-C Unavailable [phone] Jimmy Baeza MD Unavailable Encounter Details Date Type Department Care Team (Late st Contact Info) Description 08/28/2020 Transcribed Document [facility] Family Medicine [address] [place] [address] ProviderEduardo MD [address] [place] [address] Social History Tobacco Use Types Packs/Day Years Used Date Smoking Tobacco: Never Assessed Comments Unknown Sex and Gender Information Value Date Recorded Sex Assigned at Female 09/20/2022 2:57 PM COMMERCIAL STRIPPER Legal Sex Female 1:35 PM CDT Gender Identity Female 09/20/2022 2:57 PM COMMERCIAL STRIPPER Sexual Orientation Straight 09/20/2022 2: 57 PM COMMERCIAL STRIPPER documented as of this encounter Miscellaneous Notes * Cerner Conversion Note - Historical Provider, - 08/28/2020 5:50 PM CDT Patient: FLOWER LOUISE Age: 75 years Sex: Female : 1945 Associated Diagnoses: None Author: HOA PENALOZA APRN ADVANCED CARE PLANNING Purpose of Encounter: Advanced care planning in light of [hospitalization ] Parties in attendance: Patient, Provider Decisional Capacity: [Yes] Diagnoses: Discharge Diagnosis No Diagnosis on Record Admitting Diagnosis K92.0 ICD-10-CM Hematemesis with nausea 08/28/2020 K92.0 ICD-10-CM Patients Medical Story: [ The patient is a 75 year old [...] not taken it x 4 days. Her postal service window clerk is Dr. Romina Abreu and her PCP is Dr. Phuong Agee. She admits to taking ASA for knee pain/arthritis but has not taken any meds for approximately 2 days due to nausea. Her hemoglobin and vital signs are stable. GI was notified and Dr. Adan plans for scope tomorrow. ] Goals of Care Determinations: Patient wishes to focus on [being placed as a DNR - full treat. The patient states she has a living will and her POA is her daughter, Thais Soni, ] Plan: Will notify Primary Care Provider PHUONG AGEE [facility] of change in care plan. Will look at further interventions as needed. Code Status: At this time patient wishes to be Code Status Start: 08/28/20 17:49:00 EDT, DNR Full Treatment-No Intubation/No ACLS, Continuous Order Time Spent with Patient: [ 17] minutes documented in this encounter Plan of Treatment Upcoming Encounters Date Type Department Care Team (Late st Contact Info) Description 09/06/2025 2:45 PM EDT Office Visit [facility] Urology - [address] [place] [address] Gerald Tamayo MD [address] [facility] [address] [place], [place] [id number] 10/17/2025 9:30 AM EST Office Visit [facility] Primary Care [address] [facility] [address] [place] [address] Lonny Pederson MD [address] [place] [address] 10/17/2025 10:45 AM EST Office Visit [facility] Cardiology - [address] [place] [address] Romina Abreu MD [address] [place] [address] 10/17/2025 1:45 PM EST Office Visit [facility] Neurology - [facility] [address] [place] [address] Susan Rivers APRN [address] [facility] [address] [place], [place] [id number] documented as of this encounter Visit Diagnoses Not on filedocumented in this encounter Care Teams Orthotic/Prosthetic Practitioner Relationship Specialty Start Date End Date Lonny Pederson MD [address] [place] [address] PCP - General Internal Medicine/Pediatrics 09/15/22 Romina Abreu MD [address] [place] [address] Scouring Machine Tender Cardiology 09/22/22 Florencia Wilcox MD [address] [place] [address] Associate Professor Of Philosophy Rheumatology 09/22/22 Aryan Penaloza PA-C [address] [place] [address] Orthopedist Orthopedic Surgery 09/22/22 Vladimir Shook MD [address] [place] [address] Sports Medicine 10/06/23 Susan Rivers, BRAZER INDUCTION [address] [facility] [address] [place] [address] Neurology 10/06/23 Aryan Good PA-C [address] [place] [address] Physician Lamp Developer 12/09/23 Jimmy Baeza MD [address] [facility] [address] [place] [address] Scouring Machine Tender Electrophysiology 03/06/24 documented as of this encounter
--- OUTSIDE RECORDS SUMMARY | 2025-08-30 14:59 | XMS_ITS | Encounter Summary ---
Author Organization [employer] ([place], [place], [place], [place]) Address [address] [place] [address] Care Team Providers Care Copyholder Name Role Phone Lonny Pederson MD Primary Care Provider Romina Abreu MD Unavailable [phone] Florencia Wilcox MD Unavailable Aryan Penaloza PA-C Unavailable Vladimir Shook MD Unavailable Susan Rivers APRN Unavailable [phone] Aryan Good PA-C Unavailable [phone] Jimmy Baeza MD Unavailable Encounter Details Date Type Department Care Team (Late st Contact Info) Description 08/29/2020 Transcribed Document [facility] Family Medicine [address] [place] [address] ProviderEduardo MD [address] [place] [address] Social History Tobacco Use Types Packs/Day Years Used Date Smoking Tobacco: Never Assessed Comments Unknown Sex and Gender Information Value Date Recorded Sex Assigned at Female 09/20/2022 2:57 PM CLINICAL COUNSELOR Legal Sex Female 1:35 PM CDT Gender Identity Female 09/20/2022 2:57 PM CLINICAL COUNSELOR Sexual Orientation Straight 09/20/2022 2: 57 PM CLINICAL COUNSELOR documented as of this encounter Miscellaneous Notes * Cerner Conversion Note - Historical Provider, - 08/29/2020 3:14 PM CDT Final Discharge Planning Entered On: 08/29/2020 15:16 EDT Performed On: 08/29/2020 15:14 EDT by KAYDEN RODRIGUEZ RN-Category Specialist Final Discharge Planning Discharge Arrangements : Patient Post-Acute Information Patient Name: FLOWER LOUISE Gender: Female : [birth year] Age: 75 Years No Post-Acute Placement(s) Listed No Post-Acute Service(s) Listed No [place] Referral(s) Listed Transportation Needs : Family/Friend Follow Up Appointment Scheduled : Yes Is Patient High/Moderate Readmission Risk? : No Patient/Family Notified of Plan : Yes Discharge To Care Management : Home/Residential/[facility] or Self Care -01 KAYEDN RODRIGUEZ RN-Category Specialist - 08/29/2020 15:14 EDT Final Narrative Note [...] no needs at this time.........................sds KAYDEN RODRIGUEZ RN-Category Specialist - 08/29/2020 15:14 EDT Electronically signed by Del [place] Conversion Filter Tank Tender Helper Head Ceremilia at 02/22/2023 5:08 PM CDT documented in this encounter Plan of Treatment Upcoming Encounters Date Type Department Care Team (Late st Contact Info) Description 09/06/2025 2:45 PM EDT Office Visit [facility] Urology - [address] [place] [address] Gerald Tamayo MD [address] [facility] [address] [place], [place] [id number] 10/17/2025 9:30 AM EST Office Visit [facility] Primary Care [address] [facility] [address] [place] [address] Lonny Pederson MD [address] [place] [address] 10/17/2025 10:45 AM EST Office Visit [facility] Cardiology - [facility] [address] [place] [address] Romina Abreu MD [address] [facility] [address] [place], [place] [address] 10/17/2025 1:45 PM EST Office Visit [facility] Neurology - [facility] [address] [place] [address] [address] [place] [address] Susan Rivers APRN [address] [facility] [address] [place], [place] [address] documented as of this encounter Visit Diagnoses Not on filedocumented in this encounter Care Teams Copyholder Relationship Specialty Start Date End Date Lonny Pederson MD [address] [place] [address] PCP - General Internal Medicine/Pediatrics 09/15/22 Romina Abreu MD [address] [place] [address] Airways Control Specialist Cardiology 09/22/22 Florencia Wilcox MD [address] [place] [address] Receivables Specialist Rheumatology 09/22/22 Aryan Penaloza PA-C [address] [place] [address] Orthopedist Orthopedic Surgery 09/22/22 Vladimir Shook MD [address] [place], [place] [address] Sports Medicine 10/06/23 Susan Rivers, DENTIST PRIVATE PRACTICE [address] [facility] [address] [place], [place] [address] Neurology 10/06/23 Aryan Good PA-C [address] [place] [address] Physician Substation Operator Apprentice 12/09/23 Jimmy Baeza MD [address] [facility] [address] [place], [place] [address] Airways Control Specialist Electrophysiology 03/06/24 documented as of this encounter
--- OUTSIDE RECORDS SUMMARY | 2025-08-30 14:59 | XMS_ITS | Encounter Summary ---
Author Organization [employer] ([place], [place], [place], [place]) Address [address] [place] [address] Care Team Providers Care Milling Machine Tender Name Role Phone Lonny Pederson MD Primary Care Provider Romina Abreu MD Unavailable [phone] Florencia Wilcox MD Unavailable Aryan Penaloza PA-C Unavailable [phone] Vladimir Shook MD Unavailable Susan Rivers APRN Unavailable [phone] Aryan Good PA-C Unavailable [phone] Jimmy Baeza MD Unavailable Encounter Details Date Type Department Care Team (Late st Contact Info) Description 08/28/2020 Transcribed Document [facility] [address] [place] [address] ProviderEduardo MD [address] [place] [address] Social History Tobacco Use Types Packs/Day Years Used Date Smoking Tobacco: Never Assessed Comments Unknown Sex and Gender Information Value Date Recorded Sex Assigned at Female 09/20/2022 2:57 PM MUSIC SPECIALIST Legal Sex Female 1:35 PM CDT Gender Identity Female 09/20/2022 2:57 PM MUSIC SPECIALIST Sexual Orientation Straight 09/20/2022 2: 57 PM MUSIC SPECIALIST documented as of this encounter Miscellaneous Notes [...] this note for Dr. Luly Adan. Luly Padilla MD personally interviewed the patient [id number]. I reviewed and discussed with the patient [...] my evaluation. Hematemesis with nausea K92.0 Vomiting [id number] Orders: Coronavirus 2019 Novel NPO after Midnight [...] / 43.8 \ Electronically signed by Gin, [facility] Conversion Drug Discovery Informatics Specialist Cerner at 02/22/2023 5:27 PM CDT documented in this encounter Plan of Treatment Upcoming Encounters Date Type Department Care Team (Late st Contact Info) Description 09/06/2025 2:45 PM EDT Office Visit [facility] Urology - [facility] [address] [facility] [address] [place] [address] Gerald Tamayo MD [address] [place] [address] [address] [place] [id number] 10/17/2025 9:30 AM EST Office Visit [facility] Primary Care [address] [facility] [address] [place] [address] Lonny Pederson MD [address] [facility] [place] [address] 10/17/2025 10:45 AM EST Office Visit [facility] Cardiology - [facility] [address] [place] [address] Romina Abreu MD [address] [facility] [address] [place], [place] [address] 10/17/2025 1:45 PM EST Office Visit [facility] Neurology - [facility] [address] [facility] [address] [place] [id number] Susan Rivers APRN [address] [facility] [address] [place] [id number] documented as of this encounter Visit Diagnoses Not on filedocumented in this encounter Care Teams Milling Machine Tender Relationship Specialty Start Date End Date Lonny Pederson MD [address] [place] [address] PCP - General Internal Medicine/Pediatrics 09/15/22 Romina Abreu MD [address] [place] [address] Insurance Follow Up Specialist Cardiology 09/22/22 Florencia Wilcox MD [address] [place] [address] Swing Driver Rheumatology 09/22/22 Aryan Penaloza PA-C [address] [place] [address] Orthopedist Orthopedic Surgery 09/22/22 Vladimir Shook MD [address] [place] [address] Sports Medicine 10/06/23 Susan Rivers, MAREN [address] [facility] [address] [place] [address] Neurology 10/06/23 Aryan Good PA-C [address] [place] [address] Physician Timber Supervisor 12/09/23 Jimmy Baeza MD [address] [facility] [address] [place] [address] Insurance Follow Up Specialist Electrophysiology 03/06/24 documented as of this encounter
--- OUTSIDE RECORDS SUMMARY | 2025-08-30 14:59 | XMS_ITS | Encounter Summary ---
Author Organization [employer] ([place], [place], [place], [place]) Address [address] [place] [address] Care Team Providers Care Final Cleaner Name Role Phone Lonny Pederson MD Primary Care Provider Romina Abreu MD Unavailable [phone] Florencia Wilcox MD Unavailable Aryan Penaloza PA-C Unavailable [phone] Vladimir Shook MD Unavailable Susan Rivers APRN Unavailable [phone] Aryan Good PA-C Unavailable [phone] Jimmy Baeza MD Unavailable Encounter Details Date Type Department Care Team (Late st Contact Info) Description 08/29/[address] [facility] [place] Family Medicine [address] [place] [address] ProviderEduardo MD [address] [place] [address] Social History Tobacco Use Types Packs/Day Years Used Date Smoking Tobacco: Never Assessed Comments Unknown Sex and Gender Information Value Date Recorded Sex Assigned at Female 09/20/2022 2:57 PM ETL TESTER Legal Sex Female 1:35 PM CDT Gender Identity Female 09/20/2022 2:57 PM ETL TESTER Sexual Orientation Straight 09/20/2022 2: 57 PM ETL TESTER documented as of this encounter Miscellaneous Notes * Cerner Conversion Note - Historical ProviderMD - 08/29/2020 1:10 [place] [address] FLOWER LOUISE :1945 Visit Time:08/28/2020 Your Visit [...] 2 to 3 days Where: [address] [facility] [address] [place] [address]- x2 Follow Up with MICHELE MARTIN MD-GAE When Within 1 week Where: [address] [facility] [address] [place] [address]- Medications What How Much When Instructions Next [...] these instructions at home: Medicines ??? Take liyp-dxf-qrjdlzn and prescription medicines only as told by [...] 04/11/2009 Document Revised: 03/13/2019 Document Reviewed: 03/13/2019 [employer] Patient Education ?? 2020 [employer]. Emergency Awareness and Preventative Care STROKE is [...] Assistance with quitting is available by contacting 2-644-FAMW-NOW. This is a free resource providing counseling, support, and referral. Or you may contact your personal physician. [place] Suicide Prevention Lifeline: The National Suicide Prevention [...] range between ( 1.0 and 7.0 ) [place] #: 0.56 K/uL -- Normal range between ( 0.24 and 0.82 ) [place] #: 0.40 K/uL -- Normal range between ( 0.04 and 0.54 ) Bradley %: 10.7 % -- Normal range between [...] ) Urine Bilirubin Dipstick: Negative Urine Specific [place]: 1.012 -- Normal range between ( 1.005 [...] was given the opportunity to ask questions. Patient/Administrative Dietitian Name: Patient/Administrative Dietitian Signature: Relationship to Patient: Clinician/Hospital Administrative Dietitian Signature: Date: documented in this encounter Plan of Treatment Upcoming Encounters Date Type Department Care Team (Late st Contact Info) Description 09/06/2025 2:45 PM EDT Office Visit [facility] Urology - [address] [place] [address] Gerald Tamayo MD [address] [place] [address] [address] [place] [id number] 10/17/2025 9:30 AM EST Office Visit [facility] Primary Care [address] [place] [address] Lonny Pederson MD [address] [place] [address] 10/17/2025 10:45 AM EST Office Visit [facility] Cardiology - [address] [place] [address] Romina Abreu MD [address] [place] [address] 10/17/2025 1:45 PM EST Office Visit [facility] Neurology - [facility] [address] [place] [address] Susan Rivers APRN [address] [facility] [address] [place] [address] documented as of this encounter Visit Diagnoses Not on filedocumented in this encounter Care Teams Final Cleaner Relationship Specialty Start Date End Date Lonny Pederson MD [address] [place] [address] PCP - General Internal Medicine/Pediatrics 09/15/22 Romina Abreu MD [address] [place] [address] Centrifugal Chiller Technician Cardiology 09/22/22 Florencia Wilcox MD [address] [place] [address] Animal Attendant Rheumatology 09/22/22 Aryan Penaloza PA-C [address] [place] [address] Orthopedist Orthopedic Surgery 09/22/22 Vladimir Shook MD [address] [place] [address] Sports Medicine 10/06/23 Susan Rivers, MAREN [address] [facility] [address] [place] [address] Neurology 10/06/23 Aryan Good PA-C [address] [place] [address] Physician Journeyman Plumber 12/09/23 Jimmy Baeza MD [address] [place] [address] Centrifugal Chiller Technician Electrophysiology 03/06/24 documented as of this encounter
--- OUTSIDE RECORDS SUMMARY | 2025-08-30 14:59 | XMS_ITS | Encounter Summary ---
Author Organization [email or web address] ([place], [place], [place], [place]) Address [address] [place] [address] Care Team Providers Care Terminal Make Up Operator Name Role Phone Lonny Pederson MD Primary Care Provider Romina Abreu MD Unavailable [phone] Florencia Wilcox MD Unavailable Aryan Penaloza PA-C Unavailable [phone] Vladimir Shook MD Unavailable Susan Rivers APRN Unavailable [phone] Aryan Good PA-C Unavailable [phone] Jimmy Baeza MD Unavailable Encounter Details Date Type Department Care Team (Late st Contact Info) Description 08/28/2020 Transcribed Document [facility] Family Medicine [address] [place] [address] ProviderEduardo MD [address] [place] [address] Social History Tobacco Use Types Packs/Day Years Used Date Smoking Tobacco: Never Assessed Comments Unknown Sex and Gender Information Value Date Recorded Sex Assigned at Female 09/20/2022 2:57 PM DENTURE WAXER Legal Sex Female 1:35 PM CDT Gender Identity Female 09/20/2022 2:57 PM DENTURE WAXER Sexual Orientation Straight 09/20/2022 2: 57 PM DENTURE WAXER documented as of this encounter Miscellaneous Notes [...] Description 09/06/2025 2:45 PM EDT Office Visit [facility] Urology - [address] [place] [address] Gerald Tamayo MD [address] [facility] [address] [place] [id number] 10/17/2025 9:30 AM EST Office Visit [facility] Primary Care [address] [facility] [address] [place] [address] Lonny Pederson MD [address] [place] [address] 10/17/2025 10:45 AM EST Office Visit [facility] Cardiology - [address] [place] [address] Romina Abreu MD [address] [facility] [address] [place] [address] 10/17/2025 1:45 PM EST Office Visit [facility] Neurology - [facility] [address] [facility] [address] [place] [address] Susan Rivers APRN [address] [facility] [address] [place], [place] [id number] documented as of this encounter Visit Diagnoses Not on filedocumented in this encounter Care Teams Terminal Make Up Operator Relationship Specialty Start Date End Date Lonny Pederson MD [address] [place] [address] PCP - General Internal Medicine/Pediatrics 09/15/22 Romina Abreu MD [address] [place], [place] [id number] Biometry Teacher Cardiology 09/22/22 Florencia Wilcox MD [address] [place] [address] Language Tutor Rheumatology 09/22/22 Aryan Penaloza PA-C [address] [place], [place] [address] Orthopedist Orthopedic Surgery 09/22/22 Vladimir Shook MD [address] [place], [place] [address] Sports Medicine 10/06/23 Susan Rivers APRN [address] [facility] [address] [place], [place] [address] Neurology 10/06/23 Aryan Good PA-C [address] [place], [place] [address] Physician Engine Lathe Operator 12/09/23 Jimmy Baeza MD [address] [facility] [address] [place] [address] Biometry Teacher Electrophysiology 03/06/24 documented as of this encounter
--- OUTSIDE RECORDS SUMMARY | 2025-08-30 14:59 | XMS_ITS | Encounter Summary ---
Author Organization [employer] ([place], [place], [place], [place]) Address [address] [place] [address] Care Team Providers Care Towel Hemmer Name Role Phone Lonny Pederson MD Primary Care Provider Romina Abreu MD Unavailable [phone] Florencia Wilcox MD Unavailable Aryan Penaloza PA-C Unavailable [phone] Vladimir Shook MD Unavailable Susan Rivers APRN Unavailable [phone] Aryan Good PA-C Unavailable [phone] Jimmy Baeza MD Unavailable Encounter Details Date Type Department Care Team (Late st Contact Info) Description 05/18/2021 Transcribed Document [facility] Family Medicine [facility] [place] [address] ProviderEduardo MD [facility] [place] [address] Social History Tobacco Use Types Packs/Day Years Used Date Smoking Tobacco: Never Assessed Comments Unknown Sex and Gender Information Value Date Recorded Sex Assigned at Female 09/20/2022 2:57 PM APARTMENT MAINTENANCE SUPERVISOR Legal Sex Female 1:35 PM CDT Gender Identity Female 09/20/2022 2:57 PM APARTMENT MAINTENANCE SUPERVISOR Sexual Orientation Straight 09/20/2022 2: 57 PM APARTMENT MAINTENANCE SUPERVISOR documented as of this encounter Miscellaneous Notes * Cerner Conversion Note - Historical Provider, - 05/18/2021 12:14 PM CDT [place] [address] [place] [address] FLOWER LOUISE :1945 Visit Time:05/18/2021 [...] MARTIN MD-JANUSZ When Comments as directed Where: [address] [place] [address] [address] [place] [id number]- Medications What How Much When Instructions Next [...] activities are safe for you. ??? Take mkpn-izq-empmpsp and prescription medicines only as told by [...] provider. Document Revised: 04/17/2019 Document Reviewed: 03/26/2019 [employer] I.D. Patient Education ?? 2020 [employer]. Monitored Anesthesia Care, Care After These instructions [...] eating solid foods. General instructions ??? Take nbvs-mye-kempykn and prescription medicines only as told by [...] provider. Document Revised: 01/22/2019 Document Reviewed: 02/13/2017 Auto I.D. Patient Education ?? 2020 [employer].D. [employer] Emergency Awareness and Preventative Care STROKE [...] Assistance with quitting is available by contacting 4-155-ZSNF-NOW. This is a free resource providing counseling, [...] was given the opportunity to ask questions. Patient/Brim Greaser Operator Name: Patient/Brim Greaser Operator Signature: Relationship to Patient: Clinician/Hospital Brim Greaser Operator Signature: Date: documented in this encounter Plan of Treatment Upcoming Encounters Date Type Department Care Team (Late st Contact Info) Description 09/06/2025 2:45 PM EDT Office Visit [facility] [place] [facility] Urology - [facility] [address] [facility] [address] [place] [address] Gerald Tamayo MD [address] [facility] [address] [place] [address] 10/17/2025 9:30 AM EST Office Visit [facility] [place] [facility] Primary Care [address] [facility] [address] [place] [address] Lonny Pederson MD [address] [place] [address] 10/17/2025 10:45 AM EST Office Visit [facility] [place] [facility] Cardiology - [facility] [address] [place] [address] Romina Abreu MD [address] [facility] [address] [place] [address] 10/17/2025 1:45 PM EST Office Visit [facility] Neurology - [facility] [address] [facility] [address] [place] [address] Susan Rivers APRN [address] [facility] [address] [place], [place] [id number] documented as of this encounter Visit Diagnoses Not on filedocumented in this encounter Care Teams Towel Hemmer Relationship Specialty Start Date End Date Lonny Pederson MD [address] [place] [address] PCP - General Internal Medicine/Pediatrics 09/15/22 Romina Abreu MD [address] [place] [address] Milk Of Lime Slaker Cardiology 09/22/22 Florencia Wilcox MD [address] [place] [address] New Vehicle Sales Consultant Rheumatology 09/22/22 Aryan Penaloza PA-C [address] [place] [address] Orthopedist Orthopedic Surgery 09/22/22 Vladimir Shook MD [address] [place] [address] Sports Medicine 10/06/23 Susan Rivers, GEOTHERMAL TECHNICIAN [address] [facility] [address] [place] [address] Neurology 10/06/23 Aryan Good PA-C [address] [place] [address] Physician Fuel Island Attendant 12/09/23 Jimmy Baeza MD [address] [facility] [address] [place] [address] Milk Of Lime Slaker Electrophysiology 03/06/24 documented as of this encounter
--- OUTSIDE RECORDS SUMMARY | 2025-08-30 14:59 | XMS_ITS | Encounter Summary ---
Author Organization [employer] ([place], [place], [place], [place]) Address [address] [place] [address] Care Team Providers Care Pmo Consultant Name Role Phone Lonny Pederson MD Primary Care Provider Romina Abreu MD Unavailable [phone] Florencia Wilcox MD Unavailable Aryan Penaloza PA-C Unavailable [phone] Vladimir Shook MD Unavailable Susan Rivers APRN Unavailable [phone] Aryan Good PA-C Unavailable [phone] Jimmy Baeza MD Unavailable Encounter Details Date Type Department Care Team (Late st Contact Info) Description 05/18/2021 Transcribed Document [facility] [place] [facility] [place] [address] ProviderEduardo MD [facility] [place] [address] Social History Tobacco Use Types Packs/Day Years Used Date Smoking Tobacco: Never Assessed Comments Unknown Sex and Gender Information Value Date Recorded Sex Assigned at Female 09/20/2022 2:57 PM LAWN SERVICE WORKER Legal Sex Female 1:35 PM CDT Gender Identity Female 09/20/2022 2:57 PM LAWN SERVICE WORKER Sexual Orientation Straight 09/20/2022 2: 57 PM LAWN SERVICE WORKER documented as of this encounter Miscellaneous [...] activities are safe for you. ??? Take zkgp-ezv-kvgkncp and prescription medicines only as told by [...] provider. Document Revised: 04/17/2019 Document Reviewed: 03/26/2019 [employer] One Stop [employer]on Patient Education ? 2020 [employer]. Obstetrics and Gynecology Monitored Anesthesia Care, Care [...] eating solid foods. General instructions ??? Take qjyp-vox-lprosfd and prescription medicines only as told by [...] provider. Document Revised: 01/22/2019 Document Reviewed: 02/13/2017 [employer] One Stop Salon Patient Education ? 2019 [employer]. documented in this encounter Plan of Treatment Upcoming Encounters Date Type Department Care Team (Late st Contact Info) Description 09/06/2025 2:45 PM EDT Office Visit [facility] Urology - [facility] [address] [facility] [address] [place] [address] Gerald Tamayo MD [address] [facility] [address] [place], [place] [address] 10/17/2025 9:30 AM EST Office Visit [facility] Primary Care [address] [facility] [address] [place] [address] Lonny Pederson MD [address] [facility] [place] [address] 10/17/2025 10:45 AM EST Office Visit [facility] Cardiology - [facility] [address] [place] [address] Romina Abreu MD [address] [facility] [address] [place], [place] [address] 10/17/2025 1:45 PM EST Office Visit [facility] Neurology - [address] [place] [address] Susan Rivers, MAREN [address] [facility] [address] [place] [address] documented as of this encounter Visit Diagnoses Not on filedocumented in this encounter Care Teams Pmo Consultant Relationship Specialty Start Date End Date Lonny Pederson MD [address] [place] [address] PCP - General Internal Medicine/Pediatrics 09/15/22 Romina Abreu MD [address] [place] [address] Perforator Operator Cardiology 09/22/22 Florencia Wilcox MD [address] [place] [address] Ecologist Technician Rheumatology 09/22/22 Aryan Penaloza PA-C [address] [place] [address] Orthopedist Orthopedic Surgery 09/22/22 Vladimir Shook MD [address] [place] [address] Sports Medicine 10/06/23 Susan Rivers, MAREN [address] [facility] [address] [place] [address] Neurology 10/06/23 Aryan Good PA-C [address] [place] [address] Physician Packing House Supervisor 12/09/23 Jimmy Baeza MD [address] [facility] [address] [place] [address] Perforator Operator Electrophysiology 03/06/24 documented as of this encounter
--- OUTSIDE RECORDS SUMMARY | 2025-08-30 14:59 | XMS_ITS | Encounter Summary ---
Author Organization [email or web address] ([place], [place], [place], [place]) Address [address] [place] [address] Care Team Providers Care Patternator Name Role Phone Lonny Pederson MD Primary Care Provider Romina Abreu MD Unavailable [phone] Florencia Wilcox MD Unavailable Aryan Penaloza PA-C Unavailable Vladimir Shook MD Unavailable Susan Rivers APRN Unavailable [phone] Aryan Good PA-C Unavailable [phone] Jimmy Baeza MD Unavailable Reason for Referral * Consultation (Routine) - Authorized Specialty Diagnoses / Procedures Referred By Contac t Referred To Contact Urology Diagnoses Stress incontinence of urine Lonny Pederson MD [address] [place] [address] Phone: tel: fax: Jerry Ann MD [address] [place] [address] Phone: tel: fax: Referral ID Status Reason Start Date Expiration Date Visits Requested Visits Authorized [id number] Authorized Specialty Services Required 08/27/2026 1 1 Encounter Details Date Type Department Care Team (Late st Contact Info) Description 08/27/2025 Orders Only [facility] Primary Care [address] [place] [address] Lonny Pederson MD [address] [place] [address] Stress incontinence of urine (Primary [...] Date Allan rded Speak language other than British at home Not on file 11/15/2023 Want help with school or training Not on file 11/15/2023 Substance Use Answer Date Recorded Used prescription meds for non-medical reasons N ot on file 11/15/2023 Used illegal drugs past 12 months Not on file 11/15/2023 Comments No Sex and Gender Information Value Date Recorded Sex Assigned at Female 09/20/2022 2:57 PM FILM OR TAPE LIBRARIAN Legal Sex Female 1:35 PM CDT Gender Identity Female 09/20/2022 2:57 PM FILM OR TAPE LIBRARIAN Sexual Orientation Straight 09/20/2022 2: 57 PM FILM OR TAPE LIBRARIAN documented as of this encounter Plan of Treatment Upcoming Encounters Date Type Department Care Team (Late st Contact Info) Description 09/06/2025 2:45 PM EDT Office Visit [facility] Urology - [facility] [address] [facility] [address] [place] [address] Gerald Tamayo MD [address] [facility] [address] [place], [place] [id number] 10/17/2025 9:30 AM EST Office Visit [facility] Primary Care [address] [facility] [address] [place] [address] Lonny Pederson MD [address] [facility] [place] [address] 10/17/2025 10:45 AM EST Office Visit [facility] Cardiology - [facility] [address] [place] [address] Romina Abreu MD [address] [facility] [address] [place], [place] [address] 10/17/2025 1:45 PM EST Office Visit [facility] Neurology - [facility] [address] [facility] [address] [place] [address] Susan Rivers APRN [address] [facility] [address] [place], [place] [address] Scheduled Referrals Name Type Priority Associated Diagnoses Orde r Schedule Ambulatory referral to Urology Outpatient Referral Routine Stress incontinence of urine Expected: 08/27/2025, Expires: 11/25/2025 documented as of this encounter Visit Diagnoses Diagnosis Stress incontinence of urine- Primary documented in this encounter Care Teams Patternator Relationship Specialty Start Date End Date Lonny Pederson MD [address] [place] [address] PCP - General Internal Medicine/Pediatrics 09/15/22 Romina Abreu MD [address] [facility] [address] [place] [address] System Specialist Cardiology 09/22/22 Florencia Wilcox MD [address] [place] [address] Furnace Charging Machine Operator Rheumatology 09/22/22 Aryan Penaloza PA-C [address] [place] [address] Orthopedist Orthopedic Surgery 09/22/22 Vladimir Shook MD [address] [place] [address] Sports Medicine 10/06/23 Susan Rivers, [place] MACHINIST [address] [facility] [address] [place] [address] Neurology 10/06/23 Aryan Good PA-C [address] [place] [address] Physician Engine Wiper 12/09/23 Jimmy Baeza MD [address] [facility] [address] [place] [address] System Specialist Electrophysiology 03/06/24 documented as of this encounter
--- OUTSIDE RECORDS SUMMARY | 2025-08-30 14:59 | XMS_ITS | Encounter Summary ---
Author Organization [employer] ([place], [place], [place], [place]) Address [address] [place] [address] Care Team Providers Care Assisted Living Assistant Name Role Phone Lonny Pederson MD Primary Care Provider Romina Abreu MD Unavailable [phone] Florencia Wilcox MD Unavailable Aryan Penaloza PA-C Unavailable [phone] Vladimir Shook MD Unavailable Susan Rivers APRN Unavailable [phone] Aryan Good PA-C Unavailable [phone] Jimmy Baeza MD Unavailable Encounter Details Date Type Department Care Team (Late st Contact Info) Description 05/18/2021 Transcribed Document [facility] [place] [address] ProviderEduardo MD [facility] [place] [address] Social History Tobacco Use Types Packs/Day Years Used Date Smoking Tobacco: Never Assessed Comments Unknown Sex and Gender Information Value Date Recorded Sex Assigned at Female 09/20/2022 2:57 PM APPRENTICE ELECTRICIAN Legal Sex Female 1:35 PM CDT Gender Identity Female 09/20/2022 2:57 PM APPRENTICE ELECTRICIAN Sexual Orientation Straight 09/20/2022 2: 57 PM APPRENTICE ELECTRICIAN documented as of this encounter Miscellaneous Notes * Cerner Conversion Note - Historical Provider, - 05/18/2021 11:25 AM CDT Pre Procedure Adult Entered On: 05/18/2021 11:30 EDT Performed On: 05/18/2021 11:25 EDT by Leila Good Rn Height and Weight, Clinical Dosing Height Source : Stated Height Entry Format : [place] Height, Feet : 4 ft(Converted to: 122 cm, 48 Inch) Height, Inches : 11 Inch(Converted to: 0 ft 11 Inch, 27.94 cm) Clinical Height : 149.86 cm Weight Source : Standing scale Weight Entry Format : [place] Clinical Dosing Weight : 74.09 kg Weight, Pounds : 163 lb Body Surface Area (BSA) : 1.69 m2 Body Mass Index : 33 kg/m2 (HI) [place] Body Weight : 43 kg Leila Good [...] JORDYN) Alcohol: Comments: 07/26/2013 7:26 - ANGELA WINSTON: none. (Last Updated: 07/26/2013 07:26:51 EDT by ANGELA WINSTON) Substance Abuse: Drug Use Hx: No. Use in Last 12 Months: No. (Last Updated: 09/30/2014 10:58:52 EST by MARKO VLAENCIA RN) Exercise: Exercise duration: 40. Exercise frequency: [...] Leila Good Rn - 05/18/2021 11:25 EDT [place] Suicide Severity Rating Scale (C-SSRS) CSSRS Past [...] 05/18/2021 11:25 EDT General Info Support Person/Patient Eating Disorder Psychologist : Yes Support Person/Pt Rep Name : [email or web address] Adamebibi Support Person/Pt Rep Contact Information : [id number] Want Family/Rep/Phys Notified of Admit : Yes Name/Contact Info Fam/Rep Notified Adm : Regla Zachariah Name/Contact Info Physician Notified Adm : Carlos Eduardo Martinez Emergency Contact #1 : Regla Zachariah Emergency Contact #1 Emergency Contact #1 Relationship : daughter Emergency Contact #2 : . Emergency Contact #2 Phone Number : . Emergency Contact #2 Relationship : . Primary Language : Nepalese Preferred Communication Mode : Verbal Communication Barrier : None Case Advocate Needed : No Leila Good Rn - [...] Scale Risk Level : 0-24 Low Risk [place] Fall Interventions : Adequate lighting, Call device within reach, Fall prevention handout/education per facility policy, Non-slip footwear, Wheels locked Leila Good Rn - 05/18/2021 11:25 EDT Valuables and Belongings Valuables and Belongings : Clothing Clothing : Common streetwear Clothing Disposition : Bedside Leila Good Rn - 05/18/2021 11:25 EDT Electronically signed by [facility], [facility] Conversion Guest Experience Representative Cerner at 02/22/2023 5:09 PM CDT documented in this encounter Plan of Treatment Upcoming Encounters Date Type Department Care Team (Late st Contact Info) Description 09/06/2025 2:45 PM EDT Office Visit [facility] Urology - [address] [place] [address] [place] [address] [place] [address] [address] [place] [address] 10/17/2025 9:30 AM EST Office Visit [facility] Primary Care [address] [place] [address] Lonny Pederson MD [address] [place] [address] 10/17/2025 10:45 AM EST Office Visit [facility] Cardiology - [address] [place] [address] Romina Abreu MD [address] [place], [place] [address] 10/17/2025 1:45 PM EST Office Visit [facility] Neurology - [facility] [address] [facility] [address] [place] [address] Susan Rivers APRN [address] [facility] [address] [place], [place] [id number] documented as of this encounter Visit Diagnoses Not on filedocumented in this encounter Care Teams Assisted Living Assistant Relationship Specialty Start Date End Date Lonny Pederson MD [address] [place] [address] PCP - General Internal Medicine/Pediatrics 09/15/22 Romina Abreu MD [address] [place], [place] [address] Uniform Patrol Police Officer Cardiology 09/22/22 Florencia Wilcox MD [address] [place] [address] Oracle Brm Developer Rheumatology 09/22/22 Aryan Penaloza PA-C [address] [place] [address] Orthopedist Orthopedic Surgery 09/22/22 Vladimir Shook MD [address] [place] [address] Sports Medicine 10/06/23 Susan Rivers APRN [address] [facility] [address] [place] [address] Neurology 10/06/23 Aryan Good PA-C [address] [place] [address] Physician Day Care Home Provider 12/09/23 Jimmy Baeza MD [address] [facility] [address] [place] [address] Uniform Patrol Police Officer Electrophysiology 03/06/24 documented as of this encounter
--- OUTSIDE RECORDS SUMMARY | 2025-08-30 14:59 | XMS_ITS | Encounter Summary ---
Author Organization [employer] ([place], [place], [place], [place]) Address [address] [place] [address] Care Team Providers Care Senior Software Development Engineer Name Role Phone Lonny Pederson MD Primary Care Provider Romina Abreu MD Unavailable [phone] Florencia Wilcox MD Unavailable Aryan Penaloza PA-C Unavailable [phone] Vladimir Shook MD Unavailable Susan Rivers APRN Unavailable [phone] Aryan Good PA-C Unavailable [phone] Jimmy Baeza MD Unavailable Encounter Details Date Type Department Care Team (Late st Contact Info) Description 08/29/[address] [facility] [place] Family Medicine [address] [place] [address] ProviderEduardo MD [address] [place] [address] Social History Tobacco Use Types Packs/Day Years Used Date Smoking Tobacco: Never Assessed Comments Unknown Sex and Gender Information Value Date Recorded Sex Assigned at Female 09/20/2022 2:57 PM VEGETABLE TRIMMER Legal Sex Female 1:35 PM CDT Gender Identity Female 09/20/2022 2:57 PM VEGETABLE TRIMMER Sexual Orientation Straight 09/20/2022 2: 57 PM VEGETABLE TRIMMER documented as of this encounter Miscellaneous Notes * Cerner Conversion Note - Historical Provider, - 08/29/2020 8:53 AM CDT [facility] IntraOp Summary Primary Physician: MICHELE MARTIN MD-GAE Finalized Date/Time: 08/29/20 09:00:43 Pt. Name: FLOWER LOUISE /Sex: 1945 Female Med Rec #: [id number] Physician: VERNON PRIETO DO Financial #: [id number] Pt. Type: O Room/Bed: [facility] Admit/Disch: 08/28/20 14:58:00 - Institution: [facility] - Case Attendance Entry 1 Entry 2 Entry 3 Case Attendee MICHELE MARTIN MD-GAE MCDONALD, LEAH BETH, Cami Nixon Rn ESTHETICS INSTRUCTOR Role Performed Surgeon/Proceduralist, ESTHETICS INSTRUCTOR/Nurse Unit Control Clerk Can Dryer, First First Time In 08/29/20 08:43:00 08/29/20 [...] Diaz RN FLEMING, SCOTT, DO-ANS Childers, Brian, Will Call Order Clerk Role Performed Can Dryer, Second Anesthesiologist of Scrub, First Record Time [...] Endo - Case Attendance Audit 08/29/20 08:59:19 Last Puller: [id number] Modifier: [id number] <+> 1 Time Out <+> 1 Procedure [...] Endo - Case Times Audit 08/29/20 08:58:04 Last Puller: [id number] Modifier: [id number] <+> 1 Out Room Time <+> 1 [...] 08/29/20 08:49:47 [facility] Endo - General Case Horse Identifier 1 Case Information OR Endo 01 E Case Level 1 Room Verified Yes Wound Class II - Clean-Contaminated Specialty SN Gastroenterology Anesthesia Type MAC ASA Class 3 Diagnosis Preop Diagnosis hematamesis Postop Same As Preop No Postop Diagnosis gastritis, esophagitis Last Modified By: Cami Nixon Rn 08/29/20 09:00:04 [facility] - General Case Data Audit 08/29/20 09:00:04 Last Puller: [id number] Modifier: [id number] <+> 1 Postop Diagnosis [facility] - [...] Endo - Patient Positioning Audit 08/29/20 08:59:24 Last Puller: [id number] Modifier: [id number] <*> Procedure Esophagogastroduodenoscopy [facility] - [...] Endo - Sign In Audit 08/29/20 08:52:23 Last Puller: [id number] Modifier: [id number] <+> 1 Anesthesia Machine Check Completed <+> [...] Endo - Time Out Audit 08/29/20 08:59:25 Last Puller: [id number] Modifier: [id number] 1 <*> Procedure to be Performed Esophagogastroduodenoscopy Case Comments <None> Finalized By: Cami Nixon Rn Document Signatures Signed By: Cami Nixon Rn 08/29/20 09:00 documented in this encounter Plan of Treatment Upcoming Encounters Date Type Department Care Team (Late st Contact Info) Description 09/06/2025 2:45 PM EDT Office Visit [facility] Urology - [facility] [address] [facility] [address] [place] [address] Gerald Tamayo MD [address] [facility] [address] [place] [address] 10/17/2025 9:30 AM EST Office Visit [facility] Primary Care [address] [facility] [address] [place] [address] Lonny Pederson MD [address] [facility] [place] [address] 10/17/2025 10:45 AM EST Office Visit [facility] Cardiology - [facility] [address] [place] [address] Romina Abreu MD [address] [facility] [address] [place], [place] [address] 10/17/2025 1:45 PM EST Office Visit [facility] Neurology - [address] [place] [address] Susan Rivers, LOCKER OPERATOR [address] [facility] [address] [place] [address] documented as of this encounter Visit Diagnoses Not on filedocumented in this encounter Care Teams Senior Software Development Engineer Relationship Specialty Start Date End Date Lonny Pederson MD [address] [place] [address] PCP - General Internal Medicine/Pediatrics 09/15/22 Romina Abreu MD [address] [place] [address] Nutrition Tech Cardiology 09/22/22 Florencia Wilcox MD [address] [place] [address] Front End Drupal Developer Rheumatology 09/22/22 Aryan Penaloza PA-C [address] [place] [address] Orthopedist Orthopedic Surgery 09/22/22 Vladimir Shook MD [address] [place] [address] Sports Medicine 10/06/23 Susan Rivers, MAREN [address] [facility] [address] [place] [address] Neurology 10/06/23 Aryan Good PA-C [address] [place] [address] Physician Electrician Telephone 12/09/23 Jimmy Baeza MD [address] [facility] [address] [place] [address] Nutrition Tech Electrophysiology 03/06/24 documented as of this encounter
--- OUTSIDE RECORDS SUMMARY | 2025-08-30 14:59 | XMS_ITS | Encounter Summary ---
Author Organization [employer] ([place], [place], [place], [place]) Address [address] [place] [address] Care Team Providers Care Meat Stuffer Name Role Phone Lonny Pederson MD Primary Care Provider [phone] Romina Abreu MD Unavailable [phone] Florencia Wilcox MD Unavailable Aryan Penaloza PA-C Unavailable [phone] Vladimir Shook MD Unavailable Susan Rivers APRN Unavailable [phone] Aryan Good PA-C Unavailable [phone] Jimmy Baeza MD Unavailable Reason for Visit * Reason Comments Medication Refill Encounter Details Date Type Department Care Team (Late st Contact Info) Description 09/24/2024 Refill [facility] Rheumatology [address] [place] [address] Florencia Wilcox MD [address] [facility] [address] [place] [address] Health care maintenance Social History [...] Date Allan rded Speak language other than [place]oth[place] at home Not on file 11/15/2023 Want help with school or training Not on file 11/15/2023 Substance Use Answer Date Recorded Used prescription meds for non-medical reasons N ot on file 11/15/2023 Used illegal drugs past 12 months Not on file 11/15/2023 Comments No Sex and Gender Information Value Date Recorded Sex Assigned at Female 09/20/2022 2:57 PM GLAZIER STAINED GLASS Legal Sex Female 1:35 PM CDT Gender Identity Female 09/20/2022 2:57 PM GLAZIER STAINED GLASS Sexual Orientation Straight 09/20/2022 2: 57 PM GLAZIER STAINED GLASS documented as of this encounter Plan of Treatment Upcoming Encounters Date Type Department Care Team (Late st Contact Info) Description 09/06/2025 2:45 PM EDT Office Visit [facility] Urology - [address] [place] [address] Gerald Tamayo MD [address] [facility] [address] [place], [place] [address] 10/17/2025 9:30 AM EST Office Visit [facility] Primary Care [address] [place] [address] Lonny Pederson MD [address] [place] [address] 10/17/2025 10:45 AM EST Office Visit [facility] Cardiology - [facility] [address] [place] [address] Romina Abreu MD [address] [place], [place] [address] 10/17/2025 1:45 PM EST Office Visit [facility] Neurology - [facility] [address] [facility] [address] [place] [address] Susan Rivers APRN [address] [facility] [address] [place], [place] [address] documented as of this encounter Visit Diagnoses Diagnosis Health care maintenance documented in this encounter Care Teams Meat Stuffer Relationship Specialty Start Date End Date Lonny Pederson MD [address] [place] [address] PCP - General Internal Medicine/Pediatrics 09/15/22 Romina Abreu MD [address] [place], [place] [address] Dietary Worker Cardiology 09/22/22 Florencia Wilcox MD [address] [place] [address] Developmental Specialist Rheumatology 09/22/22 Aryan Penaloza PA-C [address] [place], [place] [address] Orthopedist Orthopedic Surgery 09/22/22 Vladimir Shook MD [address] [place], [place] [address] Sports Medicine 10/06/23 Susan Rivers, PARK MANAGER [address] [facility] [address] [place], [place] [address] Neurology 10/06/23 Aryan Good PA-C [address] [place], [place] [address] Physician Shredding Specialist 12/09/23 Jimmy Baeza MD [address] [facility] [address] [place] [address] Dietary Worker Electrophysiology 03/06/24 documented as of this encounter
--- OUTSIDE RECORDS SUMMARY | 2025-08-30 14:59 | XMS_ITS | Encounter Summary ---
Author Organization [employer] ([place], [place], [place], [place]) Address [address] [place] [address] Care Team Providers Care Car Pusher Name Role Phone Lonny Pederson MD Primary Care Provider Romina Abreu MD Unavailable [phone] Florencia Wilcox MD Unavailable Aryan Penaloza PA-C Unavailable [phone] Vladimir Shook MD Unavailable Susan Rivers APRN Unavailable [phone] Aryan Good PA-C Unavailable [phone] Jimmy Baeza MD Unavailable Encounter Details Date Type Department Care Team (Late st Contact Info) Description 05/18/2021 Transcribed Document [facility] Family [place] [address] ProviderEduardo MD [facility] [address] Social History Tobacco Use Types Packs/Day Years Used Date Smoking Tobacco: Never Assessed Comments Unknown Sex and Gender Information Value Date Recorded Sex Assigned at Female 09/20/2022 2:57 PM AURICULAR DETOXIFICATION SPECIALIST Legal Sex Female 1:35 PM CDT Gender Identity Female 09/20/2022 2:57 PM AURICULAR DETOXIFICATION SPECIALIST Sexual Orientation Straight 09/20/2022 2: 57 PM AURICULAR DETOXIFICATION SPECIALIST documented as of this encounter Miscellaneous Notes * Cerner Conversion Note - Historical Provider, - 05/18/2021 10:15 AM CDT [place] [address] [place] [address] FLOWER LOUISE :1945 Visit Time:02/02/2021 [...] MARTIN MD-JANUSZ When Comments as directed Where: [address] [place] [address] [address] [place], [place] [id number]- Medications What How Much When Instructions Next [...] activities are safe for you. ??? Take yedw-fkc-fkrldwy and prescription medicines only as told by [...] provider. Document Revised: 04/17/2019 Document Reviewed: 03/26/2019 [email or web address] Patient Education ?? 2020 Auto I.D.. Monitored Anesthesia Care, Care After These instructions [...] eating solid foods. General instructions ??? Take lszu-fvt-mrfmpst and prescription medicines only as told by [...] provider. Document Revised: 01/22/2019 Document Reviewed: 02/13/2017 [email or web address] Patient Education ?? 2020 [email or web address] Emergency Awareness and Preventative Care STROKE [...] Assistance with quitting is available by contacting 5-939-QCQZ-NOW. This is a free resource providing counseling, support, and referral. Or you may contact your personal physician. National Suicide Prevention Lifeline: The National Suicide Prevention Lifepaul [employer] is a national network of local crisis [...] was given the opportunity to ask questions. Patient/Sky Cap Name: Patient/Sky Cap Signature: Relationship to Patient: Clinician/Hospital Sky Cap Signature: Date: Electronically signed by Del Greenfield Conversion Childhood Development Teacher Cerner at 02/22/2023 5:05 PM CDT documented in this encounter Plan of Treatment Upcoming Encounters Date Type Department Care Team (Late st Contact Info) Description 09/06/2025 2:45 PM EDT Office Visit [facility] U[facility] - [facility] [address] [place] [address] Gerald Tamayo MD [address] [place] [address] [address] [place] [address] 10/17/2025 9:30 AM EST Office Visit [facility] Primary Care [address] [place] [address] Lonny Pederson MD [address] [facility] [place] [address] 10/17/2025 10:45 AM EST Office Visit [facility] Card[facility] - [facility] [address] [place] [address] Romina Abreu MD [address] [place] [id number] 10/17/2025 1:45 PM EST Office Visit [facility] Neurology - [facility] [address] [place] [address] Susan Rivers APRN [address] [facility] [address] [place], [place] [id number] documented as of this encounter Visit Diagnoses Not on filedocumented in this encounter Care Teams Car Pusher Relationship Specialty Start Date End Date Lonny Pederson MD [address] [place] [id number] PCP - General Internal Medicine/Pediatrics 09/15/22 Romina Abreu MD [address] [place] [address] Liaison Inspection Laboratory Assistant Cardiology 09/22/22 Florencia Wilcox MD [address] [place] [address] Marketing Project Lead Rheumatology 09/22/22 Aryan Penaloza PA-C [address] [place] [address] Orthopedist Orthopedic Surgery 09/22/22 Vladimir Shook MD [address] [place] [address] Sports Medicine 10/06/23 Susan Rivers, PRODUCT SAFETY EXPERT [address] [facility] [address] [place] [address] Neurology 10/06/23 Aryan Good PA-C [address] [place] [address] Physician Textiles Sales Representative 12/09/23 Jimmy Baeza MD [address] [facility] [address] [place] [address] Liaison Inspection Laboratory Assistant Electrophysiology 03/06/24 documented as of this encounter
--- OUTSIDE RECORDS SUMMARY | 2025-08-30 14:59 | XMS_ITS | Encounter Summary ---
Author Organization [employer] ([place], [place], [place], [place]) Address [address] [place] [address] Care Team Providers Care Drapery Sewer Hand Name Role Phone Lonny Pederson MD Primary Care Provider Romina Abreu MD Unavailable [phone] Florencia Wilcox MD Unavailable Aryan Penaloza PA-C Unavailable [phone] Vladimir Shook MD Unavailable Susan Rivers APRN Unavailable [phone] Aryan Good PA-C Unavailable [phone] Jimmy Baeza MD Unavailable Encounter Details Date Type Department Care Team (Late st Contact Info) Description 05/18/2021 Transcribed Document [facility] Family Medicine [place] [address] ProviderEduardo MD [facility] [place] [address] Social History Tobacco Use Types Packs/Day Years Used Date Smoking Tobacco: Never Assessed Comments Unknown Sex and Gender Information Value Date Recorded Sex Assigned at Female 09/20/2022 2:57 PM LANDSCAPING MANAGER Legal Sex Female 1:35 PM CDT Gender Identity Female 09/20/2022 2:57 PM LANDSCAPING MANAGER Sexual Orientation Straight 09/20/2022 2: 57 PM LANDSCAPING MANAGER documented as of this encounter Miscellaneous Notes * Cerner Conversion Note - Historical Provider, - 05/18/2021 12:00 PM CDT DALE Gonzáles PreOp Summary Primary Physician: MICHELE MARTIN MD-GAE Finalized Date/Time: 05/18/21 11:36:58 Pt. Name: LOUISE FLOWERCESAR HUDDLESTON /Sex: 1945 Female Med Rec #: [id number] Physician: MICHELE MARTIN MD-GAE Financial #: [id number] Pt. Type: E Room/Bed: [facility] Admit/Disch: 05/18/21 11:09:00 - Institution: [facility] [...] 09/06/2025 2:45 PM EDT Office Visit [facility] Urology - [address] [facility] [address] [place] [address] Gerald Tamayo MD [address] [facility] [address] [place] [address] 10/17/2025 9:30 AM EST Office Visit [facility] Primary Care [address] [facility] [address] [place] [address] Lonny Pederson MD [address] [facility] [place] [address] 10/17/2025 10:45 AM EST Office Visit [facility] Cardiology - [address] [place] [address] Romina Abreu MD [address] [place], [place] [id number] 10/17/2025 1:45 PM EST Office Visit [facility] - [facility] [address] [place] [address] Susan Rivers, SOLAR POWER INSTALLER [address] [facility] [address] [place], [place] [id number] documented as of this encounter Visit Diagnoses Not on filedocumented in this encounter Care Teams Drapery Sewer Hand Relationship Specialty Start Date End Date Lonny Pederson MD [address] [place] [address] PCP - General Internal Medicine/Pediatrics 09/15/22 Romina Abreu MD [address] [place], [place] [id number] Operating Room Assistant Cardiology 09/22/22 Florencia Wilcox MD [address] [place] [address] Shot Man Rheumatology 09/22/22 Aryan Penaloza PA-C [address] [place] [address] Orthopedist Orthopedic Surgery 09/22/22 Vladimir Shook MD [address] [place] [address] Sports Medicine 10/06/23 Susan Rivers, SOLAR POWER INSTALLER [address] [place], [place] [address] Neurology 10/06/23 Aryan Good PA-C [address] [place], [place] [id number] Physician Government Affairs Specialist 12/09/23 Jimmy Baeza MD [address] [facility] [address] [place] [address] Operating Room Assistant Electrophysiology 03/06/24 documented as of this encounter
--- OUTSIDE RECORDS SUMMARY | 2025-08-30 14:59 | XMS_ITS | Encounter Summary ---
Author Organization [employer] ([place], [place], [place], [place]) Address [address] [place] [address] Care Team Providers Care Perinatology Physician Name Role Phone Lonny Pederson MD Primary Care Provider Romina Abreu MD Unavailable [phone] Florencia Wilcox MD Unavailable Aryan Penaloza PA-C Unavailable [phone] Vladimir Shook MD Unavailable Susan Rivers APRN Unavailable [phone] Aryan Good PA-C Unavailable [phone] Jimmy Baeza MD Unavailable Encounter Details Date Type Department Care Team (Late st Contact Info) Description 08/29/2020 Transcribed Document [facility] Family Medicine [address] [place] [address] ProviderEduardo MD [address] [place] [address] Social History Tobacco Use Types Packs/Day Years Used Date Smoking Tobacco: Never Assessed Comments Unknown Sex and Gender Information Value Date Recorded Sex Assigned at Female 09/20/2022 2:57 PM SCRAP CRUSHER Legal Sex Female 1:35 PM CDT Gender Identity Female 09/20/2022 2:57 PM SCRAP CRUSHER Sexual Orientation Straight 09/20/2022 2: 57 PM SCRAP CRUSHER documented as of this encounter Miscellaneous Notes * Cerner Conversion Note - Eduardo Foster MD - 08/29/2020 11:24 AM CDT PHUONG AGEE, [address] [facility] [address] [place] [address] Re: FLOWER MCCOY Date of Visit: 08/28/2020 Dear PHUONG AGEE Thank you for allowing me to participate in your patient's care. Please see the accompanying information that I would like to share with you regarding your patient. This Document is confidential and intended solely for the use of the individual or entity to which it is addressed. If you are not the named addressee, please disregard and do not disseminate, distribute or copy this information. If you are the intended recipient any disclosure of this information and its contents is strictly prohibited. Sincerely, VERNON PRIETO [address] [place] [address] [address] [place] [address] The following document(s) were included in the letter: August 29, 2020 11:19:50 EDT - (08/29/2020) Discharge Note documented in this encounter Plan of Treatment Upcoming Encounters Date Type Department Care Team (Late st Contact Info) Description 09/06/2025 2:45 PM EDT Office Visit [facility] Urology - [facility] [address] [facility] [address] [place] [address] Gerald Tamayo MD [address] [facility] [address] [place], [place] [address] 10/17/2025 9:30 AM EST Office Visit [facility] Primary Care [address] [facility] [address] [place] [address] Lonny Pederson MD [address] [facility] [place] [address] 10/17/2025 10:45 AM EST Office Visit [facility] Cardiology - [address] [place] [address] Romina Abreu MD [address] [place] [address] 10/17/2025 1:45 PM EST Office Visit [facility] Neurology - [facility] [address] [place] [address] Susan Rivers, MAREN [address] [facility] [address] [place], [place] [id number] documented as of this encounter Visit Diagnoses Not on filedocumented in this encounter Care Teams Perinatology Physician Relationship Specialty Start Date End Date Lonny Pederson MD [address] [place] [address] PCP - General Internal Medicine/Pediatrics 09/15/22 Romina Abreu MD [address] [place], [place] [phone] Dexigraph Operator Cardiology 09/22/22 Florencia Wilcox MD [address] [place] [address] Soap Mixer Rheumatology 09/22/22 Aryan Penaloza PA-C [address] [place] [address] Orthopedist Orthopedic Surgery 09/22/22 Vladimir Shook MD [address] [place] [address] Sports Medicine 10/06/23 Susan Rivers, MAREN [address] [facility] [address] [place] [address] Neurology 10/06/23 Aryan Good PA-C [address] [place] [address] Physician Tuber Machine Cutter 12/09/23 Jimmy Baeza MD [address] [facility] [address] [place] [address] Dexigraph Operator Electrophysiology 03/06/24 documented as of this encounter
[2025-08-30 16:00] VITALS: BP 137/66; PULSE 63; RESP 14; TEMP 37; O2SAT 95
[2025-08-30] MEDS: CEFTRIAXONE 1 GM 1 GM in 0.9 % SODIUM CHLORIDE 50 ML IV (16:55)
[2025-08-30] MEDS: LIDOCAINE 5% TRANSDERMAL PATCH 1 EACH TD (16:56)
--- NOTE | 2025-08-30 17:40 | PC.NURSE ---
patient has remained alert and oriented x3, VSS. Denies chest pain/shortness of breath. Called MD to request order for lidocaine patches for patients left neck. pt has c/o of generalized and left neck pain multiple times throughout the day. Reports decreased neck pain after application of lidocaine patch. Patients potassium and magnesium have been replaced during my shift.
[2025-08-30 19:26] VITALS: BP 176/76; PULSE 66; RESP 18; TEMP 37.1; O2SAT 95
[2025-08-30 20:00] VITALS: RESP 18; O2SAT 95
[2025-08-30 21:15] VITALS: PULSE 70; RESP 16; O2SAT 88
[2025-08-31 03:44] VITALS: BP 187/90; PULSE 62; RESP 13; TEMP 36.6; O2SAT 100
[2025-08-31 03:48] VITALS: BMI 36.2
--- NOTE | 2025-08-31 04:37 | PC.NURSE ---
Pt. is alert and orientated x 3. Pt. was on rrom air but while sleeping her O2 sats dropped to 87-88%. pt. placed on 2 liters Oxygen per N/C. O2 sats improved to 94-95%. Pt. had initial complaint of some left sided neck pain, medicated with her home med Baclofen with relief of the pain. Pt. very quiet and whispers answers to questions. Pt. has a pure wick in place draining clear yellow urine. Pt. sleeping on and off this shift. IV fluids infusing. Personal items and call villar in reach. Bed in low and locked position. Bed alarm on . safety measures in place.
[2025-08-31 06:55] LABS: Hematocrit 36.4 % (37.0-47.0); Hemoglobin 11.7 g/dL (12.2-16.2); Immature Granulocytes % 0.4 %; Mean Corpuscular HGB Conc 32.1 g/dL (31.8-35.4); Mean Corpuscular Hemoglobin 31.0 pg (27.0-31.2); Mean Corpuscular Volume 96.3 fl (81-99); Nucleated Red Blood Cells % 0 %; Platelet Count 154 K/mm3 (142-424); Red Blood Count 3.78 M/mm3 (4.20-5.40); Red Cell Distribution Width-SD 48.7 fL; White Blood Count 5.0 K/mm3 (4.8-10.8)
[2025-08-31 06:58] LABS: Albumin Level 3.1 g/dl (3.5-5.0); Chloride 101 mmol/L (98-107)
[2025-08-31 06:59] LABS: Potassium 4.1 mmoL/L (3.5-5.1); Sodium 133 mmol/L (136-145)
[2025-08-31 07:01] LABS: Alanine Aminotransferase 12 U/L (12-78); Albumin/Globulin Ratio 1.0 (1.1-1.8); Anion Gap 7.1 mEq/L (5-15); Aspartate Amino Transferase 37 U/L (14-36); Bilirubin,Total 0.3 mg/dl (0.2-1.3); Blood Urea Nitrogen 12 mg/dl (7-17); Carbon Dioxide 29 mmol/L (22.0-30.0); Creatinine Clearance Estimated 54 mL/min (50-200); Creatinine,Serum 0.90 mg/dl (0.52-1.04); Estimated Glomerular Filt Rate 60 ml/min (>60); GFR (African American) 73 ML/MIN (>60); Globulin 3.0 g/dL (1.3-3.2); Total Protein,Serum 6.1 g/dl (6.3-8.2)
[2025-08-31 07:02] LABS: Alkaline Phosphatase 78 U/L (38-126); Calcium 7.0 mg/dl (8.4-10.2); Glucose 86 mg/dl (74-100); Magnesium 2.3 mg/dl (1.6-2.3)
[2025-08-31 07:34] VITALS: BP 189/76; PULSE 65; RESP 14; TEMP 36.8; O2SAT 94
--- NOTE | 2025-08-31 07:43 | EXP.DC.SUM ---
General Admission date:: 08/29/25 Discharge date: 08/31/25 HPI HPI HPI: Ms. Amaro is a 80-year-old female who presented to the emergency department with complaints of weakness and confusion. Her son is at bedside who states that he feels that she has a urinary tract infection due to her symptoms. Patient denies urinary symptoms but does complain of intermittent shortness of breath and fatigue. She denies fevers, chills, abdominal pain, chest pain, nausea, vomiting. She does endorse a few episodes of liquid bowel movements. When asked how she is feeling she states she is okay but answers vaguely and in whispers. Physical exam is benign, lungs CTA, no focal tenderness. Denies shortness of breath or sore throat. No edema noted on exam. Workup in the emergency department was significant for magnesium of 1.4, potassium 3.2, creatinine 1.5, GFR 33, BNP 880, lactic acid 5.4. This is this patient's first time at our facility so unsure of baseline kidney function. Urinalysis was significant for trace bacteria, WBC 20?50, 2+ protein, 1+ bilirubin, 2+ leuk esterase. Patient received 1 L bolus for hydration and 1 g ceftriaxone IV in the ED. After admission respiratory swab came back positive for COVID-19. Patient lungs on exam clear to auscultation, she remains above 90% on room air. She is hemodynamically stable. She does appear slightly hypovolemic and generally weak. Hospital Course Hospital Course Hospital Course: Ms. Amaro is a 80-year-old female who presented to the emergency department with complaints of weakness and confusion. Her son is at bedside who states that he feels that she has a urinary tract infection due to her symptoms. Patient denies urinary symptoms but does complain of intermittent shortness of breath and fatigue. She denies fevers, chills, abdominal pain, chest pain, nausea, vomiting. She does endorse a few episodes of liquid bowel movements. When asked how she is feeling she states she is okay but answers vaguely and in whispers. Physical exam is benign, lungs CTA, no focal tenderness. Denies shortness of breath or sore throat. No edema noted on exam. Workup in the emergency department was significant for magnesium of 1.4, potassium 3.2, creatinine 1.5, GFR 33, BNP 880, lactic acid 5.4. This is this patient's first time at our facility so unsure of baseline kidney function. Urinalysis was significant for trace bacteria, WBC 20?50, 2+ protein, 1+ bilirubin, 2+ leuk esterase. Patient received 1 L bolus for hydration and 1 g ceftriaxone IV in the ED. After admission respiratory swab came back positive for COVID-19. Patient lungs on exam clear to auscultation, she remains above 90% on room air. She is hemodynamically stable. She does appear slightly hypovolemic and generally weak. Hospital medicine was consulted for admission, I agreed to accept the patient. Did well during admission. Therapy working with patient, needs rehab. Will discharge to [facility] [facility] for further management. Remained stable on room air throughout duration of admission. Will complete oral antibiotics for UTI. Problems addressed as follows: Plan of care as follows: #COVID-19 positive #Elevated lactate, resolved #ALDAIR, resolved ? Patient initial lactate on admission 5.4, reflex lactic's 0.8. Patient does not appear to be in respiratory distress. Lungs clear to auscultation. Maintaining oxygen saturation greater than 90% on room air. Patient denies shortness of breath today, states she does feel a little weaker than normal. States she lives at home with son and [id number] who take care of her. PT/OT recommending SNF facility at discharge or home with 24/7 care. Family elected to go with SNF therapy. Patient has done well with improvement in her kidney function back to baseline. Creatinine 0.9, BUN 12 on day of discharge. Stable on room air throughout duration of course. -TSH mildly elevated at 7.6. Free T4 lower end of normal at 0.5. Would benefit from repeat labs in 2 to 4 weeks after patient has recovered from her acute illness. If still low at that time, consider initiation of levothyroxine for hypothyroid. #Urinary tract infection -Urine culture growing gram-negative rods. Previous cultures have grown Klebsiella. Sensitive to cephalosporins. Received ceftriaxone for 3 days, will transition to cefdinir to complete 2 more days of therapy for 5 days total. Urine culture will be monitored after discharge to evaluate for sensitivity and speciation. #Hypokalemia #Hypomagnesemia ? Patient's potassium and magnesium were low initially during admission. Responded to replacement. Potassium 4.1 and magnesium 2.3 on day of discharge. Recommend repeat CBC, CMP, magnesium in 1 week to monitor for stability and need for replacement Chronic conditions: Continue baclofen 20 mg twice daily, carvedilol 3.125 mg twice daily, and memantine 28 mg daily. - Still having hypertension. Initiated on lisinopril. Monitor and make adjustments in the [facility] setting. Total time spent on discharge 32 minutes in counseling, documentation, chart review, and direct care with patient. Exam Data for Last 24 hours Vital signs and Labs for Last 24 Hours: Temp Pulse Resp BP Pulse Ox O2 Del Method O2 Flow Rate 98.3 F 65 14 189/76 H 94 L Room Air 2 08/31/25 07:34 08/31/25 07:34 08/31/25 07:34 08/31/25 07:34 08/31/25 07:34 08/31/25 07:34 08/31/25 06:39 Laboratory Results - last 24 hr 08/29/25 12:50: Urine Color Yellow, Urine Appearance Cloudy, Urine pH 5.5, Ur Specific [place] 1.025, Urine Protein 2+ A, Urine Glucose (UA) Negative, Urine Ketones Trace, Urine Blood Negative, Urine Nitrate Negative, Urine Bilirubin 1+ A, Urine Urobilinogen 0.2, Ur Leukocyte Esterase 2+ A, Urine RBC Occasional, Urine WBC 20-50, Ur Squamous Epith Cells None, Urine Bacteria Trace 08/30/25 05:29: Free T4 0.54 L 08/31/25 06:25: WBC 5.0, RBC 3.78 L, Hgb 11.7 L, Hct 36.4 L, MCV 96.3, MCH 31.0, MCHC 32.1, RDW 13.7, Plt Count 154, MPV 10.3, Neut % (Auto) 64.7, Lymph % (Auto) 23.2, [place] % (Auto) 9.7 H, Eos % (Auto) 1.8, Baso % (Auto) 0.2, Neut # (Auto) 3.3, Lymph # (Auto) 1.2, [place] # (Auto) 0.5, Eos # (Auto) 0.1, Baso # (Auto) 0.0, Sodium 133 L, Potassium 4.1 D, Chloride 101, Carbon Dioxide 29, Anion Gap 7.1, BUN 12 D, Creatinine 0.90 D, Estimated Creat Clear 54, Estimated GFR 60, Est GFR ( Amer) 73 D, Glucose 86, Calcium 7.0 L, Magnesium 2.3 D, Total Bilirubin 0.3, AST 37 H, ALT 12, Alkaline Phosphatase 78, Total Protein 6.1 L, Albumin 3.1 L, Globulin 3.0, Albumin/Globulin Ratio 1.0 L I & O for Last 24 hours: Intake & Output 08/28/25 08/29/25 08/30/25 08/31/25 23:59 23:59 23:59 23:59 Intake Total 1410 / 1660 2057.500 / 2057.500 0 / 0 Output Total 0 / 0 1350 / 1350 Balance 1410 / 1660 7.500 / 2056.500 -1350 / -1350 Weight 73.89 kg 73.89 kg 76.204 kg Microbiology Reports for the Last 24 Hours: Microbiology 08/29/25 12:50 Urine,Catheterized Urine Culture - Preliminary Gram Negative Rods 08/29/25 13:37 Blood Blood Culture - Preliminary NO GROWTH AFTER 24 HOURS 08/29/25 13:30 Blood Blood Culture - Preliminary NO GROWTH AFTER 24 HOURS Constitutional Constitutional: no acute distress, obese, chronically ill appearing and cooperative *Routine HEENT Exam Head: Present normocephalic Eye: Present EOMI and PERRL ENT: Present mucous membranes moist *Routine Neck Exam Neck: Present supple; Absent lymphadenopathy *Routine Respiratory Exam Respiratory: Present CTA bilaterally; Absent rhonchi, wheezes or crackles *Routine Cardiovascular Exam Cardiovascular: Present RRR *Routine Abdominal Exam Abdominal: Present soft and normoactive bowel sounds; Absent tenderness *Routine Rectal Exam Patient deferred: visual exam *Routine Exam Patient deferred: external exam *Routine Extremities Exam Extremities: Absent cyanosis, clubbing or edema *Routine Skin Exam Skin: Present intact and warm; Absent rash *Routine Neurological Exam Neurological: Present alert and moving all extremities; Absent altered mental status Comments: Oriented to self and place Routine Psychiatric Exam Psychiatric: Present normal affect Results Data Completed and Pending Labs on day of discharge: Labs from last 24 hours 08/31/25 08/30/25 08/29/25 06:25 05:29 12:50 WBC 5.0 RBC 3.78 L Hgb 11.7 L Hct 36.4 L MCV 96.3 MCH 31.0 MCHC 32.1 RDW 13.7 Plt Count 154 MPV 10.3 Neut % (Auto) 64.7 Lymph % (Auto) 23.2 [place] % (Auto) 9.7 H Eos % (Auto) 1.8 Baso % (Auto) 0.2 Neut # (Auto) 3.3 Lymph # (Auto) 1.2 [place] # (Auto) 0.5 Eos # (Auto) 0.1 Baso # (Auto) 0.0 Sodium 133 L Potassium 4.1 D Chloride 101 Carbon Dioxide 29 Anion Gap 7.1 BUN 12 D Creatinine 0.90 D Estimated Creat Clear 54 Estimated GFR 60 Est GFR ( Amer) 73 D Glucose 86 Calcium 7.0 L Magnesium 2.3 D Total Bilirubin 0.3 AST 37 H ALT 12 Alkaline Phosphatase 78 Total Protein 6.1 L Albumin 3.1 L Globulin 3.0 Albumin/Globulin Ratio 1.0 L Free T4 0.54 L Urine Color Yellow Urine Appearance Cloudy Urine pH 5.5 Ur Specific [place] 1.025 Urine Protein 2+ A Urine Glucose (UA) Negative Urine Ketones Trace Urine Blood Negative Urine Nitrate Negative Urine Bilirubin 1+ A Urine Urobilinogen 0.2 Ur Leukocyte Esterase 2+ A Urine RBC Occasional Urine WBC 20-50 Ur Squamous Epith Cells None Urine Bacteria Trace Preliminary micro results at discharge 08/29/25 12:50 Urine Culture - Preliminary Urine,Catheterized Gram Negative Rods 08/29/25 13:37 Blood Culture - Preliminary Blood NO GROWTH AFTER 24 HOURS 08/29/25 13:30 Blood Culture - Preliminary Blood NO GROWTH AFTER 24 HOURS DS: Diagnosis Discharge Diagnosis (1) Urinary tract infection: Status: Acute Code(s): N39.0 - Urinary tract infection, site not specified Qualifiers: Urinary tract infection type: acute cystitis Problem details: Gram-negative rods (2) Hypomagnesemia: Status: Acute Code(s): E83.42 - Hypomagnesemia (3) Hypokalemia: Status: Acute Code(s): E87.6 - Hypokalemia (4) Dehydration: Status: Acute Code(s): E86.0 - Dehydration (5) SARS-CoV-2 positive: Status: Acute Code(s): U07.1 - COVID-19 (6) ALDAIR (acute kidney injury): Status: Acute Code(s): N17.9 - Acute kidney failure, unspecified (7) Elevated serum lactate dehydrogenase: Status: Acute Code(s): R74.02 - Elevation of levels of lactic acid dehydrogenase [LDH] (8) Obesity: Status: Chronic Code(s): E66.9 - Obesity, unspecified Qualifiers: Body mass index: BMI 36.0-36.9 Meds Home Medications and Allergies Home Medications ?Medication ?Instructions ?Recorded ?Confirmed ?Type aspirin 81 mg tablet 81 mg PO DAILY 08/29/25 08/29/25 History baclofen 20 mg tablet 20 mg PO BID 08/29/25 08/29/25 History carvedilol 3.125 mg tablet 3.125 mg PO BID 08/29/25 08/29/25 History memantine 28 mg capsule 28 mg PO DAILY 08/29/25 08/29/25 History sprinkle,extended release 24hr cefdinir 300 mg capsule 300 mg PO BID 2 days #4 caps 08/31/25 Rx lidocaine 5 % topical patch 1 patch transdermal DAILY 30 days 08/31/25 Rx #30 ea lisinopril 10 mg tablet 5 mg (1/2 x 10 mg) PO DAILY 30 08/31/25 Rx days #15 tabs New Prescriptions to Start Prescriptions: cefdinir Eddie Bledsoe lidocaine Eddie Bledsoe lisinopril Eddie Bledsoe Allergies Allergy/AdvReac Type Severity Reaction Status Date / Time naphazoline (From Naphcon) Allergy Mild Rash Verified 08/29/25 11:22 Discharge Plan Disposition Patient Disposition: [facility] Condition: Good Discharge Order Discharge Orders: Discharge Order (Routine); Ordered 08/31/25 Ordered By: Eddie Bledsoe Follow up Plan Follow up with: Provider,Referral, MD [Primary Care Provider, Medical] - Enter time for follow up Prescriptions/Medication Reconciliation: New lisinopril 10 mg Tablet 5 mg PO DAILY 30 Days Qty: 15 0RF lidocaine 5 % Adhesive Patch,Medicated 1 patch transdermal DAILY 30 Days Qty: 30 0RF cefdinir 300 mg capsule 300 mg PO BID 2 Days Qty: 4 0RF Rx Instructions: start morning of 09/01/25 Continued carvedilol 3.125 mg tablet 3.125 mg PO BID baclofen 20 mg tablet 20 mg PO BID memantine 28 mg capsule,sprinkle,ER 24hr 28 mg PO DAILY aspirin 81 mg Tablet 81 mg PO DAILY Problem Reconciliation Problems Reviewed?: Yes Patient Discharge Instructions ACTIVITY: Continue current activity DIET: continue same diet Patient Instructions: DI for Dehydration in Adults, DI for Urinary Tract Infection (UTI), DI for Hypokalemia Print Language: Ukrainian Providers Primary Care Provider: Provider,Referral Admit Provider: Honorio Whitt Attending Provider: Honorio Whitt
[2025-08-31] MEDS: BACLOFEN 20 MG 1 EACH PO (10:06)
[2025-08-31] MEDS: LIDOCAINE 5% TRANSDERMAL PATCH 1 EACH TD (10:07)
[2025-08-31] MEDS: MEMANTINE 28 MG 1 EACH PO (10:07)
[2025-08-31] MEDS: LISINOPRIL 10MG TABLET 10 MG PO (10:13)
== END 2025-08-31 11:17 | DRG 682 ==
LOC: ER 14:29 → 2ND 14:52
PROVIDERS: Nurse Practitioner Family; Admitting Provider Student in an Organized Health Care Education/Training Program; Emergency Provider Student in an Organized Health Care Education/Training Program; Visit Provider Student in an Organized Health Care Education/Training Program
DX: N17.9 Acute kidney failure, unspecified (principal); U07.1 COVID-19; N39.0 Urinary tract infection, site not specified; E86.0 Dehydration; E83.42 Hypomagnesemia; E87.6 Hypokalemia; R74.02 Elevation of levels of lactic acid dehydrogenase [LDH]; I10 Essential (primary) hypertension; Z88.8 Allergy status to other drugs, medicaments and biological substances; Z79.899 Other long term (current) drug therapy
CPT/HCPCS: 0223U; 36415; 70450; 71045; 80053; 80061; 81001; 83036; 83605; 83690; 83735; 83880; 84439; 84443; 84484; 85025; 86803; 87040; 87086; 87088; 87186; 87389; 93005; 97162; 97166; 97530; 99285; J0696; J1650; J3475; J7030